=== PATIENT | female | born 1930 | race Caucasian/White ===

== ENCOUNTER 2017-03-05 19:40 | Emergency (ER) | payer OTHER ==
[~2017-03-05] VITALS: Ht 157.5 cm; Wt 64.8 kg
[~2017-03-05 19:40] MED LIST: ACET-1256 PO; ALBUAER2 INH; CITA20TA4 PO; CLR10 PO; DIGO0.122 PO; DOUNEB INH; FERR325T51 PO; LISI-729 PO; LSX/40 PO; METO100T44 PO; WARF4TAB8 PO; XNX25 PO
[2017-03-05 19:44] VITALS: TEMP 36.3; Ht 157.5 cm; Wt 64.8 kg
[2017-03-05] MEDS ORDERED: ARTIFICIAL TEARS OP SOLN OP STA (20:03)
[2017-03-05] MEDS ORDERED: METHYLPREDNISOLONE 125 MG VIAL IV STA (20:03)
[2017-03-05] MEDS ORDERED: MAGNESIUM SULFATE 1GM / D5W 1 GM BAG IV STA (20:03)
[2017-03-05] MEDS ORDERED: PROPARACAINE HCL 0.5% OP SOLN 15 ML BTL OP STA (20:03)
[2017-03-05] MEDS ORDERED: ALBUT/IPRATROP 3MG/0.5MG NEB 3 ML VIAL INH ONE (20:15)
[2017-03-05 20:19] VITALS: O2SAT 94
[2017-03-05] MEDS ORDERED: ALPR0.25 PO (20:19)
[2017-03-05] MEDS ORDERED: CITA20TA9 PO (20:19)
[2017-03-05] MEDS ORDERED: ACET-1256 PO (20:27)
[2017-03-05] MEDS ORDERED: LNX125 PO (20:27)
[2017-03-05] MEDS ORDERED: VNTHFA/IN INH (20:27)
[2017-03-05] MEDS ORDERED: MOME110A INH (20:27)
[2017-03-05] MEDS ORDERED: FRS/40 PO (20:27)
[2017-03-05] MEDS ORDERED: IPRASOL4 INH ×2 (20:27→23:20)
[2017-03-05] MEDS ORDERED: FLUT0.15 NAE (20:27)
[2017-03-05 20:38] LABS: BASO % 0.3 %; BASO ABS # 0.03 K/uL (0-0.2); EOS % 3.8 %; EOS ABS # 0.33 K/uL (0-0.5); HEMATOCRIT 34.7 % (37-47); HEMOGLOBIN 11.4 g/dL (12.0-16.0); IG# 0.03 K/uL (0.00-0.02); LYMPH % 16.7 %; LYMPH ABS # 1.47 K/uL (1.2-3.4); MEAN CELL VOLUME 95.1 fL (80-100); MEAN CORPUSCULAR HEMOGLOBIN 31.2 pg (25-34); MEAN CORPUSCULAR HGB CONC 32.9 g/dl (32-36); MEAN PLATELET VOLUME 9.3 fL (7.4-10.4); MONO % 7.3 %; MONO ABS # 0.64 K/uL (0.11-0.59); NEUT % 71.6 %; NEUT ABS # 6.29 K/uL (1.4-6.5); PLATELET COUNT 222 K/uL (130-400); RED CELL DISTRIBUTION WIDTH CV 14.1 % (11.5-14.5); RED CELL DISTRIBUTION WIDTH SD 49.2 fL (36.4-46.3); WHITE BLOOD COUNT 8.79 K/uL (4.8-10.8)
--- NOTE | 2017-03-05 20:39 | EMERGENCY ROOM VISIT NOTE ---
History Report prepared by Gay: Sandra Montes De Oca Under the Supervision of: Dr. Jesus Duarte M.D. First contact with patient: 19:49 Chief Complaint: ILLNESS Stated Complaint: DIZZY,LEFT EYE SWOLLEN SHUT, FLU SY History of Present Illness The patient is a 86 year old female who presents to the Emergency Room with complaints of Review of Systems See HPI for pertinent positives and negatives. A total of ten systems were reviewed and were otherwise negative. Past Medical & Surgical Medical Problems: (1) Anemia, chronic renal failure (2) Asthma (3) Chronic atrial fibrillation (4) CKD (chronic kidney disease) stage 3, GFR 30-59 ml/min (5) Depression (6) Diastolic CHF due to valvular disease (7) HTN (hypertension) Surgical Problems: (1) H/O cataract removal with insertion of prosthetic lens (2) History of appendectomy (3) History of cholecystectomy (4) History of total hysterectomy Family History Patient reports no known family medical history. Social History Smoking Status: Former Smoker Alcohol Use: none Drug Use: none Marital Status: in relationship Housing Status: lives with significant other Occupation Status: retired Current/Historical Medications Scheduled Azithromycin (Zithromax), 250 MG PO DAILY Citalopram Hydrobromide (Celexa), 20 MG PO DAILY Digoxin (Digoxin), 0.125 MG PO DAILY Fluticasone Propionate (Nasal) (Flonase Allergy Relief), 2 SPRAYS RAUL DAILY Furosemide (Lasix), 40 MG PO BID Lisinopril (Zestril), 5 MG PO QAM Metoprolol Succ (Toprol Xl) (Toprol-Xl ), 100 MG PO QAM Mometasone Furoate (Inhalation (Asmanex 30 Metered Doses), 2 PUFFS INH DAILY Prednisone (Prednisone), 3 TAB PO DAILY Warfarin Sod (Jantoven), 4 MG PO UD Scheduled PRN Acetaminophen (Tylenol), 500 MG PO Q6 PRN for Pain or Fever Albuterol Hfa (Ventolin Hfa), 2 PUFFS INH Q4 PRN for SOB/Wheezing Alprazolam (Xanax), 0.25 MG PO DAILY PRN for Anxiety Erythromycin Opth (Erythromycin Opth), 1 APPLN OPL TID PRN for tid Ipratropium-Albuterol (Duoneb), 1 TREATMENT INH Q4H PRN for COUGH,SOB, WHEEZING Ipratropium-Albuterol (Duoneb), 1 TREATMENT INH Q4H PRN for Wheezing Loratadine (Claritin), 10 MG PO QAM PRN for Seasonal Allergies Allergies Coded Allergies: Meperidine (Verified Allergy, Unknown, ., 08/06/15) Sulfa Antibiotics (Verified Allergy, Unknown, ., 08/06/15) Oxycodone (Verified Adverse Reaction, Severe, Hallucinating, 08/06/15) Physical Exam Vital Signs Date Time Temp Pulse Resp B/P (MAP) Pulse Ox O2 Delivery O2 Flow Rate FiO2 03/05/17 23:40 122 22 140/104 97 Room Air 03/05/17 21:36 94 20 136/88 100 Mask 03/05/17 20:50 98 19 92 Room Air 03/05/17 20:23 108 03/05/17 20:19 94 Room Air 03/05/17 19:44 36.3 104 18 139/72 94 Room Air Physical Exam GENERAL: Awake, alert, well-appearing, in no distress HENT: Normocephalic, atraumatic. Oropharynx unremarkable. Dry, cracked MM. EYES: Mild erythema around left eye with conjunctival injection and slight chemosis. NECK: Supple. No nuchal rigidity. FROM. No JVD. RESPIRATORY: Scattered rhonchi and wheezing. CARDIAC: Regular rate, normal rhythm. Extremities warm and well perfused. Pulses equal. ABDOMEN: Soft, non-distended. No tenderness to palpation. No rebound or guarding. No masses. RECTAL: Deferred. MUSCULOSKELETAL: Chest examination reveals no tenderness. The back is symmetrical on inspection without obvious abnormality. There is no CVA tenderness to palpation. No joint edema. LOWER EXTREMITIES: Calves are equal size bilaterally and non-tender. No edema. No discoloration. NEURO: Normal sensorium. No sensory or motor deficits noted. SKIN: No rash or jaundice noted. Medical Decision & Procedures ER Provider Diagnostic Interpretation: Radiology results as stated below per my review and radiologist interpretation: CHEST ONE VIEW PORTABLE FINDINGS: The heart remains enlarged. There is a small right pleural effusion and trace left pleural effusion. There is no focal pulmonary consolidation. There is no overt failure.[ IMPRESSION: 1. Cardiomegaly with a small right pleural effusion and trace left pleural effusion. No evidence of focal pulmonary consolidation Electronically signed by: Miquel Perez M.D. Laboratory Results 03/05/17 20:30 Red Blood Count 3.65, Mean Corpuscular Volume 95.1, Mean Corpuscular Hemoglobin 31.2, Mean Corpuscular Hemoglobin Concent 32.9, Mean Platelet Volume 9.3, Neutrophils (%) (Auto) 71.6, Lymphocytes (%) (Auto) 16.7, Monocytes (%) (Auto) 7.3, Eosinophils (%) (Auto) 3.8, Basophils (%) (Auto) 0.3, Neutrophils # (Auto) 6.29, Lymphocytes # (Auto) 1.47, Monocytes # (Auto) 0.64, Eosinophils # (Auto) 0.33, Basophils # (Auto) 0.03 03/05/17 20:30 Test 03/05/17 20:30 03/05/17 21:11 White Blood Count 8.79 K/uL (4.8-10.8) Red Blood Count 3.65 M/uL (4.2-5.4) Hemoglobin 11.4 g/dL (12.0-16.0) Hematocrit 34.7 % (37-47) Mean Corpuscular Volume 95.1 fL (80-100) Mean Corpuscular Hemoglobin 31.2 pg (25-34) Mean Corpuscular Hemoglobin Concent 32.9 g/dl (32-36) Platelet Count 222 K/uL (130-400) Mean Platelet Volume 9.3 fL (7.4-10.4) Neutrophils (%) (Auto) 71.6 % Lymphocytes (%) (Auto) 16.7 % Monocytes (%) (Auto) 7.3 % Eosinophils (%) (Auto) 3.8 % Basophils (%) (Auto) 0.3 % Neutrophils # (Auto) 6.29 K/uL (1.4-6.5) Lymphocytes # (Auto) 1.47 K/uL (1.2-3.4) Monocytes # (Auto) 0.64 K/uL (0.11-0.59) Eosinophils # (Auto) 0.33 K/uL (0-0.5) Basophils # (Auto) 0.03 K/uL (0-0.2) RDW Standard Deviation 49.2 fL (36.4-46.3) RDW Coefficient of Variation 14.1 % (11.5-14.5) Immature Granulocyte % (Auto) 0.3 % Immature Granulocyte # (Auto) 0.03 K/uL (0.00-0.02) Prothrombin Time 28.2 SECONDS (9.0-12.0) Prothromb Time International Ratio 2.7 (0.9-1.1) Anion Gap 5.0 mmol/L (3-11) Est Creatinine Clear Calc Drug Dose 45.1 ml/min Estimated GFR () 76.2 Estimated GFR (Non- 65.7 BUN/Creatinine Ratio 25.9 (10-20) Calcium Level 8.2 mg/dl (8.5-10.1) Total Bilirubin 0.4 mg/dl (0.2-1) Direct Bilirubin 0.1 mg/dl (0-0.2) Aspartate Amino Transf (AST/SGOT) 22 U/L (15-37) Alanine Aminotransferase (ALT/SGPT) 24 U/L (12-78) Alkaline Phosphatase 76 U/L (45-117) Troponin I 0.016 ng/ml (0-0.045) Pro-B-Type Natriuretic Peptide 2958 pg/ml (0-1800) Total Protein 6.8 gm/dl (6.4-8.2) Albumin 3.2 gm/dl (3.4-5.0) Lipase 136 U/L (73-393) Digoxin Level 0.9 ng/ml (0.8-2.0) Influenza Type A (RT-PCR) Neg for Influ A (NEG) Influenza Type A Antigen Neg for Influ A (NEG) Influenza Type B Antigen Neg for Influ B (NEG) Influenza Type B (RT-PCR) Neg for Influ B (NEG) Laboratory results reviewed by me Medications Administered Medications (Trade) Dose Ordered Sig/Elizabeth Route Start Time Stop Time Status Last Admin Dose Admin Albuterol/ Ipratropium (Duoneb) 12 ml ONE ONCE INH 03/05/17 20:15 03/05/17 20:16 DC 03/05/17 20:15 12 ML Methylprednisolone Sodium Succinate (Solu-Medrol IV) 125 mg NOW STAT IV 03/05/17 20:03 03/05/17 20:09 DC 03/05/17 20:34 125 MG Magnesium Sulfate (Magnesium Sulfate) 2 gm NOW STAT IV 03/05/17 20:03 03/05/17 20:09 DC 03/05/17 20:35 2 GM Artificial Tears (Artificial Tears) 2 drops NOW STAT OP 03/05/17 20:03 03/05/17 20:09 DC 03/05/17 20:35 2 DROPS Proparacaine HCl (Alcaine 0.5% Oph Soln) 1 drops NOW STAT OP 03/05/17 20:03 03/05/17 20:10 DC 03/05/17 20:35 1 DROPS Azithromycin (Zithromax Tab) 500 mg NOW ONCE PO 03/05/17 21:45 03/05/17 21:46 DC 03/05/17 22:04 500 MG Erythromycin (Erythromycin Oph Oint) 1 appln NOW STAT OP 03/05/17 23:15 03/05/17 23:16 DC 03/05/17 23:41 1 APPLN Procedure Slit lamp exam: snterior chamber is clear. There is mild scleral injection and chemosis. Normal for Florescene uptake without evidence of corneal abrasion or ulceration. ECG Indication: SOB/dyspnea Rate (beats per minute): 93 Rhythm: atrial fibrillation Findings: no acute ischemic change, other (normal axis) ED Course 1951: The patient was evaluated in room C9. A complete history and physical exam was performed. 2141: I updated the patient on her test results. Medical Decision I reviewed the patient's past medical history, medications, and the nursing notes as described above. Differential diagnoses: Pneumonia, bronchitis, ACS, CHF, Afib, influenza, viral syndrome, UTI, conjunctivitis. The patient is an 86-year-old woman with a past medical history of COPD/asthma, afib on coumadin, who presents to emergency department with cough congestion and shortness of breath for the past couple of weeks as well as left eye redness and irritation for the past couple of days per hpi. On arrival the patient is in no acute distress, afebrile stable vital signs. She was given steroids and continuous neb with good effect, poor and she feels like she is breathing much better. Given the patient's persistent symptoms with productive sputum will treat with a Azithromycin well. CXR negative for PNA. Slit lamp exam performed and anterior chamber is clear. There is mild scleral injection and chemosis. Normal for Florescene uptake without evidence of corneal abrasion or ulceration. Will treat with erythromycin ophthalmic ointment. She will follow-up with her green pipefitter, Dr. Benoit, well as her PCP early next week. Findings and plan for follow-up reviewed with patient. Patient agreeable and d/c'd per discharge instructions. Medication Reconcilliation Current Medication List: was personally reviewed by me Blood Pressure Screening Patient's blood pressure: Elevated blood pressure Blood pressure disposition: Elevated BP felt to be situational Impression Primary Impression: Acute bronchitis Additional Impression: Conjunctivitis Scribe Attestation The scribe's documentation has been prepared under my direction and personally reviewed by me in its entirety. I confirm that the note above accurately reflects all work, treatment, procedures, and medical decision making performed by me. Departure Information Dispostion Home / Self-Care Prescriptions Ipratropium-Albuterol (DUONEB) 3 Ml Nebu 1 TREATMENT INH Q4H Y for Wheezing, #30 INHA Prov: Jesus Duarte M.D. 03/05/17 Erythromycin Opth (ERYTHROMYCIN OPTH) 12 Appln/3.5 Gm Oint 1 APPLN OPL TID Y for tid, #1 TUBE Prov: Jesus Duarte M.D. 03/05/17 Azithromycin (Zithromax) 250 Mg Tab 250 MG PO DAILY, #4 TAB Prov: Jesus Duarte M.D. 03/05/17 Prednisone (Prednisone) 20 Mg Tab 3 TAB PO DAILY for 4 Days, #12 TAB FOR 4 DAYS Prov: Jesus Duarte M.D. 03/05/17 Referrals Ariana Pendleton M.D. (PCP) Forms HOME CARE DOCUMENTATION FORM, IMPORTANT VISIT INFORMATION, WORK / SCHOOL INSTRUCTIONS Patient Instructions Bronchitis Acute Dc, ED Conjunctivitis Nonspecific, My [facility] Additional Instructions Please follow up with your primary care physician in the next 1-3 days as well as with your green pipefitter, Dr. Estrada, for re-evaluation. You likely have a bronchitis and a conjunctivitis. Otherwise, your exam, EKG, chest xray, and lab results did not show signs of an emergent condition at this time. Azithromycin and prednisone as directed. Use your home inhalers 2 puffs every 4 hours for the next 48 hours and then as needed thereafter. Apply erythromycin ophthalmic ointment to your left eye as directed. Return to the emergency department for worsening symptoms as described in the accompanying instructions. Problem Qualifiers
--- NOTE | 2017-03-05 20:41 | DIAGNOSTIC IMAGING REPORT ---
CHEST ONE VIEW PORTABLE CLINICAL HISTORY: Atypical chest pain COMPARISON STUDY: 06/13/2015 FINDINGS: The heart remains enlarged. There is a small right pleural effusion and trace left pleural effusion. There is no focal pulmonary consolidation. There is no overt failure.[ IMPRESSION: 1. Cardiomegaly with a small right pleural effusion and trace left pleural effusion. No evidence of focal pulmonary consolidation Electronically signed by: Miquel Perez M.D. 03/05/2017 8:39 PM Dictated Date/Time: 03/05/2017 8:38 PM
[2017-03-05 20:50] VITALS: PULSE 98; O2SAT 92
[2017-03-05 20:51] LABS: INR 2.7 (0.9-1.1)
[2017-03-05 21:03] LABS: ALBUMIN 3.2 gm/dl (3.4-5.0); CALCIUM 8.2 mg/dl (8.5-10.1); CREATININE 0.82 mg/dl (0.60-1.20); POTASSIUM 3.9 mmol/L (3.5-5.1)
[2017-03-05 21:09] LABS: TOTAL PROTEIN 6.8 gm/dl (6.4-8.2)
[2017-03-05 21:35] LABS: INFLUENZA B ANTIGEN Neg for Influ B (NEG)
[2017-03-05] MEDS ORDERED: AZITHROMYCIN 250 MG TAB PO ONE (21:45)
[2017-03-05] MEDS ORDERED: PRED20TA PO (21:59)
[2017-03-05] MEDS ORDERED: AZIT250T PO (21:59)
[2017-03-05] MEDS ORDERED: ERYOPO OPL (22:00)
[2017-03-05 22:19] LABS: INFLUENZA A PCR Neg for Influ A (NEG); INFLUENZA B PCR Neg for Influ B (NEG)
[2017-03-05] MEDS ORDERED: ERYTHROMYCIN OP OINT 1 GM PKT OP STA (23:15)
[2017-03-05 23:40] VITALS: BP 140/104; PULSE 122; O2SAT 97
--- NOTE | 2017-03-07 13:53 | Pharmacy Progress Note ---
ED Pharmacist Culture FollowUp Date of Service: Mar 07, 2017. Patient urine culture growing E. coli >100,000 CFU/ml, resistant to bactrim, unasyn, and ampicillin. Patient denied urinary symptoms at time of visit. Case discussed with Dr. Smith- Follow up with patient, if symptoms Keflex 500 mg BID x 7 days, if no symptoms then no treatment necessary. Called patient and left message to call back ~ [phone].
--- NOTE | 2017-03-08 11:39 | Pharmacy Progress Note ---
ED Pharmacist Culture FollowUp Date of Service: Mar 08, 2017. Attempted to contact patient regarding urine cx results from 03/05/17. There was no answer at the # provided: [phone] however I did leave a message requesting a return call. Patient had not c/o urinary symptoms at he ER visit and was not diagnosed with a UTI. The urine cx is growing e coli however this could be a contaminant or asymptomatic bacteruria that does not require abx therapy. Per Dr Smith's instructions, if pt is having symptoms she is to be place on Keflex 500mg PO BID x 7 days,however if she is not having symptoms no abx therapy is warranted.
== END 2017-03-05 23:49 | disposition home or self-care (01) ==
LOC: C.EDB 19:41 → C.EDC 23:49
DX: J20.9 Acute bronchitis, unspecified (principal); H10.9 Unspecified conjunctivitis; I48.91 Unspecified atrial fibrillation; I12.9 Hypertensive chronic kidney disease with stage 1 through stage 4 chronic kidney disease, or unspecified chronic kidney disease; N18.3 Chronic kidney disease, stage 3 (moderate); I50.30 Unspecified diastolic (congestive) heart failure; F32.9 Major depressive disorder, single episode, unspecified; D63.1 Anemia in chronic kidney disease; Z90.710 Acquired absence of both cervix and uterus; Z90.49 Acquired absence of other specified parts of digestive tract; Z98.890 Other specified postprocedural states; Z87.891 Personal history of nicotine dependence; Z79.01 Long term (current) use of anticoagulants; Z79.899 Other long term (current) drug therapy; Z88.2 Allergy status to sulfonamides; Z88.5 Allergy status to narcotic agent; Z88.8 Allergy status to other drugs, medicaments and biological substances

== ENCOUNTER 2017-06-15 08:15 | Emergency (ER) | payer OTHER ==
[~2017-06-15] VITALS: Ht 157.5 cm; Wt 66.8 kg
[~2017-06-15 08:15] MED LIST changes: -ALBUAER2 INH; +ALPR0.25 PO; +AZIT250T PO; -CITA20TA4 PO; +CITA20TA9 PO; -DIGO0.122 PO; -DOUNEB INH; +ERYOPO OPL; -FERR325T51 PO; +FLUT0.15 NAE; +FRS/40 PO; +IPRASOL4 INH; +LNX125 PO; -LSX/40 PO; +MOME110A INH; +VNTHFA/IN INH; -XNX25 PO
[2017-06-15 08:20] VITALS: TEMP 36.8; Ht 157.5 cm; Wt 66.8 kg
[2017-06-15] MEDS ORDERED: CIPROFLOXACIN HCL 0.3% OP SOLN 2.5 ML BTL OPR STA (08:37)
[2017-06-15] MEDS ORDERED: ALBUT/IPRATROP 3MG/0.5MG NEB 3 ML VIAL INH STA (08:39)
[2017-06-15] MEDS ORDERED: CMD/25 PO (08:59)
[2017-06-15 09:01] LABS: BASO % 0.5 %; BASO ABS # 0.03 K/uL (0-0.2); EOS % 6.7 %; EOS ABS # 0.38 K/uL (0-0.5); HEMATOCRIT 34.9 % (37-47); HEMOGLOBIN 11.4 g/dL (12.0-16.0); IG# 0.01 K/uL (0.00-0.02); LYMPH % 14.4 %; LYMPH ABS # 0.82 K/uL (1.2-3.4); MEAN CELL VOLUME 92.6 fL (80-100); MEAN CORPUSCULAR HEMOGLOBIN 30.2 pg (25-34); MEAN CORPUSCULAR HGB CONC 32.7 g/dl (32-36); MONO % 8.9 %; MONO ABS # 0.51 K/uL (0.11-0.59); NEUT % 69.3 %; NEUT ABS # 3.96 K/uL (1.4-6.5); PLATELET COUNT 278 K/uL (130-400); RED CELL DISTRIBUTION WIDTH CV 14.8 % (11.5-14.5); RED CELL DISTRIBUTION WIDTH SD 50.7 fL (36.4-46.3); WHITE BLOOD COUNT 5.71 K/uL (4.8-10.8)
--- NOTE | 2017-06-15 09:03 | DIAGNOSTIC IMAGING REPORT ---
CHEST ONE VIEW PORTABLE CLINICAL HISTORY: cough dyspnea COMPARISON STUDY: 03/05/2017 FINDINGS: Moderate cardiomegaly. Moderate increase in pulmonary vasculature compared to the prior study. Trace bilateral pleural effusions. IMPRESSION: Mild congestive heart failure. Very small bilateral pleural effusions. The above report was generated using voice recognition software. It may contain grammatical, syntax or spelling errors. Electronically signed by: Jesus Gaxiola M.D. 06/15/2017 9:02 AM Dictated Date/Time: 06/15/2017 9:02 AM
[2017-06-15 09:10] LABS: INR 2.7 (0.9-1.1); PTT PATIENT 37.8 SECONDS (21.0-31.0)
[2017-06-15 09:17] LABS: ALBUMIN 3.1 gm/dl (3.4-5.0); CALCIUM 8.6 mg/dl (8.5-10.1); CREATININE 0.82 mg/dl (0.60-1.20); POTASSIUM 3.8 mmol/L (3.5-5.1)
[2017-06-15 09:20] LABS: TOTAL PROTEIN 6.3 gm/dl (6.4-8.2)
[2017-06-15] MEDS ORDERED: FUROSEMIDE 40 MG/4 ML VIAL IV STA (09:45)
[2017-06-15] MEDS ORDERED: AMOXICILLIN/CLAVULANATE TAB 875 MG TAB PO ONE (10:00)
[2017-06-15] MEDS ORDERED: ACETAMINOPHEN 325 MG TAB PO STA (10:12)
--- NOTE | 2017-06-15 10:42 | DIAGNOSTIC IMAGING REPORT ---
HEAD WITHOUT CONTRAST (CT) CT DOSE: 690.05 mGycm HISTORY: Headache. Mental status change. PACHECO, R subconj hem TECHNIQUE: Multiaxial CT images of the head were performed without the use of intravenous contrast. A dose lowering technique was utilized adhering to the principles of ALARA. Comparison: 06/12/2015 Findings: The paranasal sinuses and mastoid air cells are clear. The calvarium and skull base are intact. The ventricles and sulci are within normal limits. There is no mass, hematoma, midline shift, or acute infarct. Mild age-related atrophy and chronic small vessel change Impression: No acute intracranial abnormality. Age-related change The above report was generated using voice recognition software. It may contain grammatical, syntax or spelling errors. Electronically signed by: Jesus Gaxiola M.D. 06/15/2017 10:41 AM Dictated Date/Time: 06/15/2017 10:39 AM
[2017-06-15 11:31] VITALS: BP 139/88; PULSE 84; O2SAT 92
[2017-06-15] MEDS ORDERED: AMOX875T PO (11:56)
--- NOTE | 2017-06-15 12:07 | EMERGENCY ROOM VISIT NOTE ---
History Report prepared by Gay: Chu Love Under the Supervision of: Dr. Jami Smith M.D. First contact with patient: 08:27 Chief Complaint: EYE ASSESSMENT Stated Complaint: DRAINING FROM EYES,BRONCHITIS History of Present Illness The patient is a 86 year old female who presents to the Emergency Room with complaints of worsening right eye redness beginning last night. Her symptoms worsened significantly upon waking up this morning. The patient states that there is bruising around her eye, and she expressed a small amount of blood from her tear duct this morning. She states that she is seeing double unless she covers one of her eyes. Her vision is improved with sitting forward. The patient had cataract surgery 17 years ago. She had conjunctivitis four months ago and was supposed to follow up with ophthalmology afterwards but never did. She denies recent trauma or injury. The patient also complains of a cough (x2 weeks). She denies rubbing her eyes a lot last night. She is on Coumadin - most recent INR was two weeks ago and was too high. The patient denies black or bloody stool, or urinary symptoms. Source of History: patient Onset: Last night Position: eye (right) Quality: other (redness) Timing: worsening Associated Symptoms: + cough (x2 weeks), No melena, No hematochezia, No urinary symptoms Note: Positive: seeing double. Review of Systems See HPI for pertinent positives & negatives. A total of 10 systems reviewed and were otherwise negative. Past Medical & Surgical Medical Problems: (1) Anemia, chronic renal failure (2) Asthma (3) Chronic atrial fibrillation (4) CKD (chronic kidney disease) stage 3, GFR 30-59 ml/min (5) Depression (6) Diastolic CHF due to valvular disease (7) HTN (hypertension) Surgical Problems: (1) H/O cataract removal with insertion of prosthetic lens (2) History of appendectomy (3) History of cholecystectomy (4) History of total hysterectomy Family History Patient reports no known family medical history. Social History Smoking Status: Former Smoker Alcohol Use: none Drug Use: none Marital Status: Housing Status: lives with family Occupation Status: retired Current/Historical Medications Scheduled Amoxicillin & Pot Clavulanate (Augmentin 875-125 mg), 875 MG PO BID Citalopram Hydrobromide (Celexa), 20 MG PO DAILY Digoxin (Digoxin), 0.125 MG PO DAILY Furosemide (Lasix), 40 MG PO BID Lisinopril (Zestril), 5 MG PO QAM Metoprolol Succ (Toprol Xl) (Toprol-Xl ), 100 MG PO QAM Mometasone Furoate (Inhalation (Asmanex 30 Metered Doses), 2 PUFFS INH DAILY Warfarin Sod (Coumadin), 2.5 MG PO DIRECTED Scheduled PRN Acetaminophen (Tylenol), 500 MG PO Q6 PRN for Pain or Fever Albuterol Hfa (Ventolin Hfa), 2 PUFFS INH Q4 PRN for SOB/Wheezing Alprazolam (Xanax), 0.25 MG PO DAILY PRN for Anxiety Ipratropium-Albuterol (Duoneb), 1 TREATMENT INH Q4H PRN for COUGH,SOB, WHEEZING Loratadine (Claritin), 10 MG PO QAM PRN for Seasonal Allergies Allergies Coded Allergies: Meperidine (Verified Allergy, Unknown, ., 08/06/15) Sulfa Antibiotics (Verified Allergy, Unknown, ., 08/06/15) Oxycodone (Verified Adverse Reaction, Severe, Hallucinating, 08/06/15) Physical Exam Vital Signs Date Time Temp Pulse Resp B/P (MAP) Pulse Ox O2 Delivery O2 Flow Rate FiO2 06/15/17 11:31 84 18 139/88 92 Room Air 06/15/17 10:05 136/76 06/15/17 08:20 36.8 133 20 132/78 93 Room Air Physical Exam Vital signs reviewed. General: Well-appearing, elderly female, in no significant distress. HEENT: Neck is supple. Nasal congestion noted. PERRLA.. Marked subconjunctival hemorrhage with some periorbital ecchymosis on the right. No corneal abrasion by fluorecin exam. Full ROM of eye without difficulty. Cardiovascular: Regular rate and rhythm, no extra sounds. Pulmonary: Faint scattered wheezes. Abdomen: Soft, nontender, nondistended, positive bowel sounds. Musculoskeletal: Atraumatic, no peripheral edema. Neurologic: Patient awake alert and oriented x 3, full strength in all 4 extremities. Cranial nerves 2 through 12 grossly intact. Skin: Warm, dry, no rash Medical Decision & Procedures ER Provider Diagnostic Interpretation: Radiology results as stated below per my review and radiologist interpretation: CHEST ONE VIEW PORTABLE FINDINGS: Moderate cardiomegaly. Moderate increase in pulmonary vasculature compared to the prior study. Trace bilateral pleural effusions. IMPRESSION: Mild congestive heart failure. Very small bilateral pleural effusions. The above report was generated using voice recognition software. It may contain grammatical, syntax or spelling errors. Electronically signed by: Jesus Gaxiola M.D. 06/15/2017 9:02 AM HEAD WITHOUT CONTRAST (CT) Findings: The paranasal sinuses and mastoid air cells are clear. The calvarium and skull base are intact. The ventricles and sulci are within normal limits. There is no mass, hematoma, midline shift, or acute infarct. Mild age-related atrophy and chronic small vessel change Impression: No acute intracranial abnormality. Age-related change The above report was generated using voice recognition software. It may contain grammatical, syntax or spelling errors. Electronically signed by: Jesus Gaxiola M.D. 06/15/2017 10:41 AM Laboratory Results 06/15/17 08:50 Red Blood Count 3.77, Mean Corpuscular Volume 92.6, Mean Corpuscular Hemoglobin 30.2, Mean Corpuscular Hemoglobin Concent 32.7, Mean Platelet Volume 9.0, Neutrophils (%) (Auto) 69.3, Lymphocytes (%) (Auto) 14.4, Monocytes (%) (Auto) 8.9, Eosinophils (%) (Auto) 6.7, Basophils (%) (Auto) 0.5, Neutrophils # (Auto) 3.96, Lymphocytes # (Auto) 0.82, Monocytes # (Auto) 0.51, Eosinophils # (Auto) 0.38, Basophils # (Auto) 0.03 06/15/17 08:50 Test 06/15/17 08:50 White Blood Count 5.71 K/uL (4.8-10.8) Red Blood Count 3.77 M/uL (4.2-5.4) Hemoglobin 11.4 g/dL (12.0-16.0) Hematocrit 34.9 % (37-47) Mean Corpuscular Volume 92.6 fL (80-100) Mean Corpuscular Hemoglobin 30.2 pg (25-34) Mean Corpuscular Hemoglobin Concent 32.7 g/dl (32-36) Platelet Count 278 K/uL (130-400) Mean Platelet Volume 9.0 fL (7.4-10.4) Neutrophils (%) (Auto) 69.3 % Lymphocytes (%) (Auto) 14.4 % Monocytes (%) (Auto) 8.9 % Eosinophils (%) (Auto) 6.7 % Basophils (%) (Auto) 0.5 % Neutrophils # (Auto) 3.96 K/uL (1.4-6.5) Lymphocytes # (Auto) 0.82 K/uL (1.2-3.4) Monocytes # (Auto) 0.51 K/uL (0.11-0.59) Eosinophils # (Auto) 0.38 K/uL (0-0.5) Basophils # (Auto) 0.03 K/uL (0-0.2) RDW Standard Deviation 50.7 fL (36.4-46.3) RDW Coefficient of Variation 14.8 % (11.5-14.5) Immature Granulocyte % (Auto) 0.2 % Immature Granulocyte # (Auto) 0.01 K/uL (0.00-0.02) Prothrombin Time 27.9 SECONDS (9.0-12.0) Prothromb Time International Ratio 2.7 (0.9-1.1) Activated Partial Thromboplast Time 37.8 SECONDS (21.0-31.0) Partial Thromboplastin Ratio 1.5 Anion Gap 5.0 mmol/L (3-11) Est Creatinine Clear Calc Drug Dose 45.8 ml/min Estimated GFR () 76.2 Estimated GFR (Non- 65.7 BUN/Creatinine Ratio 22.9 (10-20) Calcium Level 8.6 mg/dl (8.5-10.1) Total Bilirubin 0.4 mg/dl (0.2-1) Direct Bilirubin 0.1 mg/dl (0-0.2) Aspartate Amino Transf (AST/SGOT) 25 U/L (15-37) Alanine Aminotransferase (ALT/SGPT) 24 U/L (12-78) Alkaline Phosphatase 64 U/L (45-117) Total Protein 6.3 gm/dl (6.4-8.2) Albumin 3.1 gm/dl (3.4-5.0) Laboratory results per my review. Medications Administered Medications (Trade) Dose Ordered Sig/Elizabeth Route Start Time Stop Time Status Last Admin Dose Admin Ciprofloxacin HCl (Ciprofloxacin 0.3% Op Soln) 2 drops NOW STAT OPR 06/15/17 08:37 06/15/17 08:39 DC 06/15/17 08:51 2 DROPS Albuterol/ Ipratropium (Duoneb) 3 ml NOW STAT INH 06/15/17 08:39 06/15/17 08:40 DC 06/15/17 08:51 3 ML Furosemide (Lasix Inj) 40 mg NOW STAT IV 06/15/17 09:45 06/15/17 09:46 DC 06/15/17 10:29 40 MG Amoxicillin/ Clavulanate Potassium (Augmentin Tab) 875 mg ONE ONCE PO 06/15/17 10:00 06/15/17 10:01 DC 06/15/17 10:30 875 MG Acetaminophen (Tylenol Tab) 650 mg NOW STAT PO 06/15/17 10:12 06/15/17 10:14 DC 06/15/17 10:31 650 MG ED Course 0835: Past medical records reviewed. The patient was evaluated in room B4B. A complete history and physical examination was performed. 0837: Ordered Ciprofloxacin 0.3% Op Soln 2 drops OPR. 0839: Ordered DuoNeb 3 mL INH. 0945: Ordered Lasix Inj 40 mg IV. 1000: Ordered Augmentin Tab 875 mg PO. 1012: The patient would like something for pain. Ordered Tylenol Tab 650 mg PO. 1155: Upon reevaluation, the patient appeared to have improvement of her symptoms. I discussed findings with her. She verbalized agreement of the treatment plan. The patient was discharged home. Medical Decision The patient is a 86 year old female who presents to the ED with complaints of right eye redness. Differentials include subconjunctival hemorrhage, intracranial process, corneal abrasion, conjunctivitis, and infection. This patient was evaluated and appeared to be in no significant distress. The patient has a significant subconjunctival hemorrhage of the right eye. This is likely secondary to her repetitive coughing which she states is sometimes very forceful. Patient's INR is 2.7. Chest x-ray is negative for focal infiltrate however there is some pulmonary vascular congestion. Patient was given 40 mg of IV Lasix, she does take 40 mg p.o. twice daily at home. Patient was initially given Cipro otic drops however the fluorescein exam was negative for corneal trauma. Patient will be placed on Augmentin 875 twice daily for bronchitis. She was given instruction to minimize any pressure to the eye. She will hold her Coumadin for 24 hours and was strongly advised to follow-up with ophthalmology within the next several days. She was see her PCP and have her INR repeated within the next week. Patient will return to the ER for worsening of symptoms or any medical concerns. Medication Reconcilliation Current Medication List: was personally reviewed by me Blood Pressure Screening Patient's blood pressure: Elevated blood pressure Blood pressure disposition: Elevated BP felt to be situational Impression Primary Impression: Subconjunctival hemorrhage of right eye Additional Impressions: Bronchitis CHF (congestive heart failure) Scribe Attestation The scribe's documentation has been prepared under my direction and personally reviewed by me in its entirety. I confirm that the note above accurately reflects all work, treatment, procedures, and medical decision making performed by me. Departure Information Dispostion Home / Self-Care Prescriptions Amoxicillin & Pot Clavulanate (Augmentin 875-125 mg) 1 Tab Tab 875 MG PO BID for 7 Days, #14 TAB Prov: Jami Smith M.D. 06/15/17 Referrals Ariana Pendleton M.D. (PCP) Forms HOME CARE DOCUMENTATION FORM, IMPORTANT VISIT INFORMATION, WORK / SCHOOL INSTRUCTIONS Patient Instructions Bronchitis Acute, Congestive Heart Failure -[facility], [facility], Subconjunctival Hemorrhage Additional Instructions Diagnosis: Right subconjunctival hemorrhage, bronchitis, CHF Continue your Lasix as prescribed. Skip your Coumadin tonight. Physician for further recommendation regarding your Coumadin therapy. Follow-up with Dr. Benoit of ophthalmology as he had been previously referred. Please see his contact information below. Augmentin 875 mg twice daily for 7 days. Continue your nebulizers as prescribed. Follow-up with your doctor this week for reevaluation. Problem Qualifiers
== END 2017-06-15 12:00 | disposition home or self-care (01) ==
LOC: C.EDB 08:17
DX: H57.8 Other specified disorders of eye and adnexa (principal); J40 Bronchitis, not specified as acute or chronic; I50.30 Unspecified diastolic (congestive) heart failure; J45.909 Unspecified asthma, uncomplicated; I48.91 Unspecified atrial fibrillation; N18.3 Chronic kidney disease, stage 3 (moderate); I10 Essential (primary) hypertension; Z87.891 Personal history of nicotine dependence; Z88.2 Allergy status to sulfonamides; Z88.5 Allergy status to narcotic agent; Z88.8 Allergy status to other drugs, medicaments and biological substances

== ENCOUNTER 2018-03-14 01:09 | Inpatient (IN) | END 2018-03-16 16:37 | disposition home health service (06) | LOC: ED 01:09 → SUATTDRO 04:47 → 2S 04:47 ==

== ENCOUNTER 2018-04-08 01:38 | Inpatient (IN) ==
[2018-04-08 02:00] LABS: Basophils # (auto) 0.01 K/uL (0-0.2); Basophils % (auto) 0.2 %; Eosinophils # (auto) 0.16 K/uL (0-0.5); Hematocrit (blood only) 31.5 % (37-47); Hemoglobin 10.1 g/dL (12.0-16.0); Immature Granulocytes # (auto) 0.01 K/uL (0.00-0.02); Immature Granulocytes % (auto) 0.2 %; Lymphocytes # (auto) 0.94 K/uL (1.2-3.4); Lymphocytes % (auto) 17.7 %; Mean Corpuscular Hgb Conc 32.1 g/dL (32-36); Mean Corpuscular Volume 94.9 fL (80-100); Monocytes # (auto) 0.49 K/uL (0.11-0.59); Monocytes % (auto) 9.2 %; Neutrophils # (auto) 3.71 K/uL (1.4-6.5); Neutrophils % (auto) 69.7 %; Platelet Count 219 K/uL (130-400); RDW Coefficient of Variation 15.4 % (11.5-14.5); RDW Standard Deviation 53.8 fL (36.4-46.3); Red Blood Count 3.32 M/uL (4.2-5.4); White Blood Count 5.32 K/uL (4.8-10.8)
[2018-04-08 02:17] LABS: INR 1.5 (0.9-1.1); Prothrombin Time 14.5 Seconds (9.0-12.0)
[2018-04-08 02:20] LABS: BUN Creatinine Ratio 32.6 (10-20); Calcium 7.9 mg/dl (8.5-10.1); Creatinine Clr Calc Pharmacy 49.3 ml/min; Est GFR (African American) 93.4; Est GFR (Non-African American) 80.6; Potassium 3.9 mmol/L (3.5-5.1)
[2018-04-08 02:25] LABS: Troponin I 0.034 ng/ml (0-0.045)
[2018-04-08] MEDS ORDERED: FUROSEMIDE 40 MG/4 ML VIAL IV STA ×2 (02:52→09:05)
--- NOTE | 2018-04-08 07:38 | Emergency Department Note ---
Entered by Ernst Pitts acting as a scribe for Fuentes Golden MD ED Provider Note Name: Naty Solomon Age: 87 Arrives Via: EMS Informant: Patient CC: SOB HPI: HPI is limited secondary to the patient being hard of hearing. The patient is an 87 year old female who presents to the ED via EMS due to intermittent SOB that began earlier tonight. Nurse states the patient was given a Duoneb en route to the ER and the patient states her symptoms have improved since coming to the ER. Patient adds that her legs are more swollen than usual and that she also has neck pain which states is chronic for her. Patients past medical history includes atrial fibrillation and CHF. Patient lives at home. She denies headaches, abdominal pain, trouble urinating, and knee pain. ROS: ROS is limited secondary to the patient being hard of hearing. Past Medical History: Atrial fibrillation and CHF Past Surgical History: None Family History: None Social History: Lives at home Home Medications: None Allergies Sulfa Physical: Vitals: BP = 146/65 P = 99 Resp = 24 Temp = 97.9 O2 Sat = 93 Delivery = Room Air Exam: GENERAL: Patient is chronically unwell appearing and in no acute distress. EYES: No scleral icterus, unremarkable pupils. ENT: Mucous membranes moist, no nasal congestion. NECK: No masses appreciated, no meningismus, trachea is midline. RESPIRATORY: Crackles bilateral lungs, decreased breath sounds at bilateral bases otherwise clear to auscultation and equal bilaterally. No wheeze, no rhonchi. CARDIOVASCULAR: Regular rate and rhythm. No murmurs, rubs, gallops appreciated. GASTROINTESTINAL: Abdomen soft, non-tender, no peritonitis. Bowel sounds positive. No masses appreciated. BACK: No midline tenderness, no CVA tenderness EXTREMITIES: 3+ edema of legs bilaterally otherwise normal motion all extremities, no cyanosis. NEUROLOGIC: Alert and oriented, no acute motor or sensory deficits, no focal weakness, cranial nerves grossly intact. SKIN: No rash, no jaundice, no diaphoresis. ED Course: Prior Medical Record, Triage/Nursing Notes, Medications, Allergies reviewed by Me Vital Signs: reviewed and remarkable for mild tachypnea Labs: Reviewed and remarkable for elevated BNP, normal trop/cbc/bmp Interventions: Saline Lock, Lasix 40mg IV Imaging: X ray results are stated below per my interpretation: Chest: 1 view: Moderate increase bilateral pleural effusions with congestive failure noted. No overt lobar infiltrates EKG: per my interpretation: A fib at 63 bpm without ischemia. Similar to previous. QTC 374. Consults: Dr Escalante [id number] who will evaluate further. Times: 0148: Past medical records reviewed. The patient was evaluated in room A4B, and a complete history and physical examination were performed. 0410: Upon reevaluation, the patient appeared to have improvement of her symptoms with her O2 Sat at 94% on RA. I discussed tonight's findings with her. Patient is attempting to get a ride home. Patient verbalized agreement of the treatment plan. 0714: Patient attempted to go to the bathroom and became SOB. Patient's O2 sat was 82%. She was put on 2L nasal cannula and now feeling much better. Blood pressure: Normal. No Referral necessary Disposition: Hospitalist evaluation Differentials: Infectious, Reactive Airway Disease, Pneumonia, Pneumothorax, COPD, CHF, ACS, Pulmonary Embolism, MSK, GI, Dissection, amongst other pathologies. Medical Decision Making: Pleasant 87 yr old female with mild tachpnea found to have mild worsening of CHF by exam and work-up. She is comfortable while in bed and thus tried 40mg IV lasix. She was attempting to ambulate a few hours later and was just too short of breath and becoming hypoxic with ambulation. She lives at home and I do not feel would be good candidate for discharge at this time. I do not feel this is PE, dissection nor ACS. She has mild low INR which is likely due to time of day and not having her coumadin. Will hold off on anticoagulation further as she may need effusions drained. Hospitalist consulted for further management. Impression: Acute Exacerbation of CHF Pleural Effusion Breath Shortness Afib Fuentes Golden MD The scribe's documentation has been prepared under my direction and personally reviewed by me in its entirety. I confirm that the note above accurately reflects all work, treatment, procedures, and medical decision making performed by me. Impression & Plan Acute exacerbation of CHF (congestive heart failure), Pleural effusion, Breath shortness, A-fib Past Med/Surg History Social History marital status: Life Partner Current Living Situation: Significant Other Current Living Situation Comment: home with boyfriend current occupational status: retired Feels Safe at Home: Yes Smoking Status: Former smoker Second Hand Exposure: No Hx Alcohol Use: No Hx Substance Use: No Beliefs That Will Affect Care: None Preferred Language: Belarusian Results & Data Vital Signs Vital Signs - 24 hr 04/08/18 01:40 04/08/18 01:45 04/08/18 02:00 Temperature 36.6 C Temperature Source Oral Sepsis Recent Fever Within 48 Hours No Sepsis New/Unexplained Change in Mental Status No Sepsis Action Taken by Nursing No Action Required Pulse Rate 69 69 64 Pulse Rate [Apical] Pulse Rate [Exercises] Pulse Rate [Recovery] Pulse Rhythm Irregular Pulse Rhythm [Apical] Pulse Strength [Apical] Respiratory Rate 18 27 H 29 H Respiratory Rate [Exercises] Respiratory Rate [Recovery] Respiratory Effort / Characteristics Non-Labored Spontaneous Respiratory Depth Normal Respiratory Pattern Regular Blood Pressure 116/62 116/62 116/61 Blood Pressure [Right Arm] Blood Pressure Mean 80 80 79 Blood Pressure Mean [Right Arm] Blood Pressure Position [Right Arm] Pulse Oximetry 93 94 93 Pulse Oximetry [Exercises] Pulse Oximetry [Recovery] Oxygen Delivery Method Room Air Room Air Room Air 04/08/18 02:30 04/08/18 03:00 04/08/18 03:12 Temperature Temperature Source Sepsis Recent Fever Within 48 Hours Sepsis New/Unexplained Change in Mental Status Sepsis Action Taken by Nursing Pulse Rate 73 74 Pulse Rate [Apical] Pulse Rate [Exercises] 99 H Pulse Rate [Recovery] 92 H Pulse Rhythm Pulse Rhythm [Apical] Pulse Strength [Apical] Respiratory Rate 30 H 30 H Respiratory Rate [Exercises] 24 Respiratory Rate [Recovery] 22 Respiratory Effort / Characteristics Respiratory Depth Respiratory Pattern Blood Pressure 127/63 146/65 H Blood Pressure [Right Arm] Blood Pressure Mean 84 92 Blood Pressure Mean [Right Arm] Blood Pressure Position [Right Arm] Pulse Oximetry 93 93 Pulse Oximetry [Exercises] 88 L Pulse Oximetry [Recovery] 93 Oxygen Delivery Method Room Air 04/08/18 03:30 04/08/18 03:50 04/08/18 04:00 Temperature Temperature Source Sepsis Recent Fever Within 48 Hours Sepsis New/Unexplained Change in Mental Status Sepsis Action Taken by Nursing Pulse Rate 84 77 Pulse Rate [Apical] 73 Pulse Rate [Exercises] Pulse Rate [Recovery] Pulse Rhythm Pulse Rhythm [Apical] Regular Pulse Strength [Apical] Normal Respiratory Rate 29 H 17 26 H Respiratory Rate [Exercises] Respiratory Rate [Recovery] Respiratory Effort / Characteristics Non-Labored Spontaneous Respiratory Depth Normal Respiratory Pattern Blood Pressure 130/78 124/75 Blood Pressure [Right Arm] 148/77 H Blood Pressure Mean 95 91 Blood Pressure Mean [Right Arm] 100 Blood Pressure Position [Right Arm] Lying Pulse Oximetry 94 93 93 Pulse Oximetry [Exercises] Pulse Oximetry [Recovery] Oxygen Delivery Method Room Air 04/08/18 04:30 04/08/18 05:00 04/08/18 05:30 Temperature Temperature Source Sepsis Recent Fever Within 48 Hours Sepsis New/Unexplained Change in Mental Status Sepsis Action Taken by Nursing Pulse Rate 78 88 87 Pulse Rate [Apical] Pulse Rate [Exercises] Pulse Rate [Recovery] Pulse Rhythm Pulse Rhythm [Apical] Pulse Strength [Apical] Respiratory Rate 28 H 30 H 26 H Respiratory Rate [Exercises] Respiratory Rate [Recovery] Respiratory Effort / Characteristics Respiratory Depth Respiratory Pattern Blood Pressure 132/67 134/61 137/91 Blood Pressure [Right Arm] Blood Pressure Mean 88 85 106 Blood Pressure Mean [Right Arm] Blood Pressure Position [Right Arm] Pulse Oximetry 93 95 91 Pulse Oximetry [Exercises] Pulse Oximetry [Recovery] Oxygen Delivery Method 04/08/18 06:00 Temperature Temperature Source Sepsis Recent Fever Within 48 Hours Sepsis New/Unexplained Change in Mental Status Sepsis Action Taken by Nursing Pulse Rate 93 H Pulse Rate [Apical] Pulse Rate [Exercises] Pulse Rate [Recovery] Pulse Rhythm Pulse Rhythm [Apical] Pulse Strength [Apical] Respiratory Rate 27 H Respiratory Rate [Exercises] Respiratory Rate [Recovery] Respiratory Effort / Characteristics Respiratory Depth Respiratory Pattern Blood Pressure 143/71 H Blood Pressure [Right Arm] Blood Pressure Mean 95 Blood Pressure Mean [Right Arm] Blood Pressure Position [Right Arm] Pulse Oximetry 92 Pulse Oximetry [Exercises] Pulse Oximetry [Recovery] Oxygen Delivery Method Laboratory Data Result diagrams: 04/08/18 01:52 04/08/18 01:52 Lab Results 04/08/18 04/08/18 04/08/18 Range/Units 01:52 01:52 01:52 WBC 5.32 (4.8-10.8) K/uL RBC 3.32 L (4.2-5.4) M/uL Hgb 10.1 L (12.0-16.0) g/dL Hct 31.5 L (37-47) % MCV 94.9 (80-100) fL MCH 30.4 (25-34) pg MCHC 32.1 (32-36) g/dL RDW Std Deviation 53.8 H (36.4-46.3) fL RDW Coeff of Zain 15.4 H (11.5-14.5) % Plt Count 219 (130-400) K/uL MPV 9.0 (7.4-10.4) fL Immature Gran % (Auto) 0.2 % Neut % (Auto) 69.7 % Lymph % (Auto) 17.7 % Teton % (Auto) 9.2 % Eos % (Auto) 3.0 % Baso % (Auto) 0.2 % Immature Gran # (Auto) 0.01 (0.00-0.02) K/uL Neut # (Auto) 3.71 (1.4-6.5) K/uL Lymph # (Auto) 0.94 L (1.2-3.4) K/uL Teton # (Auto) 0.49 (0.11-0.59) K/uL Eos # (Auto) 0.16 (0-0.5) K/uL Baso # (Auto) 0.01 (0-0.2) K/uL PT 14.5 H (9.0-12.0) Seconds INR 1.5 H (0.9-1.1) Sodium 141 (136-145) mmol/L Potassium 3.9 (3.5-5.1) mmol/L Chloride 106 (98-107) mmol/L Carbon Dioxide 34 H (21-32) mmol/L Anion Gap 1.0 L (3-11) BUN 21 H (7-18) mg/dl Creatinine 0.66 (0.6-1.2) mg/dl Est Cr Clr Drug Dosing 49.3 ml/min Est GFR ( Amer) 93.4 Est GFR (Non-Af Amer) 80.6 BUN/Creatinine Ratio 32.6 H (10-20) Glucose 89 (70-99) mg/dl Calcium 7.9 L (8.5-10.1) mg/dl Troponin I 0.034 (0-0.045) ng/ml NT-Pro-B Natriuret Pep 3299 H (0-1800) pg/ml Digoxin (0.8-2.0) ng/ml 04/08/18 Range/Units 01:52 WBC (4.8-10.8) K/uL RBC (4.2-5.4) M/uL Hgb (12.0-16.0) g/dL Hct (37-47) % MCV (80-100) fL MCH (25-34) pg MCHC (32-36) g/dL RDW Std Deviation (36.4-46.3) fL RDW Coeff of Zain (11.5-14.5) % Plt Count (130-400) K/uL MPV (7.4-10.4) fL Immature Gran % (Auto) % Neut % (Auto) % Lymph % (Auto) % Teton % (Auto) % Eos % (Auto) % Baso % (Auto) % Immature Gran # (Auto) (0.00-0.02) K/uL Neut # (Auto) (1.4-6.5) K/uL Lymph # (Auto) (1.2-3.4) K/uL Teton # (Auto) (0.11-0.59) K/uL Eos # (Auto) (0-0.5) K/uL Baso # (Auto) (0-0.2) K/uL PT (9.0-12.0) Seconds INR (0.9-1.1) Sodium (136-145) mmol/L Potassium (3.5-5.1) mmol/L Chloride (98-107) mmol/L Carbon Dioxide (21-32) mmol/L Anion Gap (3-11) BUN (7-18) mg/dl Creatinine (0.6-1.2) mg/dl Est Cr Clr Drug Dosing ml/min Est GFR ( Amer) Est GFR (Non-Af Amer) BUN/Creatinine Ratio (10-20) Glucose (70-99) mg/dl Calcium (8.5-10.1) mg/dl Troponin I (0-0.045) ng/ml NT-Pro-B Natriuret Pep (0-1800) pg/ml Digoxin 0.8 (0.8-2.0) ng/ml Administered Medications Discontinued Medications Furosemide (Lasix) 40 mg IV NOW STA Stop: 04/08/18 02:53 Last Admin: 04/08/18 02:57 Dose: 40 mg Discharge Plan Visit Data Chief Complaint: Respiratory Problems ED Provider: Fuentes Golden Discharge Problem: Acute exacerbation of CHF (congestive heart failure), Pleural effusion, Breath shortness, A-fib Patient Disposition: Home - Self-Care Condition: Fair Discharge Instructions [place]/Other Patient Handouts: ED CHF General Activity Restrictions/Additional Instructions: Call your Sales Project Administrator on Tuesday for follow up evaluation. Return or call 911 if worsening symptoms or other concerns. Continue to take your medications as prescribed. Forms Stand Alone Forms: My [facility], Important Visit Information Prescriptions Prescriptions: No Action ipratropium-albuterol 0.5 mg-3 mg(2.5 mg base)/3 mL Solution For Nebulization 3 ml INHALATION Q4 PRN (Reason: COUGH, SOB OR WHEEZING) RF: 0 montelukast [Singulair] 10 mg Tablet 10 mg PO DAILY RF: 0 digoxin [Digox] 125 mcg Tablet 0.125 mg PO DAILY RF: 0 albuterol sulfate [Ventolin HFA] 90 mcg/actuation Hfa Aerosol Inhaler 2 puff INHALATION Q4 PRN (Reason: Shortness Of Breath Or Wheezing) RF: 0 loratadine [Claritin] 10 mg Tablet 10 mg PO DAILY PRN (Reason: RHINITIS) RF: 0 budesonide-formoterol [Symbicort] 80-4.5 mcg/actuation Hfa Aerosol Inhaler 2 puff INHALATION BID RF: 0 aspirin 81 mg Tablet,Delayed Release (Dr/Ec) 81 mg PO DAILY RF: 0 alprazolam 0.25 mg tablet 0.25 mg PO DAILY PRN (Reason: Anxiety) RF: 0 acetaminophen [Tylenol Extra Strength] 500 mg Tablet 500 mg PO Q6 PRN (Reason: Unknown) RF: 0 metoprolol tartrate 50 mg tablet 75 mg PO Q8 RF: 0 fluticasone 50 mcg/actuation spray,suspension 2 spray Intranasal DAILY RF: 0 simethicone 80 mg Tablet,Chewable 80 mg PO QID PRN (Reason: gas) RF: 0 escitalopram oxalate 10 mg tablet 10 mg PO DAILY RF: 0 warfarin [Coumadin] 3 mg Tablet 3 mg PO DAILY@1600 30 Days Qty: 30 RF: 0 lisinopril [Zestril] 5 mg Tablet 5 mg PO QAM 30 Days Qty: 30 RF: 0 furosemide 40 mg tablet 40 mg PO BID 30 Days Qty: 60 RF: 0 Referrals Referrals: Ariana Pendleton MD [Primary Care Provider] - The scribe's documentation has been prepared under my direction and personally reviewed by me in its entirety. I confirm that the note above accurately reflects all work, treatment, procedures, and medical decision making performed by me.
--- NOTE | 2018-04-08 07:48 | History & Physical Report ---
Date of Service April 08, 2018 History of Present Illness Chief Complaint: SOB Primary Care Provider: Ariana Pendleton 87 yo female c PMH of CHF, Pleural Effusions, AFIB, Diastolic CHF, COPD, AVR, Syncope, CAD c Cath, Dysphagia, Pneumonia, SIRS, Aortic Stenosis, CDK 3, Depression, Aortic Stenosis, Asthma, ACD, and recently here for L Groin Hematoma present c SOB. She was given IV Lasix in the ER after being diagnosed c a CHF exac and recurrent Pleural effusions. Patient notes her legs are more swollen than usual. When she was ambulated her sats dropped into the low 80s. She lives alone so will be placed under observation and get diuresed. Assessment and Plan 1. Acute Exac of Chronic Diastolic CHF-IV Lasix, Cardiac eval, Echo, Dr Terrazas saw her recently 2. Pleural Effusion-Diurese and repeat CXR in 1-2 days 3. s/p AVR for 4. COPD 5. Depression 6. AFIB-On Warfarin, INR 1.5 7. Hypoxia- lasix 8. HTN 9. CKD 3 Continue Outpatient meds where appropriate ROS-No Headache, No Visual Changes, No Fever, No Chills, No Neck Pain or Stiffness, No Chest Pain, No Palpitations, +SOB, +AVALOS, +Cough, No Sputum, No Wheezing, No Abdominal Pain, No Diarrhea, No Hematemesis, No Hemoptysis, No Unexpected Weight Loss, No Flank pain, No Melena , No Hematochezia, No Frequency, No Urgency, No Burning, No Hematuria, No Rashes , No Diaphoresis. Appetite is Normal Physical Exam Gen-AAO x 3, NAD, Afebrile, Pleasant, Weak Head-NCAT, EOMI, PERRLA, Anicteric Sclera, No Posterior Pharyngeal Erythema Neck-Supple, No JVD, No Thyromegaly, No Masses, No LAD, No Bruits Lungs-B/L Rales at the bases, No Rhonchi, No Wheezing, No Crepitus Chest-No S4, +S1, +S2, No S3, No Murmurs, No Rubs, No Gallops, No Ectopy Abdomen-Soft, Bowel Sounds Present, Non Tender, Non Distended, No Hepatomegaly, No Splenomegaly, No Palpable Masses, No Rebound, No Rigidity, No Guarding Musculoskeletal-Full Range of Motion Bilaterally, No CVAT Extremities-No Cyanosis, No Clubbing, 3+ Pitting Edema, Mild L Ecchymosis Nuero-Cranial Nerves II-XII grossly intact, Motor WNL, DTRs WNL, Strength WNL, No Focal Psych-Normal Mood PAST MEDICAL HISTORY: CHF, Pleural Effusions, AFIB, Diastolic CHF, COPD, AVR, Syncope, CAD c Cath, Dysphagia, Pneumonia, SIRS, Aortic Stenosis, CDK 3, Depression, Aortic Stenosis, Asthma, ACD, and recently here for L Groin Hematoma PAST SURGICAL HISTORY: Right and left heart catheterization, colonoscopy, EGDs , appendectomy, cataract surgery, cholecystectomy, total abdominal hysterectomy with removal of tubes, and recent TAVR procedure. MEDICATIONS: See list ALLERGIES: SULFA ANTIBIOTICS AND OXYCODONE FAMILY HISTORY: Significant for father had a stroke caused by a tree falling on him, mother had CHF. SOCIAL HISTORY: , lives with a friend. Former smoker, quit in 1988. No alcohol use, no drug use. Allergies Allergy/AdvReac Type Severity Reaction Status Date / Time Sulfa (Sulfonamide Allergy Severe HIVES & Verified 04/08/18 03:02 Antibiotics) THROAT SWELLING oxycodone AdvReac Severe Hallucinati Verified 04/08/18 03:02 ng meperidine AdvReac Unknown HALLUCINATIONS Verified 04/08/18 03:02 & TACHYCARDIA Home Medications Home Medications Medication Instructions Recorded Confirmed Type albuterol sulfate [Ventolin HFA] 2 puff INHALATION Q4 PRN 01/06/18 04/08/18 History budesonide-formoterol [Symbicort] 2 puff INHALATION BID 01/06/18 04/08/18 History digoxin [Digox] 0.125 mg PO DAILY 01/06/18 04/08/18 History ipratropium-albuterol 3 ml INHALATION Q4 PRN 01/06/18 04/08/18 History loratadine [Claritin] 10 mg PO DAILY PRN 01/06/18 04/08/18 History montelukast [Singulair] 10 mg PO DAILY 01/06/18 04/08/18 History acetaminophen [Tylenol Extra 500 mg PO Q6 PRN 03/14/18 04/08/18 History Strength] alprazolam 0.25 mg PO DAILY PRN 03/14/18 04/08/18 History aspirin 81 mg PO DAILY 03/14/18 04/08/18 History escitalopram oxalate 10 mg PO DAILY 03/14/18 04/08/18 History fluticasone 2 spray INTRANASAL DAILY 03/14/18 04/08/18 History metoprolol tartrate 75 mg PO Q8 03/14/18 04/08/18 History simethicone 80 mg PO QID PRN 03/14/18 04/08/18 History furosemide 40 mg PO BID 30 Days #60 tab 03/16/18 04/08/18 Rx lisinopril [Zestril] 5 mg PO QAM 30 Days #30 tab 03/16/18 04/08/18 Rx warfarin [Coumadin] 3 mg PO DAILY@1600 30 Days #30 tab 03/16/18 04/08/18 Rx Past Med/Surg History Medical History Syncope (Acute) Near syncope (Acute) Bleeding (Acute) Groin hematoma Dysphagia Subcutaneous hematoma Dysphagia Pneumonia (Acute) Hypoxic (Acute) SIRS (systemic inflammatory response syndrome) (Acute) COPD (chronic obstructive pulmonary disease) (Chronic) Aortic stenosis (Chronic) Asthma (Chronic) Chronic atrial fibrillation (Chronic) HTN (hypertension) (Chronic) 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) CKD (chronic kidney disease) stage 3, GFR 30-59 ml/min (Chronic) Depression (Chronic) Anemia, chronic renal failure (Chronic) Aortic stenosis Atrial fibrillation CHF (congestive heart failure) COPD (chronic obstructive pulmonary disease) Diabetes History of hysterectomy Hypertension Surgical History Status post cardiac catheterization (Acute) History of cholecystectomy (Resolved) History of appendectomy (Resolved) History of total hysterectomy (Resolved) "fibroids" H/O cataract removal with insertion of prosthetic lens (Resolved) "2002" S/P cataract surgery S/P cholecystectomy Family History Other Family history non-contributory Heart disease Social History marital status: Life Partner Current Living Situation: Significant Other Current Living Situation Comment: with boyfriend current occupational status: retired Other Information That Helps Us Care for You: No Feels Safe at Home: Yes Safety Concerns: Feels Safe At This Time Smoking Status: Never smoker Second Hand Exposure: No Hx Alcohol Use: No Hx Substance Use: No Beliefs That Will Affect Care: None Preferred Language: Grenadian Communication Ability: Effective Dumpster Operator Required: No Physical Exam 2 Vital Signs (Past 24 Hours): Last Vital Signs Temp 36.6 C 04/08/18 01:40 Pulse 93 H 04/08/18 06:00 Resp 27 H 04/08/18 06:00 BP 143/71 H 04/08/18 06:00 Pulse Ox 92 04/08/18 06:00 Results & Data Laboratory Results Allergies Sulfa (Sulfonamide Antibiotics) Allergy (Severe, Verified 04/08/18 03:02) HIVES & THROAT SWELLING oxycodone Adverse Reaction (Severe, Verified 04/08/18 03:02) Hallucinating meperidine Adverse Reaction (Unknown, Verified 04/08/18 03:02) HALLUCINATIONS & TACHYCARDIA Height/Weight/Isolation Height 5 ft 2 in Weight 59.6 kg Chemistry 04/08/18 01:52 Sodium 141 Potassium 3.9 Chloride 106 Carbon Dioxide 34 H Anion Gap 1.0 L BUN 21 H Creatinine 0.66 Glucose 89 Diagnostic Findings CXR Pending
[2018-04-08] MEDS ORDERED: POLYETHYLENE (MIRALAX) 17 GM PACK PO PRN (08:03)
[2018-04-08] MEDS ORDERED: ONDANSETRON INJ 2 MG/ML 2 ML VIAL IV PRN (08:03)
--- NOTE | 2018-04-08 08:09 | XRay Report ---
SINGLE VIEW CHEST CLINICAL HISTORY: Dyspnea. FINDINGS: An AP, portable, upright chest radiograph is compared to study dated 03/14/2018 and correlat ed with chest CT dated 08/15/2017. The examination is degraded by portable technique and patient rotat ion. The heart is enlarged and there is atherosclerotic calcification of the thoracic aorta. There i s evidence of previous cardiac valve surgery. The pulmonary vasculature is noncongested. There are le ft larger than right pleural effusions with associated consolidation. There is no pneumothorax. The s keletal structures are osteopenic. Degenerative change is noted in the shoulders and throughout the t horacic spine. IMPRESSION: 1. Cardiomegaly without radiographic evidence of congestive failure. 2. Left larger than right pleural effusions with bibasilar consolidation. Electronically signed by: Chuy Pantoja M.D. 04/08/2018 8:08 AM
[2018-04-08] MEDS ORDERED: HEPARIN SOD 5,000 UNIT/0.5 ML VIAL SQ SCH (09:00)
[2018-04-08] MEDS ORDERED: SIMETHICONE 80 MG CHEW PO PRN (09:05)
[2018-04-08] MEDS ORDERED: LORATADINE 10 MG TAB PO PRN (09:05)
[2018-04-08] MEDS ORDERED: ALBUTEROL HFA 8 GM INHALER INH PRN (09:05)
[2018-04-08] MEDS: FLUTICASONE PROPIONATE NA SPR 16 GM BTL SCH (10:40)
[2018-04-08] MEDS: ASPIRIN 81 MG ECTAB PO SCH (10:40)
[2018-04-08] MEDS: ESCITALOPRAM OXALATE 10 MG TAB PO SCH (10:41)
[2018-04-08] MEDS: FUROSEMIDE 60 MG in SYRINGE 0 ML IV SCH ×2 (10:41→17:25)
[2018-04-08] MEDS: BUDESONIDE/FORMOTEROL FUMARATE 80/4.5 60 PUFFS/INHALER INH SCH ×2 (10:41→20:40)
[2018-04-08] MEDS: MONTELUKAST SODIUM 10 MG TABLET PO SCH (10:41)
[2018-04-08] MEDS: SPIRONOLACTONE 25 MG TAB PO SCH (10:41)
[2018-04-08] MEDS: LISINOPRIL 5 MG TAB PO SCH (10:41)
[2018-04-08] MEDS: ACETAMINOPHEN 500 MG TAB PO PRN (10:42)
[2018-04-08] MEDS: METOPROLOL TARTRATE 50 MG TAB PO SCH ×2 (13:43→21:49)
[2018-04-08] MEDS ORDERED: Heparin IV Standard *NO* Bolus IV SCH (14:22)
--- NOTE | 2018-04-08 14:40 | Ultrasound Report ---
ULTRASOUND OF THE PLEURAL SPACES CLINICAL HISTORY: Pleural effusions. COMPARISON STUDY: Chest x-ray dated 04/08/2018. FINDINGS: Real-time grayscale sonography of the pleural spaces is performed to assess pleural effusio ns. There are small to moderate bilateral pleural effusions with associated atelectasis. The right pl eural effusion has an estimated volume of 320 cc, and the left effusion has an estimated volume of 40 0 cc. These were not marked for bedside thoracentesis due to intervening lung tissue. IMPRESSION: Bilateral pleural effusions as above. Electronically signed by: Chuy Pantoja M.D. 04/08/2018 2:39 PM
[2018-04-08] MEDS ORDERED: WARFARIN SOD 3 MG TAB PO SCH (16:00)
[2018-04-08] MEDS ORDERED: HEPARIN STANDARD DEXTROSE 25,000 UNITS/500 ML IV SCH (16:08)
--- NOTE | 2018-04-08 16:23 | Consultation Report ---
DATE OF CONSULTATION: 04/08/2018 CONSULTATION REQUESTED BY: Dr. Escalante. REASON FOR CONSULTATION: Shortness of breath. HISTORY OF PRESENT ILLNESS: The patient is a very pleasant 87-year-old woman who follows very closely with Dr. Terrazas of our Cardiology practice, now that she is status post TAVR. She presented to [facility] early in the a.m. of 04/08/2018 with complaints of shortness of breath. The patient states that she has been doing well since discharge from [facility] on 03/16/2018 and at follow up as an outpatient with Cardiology on the , she was also doing well. Unfortunately, on the , she woke up short of breath. She states that as the day progressed, her breathing continued to worsen and before going to bed, she noticed that her ankles were edematous. She tried to sleep; however, was significantly orthopneic and could not get comfortable resting. EMS was summoned and she was brought into the Emergency Department. In the Emergency Department, she was found to have worsening pleural effusion on the left compared to previous and she was given diuretics. Currently on telemetry, the patient states that she is feeling okay at rest, but has not ambulated since being admitted. Otherwise, she has been compliant with all of her medications as an outpatient as well as her sodium restriction. PAST SURGICAL HISTORY: 1. Status post TAVR in 01/2018 with a 29 mm CoreValve. 2. Cardiac catheterization in 12/2017 showing no significant obstructive disease. 3. Cholecystectomy. 4. Cataract surgery. 5. Colonoscopy. 6. Upper endoscopy with dilatation of a Schatzki's ring. 7. Appendectomy. 8. Total abdominal hysterectomy. MEDICAL ILLNESSES: 1. Severe aortic stenosis status post successful TAVR with good results. 2. Severe persistent asthma. 3. Diastolic dysfunction with normal LV systolic function. 4. Moderate COPD. 5. GERD. 6. Esophageal stricture, status post dilatation. 7. Chronic atrial fibrillation, on chronic Coumadin therapy. 8. Hypertension. 9. Dyslipidemia. 10. Anxiety. 11. Pleural effusions requiring thoracentesis in the past. FAMILY HISTORY: Noncontributory. SOCIAL HISTORY: The patient has remote tobacco use history. Denies any alcohol or recreational drug use. She is not . She lives with her boyfriend. REVIEW OF SYSTEMS: As per HPI. All review of systems reviewed and negative at this time. ALLERGIES: 1. SULFA. 2. DEMEROL. 3. PERCOCET. MEDICATIONS AN OUTPATIENT: 1. Coumadin as directed by the [facility]. 2. Digoxin 0.125 mg daily. 3. Metoprolol tartrate 75 mg t.i.d. 4. Lasix 40 mg b.i.d. 5. Aspirin 81 mg daily. 6. Lisinopril 5 mg daily. 7. Lexapro. 8. Xanax p.r.n. 9. Singulair. 10. Symbicort inhaler. 11. Flonase. PHYSICAL EXAMINATION: VITAL SIGNS: Temperature 36.3, pulse 72, respiratory rate 14, blood pressure 107/64, saturating 97% on 2 liters nasal cannula. GENERAL: Awake, alert, oriented x3, no acute distress. HEENT: Normocephalic, atraumatic. Pupils equal, round and reactive to light and accommodation. Extraocular muscles intact. Anicteric sclerae. Moist mucous membranes. NECK: No JVD, no bruit. CARDIOVASCULAR: Irregularly irregular with a soft 3/6 mid to late systolic ejection murmur greatest at the right sternal border second intercostal space without radiation, no rubs. PULMONARY: Poor air movement at bilateral bases on the left to the mid thorax, but otherwise clear. No rales, rhonchi or wheezing. ABDOMEN: Bowel sounds x4, soft. No rebound, guarding, tenderness. No organomegaly. EXTREMITIES: No clubbing, cyanosis or edema. +2 pedal pulses bilaterally. SKIN: Warm and dry. TEST RESULTS: 1. Chest x-ray was read as cardiomegaly without radiographic evidence of congestive heart failure, left larger than right pleural effusion with bibasilar consolidation. A 2D echocardiogram performed today read as normal LV chamber size with moderate concentric LVH, normal LV systolic function, EF 65%-70%, no segmental left ventricular wall motion abnormalities are noted, grade 1 diastolic dysfunction. The right ventricular cavity size is normal with reduced systolic function by TAPSE, status post TAVR valve functioning appropriately without stenosis or regurgitation. 2. Mild mitral regurgitation. 3. Moderate tricuspid regurgitation. 4. Severe right atrial enlargement. 5. Pulmonary hypertension is present with a PA systolic pressure of at least 58 mmHg. Compared to previous study status post TAVR, new reduction of LV systolic function, pulmonary hypertension is also new. IMPRESSION: 1. Shortness of breath. 2. Bilateral pleural effusions. 3. New pulmonary hypertension with reduction of RV systolic function. 4. Hypoxia, now requiring oxygen. 5. Status post TAVR. RECOMMENDATIONS: It was my pleasure to see the patient in consultation today. Given the fact that the patient is now hypoxic with new pulmonary hypertension, reduced RV systolic function, my suspicion is quite high for pulmonary emboli. I discussed this with Dr. Escalante. Her INR is subtherapeutic at 1.5. She will be started on heparin and a CTA will be performed to rule out pulmonary emboli. Otherwise, I have asked for a mediastinal ultrasound to further quantify her pleural effusions to see if they are suitable for thoracentesis. Otherwise, her valve is functioning appropriately. Her LV systolic function remains normal. No other medication changes will be made at this time. Further recommendations to follow results of the above testing. JANETT
[2018-04-08] MEDS ORDERED: OPTIRAY 320 125ml IV PRN (16:40)
[2018-04-08] MEDS: DIGOXIN 0.125 MG TAB PO SCH (16:51)
[2018-04-08] MEDS: WARFARIN SOD 4 MG TAB PO SCH (16:52)
--- NOTE | 2018-04-08 17:15 | CT Scan Report ---
CT ANGIOGRAM OF THE CHEST CLINICAL HISTORY: Dyspnea. COMPARISON STUDY: Chest x-ray dated 04/08/2018. Chest CT dated 08/15/2017. TECHNIQUE: Following the IV administration of 119 cc of Optiray 320, CT angiogram of the chest was pe rformed from the upper abdomen to the thoracic inlet utilizing the pulmonary embolus protocol. Images are reviewed in the axial, sagittal, and coronal planes. 3-D MIPS images are created and assessed. I V contrast was administered without complication. A dose lowering technique was utilized adhering to the principles of ALARA. The Examination is compromised by motion artifact. CT DOSE: 180.91 mGy.cm FINDINGS: Thyroid: Imaged portions of the thyroid gland are normal in size and attenuation. Thoracic aorta: There is atherosclerotic calcification of the thoracic aorta. Postoperative change is noted at the aortic root end involving the aortic valve. There is mild ectasia of the ascending thor acic aorta which measures up to 3.5 cm in diameter. The remainder of the thoracic aorta is normal in caliber. The arch demonstrates standard 3-vessel anatomy. The thoracic aorta is not opacified. Pulmonary vasculature: The main pulmonary arteries are dilated indicating pulmonary artery hypertensi on. There are no filling defects identified in main, lobar, or segmental pulmonary branches to sugges t pulmonary embolus. Heart: The heart is markedly enlarged and without pericardial effusion. The coronary arteries are den sely calcified. Lungs and pleural spaces: Evaluation of lung parenchyma is degraded by motion artifact. There are mod erate pleural effusions with associated atelectasis. No airspace consolidation is seen typical for pn eumonia. Multifocal air trapping is suggested. The trachea and central airways appear clear. Mediastinum: There is no mediastinal lymphadenopathy. Janet: Clear. Axillae: There is no axillary lymphadenopathy. Upper abdomen: Partially visualized upper abdominal viscera is within normal limits. Skeletal structures: The skeletal structures are osteopenic. There is a superior endplate compression deformity of T11. Degenerative change is noted throughout the thoracic spine and in the shoulders. N o lytic or blastic bony lesions are seen. IMPRESSION: 1. Motion compromised examination. 2. There is no evidence of pulmonary embolus in the main, lobar, or segmental pulmonary arteries. 3. There are moderate pleural effusions with bibasilar atelectasis. 4. Cardiomegaly with evidence of pulmonary artery hypertension. 5. No airspace consolidation is seen typical for pneumonia. 6. Additional findings as above. Electronically signed by: Chuy Pantoja M.D. 04/08/2018 5:14 PM
[2018-04-09] MEDS: ALPRAZolam 0.25 MG TABLET PO PRN (00:21)
[2018-04-09] MEDS: METOPROLOL TARTRATE 50 MG TAB PO SCH ×3 (06:03→21:09)
[2018-04-09] MEDS: ACETAMINOPHEN 500 MG TAB PO PRN (06:04)
[2018-04-09 07:37] LABS: Hematocrit (blood only) 32.8 % (37-47); Hemoglobin 10.1 g/dL (12.0-16.0); Mean Corpuscular Hgb Conc 30.8 g/dL (32-36); Mean Corpuscular Volume 95.3 fL (80-100); Mean Platelet Volume 9.8 fL (7.4-10.4); Platelet Count 248 K/uL (130-400); RDW Coefficient of Variation 15.3 % (11.5-14.5); RDW Standard Deviation 53.7 fL (36.4-46.3); Red Blood Count 3.44 M/uL (4.2-5.4); White Blood Count 4.98 K/uL (4.8-10.8)
[2018-04-09 08:01] LABS: INR 1.9 (0.9-1.1); Partial Thromboplastin Ratio 3.1; Prothrombin Time 18.7 Seconds (9.0-12.0)
[2018-04-09 08:10] LABS: Partial Thromboplastin Time 81.6 Seconds (21.0-31.0)
[2018-04-09 08:14] LABS: BUN Creatinine Ratio 26.7 (10-20); Calcium 7.8 mg/dl (8.5-10.1); Creatinine Clr Calc Pharmacy 51.6 ml/min; Est GFR (African American) 94.8; Est GFR (Non-African American) 81.8; Potassium 3.2 mmol/L (3.5-5.1)
[2018-04-09] MEDS: MONTELUKAST SODIUM 10 MG TABLET PO SCH (08:24)
[2018-04-09] MEDS: ESCITALOPRAM OXALATE 10 MG TAB PO SCH (08:24)
[2018-04-09] MEDS: ASPIRIN 81 MG ECTAB PO SCH (08:24)
[2018-04-09] MEDS: SPIRONOLACTONE 25 MG TAB PO SCH (08:24)
[2018-04-09] MEDS: FUROSEMIDE 60 MG in SYRINGE 0 ML IV SCH ×2 (08:24→17:38)
[2018-04-09] MEDS: LISINOPRIL 5 MG TAB PO SCH (08:24)
[2018-04-09] MEDS: FLUTICASONE PROPIONATE NA SPR 16 GM BTL SCH (08:24)
[2018-04-09] MEDS: BUDESONIDE/FORMOTEROL FUMARATE 80/4.5 60 PUFFS/INHALER INH SCH ×2 (08:25→21:05)
[2018-04-09] MEDS: ALBUT/IPRATROP 3MG/0.5MG NEB 3 ML VIAL INH PRN ×2 (08:28→19:30)
--- NOTE | 2018-04-09 09:40 | Hospitalist Progress Note ---
Date of Service April 09, 2018 Subjective 87 yo female c PMH of CHF, Pleural Effusions, AFIB, Diastolic CHF, COPD, AVR, Syncope, CAD c Cath, Dysphagia, Pneumonia, SIRS, Aortic Stenosis, CDK 3, Depression, Aortic Stenosis, Asthma, ACD, and recently here for L Groin Hematoma present c SOB. She was given IV Lasix in the ER after being diagnosed c a CHF exac and recurrent Pleural effusions. Patient notes her legs are more swollen than usual. When she was ambulated her sats dropped into the low 80s. She lives alone. Was changed to inpatient yesterday. She had a 2D echo which worsening RV function. Assessment and Plan 1. Acute Exac of Chronic Diastolic CHF-IV Lasix, Cards on case, Echo Done 2. Pleural Effusion-Diurese and repeat CXR in 1-2 days 3. s/p AVR for 4. COPD 5. Depression 6. AFIB-On Warfarin, INR 1.5 7. Hypoxia- lasix 8. HTN 9. CKD 3 She needs a Palliative Care eval, Prognosis poor. ROS-No Headache, No Visual Changes, No Fever, No Chills, No Neck Pain or Stiffness, No Chest Pain, No Palpitations, +SOB, +AVALOS, +Cough, No Sputum, No Wheezing, No Abdominal Pain, No Diarrhea, No Hematemesis, No Hemoptysis, No Unexpected Weight Loss, No Flank pain, No Melena, No Hematochezia, No Frequency , No Urgency, No Burning, No Hematuria, No Rashes, No Diaphoresis. Appetite is decreased Physical Exam Gen-AAO x 3, NAD, Afebrile, Pleasant, Weak Head-NCAT, EOMI, PERRLA, Anicteric Sclera, No Posterior Pharyngeal Erythema Neck-Supple, No JVD, No Thyromegaly, No Masses, No LAD, No Bruits Lungs-B/L Rales at the bases, diminished breath sounds at the bases as well. No Rhonchi, No Wheezing, No Crepitus Chest-No S4, +S1, +S2, No S3, No Murmurs, No Rubs, No Gallops, No Ectopy Abdomen-Soft, Bowel Sounds Present, Non Tender, Non Distended, No Hepatomegaly, No Splenomegaly, No Palpable Masses, No Rebound, No Rigidity, No Guarding Musculoskeletal-Full Range of Motion Bilaterally, No CVAT Extremities-No Cyanosis, No Clubbing, 3+ Pitting Edema, Mild L Ecchymosis Nuero-Cranial Nerves II-XII grossly intact, Motor WNL, DTRs WNL, Strength WNL, No Focal Psych-Normal Mood Physical Exam 2 Vital Signs (Past 24 Hours): Last Vital Signs Temp 37.0 C 04/09/18 07:25 Pulse 78 04/09/18 08:28 Resp 20 04/09/18 08:28 BP 113/62 04/09/18 07:25 Pulse Ox 96 04/09/18 08:28 Results & Data Laboratory Results Allergies Sulfa (Sulfonamide Antibiotics) Allergy (Severe, Verified 04/08/18 03:02) HIVES & THROAT SWELLING oxycodone Adverse Reaction (Severe, Verified 04/08/18 03:02) Hallucinating meperidine Adverse Reaction (Unknown, Verified 04/08/18 03:02) HALLUCINATIONS & TACHYCARDIA Height/Weight/Isolation Height 5 ft 2 in Weight 55.3 kg Chemistry 04/08/18 04/09/18 01:52 06:45 Sodium 141 142 Potassium 3.9 3.2 L D Chloride 106 100 Carbon Dioxide 34 H 37 H Anion Gap 1.0 L 4.0 BUN 21 H 17 Creatinine 0.66 0.63 Glucose 89 99
--- NOTE | 2018-04-09 13:17 | Cardiology Progress Note ---
Date of Service April 09, 2018 Assessment & Plan (1) Acute exacerbation of CHF (congestive heart failure): symptomatically improved. CTA negative for PE unfortutnately, pt not compliant with urine measurements will cont with IV lasix for now and re-evaluate volume status clinically in AM (2) Pleural effusion: unsuitable for thoracentesis will cont IV diuresis (3) A-fib: chronic rate controlled INR of 1.9 today, cont heparin for now (4) H/O aortic valve replacement: stable Subjective Pt seen and examined, oob in chair. States that she feels well. Breathing has significantly improved since presentation. Not back to baseline yet though. Denies cp, palpitations, lightheadedness or dizziness. Tele reviewed: afib, rate controlled. Review of Systems All systems reviewed & are unremarkable except as noted in HPI & below Physical Exam 2 Vital Signs (Past 24 Hours): Last Vital Signs Temp 36.5 C 04/09/18 11:00 Pulse 71 04/09/18 11:00 Resp 18 04/09/18 11:00 BP 116/63 04/09/18 11:00 Pulse Ox 96 04/09/18 11:00 Physical Exam: General: Awake, alert and oriented x 3. No acute distress. HEENT: Normocephalic, atraumatic. Pupils equal, round and reactive to light and accommodation. Extraocular muscles are intact. Anicteric sclera. Moist mucous membranes. Neck: No JVD. No bruit. Cardiovascular: irregularly irregular, unable to appreciate murmur, rub or gallop. Pulmonary: Clear to auscultation bilaterally. Decreased in the B/L bases. No rales, rhonchi, or wheezing. Abdomen: Bowel sounds x 4, soft. No rebound, guarding or tenderness. No organomegaly. Extremities: No clubbing, cyanosis or edema. +2 pedal pulses bilaterally. Skin: Warm and dry. _ (1) Acute exacerbation of CHF (congestive heart failure) Heart failure type: diastolic Qualified Code(s): I50.33 - Acute on chronic diastolic (congestive) heart failure (2) A-fib Atrial fibrillation type: chronic Qualified Code(s): I48.2 - Chronic atrial fibrillation
[2018-04-09] MEDS ORDERED: POTASSIUM CHLORIDE 20 MEQ TABCR PO STA (13:20)
[2018-04-09] MEDS: DIGOXIN 0.125 MG TAB PO SCH (16:12)
[2018-04-09] MEDS: WARFARIN SOD 4 MG TAB PO SCH (16:12)
[2018-04-09] MEDS: HEPARIN SOD 5,000 UNIT/0.5 ML VIAL SQ SCH (21:05)
[2018-04-10] MEDS: ALPRAZolam 0.25 MG TABLET PO PRN (00:05)
[2018-04-10] MEDS: ACETAMINOPHEN 500 MG TAB PO PRN (06:09)
[2018-04-10] MEDS: METOPROLOL TARTRATE 50 MG TAB PO SCH ×3 (06:13→21:08)
[2018-04-10 06:24] LABS: Hematocrit (blood only) 33.7 % (37-47); Hemoglobin 10.2 g/dL (12.0-16.0); Mean Corpuscular Hgb Conc 30.3 g/dL (32-36); Mean Corpuscular Volume 94.9 fL (80-100); Mean Platelet Volume 9.8 fL (7.4-10.4); Platelet Count 260 K/uL (130-400); RDW Standard Deviation 52.5 fL (36.4-46.3); Red Blood Count 3.55 M/uL (4.2-5.4); White Blood Count 4.58 K/uL (4.8-10.8)
[2018-04-10 06:55] LABS: BUN Creatinine Ratio 24.1 (10-20); Calcium 8.2 mg/dl (8.5-10.1); Creatinine Clr Calc Pharmacy 45.8 ml/min; Est GFR (Non-African American) 77.7; INR 2.5 (0.9-1.1); Prothrombin Time 23.7 Seconds (9.0-12.0)
[2018-04-10] MEDS: FUROSEMIDE 60 MG in SYRINGE 0 ML IV SCH ×2 (07:36→16:48)
[2018-04-10] MEDS: ASPIRIN 81 MG ECTAB PO SCH (07:36)
[2018-04-10] MEDS: MONTELUKAST SODIUM 10 MG TABLET PO SCH (07:36)
[2018-04-10] MEDS: SPIRONOLACTONE 25 MG TAB PO SCH (07:36)
[2018-04-10] MEDS: POTASSIUM CHLORIDE 20 MEQ TABCR PO SCH (07:37)
[2018-04-10] MEDS: HEPARIN SOD 5,000 UNIT/0.5 ML VIAL SQ SCH ×2 (07:37→21:07)
[2018-04-10] MEDS: FLUTICASONE PROPIONATE NA SPR 16 GM BTL SCH (07:37)
[2018-04-10] MEDS: ESCITALOPRAM OXALATE 10 MG TAB PO SCH (07:38)
[2018-04-10] MEDS: LISINOPRIL 5 MG TAB PO SCH (07:38)
[2018-04-10] MEDS: BUDESONIDE/FORMOTEROL FUMARATE 80/4.5 60 PUFFS/INHALER INH SCH ×2 (07:38→21:08)
[2018-04-10] MEDS: ALBUT/IPRATROP 3MG/0.5MG NEB 3 ML VIAL INH PRN ×2 (07:44→19:45)
--- NOTE | 2018-04-10 09:53 | Discharge Summary ---
Date of Service April 10, 2018 Admission HPI Per Admitting Provider 87 yo female c PMH of CHF, Pleural Effusions, AFIB, Diastolic CHF, COPD, AVR, Syncope, CAD c Cath, Dysphagia, Pneumonia, SIRS, Aortic Stenosis, CDK 3, Depression, Aortic Stenosis, Asthma, ACD, and recently here for L Groin Hematoma present c SOB. She was given IV Lasix in the ER after being diagnosed c a CHF exac and recurrent Pleural effusions. Patient notes her legs are more swollen than usual. When she was ambulated her sats dropped into the low 80s. She lives alone so will be placed under observation and get diuresed. Assessment and Plan 1. Acute Exac of Chronic Diastolic CHF-IV Lasix, Cardiac eval, Echo, Dr Terrazas saw her recently 2. Pleural Effusion-Diurese and repeat CXR in 1-2 days 3. s/p AVR for 4. COPD 5. Depression 6. AFIB-On Warfarin, INR 1.5 7. Hypoxia- lasix 8. HTN 9. CKD 3 Continue Outpatient meds where appropriate ROS-No Headache, No Visual Changes, No Fever, No Chills, No Neck Pain or Stiffness, No Chest Pain, No Palpitations, +SOB, +AVALOS, +Cough, No Sputum, No Wheezing, No Abdominal Pain, No Diarrhea, No Hematemesis, No Hemoptysis, No Unexpected Weight Loss, No Flank pain, No Melena , No Hematochezia, No Frequency, No Urgency, No Burning, No Hematuria, No Rashes , No Diaphoresis. Appetite is Normal Physical Exam Gen-AAO x 3, NAD, Afebrile, Pleasant, Weak Head-NCAT, EOMI, PERRLA, Anicteric Sclera, No Posterior Pharyngeal Erythema Neck-Supple, No JVD, No Thyromegaly, No Masses, No LAD, No Bruits Lungs-B/L Rales at the bases, No Rhonchi, No Wheezing, No Crepitus Chest-No S4, +S1, +S2, No S3, No Murmurs, No Rubs, No Gallops, No Ectopy Abdomen-Soft, Bowel Sounds Present, Non Tender, Non Distended, No Hepatomegaly, No Splenomegaly, No Palpable Masses, No Rebound, No Rigidity, No Guarding Musculoskeletal-Full Range of Motion Bilaterally, No CVAT Extremities-No Cyanosis, No Clubbing, 3+ Pitting Edema, Mild L Ecchymosis Nuero-Cranial Nerves II-XII grossly intact, Motor WNL, DTRs WNL, Strength WNL, No Focal Psych-Normal Mood PAST MEDICAL HISTORY: CHF, Pleural Effusions, AFIB, Diastolic CHF, COPD, AVR, Syncope, CAD c Cath, Dysphagia, Pneumonia, SIRS, Aortic Stenosis, CDK 3, Depression, Aortic Stenosis, Asthma, ACD, and recently here for L Groin Hematoma PAST SURGICAL HISTORY: Right and left heart catheterization, colonoscopy, EGDs , appendectomy, cataract surgery, cholecystectomy, total abdominal hysterectomy with removal of tubes, and recent TAVR procedure. MEDICATIONS: See list ALLERGIES: SULFA ANTIBIOTICS AND OXYCODONE FAMILY HISTORY: Significant for father had a stroke caused by a tree falling on him, mother had CHF. SOCIAL HISTORY: , lives with a friend. Former smoker, quit in 1988. No alcohol use, no drug use. Admission Exam Per Admitting Provider ROS-No Headache, No Visual Changes, No Fever, No Chills, No Neck Pain or Stiffness, No Chest Pain, No Palpitations, +SOB, +AVALOS, +Cough, No Sputum, No Wheezing, No Abdominal Pain, No Diarrhea, No Hematemesis, No Hemoptysis, No Unexpected Weight Loss, No Flank pain, No Melena , No Hematochezia, No Frequency, No Urgency, No Burning, No Hematuria, No Rashes , No Diaphoresis. Appetite is Normal Physical Exam Gen-AAO x 3, NAD, Afebrile, Pleasant, Weak Head-NCAT, EOMI, PERRLA, Anicteric Sclera, No Posterior Pharyngeal Erythema Neck-Supple, No JVD, No Thyromegaly, No Masses, No LAD, No Bruits Lungs-B/L Rales at the bases, No Rhonchi, No Wheezing, No Crepitus Chest-No S4, +S1, +S2, No S3, No Murmurs, No Rubs, No Gallops, No Ectopy Abdomen-Soft, Bowel Sounds Present, Non Tender, Non Distended, No Hepatomegaly, No Splenomegaly, No Palpable Masses, No Rebound, No Rigidity, No Guarding Musculoskeletal-Full Range of Motion Bilaterally, No CVAT Extremities-No Cyanosis, No Clubbing, 3+ Pitting Edema, Mild L Ecchymosis Nuero-Cranial Nerves II-XII grossly intact, Motor WNL, DTRs WNL, Strength WNL, No Focal Psych-Normal Mood Principal Diagnosis 1. Acute Exac of Chronic Diastolic CHF 2. Pleural Effusion 3. s/p AVR for 4. COPD 5. Depression 6. AFIB 7. Hypoxia 8. HTN 9. CKD 3 Discharge Exam ROS-No Headache, No Visual Changes, No Fever, No Chills, No Neck Pain or Stiffness, No Chest Pain, No Palpitations, +SOB, +AVALOS, +Cough, No Sputum, No Wheezing, No Abdominal Pain, No Diarrhea, No Hematemesis, No Hemoptysis, No Unexpected Weight Loss, No Flank pain, No Melena, No Hematochezia, No Frequency , No Urgency, No Burning, No Hematuria, No Rashes, No Diaphoresis. Appetite is decreased Physical Exam Gen-AAO x 3, NAD, Afebrile, Pleasant Head-NCAT, EOMI, PERRLA, Anicteric Sclera, No Posterior Pharyngeal Erythema Neck-Supple, No JVD, No Thyromegaly, No Masses, No LAD, No Bruits Lungs-B/L Rales at the bases, diminished breath sounds at the bases as well. No Rhonchi, No Wheezing, No Crepitus Chest-No S4, +S1, +S2, No S3, No Murmurs, No Rubs, No Gallops, No Ectopy Abdomen-Soft, Bowel Sounds Present, Non Tender, Non Distended, No Hepatomegaly, No Splenomegaly, No Palpable Masses, No Rebound, No Rigidity, No Guarding Musculoskeletal-Full Range of Motion Bilaterally, No CVAT Extremities-No Cyanosis, No Clubbing, 3+ Pitting Edema, Mild L Ecchymosis Nuero-Cranial Nerves II-XII grossly intact, Motor WNL, DTRs WNL, Strength WNL, No Focal Psych-Normal Mood Discharge Data Allergies Allergy/AdvReac Type Severity Reaction Status Date / Time Sulfa (Sulfonamide Allergy Severe HIVES & Verified 04/08/18 03:02 Antibiotics) THROAT SWELLING oxycodone AdvReac Severe Hallucinati Verified 04/08/18 03:02 ng meperidine AdvReac Unknown HALLUCINATIONS Verified 04/08/18 03:02 & TACHYCARDIA Consultations 04/08/18 07:26 ED Decision to Admit Stat 04/08/18 08:03 Consult Cardiac Rehabilitation Routine Consult Cardiology Routine Ordered Studies 04/08/18 13:08 US effusion-chest/mediastinum Routine 04/08/18 15:35 CT angio chest PE protocol Urgent Current Diagnoses Chronic atrial fibrillation (04/08/18) Acute on chronic diastolic (congestive) heart failure (04/08/18) Pleural effusion, not elsewhere classified (04/08/18) Presence of prosthetic heart valve (04/08/18) Allergies Sulfa (Sulfonamide Antibiotics) Allergy (Severe, Verified 04/08/18 03:02) HIVES & THROAT SWELLING oxycodone Adverse Reaction (Severe, Verified 04/08/18 03:02) Hallucinating meperidine Adverse Reaction (Unknown, Verified 04/08/18 03:02) HALLUCINATIONS & TACHYCARDIA Height/Weight/Isolation Height 5 ft 2 in Weight 54.6 kg Chemistry 04/09/18 04/10/18 06:45 05:58 Sodium 142 141 Potassium 3.2 L D 4.0 D Chloride 100 104 Carbon Dioxide 37 H 36 H Anion Gap 4.0 1.0 L BUN 17 17 Creatinine 0.63 0.71 Glucose 99 79 Hospital Course (1) Acute exacerbation of CHF (congestive heart failure): 87 yo female c PMH of CHF, Pleural Effusions, AFIB, Diastolic CHF, COPD, AVR, Syncope, CAD c Cath, Dysphagia, Pneumonia, SIRS, Aortic Stenosis, CDK 3, Depression, Aortic Stenosis, Asthma, ACD, and recently here for L Groin Hematoma present c SOB. She was given IV Lasix in the ER after being diagnosed c a CHF exac and recurrent Pleural effusions. Patient notes her legs are more swollen than usual. When she was ambulated her sats dropped into the low 80s. She lives alone so will be placed under observation and get diuresed. She was seen by cardiology, a 2D echo showed decreased RV function. Patient is maximized and would like to go home. We will send her home with home health and cardiac rehab. She needs [facility] at home as well. Assessment and Plan 1. Acute Exac of Chronic Diastolic CHF-IV Lasix, Cards on case, Echo Done 2. Pleural Effusion-Diurese and repeat CXR in 1-2 days 3. s/p AVR for 4. COPD 5. Depression 6. AFIB-On Warfarin, INR 1.5 7. Hypoxia- lasix 8. HTN 9. CKD 3 She needs Home Palliative Care eval, Prognosis poor Alf Total Time Total Time Spent Total Time Spent (In Minutes): 45 mins Total Time Includes: Examination of the Patient, Discharge Planning, Medication Reconciliation and Communication With Other Providers Discharge Plan Discharge Items Patient Disposition: Home - Home Health Services Reason For Visit: CHF Discharge Diagnosis: 1. Acute Exac of Chronic Diastolic CHF 2. Pleural Effusion 3. s/p AVR for 4. COPD 5. Depression 6. AFIB 7. Hypoxia 8. HTN 9. CKD 3 Condition: Fair Discharge Goals: Decrease discomfort, Improve function and Improve nutritional status Activity: Resume your previous activity Lifting: None Bathing: No limitations Exercise/Sports: None Weightbearing: Left weightbearing and Right weightbearing Non-emergency contact: Primary Care Provider, Reserve Operator and Forging Operator Call non-emergency contact if: you have any medication questions Follow-up/Referrals: Ariana Pendleton MD [Primary Care Provider] - (Call for first opening) Heath Terrazas DO [Reserve Operator] - (Call for first opening) Diet: Heart Healthy and Low Sodium (2gm) Fluids: 1200ml (5 cups) Addtl Provider Instructions: Needs [facility] at home, Needs home Cardiac rehab, home palliative care Prescriptions: New spironolactone 25 mg Tablet 25 mg PO QAM Qty: 30 RF: 0 Continue ipratropium-albuterol 0.5 mg-3 mg(2.5 mg base)/3 mL Solution For Nebulization 3 ml INHALATION Q4 PRN (Reason: COUGH, SOB OR WHEEZING) RF: 0 montelukast [Singulair] 10 mg Tablet 10 mg PO DAILY RF: 0 digoxin [Digox] 125 mcg Tablet 0.125 mg PO DAILY RF: 0 albuterol sulfate [Ventolin HFA] 90 mcg/actuation Hfa Aerosol Inhaler 2 puff INHALATION Q4 PRN (Reason: Shortness Of Breath Or Wheezing) RF: 0 loratadine [Claritin] 10 mg Tablet 10 mg PO DAILY PRN (Reason: RHINITIS) RF: 0 budesonide-formoterol [Symbicort] 80-4.5 mcg/actuation Hfa Aerosol Inhaler 2 puff INHALATION BID RF: 0 aspirin 81 mg Tablet,Delayed Release (Dr/Ec) 81 mg PO DAILY RF: 0 alprazolam 0.25 mg tablet 0.25 mg PO DAILY PRN (Reason: Anxiety) RF: 0 acetaminophen [Tylenol Extra Strength] 500 mg Tablet 500 mg PO Q6 PRN (Reason: Unknown) RF: 0 metoprolol tartrate 50 mg tablet 75 mg PO Q8 RF: 0 fluticasone 50 mcg/actuation spray,suspension 2 spray Intranasal DAILY RF: 0 simethicone 80 mg Tablet,Chewable 80 mg PO QID PRN (Reason: gas) RF: 0 escitalopram oxalate 10 mg tablet 10 mg PO DAILY RF: 0 warfarin [Coumadin] 3 mg Tablet 3 mg PO DAILY@1600 30 Days Qty: 30 RF: 0 lisinopril [Zestril] 5 mg Tablet 5 mg PO QAM 30 Days Qty: 30 RF: 0 furosemide 40 mg tablet 40 mg PO BID 30 Days Qty: 60 RF: 0 Stand-Alone Forms: [facility] Discharge Orders: Discharge Order (Routine); Ordered 04/10/18 Ordered By: Bryan Escalante Admission Data Admit Date/Time: 04/08/18 08:03 Attending Provider: Bryan Escalante Admit Provider: Bryan Escalante Primary Care Provider: Ariana Pendleton Other Providers: Bryan Escalante ; Heath Terrazas Service: Telemetry Medical Other Pending Studies at Discharge: No
--- NOTE | 2018-04-10 10:12 | Cardiology Progress Note ---
Date of Service April 10, 2018 Assessment & Plan (1) Acute exacerbation of CHF (congestive heart failure): This is most likely acute on chronic diastolic heart failure which is improved after diuresis. (2) Pleural effusion: unsuitable for thoracentesis will cont IV diuresis (3) A-fib: chronic rate controlled INR of 1.9 today, cont heparin for now (4) H/O aortic valve replacement: Status post Cristo Subjective This is a pleasant 87-year-old female whom I follow in the office. At the end of 2017 she received a Cristo due to severe aortic stenosis. It should be noted that the patient spent approximately 3 weeks at [facility] prior to undergoing the this procedure due to multiple medical problems and failure to thrive. The patient has had at least one admission following that procedure. That occurred in February when she was diagnosed with a community- acquired pneumonia following a viral respiratory illness. She was admitted over the weekend with increasing shortness of breath and lower extremity edema. She has been diuresed since admission and feels improved. Physical Exam 2 Vital Signs (Past 24 Hours): Last Vital Signs Temp 36.6 C 04/10/18 07:07 Pulse 72 04/10/18 07:44 Resp 18 04/10/18 07:44 BP 126/74 04/10/18 07:07 Pulse Ox 98 04/10/18 07:44 Physical Exam: General: no acute distress and stated age Head: normocephalic, no masses, lesions, tenderness or abnormalities Eyes: conjunctiva are pink and non-injected, sclera clear Neck: supple, no adenopathy, no bruits, normal jugular venous pulse, no hepatojugular reflux Chest: normal shape and normal respiratory effort Lungs: clear to auscultation and percussion Cardiac Exam: - irregular rate & rhythm, no murmurs gallops or rubs - normal S1 , normal S2 Pulses: 2(+) throughout Abdomen: abdomen soft, non-tender, no abnormal masses and no hepatosplenomegaly Musculoskeletal: no gait disturbance, no joint inflammation, no deforming arthritis Extremities: Edema around the ankles bilaterally Neuro: grossly normal exam Results & Data Laboratory Results Laboratory Results - last 24 hr 04/10/18 04/10/18 04/10/18 05:58 05:58 05:58 WBC 4.58 L RBC 3.55 L Hgb 10.2 L Hct 33.7 L MCV 94.9 MCH 28.7 MCHC 30.3 L RDW Std Deviation 52.5 H RDW Coeff of Zain 15.0 H Plt Count 260 MPV 9.8 PT 23.7 H INR 2.5 H Sodium 141 Potassium 4.0 D Chloride 104 Carbon Dioxide 36 H Anion Gap 1.0 L BUN 17 Creatinine 0.71 Est Cr Clr Drug Dosing 45.8 Est GFR ( Amer) 90.0 Est GFR (Non-Af Amer) 77.7 BUN/Creatinine Ratio 24.1 H Glucose 79 Calcium 8.2 L Medications Administered Current Inpatient Medications Acetaminophen (Tylenol) 500 mg PO Q6 PRN PRN Reason: Unknown Stop: 05/08/18 09:04 Last Admin: 04/10/18 06:09 Dose: 500 mg Albuterol (Duoneb) 3 ml INH Q4 PRN PRN Reason: COUGH, SOB OR WHEEZING Stop: 05/08/18 08:02 Last Admin: 04/10/18 07:44 Dose: 3 ml Albuterol (Ventolin Hfa) 2 puffs INH Q4 PRN PRN Reason: Shortness Of Breath Or Wheezing Stop: 05/08/18 09:04 Alprazolam (Xanax) 0.25 mg PO DAILY PRN PRN Reason: Anxiety Stop: 05/08/18 09:04 Last Admin: 04/10/18 00:05 Dose: 0.25 mg Aspirin (Ecotrin Ectab) 81 mg PO DAILY [facility] Stop: 05/08/18 09:04 Last Admin: 04/10/18 07:36 Dose: 81 mg Budesonide/Formoterol Fumarate (Symbicort 80mcg/4.5mcg) 2 puffs INH BID [facility] Stop: 05/08/18 09:04 Last Admin: 04/10/18 07:38 Dose: 2 puffs Digoxin (Lanoxin) 0.125 mg PO DAILY@1600 [facility] Stop: 05/08/18 15:59 Last Admin: 04/09/18 16:12 Dose: 0.125 mg Escitalopram Oxalate (Lexapro) 10 mg PO DAILY [facility] Stop: 05/08/18 09:04 Last Admin: 04/10/18 07:38 Dose: 10 mg Fluticasone Propionate (Flonase) 2 sprays NA DAILY [facility] Stop: 05/08/18 09:04 Last Admin: 04/10/18 07:37 Dose: 2 sprays Heparin Sodium (Porcine) (Heparin Sodium (Porcine)) 5,000 units SQ Q12 [facility] Stop: 05/09/18 20:59 Last Admin: 04/10/18 07:37 Dose: 5,000 units Furosemide 60 mg/ Syringe 6 mls @ 4 mls/min IV BID17 [facility] Stop: 05/08/18 08:59 Last Admin: 04/10/18 07:36 Dose: 4 mls/min Ioversol (Optiray 320 125ml) 119 ml IV ONCE PRN PRN Reason: Interaction Checking Stop: 04/12/18 16:39 Last Admin: 04/08/18 16:40 Dose: 119 ml Lisinopril (Zestril) 5 mg PO QAM [facility] Stop: 05/08/18 09:04 Last Admin: 04/10/18 07:38 Dose: 5 mg Loratadine (Claritin) 10 mg PO DAILY PRN PRN Reason: RHINITIS Stop: 05/08/18 09:04 Metoprolol Tartrate (Lopressor) 75 mg PO Q8 [facility] Stop: 05/08/18 13:59 Last Admin: 04/10/18 06:13 Dose: 75 mg Montelukast Sodium (Singulair) 10 mg PO DAILY [facility] Stop: 05/08/18 09:04 Last Admin: 04/10/18 07:36 Dose: 10 mg Ondansetron HCl (Zofran) 4 mg IV Q6H PRN PRN Reason: Nausea Stop: 05/08/18 08:02 Polyethylene Glycol (Miralax Powder Packet) 17 gm PO DAILY PRN PRN Reason: Constipation Stop: 05/08/18 08:02 Potassium Chloride (Klor-Con M20) 40 meq PO QAM [facility] Stop: 05/10/18 08:59 Last Admin: 04/10/18 07:37 Dose: 40 meq Simethicone (Mylicon) 80 mg PO QID PRN PRN Reason: gas Stop: 05/08/18 09:04 Spironolactone (Aldactone) 25 mg PO QAM [facility] Stop: 05/08/18 09:44 Last Admin: 04/10/18 07:36 Dose: 25 mg Warfarin Sodium (Coumadin) 4 mg PO DAILY@1600 [facility] Stop: 05/08/18 15:59 Last Admin: 04/09/18 16:12 Dose: 4 mg _ (1) Acute exacerbation of CHF (congestive heart failure) Heart failure type: diastolic Qualified Code(s): I50.33 - Acute on chronic diastolic (congestive) heart failure (2) A-fib Atrial fibrillation type: chronic Qualified Code(s): I48.2 - Chronic atrial fibrillation
--- NOTE | 2018-04-10 12:03 | Discharge Summary ---
Date of Service April 10, 2018 Cards wants the patient to stay 1-2 more days. Admission HPI Per Admitting Provider 87 yo female c PMH of CHF, Pleural Effusions, AFIB, Diastolic CHF, COPD, AVR, Syncope, CAD c Cath, Dysphagia, Pneumonia, SIRS, Aortic Stenosis, CDK 3, Depression, Aortic Stenosis, Asthma, ACD, and recently here for L Groin Hematoma present c SOB. She was given IV Lasix in the ER after being diagnosed c a CHF exac and recurrent Pleural effusions. Patient notes her legs are more swollen than usual. When she was ambulated her sats dropped into the low 80s. She lives alone so will be placed under observation and get diuresed. Assessment and Plan 1. Acute Exac of Chronic Diastolic CHF-IV Lasix, Cardiac eval, Echo, Dr Terrazas saw her recently 2. Pleural Effusion-Diurese and repeat CXR in 1-2 days 3. s/p AVR for 4. COPD 5. Depression 6. AFIB-On Warfarin, INR 1.5 7. Hypoxia- lasix 8. HTN 9. CKD 3 Continue Outpatient meds where appropriate ROS-No Headache, No Visual Changes, No Fever, No Chills, No Neck Pain or Stiffness, No Chest Pain, No Palpitations, +SOB, +AVALOS, +Cough, No Sputum, No Wheezing, No Abdominal Pain, No Diarrhea, No Hematemesis, No Hemoptysis, No Unexpected Weight Loss, No Flank pain, No Melena , No Hematochezia, No Frequency, No Urgency, No Burning, No Hematuria, No Rashes , No Diaphoresis. Appetite is Normal Physical Exam Gen-AAO x 3, NAD, Afebrile, Pleasant, Weak Head-NCAT, EOMI, PERRLA, Anicteric Sclera, No Posterior Pharyngeal Erythema Neck-Supple, No JVD, No Thyromegaly, No Masses, No LAD, No Bruits Lungs-B/L Rales at the bases, No Rhonchi, No Wheezing, No Crepitus Chest-No S4, +S1, +S2, No S3, No Murmurs, No Rubs, No Gallops, No Ectopy Abdomen-Soft, Bowel Sounds Present, Non Tender, Non Distended, No Hepatomegaly, No Splenomegaly, No Palpable Masses, No Rebound, No Rigidity, No Guarding Musculoskeletal-Full Range of Motion Bilaterally, No CVAT Extremities-No Cyanosis, No Clubbing, 3+ Pitting Edema, Mild L Ecchymosis Nuero-Cranial Nerves II-XII grossly intact, Motor WNL, DTRs WNL, Strength WNL, No Focal Psych-Normal Mood PAST MEDICAL HISTORY: CHF, Pleural Effusions, AFIB, Diastolic CHF, COPD, AVR, Syncope, CAD c Cath, Dysphagia, Pneumonia, SIRS, Aortic Stenosis, CDK 3, Depression, Aortic Stenosis, Asthma, ACD, and recently here for L Groin Hematoma PAST SURGICAL HISTORY: Right and left heart catheterization, colonoscopy, EGDs , appendectomy, cataract surgery, cholecystectomy, total abdominal hysterectomy with removal of tubes, and recent TAVR procedure. MEDICATIONS: See list ALLERGIES: SULFA ANTIBIOTICS AND OXYCODONE FAMILY HISTORY: Significant for father had a stroke caused by a tree falling on him, mother had CHF. SOCIAL HISTORY: , lives with a friend. Former smoker, quit in 1988. No alcohol use, no drug use. Principal Diagnosis CHF Acute on Chronic Diastolic Discharge Data Allergies Allergy/AdvReac Type Severity Reaction Status Date / Time Sulfa (Sulfonamide Allergy Severe HIVES & Verified 04/08/18 03:02 Antibiotics) THROAT SWELLING oxycodone AdvReac Severe Hallucinati Verified 04/08/18 03:02 ng meperidine AdvReac Unknown HALLUCINATIONS Verified 04/08/18 03:02 & TACHYCARDIA Consultations 04/08/18 07:26 ED Decision to Admit Stat 04/08/18 08:03 Consult Cardiac Rehabilitation Routine Consult Cardiology Routine 04/10/18 11:58 Consult Palliative Care Routine Ordered Studies 04/08/18 13:08 US effusion-chest/mediastinum Routine 04/08/18 15:35 CT angio chest PE protocol Urgent Total Time Total Time Spent Total Time Spent (In Minutes): Na Discharge Plan Discharge Items Patient Disposition: Home - Home Health Services Reason For Visit: CHF Discharge Diagnosis: 1. Acute Exac of Chronic Diastolic CHF 2. Pleural Effusion 3. s/p AVR for 4. COPD 5. Depression 6. AFIB 7. Hypoxia 8. HTN 9. CKD 3 Condition: Fair Discharge Goals: Decrease discomfort, Improve function and Improve nutritional status Activity: Resume your previous activity Lifting: None Bathing: No limitations Exercise/Sports: None Weightbearing: Left weightbearing and Right weightbearing Non-emergency contact: Primary Care Provider, Toolmaker and Jig Box Operator Call non-emergency contact if: you have any medication questions Follow-up/Referrals: Ariana Pendleton MD [Primary Care Provider] - (Call for first opening) Heath Terrazas DO [Toolmaker] - (Call for first opening) Diet: Heart Healthy and Low Sodium (2gm) Fluids: 1200ml (5 cups) Addtl Provider Instructions: Needs [facility] at home, Needs home Cardiac rehab, home palliative care Prescriptions: New spironolactone 25 mg Tablet 25 mg PO QAM Qty: 30 RF: 0 Continue ipratropium-albuterol 0.5 mg-3 mg(2.5 mg base)/3 mL Solution For Nebulization 3 ml INHALATION Q4 PRN (Reason: COUGH, SOB OR WHEEZING) RF: 0 montelukast [Singulair] 10 mg Tablet 10 mg PO DAILY RF: 0 digoxin [Digox] 125 mcg Tablet 0.125 mg PO DAILY RF: 0 albuterol sulfate [Ventolin HFA] 90 mcg/actuation Hfa Aerosol Inhaler 2 puff INHALATION Q4 PRN (Reason: Shortness Of Breath Or Wheezing) RF: 0 loratadine [Claritin] 10 mg Tablet 10 mg PO DAILY PRN (Reason: RHINITIS) RF: 0 budesonide-formoterol [Symbicort] 80-4.5 mcg/actuation Hfa Aerosol Inhaler 2 puff INHALATION BID RF: 0 aspirin 81 mg Tablet,Delayed Release (Dr/Ec) 81 mg PO DAILY RF: 0 alprazolam 0.25 mg tablet 0.25 mg PO DAILY PRN (Reason: Anxiety) RF: 0 acetaminophen [Tylenol Extra Strength] 500 mg Tablet 500 mg PO Q6 PRN (Reason: Unknown) RF: 0 metoprolol tartrate 50 mg tablet 75 mg PO Q8 RF: 0 fluticasone 50 mcg/actuation spray,suspension 2 spray Intranasal DAILY RF: 0 simethicone 80 mg Tablet,Chewable 80 mg PO QID PRN (Reason: gas) RF: 0 escitalopram oxalate 10 mg tablet 10 mg PO DAILY RF: 0 warfarin [Coumadin] 3 mg Tablet 3 mg PO DAILY@1600 30 Days Qty: 30 RF: 0 lisinopril [Zestril] 5 mg Tablet 5 mg PO QAM 30 Days Qty: 30 RF: 0 furosemide 40 mg tablet 40 mg PO BID 30 Days Qty: 60 RF: 0 Stand-Alone Forms: [facility] Admission Data Admit Date/Time: 04/08/18 08:03 Attending Provider: Bryan Escalante Admit Provider: Bryan Escalante Primary Care Provider: Ariana Pendleton Other Providers: Bryan Escalante ; Heath Terrazas ; Edita So Service: Telemetry Medical Other Interventions: Discharge Summary Assessment (RN) Last Done: 04/10/18 11:36 Pending Studies at Discharge: No
--- NOTE | 2018-04-10 12:09 | Hospitalist Progress Note ---
Date of Service April 10, 2018 Assessment & Plan (1) Acute exacerbation of CHF (congestive heart failure): 1. Acute Exac of Chronic Diastolic CHF-IV Lasix, Cards on case, Echo Done 2. Pleural Effusion-Diurese and repeat CXR in 1-2 days 3. s/p AVR for 4. COPD 5. Depression 6. AFIB-On Warfarin, INR 1.5 7. Hypoxia- lasix 8. HTN 9. CKD 3 Subjective 87 yo female c PMH of CHF, Pleural Effusions, AFIB, Diastolic CHF, COPD, AVR, Syncope, CAD c Cath, Dysphagia, Pneumonia, SIRS, Aortic Stenosis, CDK 3, Depression, Aortic Stenosis, Asthma, ACD, and recently here for L Groin Hematoma present c SOB. She was given IV Lasix in the ER after being diagnosed c a CHF exac and recurrent Pleural effusions. Patient notes her legs are more swollen than usual. When she was ambulated her sats dropped into the low 80s. She lives alone. Was changed to inpatient yesterday. She had a 2D echo which worsening RV function. Assessment and Plan 1. Acute Exac of Chronic Diastolic CHF-IV Lasix, Cards on case, Echo Done 2. Pleural Effusion-Diurese and repeat CXR in 1-2 days 3. s/p AVR for 4. COPD 5. Depression 6. AFIB-On Warfarin, INR 1.5 7. Hypoxia- lasix 8. HTN 9. CKD 3 She needs a Palliative Care eval, Prognosis poor. ROS-No Headache, No Visual Changes, No Fever, No Chills, No Neck Pain or Stiffness, No Chest Pain, No Palpitations, +SOB, +AVALOS, +Cough, No Sputum, No Wheezing, No Abdominal Pain, No Diarrhea, No Hematemesis, No Hemoptysis, No Unexpected Weight Loss, No Flank pain, No Melena, No Hematochezia, No Frequency , No Urgency, No Burning, No Hematuria, No Rashes, No Diaphoresis. Appetite is decreased Physical Exam Gen-AAO x 3, NAD, Afebrile, Pleasant, Weak Head-NCAT, EOMI, PERRLA, Anicteric Sclera, No Posterior Pharyngeal Erythema Neck-Supple, No JVD, No Thyromegaly, No Masses, No LAD, No Bruits Lungs-B/L Rales at the bases, diminished breath sounds at the bases as well. No Rhonchi, No Wheezing, No Crepitus Chest-No S4, +S1, +S2, No S3, No Murmurs, No Rubs, No Gallops, No Ectopy Abdomen-Soft, Bowel Sounds Present, Non Tender, Non Distended, No Hepatomegaly, No Splenomegaly, No Palpable Masses, No Rebound, No Rigidity, No Guarding Musculoskeletal-Full Range of Motion Bilaterally, No CVAT Extremities-No Cyanosis, No Clubbing, 3+ Pitting Edema, Mild L Ecchymosis Nuero-Cranial Nerves II-XII grossly intact, Motor WNL, DTRs WNL, Strength WNL, No Focal Psych-Normal Mood Physical Exam 2 Vital Signs (Past 24 Hours): Last Vital Signs Temp 37.0 C 04/10/18 12:02 Pulse 65 04/10/18 12:02 Resp 16 04/10/18 12:02 BP 128/82 04/10/18 12:02 Pulse Ox 95 04/10/18 12:02 Results & Data Laboratory Results Current Diagnoses Chronic atrial fibrillation (04/08/18) Acute on chronic diastolic (congestive) heart failure (04/08/18) Pleural effusion, not elsewhere classified (04/08/18) Presence of prosthetic heart valve (04/08/18) Allergies Sulfa (Sulfonamide Antibiotics) Allergy (Severe, Verified 04/08/18 03:02) HIVES & THROAT SWELLING oxycodone Adverse Reaction (Severe, Verified 04/08/18 03:02) Hallucinating meperidine Adverse Reaction (Unknown, Verified 04/08/18 03:02) HALLUCINATIONS & TACHYCARDIA Height/Weight/Isolation Height 5 ft 2 in Weight 54.6 kg Chemistry 04/09/18 04/10/18 06:45 05:58 Sodium 142 141 Potassium 3.2 L D 4.0 D Chloride 100 104 Carbon Dioxide 37 H 36 H Anion Gap 4.0 1.0 L BUN 17 17 Creatinine 0.63 0.71 Glucose 99 79 _ (1) Acute exacerbation of CHF (congestive heart failure) Heart failure type: diastolic Qualified Code(s): I50.33 - Acute on chronic diastolic (congestive) heart failure
--- NOTE | 2018-04-10 15:14 | Palliative Care Consultation ---
Date of Consultation April 10, 2018 Assessment & Plan (1) Goals of care, counseling/discussion: -87 year old female with extensive PMH including aortic stenosis s/p recent TAVR, CHF, COPD, asthma, and others, presented to the hospital with increased LE edema due to CHF exacerbation. She is on chronic oxygen at home, lives with her granddaughter. She has been diuresing with IV Lasix and overall feels better. She was to be discharged home today with home health, but discharge was cancelled as sales representative supervisor would like to watch her another night. Palliative care is consulted for end-stage CHF. Most recent echo this admission shows preserved EF 65-70%, moderate concentric LVH, moderate tricuspid regurg, new pulmonary hypertension, severe right atrial enlargement, and s/p TAVR. -Met with patient in room 289. She is awake, alert and oriented x4, sitting up in chair with no SOB or discomfort. Patient states she feels things have been going well at home. Her granddaughter does all household tasks. -Patient states that her mother and sister both had heart failure and from it. She knows some of what to expect in her future as her heart failure worsens. However, she does not feel that she is anywhere near ready for hospice. She stated, "Why would I have had heart surgery if I was ready to give up?" She does know that there are options for care when she is ready to shift her goal of care to comfort. -Patient states she has a very good quality of life at home. Once she no longer has quality of life, that is when she would be ready to change goals of care. -For now, recommend sending her home with home health as previously planned. I' d be happy to see her if there are any further admissions. (2) Acute exacerbation of CHF (congestive heart failure): Heart failure type: diastolic Qualified Code(s): I50.33 - Acute on chronic diastolic (congestive) heart failure (3) Pleural effusion: (4) H/O aortic valve replacement: History of Present Illness Reason for Consultation: End stage CHF Requesting Physician: Dr. Escalante Attending Physician: Bryan Escalante, DO History of Present Illness This 87 year old female with extensive PMH including aortic stenosis s/p recent TAVR, CHF, COPD, asthma, and others, presented to the hospital with increased LE edema due to CHF exacerbation. She is on chronic oxygen at home, lives with her granddaughter. She has been diuresing with IV Lasix and overall feels better. She was to be discharged home today with home health, but discharge was cancelled as sales representative supervisor would like to watch her another night. Palliative care is consulted for end-stage CHF. Most recent echo this admission shows preserved EF 65-70%, moderate concentric LVH, moderate tricuspid regurg, new pulmonary hypertension, severe right atrial enlargement, and s/p TAVR. Thank you kindly for this consult. I will follow as needed. Allergies Allergy/AdvReac Type Severity Reaction Status Date / Time Sulfa (Sulfonamide Allergy Severe HIVES & Verified 04/08/18 03:02 Antibiotics) THROAT SWELLING oxycodone AdvReac Severe Hallucinati Verified 04/08/18 03:02 ng meperidine AdvReac Unknown HALLUCINATIONS Verified 04/08/18 03:02 & TACHYCARDIA Home Medications Home Medications Medication Instructions Recorded Confirmed Type albuterol sulfate [Ventolin HFA] 2 puff INHALATION Q4 PRN 01/06/18 04/08/18 History budesonide-formoterol [Symbicort] 2 puff INHALATION BID 01/06/18 04/08/18 History digoxin [Digox] 0.125 mg PO DAILY 01/06/18 04/08/18 History ipratropium-albuterol 3 ml INHALATION Q4 PRN 01/06/18 04/08/18 History loratadine [Claritin] 10 mg PO DAILY PRN 01/06/18 04/08/18 History montelukast [Singulair] 10 mg PO DAILY 01/06/18 04/08/18 History acetaminophen [Tylenol Extra 500 mg PO Q6 PRN 03/14/18 04/08/18 History Strength] alprazolam 0.25 mg PO DAILY PRN 03/14/18 04/08/18 History aspirin 81 mg PO DAILY 03/14/18 04/08/18 History escitalopram oxalate 10 mg PO DAILY 03/14/18 04/08/18 History fluticasone 2 spray INTRANASAL DAILY 03/14/18 04/08/18 History metoprolol tartrate 75 mg PO Q8 03/14/18 04/08/18 History simethicone 80 mg PO QID PRN 03/14/18 04/08/18 History furosemide 40 mg PO BID 30 Days #60 tab 03/16/18 04/08/18 Rx lisinopril [Zestril] 5 mg PO QAM 30 Days #30 tab 03/16/18 04/08/18 Rx warfarin [Coumadin] 3 mg PO DAILY@1600 30 Days #30 tab 03/16/18 04/08/18 Rx spironolactone 25 mg PO QAM #30 tab 04/10/18 Rx Patient History Medical History Syncope (Acute) Near syncope (Acute) Bleeding (Acute) Groin hematoma Dysphagia Subcutaneous hematoma Dysphagia Pneumonia (Acute) Hypoxic (Acute) SIRS (systemic inflammatory response syndrome) (Acute) COPD (chronic obstructive pulmonary disease) (Chronic) Aortic stenosis (Chronic) Asthma (Chronic) Chronic atrial fibrillation (Chronic) HTN (hypertension) (Chronic) 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) CKD (chronic kidney disease) stage 3, GFR 30-59 ml/min (Chronic) Depression (Chronic) Anemia, chronic renal failure (Chronic) Aortic stenosis Atrial fibrillation CHF (congestive heart failure) COPD (chronic obstructive pulmonary disease) Diabetes History of hysterectomy Hypertension Surgical History Status post cardiac catheterization (Acute) History of cholecystectomy (Resolved) History of appendectomy (Resolved) History of total hysterectomy (Resolved) "fibroids" H/O cataract removal with insertion of prosthetic lens (Resolved) "2002" S/P cataract surgery S/P cholecystectomy Family History Other Family history non-contributory Heart disease Social History marital status: Life Partner Current Living Situation: Significant Other Current Living Situation Comment: with boyfriend current occupational status: retired Other Information That Helps Us Care for You: No Feels Safe at Home: Yes Safety Concerns: Feels Safe At This Time Smoking Status: Never smoker Second Hand Exposure: No Hx Alcohol Use: No Hx Substance Use: No Beliefs That Will Affect Care: None Preferred Language: Thai Review of Systems Constitutional: no weakness Ear, Nose, Mouth, Throat: no dysphagia Respiratory: + dyspnea on exertion; no cough and no dyspnea Cardiovascular: + edema; no chest pain Gastrointestinal: no abdominal pain, no nausea and no vomiting Neurologic: no confusion Psychiatric: no depression and no anxiety Physical Exam 2 Vital Signs (Past 24 Hours): Last Vital Signs Temp 37.0 C 04/10/18 12:02 Pulse 65 04/10/18 12:02 Resp 16 04/10/18 12:02 BP 128/82 04/10/18 12:02 Pulse Ox 95 04/10/18 12:02 Time Spent Midlevel 50 minutes with >50% of time spent at bedside with patient discussing condition and GOC.
[2018-04-10] MEDS: WARFARIN SOD 4 MG TAB PO SCH (16:48)
[2018-04-10] MEDS: DIGOXIN 0.125 MG TAB PO SCH (16:48)
[2018-04-11] MEDS: ACETAMINOPHEN 500 MG TAB PO PRN (04:26)
[2018-04-11] MEDS: BUDESONIDE/FORMOTEROL FUMARATE 80/4.5 60 PUFFS/INHALER INH SCH ×3 (04:46→21:16)
[2018-04-11] MEDS: METOPROLOL TARTRATE 50 MG TAB PO SCH ×3 (05:43→21:17)
[2018-04-11 06:30] LABS: Hematocrit (blood only) 32.3 % (37-47); Hemoglobin 10.1 g/dL (12.0-16.0); Mean Corpuscular Hgb Conc 31.3 g/dL (32-36); Mean Corpuscular Volume 95.3 fL (80-100); Mean Platelet Volume 9.6 fL (7.4-10.4); Platelet Count 254 K/uL (130-400); RDW Coefficient of Variation 14.8 % (11.5-14.5); RDW Standard Deviation 50.6 fL (36.4-46.3); Red Blood Count 3.39 M/uL (4.2-5.4); White Blood Count 4.59 K/uL (4.8-10.8)
[2018-04-11 06:59] LABS: BUN Creatinine Ratio 23.6 (10-20); Creatinine Clr Calc Pharmacy 38.7 ml/min; Est GFR (African American) 73.5; Est GFR (Non-African American) 63.4; Potassium 4.2 mmol/L (3.5-5.1)
[2018-04-11 07:00] LABS: INR 3.2 (0.9-1.1)
[2018-04-11] MEDS: ESCITALOPRAM OXALATE 10 MG TAB PO SCH (08:42)
[2018-04-11] MEDS: MONTELUKAST SODIUM 10 MG TABLET PO SCH (08:43)
[2018-04-11] MEDS: ASPIRIN 81 MG ECTAB PO SCH (08:43)
[2018-04-11] MEDS: POTASSIUM CHLORIDE 20 MEQ TABCR PO SCH (08:43)
[2018-04-11] MEDS: SPIRONOLACTONE 25 MG TAB PO SCH (08:43)
[2018-04-11] MEDS: LISINOPRIL 5 MG TAB PO SCH (08:44)
[2018-04-11] MEDS: FLUTICASONE PROPIONATE NA SPR 16 GM BTL SCH (08:44)
[2018-04-11] MEDS: HEPARIN SOD 5,000 UNIT/0.5 ML VIAL SQ SCH ×2 (08:45→21:16)
[2018-04-11] MEDS: FUROSEMIDE 60 MG in SYRINGE 0 ML IV SCH (08:45)
--- NOTE | 2018-04-11 09:47 | Cardiology Progress Note ---
Date of Service April 11, 2018 Assessment & Plan (1) Acute exacerbation of CHF (congestive heart failure): This is most likely acute on chronic diastolic heart failure which has improved after diuresis. She is high risk for readmission. Unfortunately she is not a candidate for [facility] at home and will be followed by visiting nurses. I believe 1 more day prior to discharge is indicated. I am switching her over to oral Lasix. (2) Pleural effusion: unsuitable for thoracentesis will cont IV diuresis (3) A-fib: chronic rate controlled INR of 1.9 today, cont heparin for now (4) H/O aortic valve replacement: Status post Cristo Subjective This is a pleasant 87-year-old female whom I follow in the office. At the end of 2017 she received a Cristo due to severe aortic stenosis. It should be noted that the patient spent approximately 3 weeks at [facility] prior to undergoing the this procedure due to multiple medical problems and failure to thrive. The patient has had at least one admission following that procedure. That occurred in February when she was diagnosed with a community- acquired pneumonia following a viral respiratory illness. She was admitted over the weekend with increasing shortness of breath and lower extremity edema. She is high risk for readmission. Physical Exam 2 Vital Signs (Past 24 Hours): Last Vital Signs Temp 36.4 C L 04/11/18 07:31 Pulse 72 04/11/18 07:31 Resp 20 04/11/18 07:31 BP 137/83 04/11/18 07:31 Pulse Ox 93 04/11/18 07:31 Physical Exam: General: no acute distress and stated age Head: normocephalic, no masses, lesions, tenderness or abnormalities Eyes: conjunctiva are pink and non-injected, sclera clear Neck: supple, no adenopathy, no bruits, normal jugular venous pulse, no hepatojugular reflux Chest: normal shape and normal respiratory effort Lungs: clear to auscultation and percussion Cardiac Exam: - regular rate & rhythm, no murmurs gallops or rubs - normal S1, normal S2 Pulses: 2(+) throughout Abdomen: abdomen soft, non-tender, no abnormal masses and no hepatosplenomegaly Musculoskeletal: no gait disturbance, no joint inflammation, no deforming arthritis Extremities: Decreased edema bilateral ankles Neuro: grossly normal exam Results & Data Laboratory Results Laboratory Results - last 24 hr 04/11/18 04/11/18 04/11/18 06:02 06:02 06:02 WBC 4.59 L RBC 3.39 L Hgb 10.1 L Hct 32.3 L MCV 95.3 MCH 29.8 MCHC 31.3 L RDW Std Deviation 50.6 H RDW Coeff of Zain 14.8 H Plt Count 254 MPV 9.6 PT 30.0 H INR 3.2 H Sodium 141 Potassium 4.2 Chloride 103 Carbon Dioxide 36 H Anion Gap 2.0 L BUN 20 H Creatinine 0.84 Est Cr Clr Drug Dosing 38.7 Est GFR ( Amer) 73.5 Est GFR (Non-Af Amer) 63.4 BUN/Creatinine Ratio 23.6 H Glucose 88 POC Glucose Calcium 8.0 L 04/11/18 07:31 WBC RBC Hgb Hct MCV MCH MCHC RDW Std Deviation RDW Coeff of Zain Plt Count MPV PT INR Sodium Potassium Chloride Carbon Dioxide Anion Gap BUN Creatinine Est Cr Clr Drug Dosing Est GFR ( Amer) Est GFR (Non-Af Amer) BUN/Creatinine Ratio Glucose POC Glucose 91 Calcium Medications Administered Current Inpatient Medications Acetaminophen (Tylenol) 500 mg PO Q6 PRN PRN Reason: Unknown Stop: 05/08/18 09:04 Last Admin: 04/11/18 04:26 Dose: 500 mg Albuterol (Duoneb) 3 ml INH Q4 PRN PRN Reason: COUGH, SOB OR WHEEZING Stop: 05/08/18 08:02 Last Admin: 04/10/18 19:45 Dose: 3 ml Albuterol (Ventolin Hfa) 2 puffs INH Q4 PRN PRN Reason: Shortness Of Breath Or Wheezing Stop: 05/08/18 09:04 Alprazolam (Xanax) 0.25 mg PO DAILY PRN PRN Reason: Anxiety Stop: 05/08/18 09:04 Last Admin: 04/10/18 00:05 Dose: 0.25 mg Aspirin (Ecotrin Ectab) 81 mg PO DAILY [facility] Stop: 05/08/18 09:04 Last Admin: 04/11/18 08:43 Dose: 81 mg Budesonide/Formoterol Fumarate (Symbicort 80mcg/4.5mcg) 2 puffs INH BID [facility] Stop: 05/08/18 09:04 Last Admin: 04/11/18 08:44 Dose: 2 puffs Digoxin (Lanoxin) 0.125 mg PO DAILY@1600 [facility] Stop: 05/08/18 15:59 Last Admin: 04/10/18 16:48 Dose: 0.125 mg Escitalopram Oxalate (Lexapro) 10 mg PO DAILY [facility] Stop: 05/08/18 09:04 Last Admin: 04/11/18 08:42 Dose: 10 mg Fluticasone Propionate (Flonase) 2 sprays NA DAILY [facility] Stop: 05/08/18 09:04 Last Admin: 04/11/18 08:44 Dose: 2 sprays Furosemide (Lasix) 60 mg PO BID17 [facility] Stop: 05/11/18 16:59 Heparin Sodium (Porcine) (Heparin Sodium (Porcine)) 5,000 units SQ Q12 [facility] Stop: 05/09/18 20:59 Last Admin: 04/11/18 08:45 Dose: 5,000 units Ioversol (Optiray 320 125ml) 119 ml IV ONCE PRN PRN Reason: Interaction Checking Stop: 04/12/18 16:39 Last Admin: 04/08/18 16:40 Dose: 119 ml Lisinopril (Zestril) 5 mg PO QAM [facility] Stop: 05/08/18 09:04 Last Admin: 04/11/18 08:44 Dose: 5 mg Loratadine (Claritin) 10 mg PO DAILY PRN PRN Reason: RHINITIS Stop: 05/08/18 09:04 Metoprolol Tartrate (Lopressor) 75 mg PO Q8 [facility] Stop: 05/08/18 13:59 Last Admin: 04/11/18 05:43 Dose: 75 mg Montelukast Sodium (Singulair) 10 mg PO DAILY [facility] Stop: 05/08/18 09:04 Last Admin: 04/11/18 08:43 Dose: 10 mg Ondansetron HCl (Zofran) 4 mg IV Q6H PRN PRN Reason: Nausea Stop: 05/08/18 08:02 Polyethylene Glycol (Miralax Powder Packet) 17 gm PO DAILY PRN PRN Reason: Constipation Stop: 05/08/18 08:02 Potassium Chloride (Klor-Con M20) 20 meq PO QAM [facility] Stop: 05/12/18 08:59 Simethicone (Mylicon) 80 mg PO QID PRN PRN Reason: gas Stop: 05/08/18 09:04 Spironolactone (Aldactone) 25 mg PO QAM [facility] Stop: 05/08/18 09:44 Last Admin: 04/11/18 08:43 Dose: 25 mg Warfarin Sodium (Coumadin) 4 mg PO DAILY@1600 [facility] Stop: 05/08/18 15:59 Last Admin: 04/10/18 16:48 Dose: 4 mg _ (1) Acute exacerbation of CHF (congestive heart failure) Heart failure type: diastolic Qualified Code(s): I50.33 - Acute on chronic diastolic (congestive) heart failure (2) A-fib Atrial fibrillation type: chronic Qualified Code(s): I48.2 - Chronic atrial fibrillation
--- NOTE | 2018-04-11 11:14 | Hospitalist Progress Note ---
Date of Service April 11, 2018 Assessment & Plan (1) Acute exacerbation of CHF (congestive heart failure): 1. Acute Exac of Chronic Diastolic CHF-IV Lasix, Cards on case, Echo Done 2. Pleural Effusion-Diurese and repeat CXR in 1-2 days 3. s/p AVR for 4. COPD 5. Depression 6. AFIB-On Warfarin, INR 1.5 7. Hypoxia- lasix 8. HTN 9. CKD 3 Subjective 87 yo female c PMH of CHF, Pleural Effusions, AFIB, Diastolic CHF, COPD, AVR, Syncope, CAD c Cath, Dysphagia, Pneumonia, SIRS, Aortic Stenosis, CDK 3, Depression, Aortic Stenosis, Asthma, ACD, and recently here for L Groin Hematoma present c SOB. She was given IV Lasix in the ER after being diagnosed c a CHF exac and recurrent Pleural effusions. Patient notes her legs are more swollen than usual. When she was ambulated her sats dropped into the low 80s. She lives alone. Was changed to inpatient yesterday. She had a 2D echo which worsening RV function. Assessment and Plan 1. Acute Exac of Chronic Diastolic CHF-IV Lasix, Cards on case, Echo Done 2. Pleural Effusion-Diurese and repeat CXR in 1-2 days 3. s/p AVR for 4. COPD 5. Depression 6. AFIB-On Warfarin, INR 1.5 7. Hypoxia- lasix 8. HTN 9. CKD 3 She needs a Palliative Care eval, Prognosis poor. MI 02/[address] [facility] ROS-No Headache, No Visual Changes, No Fever, No Chills, No Neck Pain or Stiffness, No Chest Pain, No Palpitations, +SOB, +AVALOS, +Cough, No Sputum, No Wheezing, No Abdominal Pain, No Diarrhea, No Hematemesis, No Hemoptysis, No Unexpected Weight Loss, No Flank pain, No Melena, No Hematochezia, No Frequency , No Urgency, No Burning, No Hematuria, No Rashes, No Diaphoresis. Appetite is decreased Physical Exam Gen-AAO x 3, NAD, Afebrile, Pleasant, Weak Head-NCAT, EOMI, PERRLA, Anicteric Sclera, No Posterior Pharyngeal Erythema Neck-Supple, No JVD, No Thyromegaly, No Masses, No LAD, No Bruits Lungs-B/L Rales at the bases, diminished breath sounds at the bases as well. No Rhonchi, No Wheezing, No Crepitus Chest-No S4, +S1, +S2, No S3, No Murmurs, No Rubs, No Gallops, No Ectopy Abdomen-Soft, Bowel Sounds Present, Non Tender, Non Distended, No Hepatomegaly, No Splenomegaly, No Palpable Masses, No Rebound, No Rigidity, No Guarding Musculoskeletal-Full Range of Motion Bilaterally, No CVAT Extremities-No Cyanosis, No Clubbing,Trace Edema, Mild L Ecchymosis Nuero-Cranial Nerves II-XII grossly intact, Motor WNL, DTRs WNL, Strength WNL, No Focal Psych-Normal Mood Physical Exam 2 Vital Signs (Past 24 Hours): Last Vital Signs Temp 36.4 C L 04/11/18 07:31 Pulse 76 04/11/18 08:00 Resp 20 04/11/18 07:31 BP 137/83 04/11/18 07:31 Pulse Ox 93 04/11/18 07:31 Results & Data Laboratory Results Current Diagnoses Chronic atrial fibrillation (04/10/18) Acute on chronic diastolic (congestive) heart failure (04/10/18) Pleural effusion, not elsewhere classified (04/10/18) Other specified counseling (04/10/18) Presence of prosthetic heart valve (04/10/18) Allergies Sulfa (Sulfonamide Antibiotics) Allergy (Severe, Verified 04/08/18 03:02) HIVES & THROAT SWELLING oxycodone Adverse Reaction (Severe, Verified 04/08/18 03:02) Hallucinating meperidine Adverse Reaction (Unknown, Verified 04/08/18 03:02) HALLUCINATIONS & TACHYCARDIA Height/Weight/Isolation Height 5 ft 2 in Weight 54.3 kg Chemistry 04/10/18 04/11/18 05:58 06:02 Sodium 141 141 Potassium 4.0 D 4.2 Chloride 104 103 Carbon Dioxide 36 H 36 H Anion Gap 1.0 L 2.0 L BUN 17 20 H Creatinine 0.71 0.84 Glucose 79 88 _ (1) Acute exacerbation of CHF (congestive heart failure) Heart failure type: diastolic Qualified Code(s): I50.33 - Acute on chronic diastolic (congestive) heart failure
[2018-04-11] MEDS: ALBUT/IPRATROP 3MG/0.5MG NEB 3 ML VIAL INH PRN (16:40)
[2018-04-11] MEDS: FUROSEMIDE 20 MG TAB PO SCH (17:08)
[2018-04-11] MEDS: DIGOXIN 0.125 MG TAB PO SCH (17:09)
[2018-04-11] MEDS: WARFARIN SOD 4 MG TAB PO SCH (17:10)
[2018-04-12] MEDS: ALBUT/IPRATROP 3MG/0.5MG NEB 3 ML VIAL INH PRN ×3 (00:20→13:51)
[2018-04-12] MEDS: METOPROLOL TARTRATE 50 MG TAB PO SCH ×3 (05:45→20:57)
[2018-04-12] MEDS: ACETYLCYSTEINE 10% INHAL SOLN **DISPENSED FROM RESP. INH SCH ×2 (07:09→13:51)
--- NOTE | 2018-04-12 07:54 | Hospitalist Progress Note ---
Date of Service April 12, 2018 Assessment & Plan (1) Acute exacerbation of CHF (congestive heart failure): 1. Acute Exac of Chronic Diastolic CHF 2. Pleural Effusion 3. s/p AVR for 4. COPD 5. Depression 6. AFIB 7. Hypoxia 8. HTN 9. CKD 3 Subjective 87 yo female c PMH of CHF, Pleural Effusions, AFIB, Diastolic CHF, COPD, AVR, Syncope, CAD c Cath, Dysphagia, Pneumonia, SIRS, Aortic Stenosis, CDK 3, Depression, Aortic Stenosis, Asthma, ACD, and recently here for L Groin Hematoma present c SOB. She was given IV Lasix in the ER after being diagnosed c a CHF exac and recurrent Pleural effusions. Patient notes her legs are more swollen than usual. When she was ambulated her sats dropped into the low 80s. She lives alone. Was changed to inpatient yesterday. She had a 2D echo which worsening RV function. Assessment and Plan 1. Acute Exac of Chronic Diastolic CHF-IV Lasix, Cards on case, Echo Done 2. Pleural Effusion-Diurese and repeat CXR today 3. s/p AVR for 4. COPD 5. Depression 6. AFIB-On Warfarin, INR 1.5 7. Hypoxia- lasix 8. HTN 9. CKD 3 DC 02/09 home c [facility] if OK c Cardiology, await final input, CXR today ROS-No Headache, No Visual Changes, No Fever, No Chills, No Neck Pain or Stiffness, No Chest Pain, No Palpitations, +SOB, +AVALOS, +Cough, No Sputum, No Wheezing, No Abdominal Pain, No Diarrhea, No Hematemesis, No Hemoptysis, No Unexpected Weight Loss, No Flank pain, No Melena , No Hematochezia, No Frequency, No Urgency, No Burning, No Hematuria, No Rashes , No Diaphoresis. Appetite is decreased Physical Exam Gen-AAO x 3, NAD, Afebrile, Pleasant, Weak Head-NCAT, EOMI, PERRLA, Anicteric Sclera, No Posterior Pharyngeal Erythema Neck-Supple, No JVD, No Thyromegaly, No Masses, No LAD, No Bruits Lungs-B/L Rales at the bases, diminished breath sounds at the bases as well. 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-Normal Mood Physical Exam 2 Vital Signs (Past 24 Hours): Last Vital Signs Temp 36.9 C 04/12/18 07:08 Pulse 84 04/12/18 07:09 Resp 20 04/12/18 07:09 BP 157/87 H 04/12/18 07:08 Pulse Ox 83 L 04/12/18 07:09 Results & Data Laboratory Results Current Diagnoses Chronic atrial fibrillation (04/10/18) Acute on chronic diastolic (congestive) heart failure (04/10/18) Pleural effusion, not elsewhere classified (04/10/18) Other specified counseling (04/10/18) Presence of prosthetic heart valve (04/10/18) Allergies Sulfa (Sulfonamide Antibiotics) Allergy (Severe, Verified 04/08/18 03:02) HIVES & THROAT SWELLING oxycodone Adverse Reaction (Severe, Verified 04/08/18 03:02) Hallucinating meperidine Adverse Reaction (Unknown, Verified 04/08/18 03:02) HALLUCINATIONS & TACHYCARDIA Height/Weight/Isolation Height 5 ft 2 in Weight 54.2 kg Chemistry 04/11/18 06:02 Sodium 141 Potassium 4.2 Chloride 103 Carbon Dioxide 36 H Anion Gap 2.0 L BUN 20 H Creatinine 0.84 Glucose 88 _ (1) Acute exacerbation of CHF (congestive heart failure) Heart failure type: diastolic Qualified Code(s): I50.33 - Acute on chronic diastolic (congestive) heart failure
[2018-04-12 08:00] LABS: Hematocrit (blood only) 35.2 % (37-47); Hemoglobin 11.1 g/dL (12.0-16.0); Mean Corpuscular Hgb Conc 31.5 g/dL (32-36); Mean Corpuscular Volume 94.1 fL (80-100); Mean Platelet Volume 9.9 fL (7.4-10.4); Platelet Count 294 K/uL (130-400); RDW Coefficient of Variation 14.8 % (11.5-14.5); RDW Standard Deviation 50.8 fL (36.4-46.3); Red Blood Count 3.74 M/uL (4.2-5.4)
[2018-04-12] MEDS: FLUTICASONE PROPIONATE NA SPR 16 GM BTL SCH (08:05)
[2018-04-12] MEDS: ESCITALOPRAM OXALATE 10 MG TAB PO SCH (08:05)
[2018-04-12] MEDS: BUDESONIDE/FORMOTEROL FUMARATE 80/4.5 60 PUFFS/INHALER INH SCH ×2 (08:05→20:57)
[2018-04-12] MEDS: ASPIRIN 81 MG ECTAB PO SCH (08:05)
[2018-04-12] MEDS: FUROSEMIDE 20 MG TAB PO SCH ×2 (08:05→17:50)
[2018-04-12] MEDS: SPIRONOLACTONE 25 MG TAB PO SCH (08:05)
[2018-04-12] MEDS: POTASSIUM CHLORIDE 20 MEQ TABCR PO SCH (08:06)
[2018-04-12] MEDS: HEPARIN SOD 5,000 UNIT/0.5 ML VIAL SQ SCH (08:06)
[2018-04-12] MEDS: MONTELUKAST SODIUM 10 MG TABLET PO SCH (08:06)
[2018-04-12 08:34] LABS: Albumin Level 2.7 gm/dl (3.4-5.0); BUN Creatinine Ratio 31.1 (10-20); Calcium 8.5 mg/dl (8.5-10.1); Est GFR (African American) 93.8; Potassium 4.2 mmol/L (3.5-5.1)
[2018-04-12] MEDS: LISINOPRIL 10 MG TAB PO SCH (08:35)
[2018-04-12 08:37] LABS: Albumin Globulin Ratio 0.8 (0.9-2); Bilirubin,Total 0.3 mg/dl (0.2-1); Globulin 3.3 gm/dl (2.5-4.0)
--- NOTE | 2018-04-12 10:55 | Cardiology Progress Note ---
Date of Service April 12, 2018 Assessment & Plan (1) Acute exacerbation of CHF (congestive heart failure): This is most likely acute on chronic diastolic heart failure which has improved after diuresis. She is high risk for readmission. Unfortunately she is not a candidate for [facility] at home and will be followed by visiting nurses. I believe 1 more day prior to discharge is indicated. I am switching her over to oral Lasix. The patient had diarrhea this morning. She does have a recent history of prolonged antibiotics due to a pneumonia. I believe it would be prudent to obtain stool for C. difficile while she is in the hospital. I do not believe however that the diarrhea is severe enough to postpone discharge. We can follow -up on this as an outpatient. (2) Pleural effusion: unsuitable for thoracentesis (3) A-fib: chronic rate controlled (4) H/O aortic valve replacement: Status post Cristo Subjective This is a pleasant 87-year-old female whom I follow in the office. At the end of 2017 she received a Cristo due to severe aortic stenosis. It should be noted that the patient spent approximately 3 weeks at [facility] prior to undergoing the this procedure due to multiple medical problems and failure to thrive. The patient has had at least one admission following that procedure. That occurred in February when she was diagnosed with a community- acquired pneumonia following a viral respiratory illness. She was admitted over the weekend with increasing shortness of breath and lower extremity edema. She is high risk for readmission. The patient is sitting in his chair and resting comfortably. She had no new cardiac complaints overnight. She did have an episode of diarrhea this morning. Approximately a month ago she was on prolonged treatment with antibiotics for pneumonia. It may be prudent to check a C. difficile. Physical Exam 2 Vital Signs (Past 24 Hours): Last Vital Signs Temp 36.9 C 04/12/18 07:08 Pulse 79 04/12/18 08:00 Resp 20 04/12/18 07:09 BP 157/87 H 04/12/18 07:08 Pulse Ox 83 L 04/12/18 07:09 Physical Exam: General: no acute distress and stated age Head: normocephalic, no masses, lesions, tenderness or abnormalities Eyes: conjunctiva are pink and non-injected, sclera clear Neck: supple, no adenopathy, no bruits, normal jugular venous pulse, no hepatojugular reflux Chest: normal shape and normal respiratory effort Lungs: clear to auscultation and percussion Cardiac Exam: - irregular rate & rhythm, no murmurs gallops or rubs - normal S1 , normal S2 Pulses: 2(+) throughout Abdomen: abdomen soft, non-tender, no abnormal masses and no hepatosplenomegaly Musculoskeletal: no gait disturbance, no joint inflammation, no deforming arthritis Extremities: no edema and no cyanosis Neuro: grossly normal exam Results & Data Laboratory Results Laboratory Results - last 24 hr 04/12/18 04/12/18 07:36 07:36 WBC 5.30 RBC 3.74 L Hgb 11.1 L Hct 35.2 L MCV 94.1 MCH 29.7 MCHC 31.5 L RDW Std Deviation 50.8 H RDW Coeff of Zain 14.8 H Plt Count 294 MPV 9.9 Sodium 141 Potassium 4.2 Chloride 100 Carbon Dioxide 35 H Anion Gap 6.0 BUN 20 H Creatinine 0.65 Est Cr Clr Drug Dosing 50.0 Est GFR ( Amer) 93.8 Est GFR (Non-Af Amer) 81.0 BUN/Creatinine Ratio 31.1 H Glucose 96 Calcium 8.5 Total Bilirubin 0.3 AST 25 ALT 27 Alkaline Phosphatase 75 Total Protein 6.0 L Albumin 2.7 L Globulin 3.3 Albumin/Globulin Ratio 0.8 L Medications Administered Current Inpatient Medications Acetaminophen (Tylenol) 500 mg PO Q6 PRN PRN Reason: Unknown Stop: 05/08/18 09:04 Last Admin: 04/11/18 04:26 Dose: 500 mg Acetylcysteine (Mucomyst 10%) 10 ml INH TIDR [facility] Stop: 05/12/18 08:59 Last Admin: 04/12/18 07:09 Dose: 10 ml Albuterol (Duoneb) 3 ml INH Q4 PRN PRN Reason: COUGH, SOB OR WHEEZING Stop: 05/08/18 08:02 Last Admin: 04/12/18 07:09 Dose: 3 ml Albuterol (Ventolin Hfa) 2 puffs INH Q4 PRN PRN Reason: Shortness Of Breath Or Wheezing Stop: 05/08/18 09:04 Alprazolam (Xanax) 0.25 mg PO DAILY PRN PRN Reason: Anxiety Stop: 05/08/18 09:04 Last Admin: 04/10/18 00:05 Dose: 0.25 mg Aspirin (Ecotrin Ectab) 81 mg PO DAILY [facility] Stop: 05/08/18 09:04 Last Admin: 04/12/18 08:05 Dose: 81 mg Budesonide/Formoterol Fumarate (Symbicort 80mcg/4.5mcg) 2 puffs INH BID [facility] Stop: 05/08/18 09:04 Last Admin: 04/12/18 08:05 Dose: 2 puffs Digoxin (Lanoxin) 0.125 mg PO DAILY@1600 [facility] Stop: 05/08/18 15:59 Last Admin: 04/11/18 17:09 Dose: 0.125 mg Escitalopram Oxalate (Lexapro) 10 mg PO DAILY [facility] Stop: 05/08/18 09:04 Last Admin: 04/12/18 08:05 Dose: 10 mg Fluticasone Propionate (Flonase) 2 sprays NA DAILY [facility] Stop: 05/08/18 09:04 Last Admin: 04/12/18 08:05 Dose: 2 sprays Furosemide (Lasix) 60 mg PO BID17 [facility] Stop: 05/11/18 16:59 Last Admin: 04/12/18 08:05 Dose: 60 mg Ioversol (Optiray 320 125ml) 119 ml IV ONCE PRN PRN Reason: Interaction Checking Stop: 04/12/18 16:39 Last Admin: 04/08/18 16:40 Dose: 119 ml Lisinopril (Zestril) 10 mg PO QAM [facility] Stop: 05/12/18 08:59 Last Admin: 04/12/18 08:35 Dose: 10 mg Loratadine (Claritin) 10 mg PO DAILY PRN PRN Reason: RHINITIS Stop: 05/08/18 09:04 Metoprolol Tartrate (Lopressor) 75 mg PO Q8 [facility] Stop: 05/08/18 13:59 Last Admin: 04/12/18 05:45 Dose: 75 mg Montelukast Sodium (Singulair) 10 mg PO DAILY [facility] Stop: 05/08/18 09:04 Last Admin: 04/12/18 08:06 Dose: 10 mg Ondansetron HCl (Zofran) 4 mg IV Q6H PRN PRN Reason: Nausea Stop: 05/08/18 08:02 Polyethylene Glycol (Miralax Powder Packet) 17 gm PO DAILY PRN PRN Reason: Constipation Stop: 05/08/18 08:02 Potassium Chloride (Klor-Con M20) 20 meq PO [facility] Stop: 05/12/18 08:59 Last Admin: 04/12/18 08:06 Dose: 20 meq Simethicone (Mylicon) 80 mg PO QID PRN PRN Reason: gas Stop: 05/08/18 09:04 Spironolactone (Aldactone) 25 mg PO QAM [facility] Stop: 05/08/18 09:44 Last Admin: 04/12/18 08:05 Dose: 25 mg Warfarin Sodium (Coumadin) 3 mg PO DAILY@1600 [facility] Stop: 05/12/18 15:59 _ (1) Acute exacerbation of CHF (congestive heart failure) Heart failure type: diastolic Qualified Code(s): I50.33 - Acute on chronic diastolic (congestive) heart failure (2) A-fib Atrial fibrillation type: chronic Qualified Code(s): I48.2 - Chronic atrial fibrillation
[2018-04-12] MEDS ORDERED: WARFARIN SOD 3 MG TAB PO SCH (16:00)
[2018-04-12] MEDS: DIGOXIN 0.125 MG TAB PO SCH (17:49)
[2018-04-13] MEDS: ALBUT/IPRATROP 3MG/0.5MG NEB 3 ML VIAL INH PRN ×2 (00:46→07:09)
[2018-04-13] MEDS: METOPROLOL TARTRATE 50 MG TAB PO SCH (05:33)
[2018-04-13 06:35] LABS: Hematocrit (blood only) 33.4 % (37-47); Hemoglobin 10.4 g/dL (12.0-16.0); Mean Corpuscular Hgb Conc 31.1 g/dL (32-36); Mean Corpuscular Volume 94.4 fL (80-100); Mean Platelet Volume 9.6 fL (7.4-10.4); Platelet Count 284 K/uL (130-400); RDW Coefficient of Variation 14.7 % (11.5-14.5); RDW Standard Deviation 50.8 fL (36.4-46.3); Red Blood Count 3.54 M/uL (4.2-5.4); White Blood Count 4.81 K/uL (4.8-10.8)
[2018-04-13 06:41] LABS: INR 3.1 (0.9-1.1); Prothrombin Time 29.6 Seconds (9.0-12.0)
[2018-04-13] MEDS: ACETYLCYSTEINE 10% INHAL SOLN **DISPENSED FROM RESP. INH SCH ×2 (07:09→08:07)
[2018-04-13 07:11] LABS: BUN Creatinine Ratio 29.8 (10-20); Creatinine Clr Calc Pharmacy 47.1 ml/min; Est GFR (Non-African American) 79.4; Potassium 4.3 mmol/L (3.5-5.1)
[2018-04-13] MEDS: ESCITALOPRAM OXALATE 10 MG TAB PO SCH (08:05)
[2018-04-13] MEDS: LISINOPRIL 10 MG TAB PO SCH (08:05)
[2018-04-13] MEDS: MONTELUKAST SODIUM 10 MG TABLET PO SCH (08:06)
[2018-04-13] MEDS: POTASSIUM CHLORIDE 20 MEQ TABCR PO SCH (08:06)
[2018-04-13] MEDS: FUROSEMIDE 20 MG TAB PO SCH (08:06)
[2018-04-13] MEDS: SPIRONOLACTONE 25 MG TAB PO SCH (08:06)
[2018-04-13] MEDS: BUDESONIDE/FORMOTEROL FUMARATE 80/4.5 60 PUFFS/INHALER INH SCH (08:06)
[2018-04-13] MEDS: FLUTICASONE PROPIONATE NA SPR 16 GM BTL SCH (08:06)
[2018-04-13] MEDS: ASPIRIN 81 MG ECTAB PO SCH (08:06)
--- NOTE | 2018-04-13 10:00 | Discharge Summary ---
Date of Service April 13, 2018 Admission HPI Per Admitting Provider 87 yo female c PMH of CHF, Pleural Effusions, AFIB, Diastolic CHF, COPD, AVR, Syncope, CAD c Cath, Dysphagia, Pneumonia, SIRS, Aortic Stenosis, CDK 3, Depression, Aortic Stenosis, Asthma, ACD, and recently here for L Groin Hematoma present c SOB. She was given IV Lasix in the ER after being diagnosed c a CHF exac and recurrent Pleural effusions. Patient notes her legs are more swollen than usual. When she was ambulated her sats dropped into the low 80s. She lives alone so will be placed under observation and get diuresed Admission Exam Per Admitting Provider ROS-No Headache, No Visual Changes, No Fever, No Chills, No Neck Pain or Stiffness, No Chest Pain, No Palpitations, +SOB, +AVALOS, +Cough, No Sputum, No Wheezing, No Abdominal Pain, No Diarrhea, No Hematemesis, No Hemoptysis, No Unexpected Weight Loss, No Flank pain, No Melena , No Hematochezia, No Frequency, No Urgency, No Burning, No Hematuria, No Rashes , No Diaphoresis. Appetite is Normal Physical Exam Gen-AAO x 3, NAD, Afebrile, Pleasant, Weak Head-NCAT, EOMI, PERRLA, Anicteric Sclera, No Posterior Pharyngeal Erythema Neck-Supple, No JVD, No Thyromegaly, No Masses, No LAD, No Bruits Lungs-B/L Rales at the bases, No Rhonchi, No Wheezing, No Crepitus Chest-No S4, +S1, +S2, No S3, No Murmurs, No Rubs, No Gallops, No Ectopy Abdomen-Soft, Bowel Sounds Present, Non Tender, Non Distended, No Hepatomegaly, No Splenomegaly, No Palpable Masses, No Rebound, No Rigidity, No Guarding Musculoskeletal-Full Range of Motion Bilaterally, No CVAT Extremities-No Cyanosis, No Clubbing, 3+ Pitting Edema, Mild L Ecchymosis Nuero-Cranial Nerves II-XII grossly intact, Motor WNL, DTRs WNL, Strength WNL, No Focal Psych-Normal Mood Principal Diagnosis 1. Acute Exac of Chronic Diastolic CHF-IV Lasix, Cardiac eval, Echo, Dr Terrazas saw her recently 2. Pleural Effusion-Diurese and repeat CXR in 1-2 days 3. s/p AVR for 4. COPD 5. Depression 6. AFIB-On Warfarin, INR 1.5 7. Hypoxia- lasix 8. HTN 9. CKD 3 Discharge Exam ROS-No Headache, No Visual Changes, No Fever, No Chills, No Neck Pain or Stiffness, No Chest Pain, No Palpitations, +SOB, +AVALOS, +Cough, No Sputum, No Wheezing, No Abdominal Pain, No Diarrhea, No Hematemesis, No Hemoptysis, No Unexpected Weight Loss, No Flank pain, No Melena , No Hematochezia, No Frequency, No Urgency, No Burning, No Hematuria, No Rashes , No Diaphoresis. Appetite is decreased Physical Exam Gen-AAO x 3, NAD, Afebrile, Pleasant, Weak Head-NCAT, EOMI, PERRLA, Anicteric Sclera, No Posterior Pharyngeal Erythema Neck-Supple, No JVD, No Thyromegaly, No Masses, No LAD, No Bruits Lungs-B/L Rales at the bases, diminished breath sounds at the bases as well. 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-Normal Mood Discharge Data Allergies Allergy/AdvReac Type Severity Reaction Status Date / Time Sulfa (Sulfonamide Allergy Severe HIVES & Verified 04/08/18 03:02 Antibiotics) THROAT SWELLING oxycodone AdvReac Severe Hallucinati Verified 04/08/18 03:02 ng meperidine AdvReac Unknown HALLUCINATIONS Verified 04/08/18 03:02 & TACHYCARDIA Consultations 04/08/18 07:26 ED Decision to Admit Stat 04/08/18 08:03 Consult Cardiac Rehabilitation Routine Consult Cardiology Routine 04/10/18 11:58 Consult Palliative Care Routine 04/11/18 11:14 Consult Case Management - Discharge Planning Routine 04/12/18 07:54 Consult Case Management - Discharge Planning Routine 04/12/18 08:02 Consult Case Management - Discharge Planning Routine Ordered Studies 04/08/18 13:08 US effusion-chest/mediastinum Routine 04/08/18 15:35 CT angio chest PE protocol Urgent Current Diagnoses Chronic atrial fibrillation (04/10/18) Acute on chronic diastolic (congestive) heart failure (04/10/18) Pleural effusion, not elsewhere classified (04/10/18) Other specified counseling (04/10/18) Presence of prosthetic heart valve (04/10/18) Allergies Sulfa (Sulfonamide Antibiotics) Allergy (Severe, Verified 04/08/18 03:02) HIVES & THROAT SWELLING oxycodone Adverse Reaction (Severe, Verified 04/08/18 03:02) Hallucinating meperidine Adverse Reaction (Unknown, Verified 04/08/18 03:02) HALLUCINATIONS & TACHYCARDIA Height/Weight/Isolation Height 5 ft 2 in Weight 54.2 kg Chemistry 04/12/18 04/13/18 07:36 06:21 Sodium 141 142 Potassium 4.2 4.3 Chloride 100 101 Carbon Dioxide 35 H 39 H Anion Gap 6.0 2.0 L BUN 20 H 21 H Creatinine 0.65 0.69 Glucose 96 85 Hospital Course (1) Acute exacerbation of CHF (congestive heart failure): 1. Acute Exac of Chronic Diastolic CHF 2. Pleural Effusion 3. s/p AVR for 4. COPD 5. Depression 6. AFIB 7. Hypoxia 8. HTN 9. CKD 3 87 yo female c PMH of CHF, Pleural Effusions, AFIB, Diastolic CHF, COPD, AVR, Syncope, CAD c Cath, Dysphagia, Pneumonia, SIRS, Aortic Stenosis, CDK 3, Depression, Aortic Stenosis, Asthma, ACD, and recently here for L Groin Hematoma present c SOB. She was given IV Lasix in the ER after being diagnosed c a CHF exac and recurrent Pleural effusions. Patient notes her legs are more swollen than usual. When she was ambulated her sats dropped into the low 80s. She lives alone so will be placed under observation and get diuresed. She was seen by cardiology, a 2D echo showed decreased RV function. Patient is maximized and would like to go home. We will send her home with home health and cardiac rehab. Total Time Total Time Spent Total Time Spent (In Minutes): 65 mins Total Time Includes: Examination of the Patient, Discharge Planning, Medication Reconciliation and Communication With Other Providers Discharge Plan Discharge Items Patient Disposition: Home - Home Health Services Reason For Visit: CHF Discharge Diagnosis: 1. Acute Exac of Chronic Diastolic CHF 2. Pleural Effusion 3. s/p AVR for 4. COPD 5. Depression 6. AFIB 7. Hypoxia 8. HTN 9. CKD 3 Condition: Fair Discharge Goals: Decrease discomfort, Improve function and Improve nutritional status Activity: Resume your previous activity Lifting: None Bathing: No limitations Exercise/Sports: None Weightbearing: Left weightbearing and Right weightbearing Non-emergency contact: Primary Care Provider, Shake Packer and [employer]riving [employer] Instructor Call non-emergency contact if: you have any medication questions Follow-up/Referrals: Ariana Pendleton MD [Primary Care Provider] - (Call for first opening) Heath Terrazas DO [Shake Packer] - (Call for first opening) Diet: Heart Healthy and Low Sodium (2gm) Fluids: 1200ml (5 cups) Addtl Provider Instructions: Needs home Cardiac rehab, home palliative care Prescriptions: New spironolactone 25 mg Tablet 25 mg PO QAM Qty: 30 RF: 0 Continue ipratropium-albuterol 0.5 mg-3 mg(2.5 mg base)/3 mL Solution For Nebulization 3 ml INHALATION Q4 PRN (Reason: COUGH, SOB OR WHEEZING) RF: 0 montelukast [Singulair] 10 mg Tablet 10 mg PO DAILY RF: 0 digoxin [Digox] 125 mcg Tablet 0.125 mg PO DAILY RF: 0 albuterol sulfate [Ventolin HFA] 90 mcg/actuation Hfa Aerosol Inhaler 2 puff INHALATION Q4 PRN (Reason: Shortness Of Breath Or Wheezing) RF: 0 loratadine [Claritin] 10 mg Tablet 10 mg PO DAILY PRN (Reason: RHINITIS) RF: 0 budesonide-formoterol [Symbicort] 80-4.5 mcg/actuation Hfa Aerosol Inhaler 2 puff INHALATION BID RF: 0 aspirin 81 mg Tablet,Delayed Release (Dr/Ec) 81 mg PO DAILY RF: 0 alprazolam 0.25 mg tablet 0.25 mg PO DAILY PRN (Reason: Anxiety) RF: 0 acetaminophen [Tylenol Extra Strength] 500 mg Tablet 500 mg PO Q6 PRN (Reason: Unknown) RF: 0 metoprolol tartrate 50 mg tablet 75 mg PO Q8 RF: 0 fluticasone 50 mcg/actuation spray,suspension 2 spray Intranasal DAILY RF: 0 simethicone 80 mg Tablet,Chewable 80 mg PO QID PRN (Reason: gas) RF: 0 escitalopram oxalate 10 mg tablet 10 mg PO DAILY RF: 0 warfarin [Coumadin] 3 mg Tablet 3 mg PO DAILY@1600 30 Days Qty: 30 RF: 0 lisinopril [Zestril] 5 mg Tablet 5 mg PO QAM 30 Days Qty: 30 RF: 0 furosemide 40 mg tablet 40 mg PO BID 30 Days Qty: 60 RF: 0 Stand-Alone Forms: [facility] Discharge Orders: Discharge Order (Routine); Ordered 04/13/18 Ordered By: Bryan Escalante Admission Data Admit Date/Time: 04/10/18 13:30 Attending Provider: Bryan Escalante Admit Provider: Bryan Escalante Primary Care Provider: Ariana Pendleton Other Providers: Bryan Escalante ; Heath Terrazas ; Edita So Service: Telemetry Medical Other Interventions: Discharge Summary Assessment (RN) Last Done: 04/10/18 11:36 Pending Studies at Discharge: No
== END 2018-04-13 12:54 | disposition home health service (06) | DRG 291 ==
LOC: 2N 01:38 → ED 01:38 → 2N 08:24

== ENCOUNTER 2018-04-16 15:18 | Observation (INO) ==
[2018-04-16 17:09] LABS: Appearance Urine Clear (Clear); Bilirubin Urine Negative (Negative); Blood Urine Negative (Negative); Color Urine Yellow; Glucose Urine UA Negative (Negative); Ketones Urine Negative (Negative); Leukocyte Esterase Urine Negative (Negative); Nitrite Urine Negative (Negative); Protein Urine Negative (Negative); Specific Gravity Urine 1.016 (1.000-1.030); Urobilinogen Urine Negative (Negative)
[2018-04-16 17:23] LABS: Basophils # (auto) 0.02 K/uL (0-0.2); Basophils % (auto) 0.3 %; Eosinophils % (auto) 1.5 %; Hematocrit (blood only) 38.5 % (37-47); Immature Granulocytes # (auto) 0.02 K/uL (0.00-0.02); Immature Granulocytes % (auto) 0.3 %; Lymphocytes # (auto) 1.08 K/uL (1.2-3.4); Lymphocytes % (auto) 15.8 %; Mean Corpuscular Hgb Conc 31.2 g/dL (32-36); Mean Corpuscular Volume 95.3 fL (80-100); Mean Platelet Volume 9.8 fL (7.4-10.4); Monocytes # (auto) 0.83 K/uL (0.11-0.59); Monocytes % (auto) 12.2 %; Neutrophils # (auto) 4.78 K/uL (1.4-6.5); Neutrophils % (auto) 69.9 %; Platelet Count 385 K/uL (130-400); RDW Coefficient of Variation 15.1 % (11.5-14.5); RDW Standard Deviation 52.3 fL (36.4-46.3); Red Blood Count 4.04 M/uL (4.2-5.4); White Blood Count 6.83 K/uL (4.8-10.8)
[2018-04-16 17:29] LABS: Albumin Level 3.1 gm/dl (3.4-5.0); Calcium 8.8 mg/dl (8.5-10.1)
[2018-04-16 17:32] LABS: BUN Creatinine Ratio 26.7 (10-20); Est GFR (African American) 74.5; Est GFR (Non-African American) 64.3
[2018-04-16 17:33] LABS: INR 1.9 (0.9-1.1); Prothrombin Time 18.9 Seconds (9.0-12.0)
[2018-04-16 17:34] LABS: Albumin Globulin Ratio 0.9 (0.9-2); Bilirubin,Total 0.4 mg/dl (0.2-1); Globulin 3.6 gm/dl (2.5-4.0); Magnesium 1.9 mg/dl (1.8-2.4); Total Protein 6.7 gm/dl (6.4-8.2)
[2018-04-16] MEDS ORDERED: ALPRAZolam 0.25 MG TABLET PO STA (17:54)
[2018-04-16 18:02] LABS: Troponin I 0.164 ng/ml (0-0.045)
[2018-04-16] MEDS ORDERED: ALPRAZolam 0.5 MG TABLET ONE (18:05)
--- NOTE | 2018-04-16 19:03 | CT Scan Report ---
CT SCAN OF THE ABDOMEN AND PELVIS WITHOUT CONTRAST CLINICAL HISTORY: Flank pain hematuria COMPARISON STUDY: 01/11/2018 TECHNIQUE: CT scan of the abdomen and pelvis was performed from the lung bases to the proximal femurs . Images are reviewed in the axial, sagittal, and coronal planes. IV contrast was not administered fo r this examination. A dose lowering technique was utilized adhering to the principles of ALARA. CT DOSE: 358.04 mGycm FINDINGS: Lower chest: The heart is enlarged. There is an aortic valve stent/prosthesis. There are moderate christina ateral pleural effusions. Liver: There is borderline hepatomegaly. No masses are visualized this noncontrast study Gallbladder: Not visualized and presumed absent Spleen: Normal in size and attenuation. Pancreas: Unremarkable. Adrenal glands: There is mild adrenal gland thickening unchanged the prior study Kidneys: No renal, ureteral, or bladder calculi are visualized. Bowel: There are multiple fluid-filled small bowel loops. Likely secondary to an ileus. If there is c hronic concern over the presence of significant bowel pathology, then a follow-up study following int ravenous and oral contrast would be ingested. There are no transition zones indicate a high-grade bow el obstruction. There is no evidence of acute diverticulitis. There are no findings to indicate acute appendicitis. Bowel evaluation is limited due to the lack of intravenous and oral contrast. Peritoneum: There is no intraperitoneal free air or abdominal ascites. Vasculature: The abdominal aorta is normal in course and caliber. Adenopathy: None. Pelvic viscera: The uterus is surgically absent Skeletal structures: The bones are osteopenic. No destructive lesions are evident there is a severe L 2 compression deformity and mild T11 compression fracture. The L2 compression fracture remains unchan ged. There is minimal progression of the T11 compression fracture. IMPRESSION: 1. Study limited due to the lack of intravenous and oral contrast 2. Cardiomegaly and moderate bilateral pleural effusions 3. No renal, ureteral, or bladder calculi identified 4. No evidence of bowel obstruction. No evidence of free air 5. Multiple fluid-filled small bowel loops likely secondary to an ileus. 6. Old L2 compression fracture. Electronically signed by: Miquel Perez M.D. 04/16/2018 7:02 PM
[2018-04-16] MEDS ORDERED: METOPROLOL TARTRATE 25 MG TAB PO STA (19:42)
[2018-04-16] MEDS ORDERED: MAGNESIUM SULFATE / D5W 1 GM/100 ML BAG IV STA (19:42)
--- NOTE | 2018-04-16 20:00 | History & Physical Report ---
Date of Service April 16, 2018 Assessment & Plan (1) Elevated troponin: NSVT Possibly from mildly elevated BP and heart rate secondary to anxiety chronic diastolic heart failure, EF of 65-70, TTE 2019), patient euvolemic to dry VHD (moderate aortic stenosis sp TAVR, moderate MR, moderate TR) A. fib on Coumadin, mildly tachycardic, INR slightly subtherapeutic Transient vaginal bleeding, hemoglobin better than baseline COPD as per records, lung status at baseline past tobacco abuse chronic anemia, hemoglobin better than baseline secondary to some degree of hemoconcentration OBS Medical telemetry Follow troponin Facilitate nighttime beta-melquiades, supplement electrolytes Gynecology consult RE transient vaginal bleeding Trend H&H, resume home ASA and Coumadin if hemoglobin stable DVT prophylaxis. SCDs if INR less than 2 while patient Coumadin on hold Full code History of Present Illness Chief Complaint: Abdominal pain, vaginal bleeding Primary Care Provider: Ariana Pendleton History obtained from patient, boyfriend, and records. Medical history is significant for chronic diastolic heart failure, EF of 65-70 , TTE 2019), VHD (moderate aortic stenosis sp TAVR, moderate MR, moderate TR), HTN, AFib on Coumadin, COPD, past tobacco abuse, chronic anemia (baseline hemoglobin 10-11). Recent confinement 04/08-04/13 for decompensated heart failure. Today patient noted transient vaginal bleeding with achy lower abdominal discomfort. No fever, no chills. Thinks she may have scratched herself. Patient not feeling so well. Patient brought to the ER by her boyfriend. NSVT noted at the ER. 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 Allergies Allergy/AdvReac Type Severity Reaction Status Date / Time Sulfa (Sulfonamide Allergy Severe HIVES & Verified 04/16/18 16:44 Antibiotics) THROAT SWELLING oxycodone AdvReac Severe Hallucinati Verified 04/16/18 16:44 ng meperidine AdvReac Unknown HALLUCINATIONS Verified 04/16/18 16:44 & TACHYCARDIA Home Medications Home Medications Medication Instructions Recorded Confirmed Type albuterol sulfate [Ventolin HFA] 2 puff INHALATION Q4 PRN 01/06/18 04/16/18 History budesonide-formoterol [Symbicort] 2 puff INHALATION BID 01/06/18 04/16/18 History ipratropium-albuterol 3 ml INHALATION Q4 PRN 01/06/18 04/16/18 History montelukast [Singulair] 10 mg PO QAM 01/06/18 04/16/18 History acetaminophen [Tylenol Extra 500 mg PO Q6 PRN 03/14/18 04/16/18 History Strength] alprazolam 0.25 mg PO DAILY PRN 03/14/18 04/16/18 History aspirin 81 mg PO QAM 03/14/18 04/16/18 History escitalopram oxalate 10 mg PO QAM 03/14/18 04/16/18 History fluticasone 2 spray INTRANASAL QAM 03/14/18 04/16/18 History metoprolol tartrate 75 mg PO Q8 03/14/18 04/16/18 History simethicone 80 mg PO QID PRN 03/14/18 04/16/18 History spironolactone 25 mg PO QAM #30 tab 04/10/18 04/16/18 Rx digoxin 0.125 mg PO DAILY@1600 #30 tab 04/13/18 04/16/18 Rx furosemide 60 mg PO BID #100 tab 04/13/18 04/16/18 Rx lisinopril [Zestril] 10 mg PO QAM #30 tab 04/13/18 04/16/18 Rx potassium chloride [Klor-Con M20] 20 meq PO QAM #30 tab 04/13/18 04/16/18 Rx warfarin [Jantoven] 3 mg PO DAILY@1600 04/16/18 04/16/18 History Past Med/Surg History Medical History Syncope (Acute) Near syncope (Acute) Bleeding (Acute) Groin hematoma Dysphagia Subcutaneous hematoma Dysphagia Pneumonia (Acute) Hypoxic (Acute) SIRS (systemic inflammatory response syndrome) (Acute) COPD (chronic obstructive pulmonary disease) (Chronic) Aortic stenosis (Chronic) Asthma (Chronic) Chronic atrial fibrillation (Chronic) HTN (hypertension) (Chronic) 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) CKD (chronic kidney disease) stage 3, GFR 30-59 ml/min (Chronic) Depression (Chronic) Anemia, chronic renal failure (Chronic) Aortic stenosis Atrial fibrillation CHF (congestive heart failure) COPD (chronic obstructive pulmonary disease) Diabetes History of hysterectomy Hypertension Surgical History Status post cardiac catheterization (Acute) History of cholecystectomy (Resolved) History of appendectomy (Resolved) History of total hysterectomy (Resolved) "fibroids" H/O cataract removal with insertion of prosthetic lens (Resolved) "2002" S/P cataract surgery S/P cholecystectomy Family History Other Family history non-contributory Heart disease Social History marital status: Life Partner Current Living Situation: Significant Other Current Living Situation Comment: 2 bedroom appartment in [place] current occupational status: retired Feels Safe at Home: Yes Safety Concerns: Feels Safe At This Time Smoking Status: Former smoker Second Hand Exposure: No Hx Alcohol Use: No Hx Substance Use: No Beliefs That Will Affect Care: None Preferred Language: [place] Communication Ability: Effective Communication Ability Comment: [place] Review of Systems As per HPI, all 10 systems reviewed, all other ROS negative Physical Exam 2 Vital Signs (Past 24 Hours): Last Vital Signs Temp 36.6 C 04/16/18 15:21 Pulse 89 04/16/18 19:31 Resp 28 H 04/16/18 19:31 BP 152/77 H 04/16/18 19:31 Pulse Ox 98 04/16/18 19:31 Physical Exam: GENERAL: Slightly anxious, slightly hard of hearing, no respiratory distress, underweight SKIN: Pallor , warm HEENT: Pale palpebral conjunctivae, no ptosis, dry buccal mucosa, nasal cannula in place NECK : Supple, no tenderness CHEST : Decreased breath sounds , no tenderness HEART : Irregular, systolic murmur ABDOMEN: Some distention, nontender EXTREMITIES : minimal LE swelling, no LE tenderness, no other conspicuous deformities noted NEUROLOGIC : Coherent, no facial asymmetry, no other gross focality except for mild hearing impairment Results & Data Laboratory Results Laboratory Results WBC 6.83 K/uL (4.8-10.8) 04/16/18 17:00 RBC 4.04 M/uL (4.2-5.4) L 04/16/18 17:00 Hgb 12.0 g/dL (12.0-16.0) 04/16/18 17:00 Hct 38.5 % (37-47) 04/16/18 17:00 MCV 95.3 fL (80-100) 04/16/18 17:00 MCH 29.7 pg (25-34) 04/16/18 17:00 MCHC 31.2 g/dL (32-36) L 04/16/18 17:00 RDW Std Deviation 52.3 fL (36.4-46.3) H 04/16/18 17:00 RDW Coeff of Zain 15.1 % (11.5-14.5) H 04/16/18 17:00 Plt Count 385 K/uL (130-400) 04/16/18 17:00 MPV 9.8 fL (7.4-10.4) 04/16/18 17:00 Immature Gran % (Auto) 0.3 % 04/16/18 17:00 Neut % (Auto) 69.9 % 04/16/18 17:00 Lymph % (Auto) 15.8 % 04/16/18 17:00 [place] % (Auto) 12.2 % 04/16/18 17:00 Eos % (Auto) 1.5 % 04/16/18 17:00 Baso % (Auto) 0.3 % 04/16/18 17:00 Immature Gran # (Auto) 0.02 K/uL (0.00-0.02) 04/16/18 17:00 Neut # (Auto) 4.78 K/uL (1.4-6.5) 04/16/18 17:00 Lymph # (Auto) 1.08 K/uL (1.2-3.4) L 04/16/18 17:00 [place] # (Auto) 0.83 K/uL (0.11-0.59) H 04/16/18 17:00 Eos # (Auto) 0.10 K/uL (0-0.5) 04/16/18 17:00 Baso # (Auto) 0.02 K/uL (0-0.2) 04/16/18 17:00 PT 18.9 Seconds (9.0-12.0) H 04/16/18 17:00 INR 1.9 (0.9-1.1) H 04/16/18 17:00 Sodium 140 mmol/L (136-145) 04/16/18 17:00 Potassium 4.0 mmol/L (3.5-5.1) 04/16/18 17:00 Chloride 103 mmol/L (98-107) 04/16/18 17:00 Carbon Dioxide 36 mmol/L (21-32) H 04/16/18 17:00 Anion Gap 1.0 (3-11) L 04/16/18 17:00 BUN 22 mg/dl (7-18) H 04/16/18 17:00 Creatinine 0.83 mg/dl (0.6-1.2) 04/16/18 17:00 Est Cr Clr Drug Dosing 41.0 ml/min 04/16/18 17:00 Est GFR ( Amer) 74.5 04/16/18 17:00 Est GFR (Non-Af Amer) 64.3 04/16/18 17:00 BUN/Creatinine Ratio 26.7 (10-20) H 04/16/18 17:00 Glucose 95 mg/dl (70-99) 04/16/18 17:00 Calcium 8.8 mg/dl (8.5-10.1) 04/16/18 17:00 Magnesium 1.9 mg/dl (1.8-2.4) 04/16/18 17:00 Total Bilirubin 0.4 mg/dl (0.2-1) 04/16/18 17:00 AST 26 U/L (15-37) 04/16/18 17:00 ALT 29 U/L (12-78) 04/16/18 17:00 Alkaline Phosphatase 82 U/L (45-117) 04/16/18 17:00 Troponin I 0.164 ng/ml (0-0.045) H* 04/16/18 17:00 Total Protein 6.7 gm/dl (6.4-8.2) 04/16/18 17:00 Albumin 3.1 gm/dl (3.4-5.0) L 04/16/18 17:00 Globulin 3.6 gm/dl (2.5-4.0) 04/16/18 17:00 Albumin/Globulin Ratio 0.9 (0.9-2) 04/16/18 17:00 Lipase 97 U/L (73-393) 04/16/18 17:00 Urine Color Yellow 04/16/18 16:45 Urine Appearance Clear (Clear) 04/16/18 16:45 Urine pH 7.0 (4.5-7.5) 04/16/18 16:45 Ur Specific [place] 1.016 (1.000-1.030) 04/16/18 16:45 Urine Protein Negative (Negative) 04/16/18 16:45 Urine Glucose (UA) Negative (Negative) 04/16/18 16:45 Urine Ketones Negative (Negative) 04/16/18 16:45 Urine Blood Negative (Negative) 04/16/18 16:45 Urine Nitrite Negative (Negative) 04/16/18 16:45 Urine Bilirubin Negative (Negative) 04/16/18 16:45 Urine Urobilinogen Negative (Negative) 04/16/18 16:45 Ur Leukocyte Esterase Negative (Negative) 04/16/18 16:45 Digoxin 0.7 ng/ml (0.8-2.0) L 04/16/18 17:[address] abdomen pelvis: 1. Study limited due to the lack of intravenous and oral contrast 2. Cardiomegaly and moderate bilateral pleural effusions 3. No renal, ureteral, or bladder calculi identified 4. No evidence of bowel obstruction. No evidence of free air 5. Multiple fluid-filled small bowel loops likely secondary to an ileus. 6. Old L2 compression fracture. EKG as per my interpretation: Rate 105, A. fib, T wave flattening inferior leads , PVCs
--- NOTE | 2018-04-16 20:24 | Emergency Department Note ---
Entered by Darius Simons acting as a scribe for Ernst Knapp MD History of Present Illness General Chief complaint: Abdominal Pain Stated complaint: ABDOMINAL PAIN Source: patient History of Present Illness Provider complaint: Abdominal pain Onset (ago): hour(s) (This morning) Location: abdomen Radiation: back Pain Consistency: + constant Maximum Pain Intensity: 6 Relieved By: + none Associated symptoms: + other (Hematuria, no dysuria, no changes in bowel movements); no fever/chills and no nausea/vomiting The patient is a 87 year old female who presents to the Emergency Room with complaints of constant lower abdominal pain that started when she woke up this morning. She also had one episode of bright red hematuria, but is unable to tell if it is from her vagina or urine. The abdominal pain that she is experiencing radiates to her back and is more prominent on the right side. Her son notes that it was severe at the time but the patient states it feels much better. The patient denies any vomiting, rectal bleeding, fever, changes in bowel movements, dysuria, or epistaxis. She does have a history of kidney stones and also still has one ovary. She was recent discharged from here 3 days ago after being hospitalized for CHF exacerbation. Since the discharge she has changed many of her medication dosages such as increasing Lasix from 40mg to 60mg daily and has been taking 3mg of Coumadin daily for her INR levels. She does state that she has had palpitations since she got to the emergency department. She denies chest pain or shortness of breath. Home Medications Home Medications Medication Instructions Recorded Confirmed Type albuterol sulfate [Ventolin HFA] 2 puff INHALATION Q4 PRN 01/06/18 04/16/18 History budesonide-formoterol [Symbicort] 2 puff INHALATION BID 01/06/18 04/16/18 History ipratropium-albuterol 3 ml INHALATION Q4 PRN 01/06/18 04/16/18 History montelukast [Singulair] 10 mg PO QAM 01/06/18 04/16/18 History acetaminophen [Tylenol Extra 500 mg PO Q6 PRN 03/14/18 04/16/18 History Strength] alprazolam 0.25 mg PO DAILY PRN 03/14/18 04/16/18 History aspirin 81 mg PO QAM 03/14/18 04/16/18 History escitalopram oxalate 10 mg PO QAM 03/14/18 04/16/18 History fluticasone 2 spray INTRANASAL QAM 03/14/18 04/16/18 History metoprolol tartrate 75 mg PO Q8 03/14/18 04/16/18 History simethicone 80 mg PO QID PRN 03/14/18 04/16/18 History spironolactone 25 mg PO QAM #30 tab 04/10/18 04/16/18 Rx digoxin 0.125 mg PO DAILY@1600 #30 tab 04/13/18 04/16/18 Rx furosemide 60 mg PO BID #100 tab 04/13/18 04/16/18 Rx lisinopril [Zestril] 10 mg PO QAM #30 tab 04/13/18 04/16/18 Rx potassium chloride [Klor-Con M20] 20 meq PO QAM #30 tab 04/13/18 04/16/18 Rx warfarin [Jantoven] 3 mg PO DAILY@1600 04/16/18 04/16/18 History Allergies Allergy/AdvReac Type Severity Reaction Status Date / Time Sulfa (Sulfonamide Allergy Severe HIVES & Verified 04/16/18 16:44 Antibiotics) THROAT SWELLING oxycodone AdvReac Severe Hallucinati Verified 04/16/18 16:44 ng meperidine AdvReac Unknown HALLUCINATIONS Verified 04/16/18 16:44 & TACHYCARDIA Past Med/Surg History Medical History Syncope (Acute) Near syncope (Acute) Bleeding (Acute) Groin hematoma Dysphagia Subcutaneous hematoma Dysphagia Pneumonia (Acute) Hypoxic (Acute) SIRS (systemic inflammatory response syndrome) (Acute) COPD (chronic obstructive pulmonary disease) (Chronic) Aortic stenosis (Chronic) Asthma (Chronic) Chronic atrial fibrillation (Chronic) HTN (hypertension) (Chronic) 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) CKD (chronic kidney disease) stage 3, GFR 30-59 ml/min (Chronic) Depression (Chronic) Anemia, chronic renal failure (Chronic) Aortic stenosis Atrial fibrillation CHF (congestive heart failure) COPD (chronic obstructive pulmonary disease) Diabetes History of hysterectomy Hypertension Surgical History Status post cardiac catheterization (Acute) History of cholecystectomy (Resolved) History of appendectomy (Resolved) History of total hysterectomy (Resolved) "fibroids" H/O cataract removal with insertion of prosthetic lens (Resolved) "2002" S/P cataract surgery S/P cholecystectomy Family History Other Family history non-contributory Heart disease Social History marital status: Life Partner Current Living Situation: Significant Other Current Living Situation Comment: with boyfriend current occupational status: retired Feels Safe at Home: Yes Smoking Status: Former smoker Second Hand Exposure: No Hx Alcohol Use: No Hx Substance Use: No Beliefs That Will Affect Care: None Preferred Language: Lao Review of Systems See HPI for pertinent positives & negatives. and A total of 10 systems reviewed and were otherwise negative Physical Exam Vital Signs Vital Signs - 24 hr 04/16/18 15:21 04/16/18 16:11 04/16/18 17:56 Temperature 36.6 C Temperature Source Oral Sepsis Recent Fever Within 48 Hours No Sepsis New/Unexplained Change in Mental Status No Sepsis Action Taken by Nursing No Action Required Pulse Rate 82 99 H Pulse Rate [Apical] 90 Pulse Rhythm Regular Irregular Pulse Strength Normal Respiratory Rate 20 22 20 Respiratory Effort / Characteristics Non-Labored Spontaneous Respiratory Depth Normal Normal Respiratory Pattern Regular Blood Pressure 124/53 L Blood Pressure [Right Arm] 140/67 Blood Pressure Mean 76 Blood Pressure Mean [Right Arm] 91 Blood Pressure Position Sitting Pulse Oximetry 94 93 93 Oxygen Delivery Method Room Air Room Air Room Air 04/16/18 18:29 04/16/18 18:31 04/16/18 19:01 Temperature Temperature Source Sepsis Recent Fever Within 48 Hours Sepsis New/Unexplained Change in Mental Status Sepsis Action Taken by Nursing Pulse Rate 106 H 102 H 104 H Pulse Rate [Apical] Pulse Rhythm Pulse Strength Respiratory Rate 23 25 H 24 Respiratory Effort / Characteristics Respiratory Depth Respiratory Pattern Blood Pressure 173/82 H 147/86 H 133/66 Blood Pressure [Right Arm] Blood Pressure Mean 112 106 88 Blood Pressure Mean [Right Arm] Blood Pressure Position Pulse Oximetry 96 98 97 Oxygen Delivery Method 04/16/18 19:31 Temperature Temperature Source Sepsis Recent Fever Within 48 Hours Sepsis New/Unexplained Change in Mental Status Sepsis Action Taken by Nursing Pulse Rate 89 Pulse Rate [Apical] Pulse Rhythm Pulse Strength Respiratory Rate 28 H Respiratory Effort / Characteristics Respiratory Depth Respiratory Pattern Blood Pressure 152/77 H Blood Pressure [Right Arm] Blood Pressure Mean 102 Blood Pressure Mean [Right Arm] Blood Pressure Position Pulse Oximetry 98 Oxygen Delivery Method Constitutional: Vital signs reviewed. Eyes: Pupils are equal round reactive to light. Conjunctiva are noninjected. ENT: Pharynx is clear without erythema or exudate. Mucous membranes are moist. Neck supple without meningeal signs. Respiratory: Clear to auscultation bilaterally. Breath sounds are equal bilaterally. Cardiovascular: Regular rate and irregularly irregular rhythm. No rubs or gallops. GI: Soft, nondistended and nontender. Bowel sounds are present. Musculoskeletal: No peripheral edema. No lower extremity tenderness. Integumentary: No cyanosis. Neurological: The patient is awake and alert. No focal deficits. Psychiatric: Anxious appearing. Course 1615: Past medical records reviewed. The patient was evaluated in room A09B, and a complete history and physical examination were performed. 1723: I reevaluated the patient and she states she feels palpitations and her son said that her heart rate has reached the 190s. She is still showing frequent PVCs on the monitor. The patient also noted that she did not feel the palpitations until she got to the ED and denies any chest pain or shortness of breath. 1740: I spoke to Dr. Mk Lafleur about the patient's case and he said he would not start her on any medications. 1750: I performed a rectal exam on the patient which showed guaiac negative, brown stool. She is asking for her Xanax, which she takes at home, because he is becoming anxious about being admitted again. 1905: I reevaluated the patient and she is feeling better after taking the Xanax. 1910: I spoke to Julieta Patel PA-C about the patient's case and she is going to accept her for further evaluation. Consultations Consultation #1: I spoke to Dr. Mk Lafleur about the patient' s case and he said he would not start her on any medications. Time: 17:40 Consultation #2: I spoke to Julieta Patel PA-C about the patient's case and she is going to accept her for further evaluation. Time: 19:10 Administered Medications Magnesium Sulfate/Dextrose (Magnesium Sulfate / D5w) 1 gm in 100 mls @ 100 mls/ hr IV NOW STA Stop: 04/16/18 20:41 Last Admin: 04/16/18 19:54 Dose: 100 mls/hr Discontinued Medications Alprazolam (Xanax) 0.25 mg PO NOW STA Stop: 04/16/18 17:55 Last Admin: 04/16/18 18:09 Dose: Not Given Alprazolam (Xanax) Confirm Administered Dose 0.5 mg .ROUTE .STK-MED ONE Stop: 04/16/18 18:06 Last Admin: 04/16/18 18:08 Dose: 0.25 mg Metoprolol Tartrate (Lopressor) 75 mg PO NOW STA Stop: 04/16/18 19:43 Last Admin: 04/16/18 19:55 Dose: 75 mg Medical Decision Making Differential Diagnosis Differential Diagnoses: Hematuria, kidney stone, supratherapeutic INR, anemia, and vaginal bleed, amongst others. Medical Records Attestation: I reviewed the patient's medical records. Home Medications Current Medication List: was personally reviewed by me Laboratory Data Attestation: I reviewed the patient's lab results. Result diagrams: 04/16/18 17:00 04/16/18 17:00 Lab Results 04/16/18 04/16/18 04/16/18 Range/Units 16:45 17:00 17:00 WBC (4.8-10.8) K/uL RBC (4.2-5.4) M/uL Hgb (12.0-16.0) g/dL Hct (37-47) % MCV (80-100) fL MCH (25-34) pg MCHC (32-36) g/dL RDW Std Deviation (36.4-46.3) fL RDW Coeff of Zain (11.5-14.5) % Plt Count (130-400) K/uL MPV (7.4-10.4) fL Immature Gran % (Auto) % Neut % (Auto) % Lymph % (Auto) % [place] % (Auto) % Eos % (Auto) % Baso % (Auto) % Immature Gran # (Auto) (0.00-0.02) K/uL Neut # (Auto) (1.4-6.5) K/uL Lymph # (Auto) (1.2-3.4) K/uL [place] # (Auto) (0.11-0.59) K/uL Eos # (Auto) (0-0.5) K/uL Baso # (Auto) (0-0.2) K/uL PT 18.9 H (9.0-12.0) Seconds INR 1.9 H (0.9-1.1) Sodium 140 (136-145) mmol/L Potassium 4.0 (3.5-5.1) mmol/L Chloride 103 (98-107) mmol/L Carbon Dioxide 36 H (21-32) mmol/L Anion Gap 1.0 L (3-11) BUN 22 H (7-18) mg/dl Creatinine 0.83 (0.6-1.2) mg/dl Est Cr Clr Drug Dosing 41.0 ml/min Est GFR ( Amer) 74.5 Est GFR (Non-Af Amer) 64.3 BUN/Creatinine Ratio 26.7 H (10-20) Glucose 95 (70-99) mg/dl Calcium 8.8 (8.5-10.1) mg/dl Magnesium 1.9 (1.8-2.4) mg/dl Total Bilirubin 0.4 (0.2-1) mg/dl AST 26 (15-37) U/L ALT 29 (12-78) U/L Alkaline Phosphatase 82 (45-117) U/L Troponin I 0.164 H* (0-0.045) ng/ml Total Protein 6.7 (6.4-8.2) gm/dl Albumin 3.1 L (3.4-5.0) gm/dl Globulin 3.6 (2.5-4.0) gm/dl Albumin/Globulin Ratio 0.9 (0.9-2) Lipase 97 (73-393) U/L Urine Color Yellow Urine Appearance Clear (Clear) Urine pH 7.0 (4.5-7.5) Ur Specific [place] 1.016 (1.000-1.030) Urine Protein Negative (Negative) Urine Glucose (UA) Negative (Negative) Urine Ketones Negative (Negative) Urine Blood Negative (Negative) Urine Nitrite Negative (Negative) Urine Bilirubin Negative (Negative) Urine Urobilinogen Negative (Negative) Ur Leukocyte Esterase Negative (Negative) Digoxin (0.8-2.0) ng/ml 04/16/18 04/16/18 Range/Units 17:00 17:00 WBC 6.83 (4.8-10.8) K/uL RBC 4.04 L (4.2-5.4) M/uL Hgb 12.0 (12.0-16.0) g/dL Hct 38.5 (37-47) % MCV 95.3 (80-100) fL MCH 29.7 (25-34) pg MCHC 31.2 L (32-36) g/dL RDW Std Deviation 52.3 H (36.4-46.3) fL RDW Coeff of Zain 15.1 H (11.5-14.5) % Plt Count 385 (130-400) K/uL MPV 9.8 (7.4-10.4) fL Immature Gran % (Auto) 0.3 % Neut % (Auto) 69.9 % Lymph % (Auto) 15.8 % [place] % (Auto) 12.2 % Eos % (Auto) 1.5 % Baso % (Auto) 0.3 % Immature Gran # (Auto) 0.02 (0.00-0.02) K/uL Neut # (Auto) 4.78 (1.4-6.5) K/uL Lymph # (Auto) 1.08 L (1.2-3.4) K/uL [place] # (Auto) 0.83 H (0.11-0.59) K/uL Eos # (Auto) 0.10 (0-0.5) K/uL Baso # (Auto) 0.02 (0-0.2) K/uL PT (9.0-12.0) Seconds INR (0.9-1.1) Sodium (136-145) mmol/L Potassium (3.5-5.1) mmol/L Chloride (98-107) mmol/L Carbon Dioxide (21-32) mmol/L Anion Gap (3-11) BUN (7-18) mg/dl Creatinine (0.6-1.2) mg/dl Est Cr Clr Drug Dosing ml/min Est GFR ( Amer) Est GFR (Non-Af Amer) BUN/Creatinine Ratio (10-20) Glucose (70-99) mg/dl Calcium (8.5-10.1) mg/dl Magnesium (1.8-2.4) mg/dl Total Bilirubin (0.2-1) mg/dl AST (15-37) U/L ALT (12-78) U/L Alkaline Phosphatase (45-117) U/L Troponin I (0-0.045) ng/ml Total Protein (6.4-8.2) gm/dl Albumin (3.4-5.0) gm/dl Globulin (2.5-4.0) gm/dl Albumin/Globulin Ratio (0.9-2) Lipase (73-393) U/L Urine Color Urine Appearance (Clear) Urine pH (4.5-7.5) Ur Specific [place] (1.000-1.030) Urine Protein (Negative) Urine Glucose (UA) (Negative) Urine Ketones (Negative) Urine Blood (Negative) Urine Nitrite (Negative) Urine Bilirubin (Negative) Urine Urobilinogen (Negative) Ur Leukocyte Esterase (Negative) Digoxin 0.7 L (0.8-2.0) ng/ml Imaging Data Radiologist's Impression: Radiology results as stated below per my review and the radiologist's interpretation: CT SCAN OF THE ABDOMEN AND PELVIS WITHOUT CONTRAST CLINICAL HISTORY: Flank pain hematuria COMPARISON STUDY: 01/11/2018 TECHNIQUE: CT scan of the abdomen and pelvis was performed from the lung bases to the proximal femurs. Images are reviewed in the axial, sagittal, and coronal planes. IV contrast was not administered for this examination. A dose lowering technique was utilized adhering to the principles of ALARA. CT DOSE: 358.04 mGycm FINDINGS: Lower chest: The heart is enlarged. There is an aortic valve stent/prosthesis. There are moderate bilateral pleural effusions. Liver: There is borderline hepatomegaly. No masses are visualized this noncontrast study Gallbladder: Not visualized and presumed absent Spleen: Normal in size and attenuation. Pancreas: Unremarkable. Adrenal glands: There is mild adrenal gland thickening unchanged the prior study Kidneys: No renal, ureteral, or bladder calculi are visualized. Bowel: There are multiple fluid-filled small bowel loops. Likely secondary to an ileus. If there is chronic concern over the presence of significant bowel pathology, then a follow-up study following intravenous and oral contrast would be ingested. There are no transition zones indicate a high-grade bowel obstruction. There is no evidence of acute diverticulitis. There are no findings to indicate acute appendicitis. Bowel evaluation is limited due to the lack of intravenous and oral contrast. Peritoneum: There is no intraperitoneal free air or abdominal ascites. Vasculature: The abdominal aorta is normal in course and caliber. Adenopathy: None. Pelvic viscera: The uterus is surgically absent Skeletal structures: The bones are osteopenic. No destructive lesions are evident there is a severe L2 compression deformity and mild T11 compression fracture. The L2 compression fracture remains unchanged. There is minimal progression of the T11 compression fracture. IMPRESSION: 1. Study limited due to the lack of intravenous and oral contrast 2. Cardiomegaly and moderate bilateral pleural effusions 3. No renal, ureteral, or bladder calculi identified 4. No evidence of bowel obstruction. No evidence of free air 5. Multiple fluid-filled small bowel loops likely secondary to an ileus. 6. Old L2 compression fracture. Electronically signed by: Miquel Perez M.D. 04/16/2018 7:02 PM ECG Data Attestation: I personally reviewed and interpreted this ECG as follows: Indication: other (V Tach) Rate (beats per minute): 104 Rhythm: atrial fibrillation Findings: + PVC; no ST elevation Comparison ECG Date: from (03/14/18) Change: no significant change Blood Pressure Blood Pressure Findings: Normal blood pressure MDM Narrative I did perform a limited focused review of portions of the patient's old chart on the electronic medical record. The patient was just discharged 3 days ago after being hospitalized for CHF exacerbation. She also has COPD and Afib for which she is on Warfarin. I did evaluate the patient as noted above. Patient is presenting with hematuria and right-sided flank pain. I was concerned about possible kidney stone. While here she developed palpitations. She does have a history of A. fib and is on Coumadin. IV access was established. The patient was placed on a continuous monitoring manager. She does have atrial fibrillation on the monitor with PVCs. I did order and personally review the patient's 12-lead EKG as described above. Her twelve-lead EKG demonstrates atrial fibrillation with PVCs. While in the emergency department she developed a run of ventricular tachycardia as noted on the monitor. She stated that she felt palpitations at the time but did not pass out. She denies any chest pain or shortness of breath. Her son states that her heart rate went up to 190 on a monitor. I did discuss the case with Dr. Terrazas who knows the patient well. He did not recommend starting her on any medications and continuing to observe her. I did order and review the patient's blood work as noted in the electronic medical record. Her white blood cell count is not elevated. Electrolytes are unremarkable. Her CO2 is elevated but she does have COPD. She is likely a chronic CO2 retainer. Her troponin came back slightly elevated. Again the patient denied any chest discomfort or shortness of breath. INR is subtherapeutic at 1.9. Digoxin level is 0.7. She did states she is very anxious after I told her that she would need to be admitted. She did request Xanax and felt much better afterwards. I did order a CT of the abdomen and pelvis. I did review the images myself as well as the radiology report as described above. She has an ileus but no other acute process. I did perform a rectal examination which did not show any blood in her rectum. Stool was guaiac negative. She has no blood in her vagina. It is unclear what she was seeing when she noticed the possible hematuria. I did discuss the test results with her. I did discuss case with the hospitalist and upper caser. Impression & Plan Ventricular tachycardia, Elevated troponin, Ileus, Subtherapeutic international normalized ratio (INR) Discharge Plan Visit Data Chief Complaint: Abdominal Pain Stated Complaint: ABDOMINAL PAIN ED Provider: Ernst Knapp Discharge Problem: Ventricular tachycardia, Elevated troponin, Ileus, Subtherapeutic international normalized ratio (INR) Patient Disposition: Being Evaluated by Hospitalist Forms Stand Alone Forms: My [facility] [employer] Prescriptions Prescriptions: No Action ipratropium-albuterol 0.5 mg-3 mg(2.5 mg base)/3 mL Solution For Nebulization 3 ml INHALATION Q4 PRN (Reason: COUGH, SOB OR WHEEZING) RF: 0 montelukast [Singulair] 10 mg Tablet 10 mg PO QAM RF: 0 albuterol sulfate [Ventolin HFA] 90 mcg/actuation Hfa Aerosol Inhaler 2 puff INHALATION Q4 PRN (Reason: Shortness Of Breath Or Wheezing) RF: 0 budesonide-formoterol [Symbicort] 80-4.5 mcg/actuation Hfa Aerosol Inhaler 2 puff INHALATION BID RF: 0 warfarin [Jantoven] 3 mg tablet 3 mg PO DAILY@1600 RF: 0 aspirin 81 mg Tablet,Delayed Release (Dr/Ec) 81 mg PO QAM RF: 0 alprazolam 0.25 mg tablet 0.25 mg PO DAILY PRN (Reason: Anxiety) RF: 0 acetaminophen [Tylenol Extra Strength] 500 mg Tablet 500 mg PO Q6 PRN (Reason: Unknown) RF: 0 metoprolol tartrate 50 mg tablet 75 mg PO Q8 RF: 0 fluticasone 50 mcg/actuation spray,suspension 2 spray Intranasal QAM RF: 0 simethicone 80 mg Tablet,Chewable 80 mg PO QID PRN (Reason: gas) RF: 0 escitalopram oxalate 10 mg tablet 10 mg PO QAM RF: 0 spironolactone 25 mg Tablet 25 mg PO QAM Qty: 30 RF: 0 potassium chloride [Klor-Con M20] 20 mEq Tablet,Er Particles/Crystals 20 meq PO QAM Qty: 30 RF: 0 lisinopril [Zestril] 10 mg Tablet 10 mg PO QAM Qty: 30 RF: 0 digoxin 125 mcg Tablet 0.125 mg PO DAILY@1600 Qty: 30 RF: 0 furosemide 20 mg Tablet 60 mg PO BID Qty: 100 RF: 0 Referrals Referrals: Ariana Pendleton MD [Primary Care Provider] - The scribe's documentation has been prepared under my direction and personally reviewed by me in its entirety. I confirm that the note above accurately reflects all work, treatment, procedures, and medical decision making performed by me.
[2018-04-16] MEDS ORDERED: XOPENEX/ATROVENT 1.25mg/0.5MG NEB COMBO NEB PRN (22:06)
[2018-04-16] MEDS ORDERED: ALPRAZolam 0.25 MG TABLET PO PRN (22:06)
[2018-04-16] MEDS ORDERED: TRAMADOL HCL 50 MG TABLET PO PRN (22:06)
[2018-04-16] MEDS ORDERED: SIMETHICONE 80 MG CHEW PO PRN (22:06)
[2018-04-16] MEDS ORDERED: PROCHLORPERAZINE 5 MG in SYRINGE 4 ML IV PRN (22:06)
[2018-04-17] MEDS: IPRATROPIUM BROMIDE NEB SOLN 0.02% 2.5 ML VIAL INH PRN ×2 (01:53→09:20)
[2018-04-17] MEDS: LEVALBUTEROL 1.25MG/0.5ML NEB INH PRN ×2 (01:53→09:20)
[2018-04-17] MEDS ORDERED: METOPROLOL TARTRATE 25 MG TAB PO SCH (06:00)
[2018-04-17] MEDS: METOPROLOL TARTRATE 25 MG TAB PO SCH ×2 (06:13→16:11)
[2018-04-17 07:06] LABS: Basophils # (auto) 0.03 K/uL (0-0.2); Basophils % (auto) 0.5 %; Eosinophils # (auto) 0.12 K/uL (0-0.5); Eosinophils % (auto) 1.9 %; Hematocrit (blood only) 37.1 % (37-47); Hemoglobin 11.5 g/dL (12.0-16.0); Immature Granulocytes # (auto) 0.03 K/uL (0.00-0.02); Immature Granulocytes % (auto) 0.5 %; Lymphocytes # (auto) 1.16 K/uL (1.2-3.4); Lymphocytes % (auto) 18.5 %; Mean Corpuscular Volume 95.1 fL (80-100); Mean Platelet Volume 9.6 fL (7.4-10.4); Monocytes # (auto) 0.75 K/uL (0.11-0.59); Monocytes % (auto) 11.9 %; Neutrophils # (auto) 4.19 K/uL (1.4-6.5); Neutrophils % (auto) 66.7 %; Platelet Count 386 K/uL (130-400); RDW Coefficient of Variation 15.2 % (11.5-14.5); RDW Standard Deviation 52.3 fL (36.4-46.3); White Blood Count 6.28 K/uL (4.8-10.8)
[2018-04-17 07:23] LABS: INR 1.8 (0.9-1.1); Prothrombin Time 17.7 Seconds (9.0-12.0)
[2018-04-17 07:41] LABS: BUN Creatinine Ratio 28.3 (10-20); Calcium 8.7 mg/dl (8.5-10.1); Creatinine Clr Calc Pharmacy 45.3 ml/min; Est GFR (African American) 84.2; Est GFR (Non-African American) 72.7; Potassium 4.3 mmol/L (3.5-5.1)
[2018-04-17 07:47] LABS: Troponin I 0.17 ng/ml (0-0.045)
--- NOTE | 2018-04-17 07:51 | Discharge Summary ---
Date of Service April 17, 2018 Admission HPI Per Admitting Provider History obtained from patient, boyfriend, and records. Medical history is significant for chronic diastolic heart failure, EF of 65-70 , TTE 2019), VHD (moderate aortic stenosis sp TAVR, moderate MR, moderate TR), HTN, AFib on Coumadin, COPD, past tobacco abuse, chronic anemia (baseline hemoglobin 10-11). Recent confinement 04/08-04/13 for decompensated heart failure. Today patient noted transient vaginal bleeding with achy lower abdominal discomfort. No fever, no chills. Thinks she may have scratched herself. Patient not feeling so well. Patient brought to the ER by her boyfriend. NSVT noted at the ER. Admission Exam Per Admitting Provider GENERAL: Slightly anxious, slightly hard of hearing, no respiratory distress, underweight SKIN: Pallor , warm HEENT: Pale palpebral conjunctivae, no ptosis, dry buccal mucosa, nasal cannula in place NECK : Supple, no tenderness CHEST : Decreased breath sounds , no tenderness HEART : Irregular, systolic murmur ABDOMEN: Some distention, nontender EXTREMITIES : minimal LE swelling, no LE tenderness, no other conspicuous deformities noted NEUROLOGIC : Coherent, no facial asymmetry, no other gross focality except for mild hearing impairment Principal Diagnosis Elevated troponin: NSVT-Possibly from mildly elevated BP and heart rate secondary to anxiety Chronic diastolic heart failure, EF of 65-70, TTE 2019), patient euvolemic to dry VHD (moderate aortic stenosis sp TAVR, moderate MR, moderate TR) A. fib on Coumadin, mildly tachycardic, INR slightly subtherapeutic Transient vaginal bleeding, hemoglobin better than baseline COPD as per records, lung status at baseline past tobacco abuse chronic anemia, hemoglobin better than baseline secondary to some degree of hemoconcentration Discharge Exam ROS-No Headache, No Visual Changes, No Fever, No Chills, No Neck Pain or Stiffness, No Chest Pain, No Palpitations, +SOB, +AVALOS, +Cough, No Sputum, No Wheezing, No Abdominal Pain, No Diarrhea, No Hematemesis, No Hemoptysis, No Unexpected Weight Loss, No Flank pain, No Melena, No Hematochezia, No Frequency , No Urgency, No Burning, No Hematuria, No Rashes, No Diaphoresis. Appetite is decreased Physical Exam Gen-AAO x 3, NAD, Afebrile, Pleasant, Weak, at Baseline Head-NCAT, EOMI, PERRLA, Anicteric Sclera, No Posterior Pharyngeal Erythema Neck-Supple, No JVD, No Thyromegaly, No Masses, No LAD, No Bruits Lungs-B/L Rales at the bases, diminished breath sounds at the bases as well. 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�no vaginal bleeding per Director Trade Discharge Data Allergies Allergy/AdvReac Type Severity Reaction Status Date / Time Sulfa (Sulfonamide Allergy Severe HIVES & Verified 04/16/18 16:44 Antibiotics) THROAT SWELLING oxycodone AdvReac Severe Hallucinati Verified 04/16/18 16:44 ng meperidine AdvReac Unknown HALLUCINATIONS Verified 04/16/18 16:44 & TACHYCARDIA Consultations 04/16/18 19:12 ED Decision to Admit Stat 04/16/18 22:06 Consult Gynecology Routine Ordered Studies 04/16/18 16:19 CT abd pelvis wo con Stat Current Diagnoses Abnormal levels of other serum enzymes (04/16/18) Allergies Sulfa (Sulfonamide Antibiotics) Allergy (Severe, Verified 04/16/18 16:44) HIVES & THROAT SWELLING oxycodone Adverse Reaction (Severe, Verified 04/16/18 16:44) Hallucinating meperidine Adverse Reaction (Unknown, Verified 04/16/18 16:44) HALLUCINATIONS & TACHYCARDIA Height/Weight/Isolation Height 5 ft 3 in Weight 52.3 kg Chemistry 04/16/18 04/17/18 17:00 06:47 Sodium 140 142 Potassium 4.0 4.3 Chloride 103 102 Carbon Dioxide 36 H 37 H Anion Gap 1.0 L 3.0 BUN 22 H 21 H Creatinine 0.83 0.75 Glucose 95 104 H Urinalysis 04/16/18 16:45 Urine Color Yellow Urine Appearance Clear Urine pH 7.0 Ur Specific [place] 1.016 Urine Protein Negative Urine Glucose (UA) Negative Urine Ketones Negative Urine Blood Negative Urine Nitrite Negative Urine Bilirubin Negative Hospital Course (1) Elevated troponin: Medical history is significant for chronic diastolic heart failure, EF of 65-70, TTE 2019), VHD (moderate aortic stenosis sp TAVR, moderate MR, moderate TR), HTN, AFib on Coumadin, COPD, past tobacco abuse, chronic anemia (baseline hemoglobin 10-11). Recent confinement 04/08-04/13 for decompensated heart failure. Patient noted transient vaginal bleeding with achy lower abdominal discomfort. No fever, no chills. Thinks she may have scratched herself. Patient not feeling so well. Patient brought to the ER by her boyfriend. NSVT noted at the ER. Electrolytes Normal 1 NSVT/Elevated troponins-Possibly from mildly elevated BP and heart rate secondary to anxiety 2 chronic diastolic heart failure, EF of 65-70, TTE 2019), patient euvolemic to dry 3 VHD (moderate aortic stenosis sp TAVR, moderate MR, moderate TR) 4 A. fib on Coumadin, mildly tachycardic, INR slightly subtherapeutic 5 Transient vaginal bleeding, hemoglobin better than baseline 6 COPD as per records, lung status at baseline 7 past tobacco abuse 8 chronic anemia, hemoglobin better than baseline secondary to some degree of hemoconcentration Follow troponin Gynecology consult RE transient vaginal bleeding-none seen on their exam Can go home per cardiology perspective 2 step Pulse ox before DC DC home on oxygen 2 L with activity Total Time Total Time Spent Total Time Spent (In Minutes): 40 mins Total Time Includes: Examination of the Patient, Discharge Planning, Medication Reconciliation and Communication With Other Providers Discharge Plan Discharge Items Patient Disposition: Home - Home Health Services Reason For Visit: TROP ELEVATION Discharge Diagnosis: Elevated troponin Vaginal bleeding Chronic diastolic CHF Pleural effusion A. 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 Call non-emergency contact if: you have any medication questions Follow-up/Referrals: Ariana Pendleton MD [Primary Care Provider] - Heath Terrazas DO [Family Provider] - (1-2 weeks) Diet: Heart Healthy Addtl Provider Instructions: Now on Home O2 For Hypoxia on exertion Prescriptions: Continue ipratropium-albuterol 0.5 mg-3 mg(2.5 mg base)/3 mL Solution For Nebulization 3 ml INHALATION Q4 PRN (Reason: COUGH, SOB OR WHEEZING) RF: 0 montelukast [Singulair] 10 mg Tablet 10 mg PO QAM RF: 0 albuterol sulfate [Ventolin HFA] 90 mcg/actuation Hfa Aerosol Inhaler 2 puff INHALATION Q4 PRN (Reason: Shortness Of Breath Or Wheezing) RF: 0 budesonide-formoterol [Symbicort] 80-4.5 mcg/actuation Hfa Aerosol Inhaler 2 puff INHALATION BID RF: 0 warfarin [Jantoven] 3 mg tablet 3 mg PO DAILY@1600 RF: 0 aspirin 81 mg Tablet,Delayed Release (Dr/Ec) 81 mg PO QAM RF: 0 alprazolam 0.25 mg tablet 0.25 mg PO DAILY PRN (Reason: Anxiety) RF: 0 acetaminophen [Tylenol Extra Strength] 500 mg Tablet 500 mg PO Q6 PRN (Reason: Unknown) RF: 0 metoprolol tartrate 50 mg tablet 75 mg PO Q8 RF: 0 fluticasone 50 mcg/actuation spray,suspension 2 spray Intranasal QAM RF: 0 simethicone 80 mg Tablet,Chewable 80 mg PO QID PRN (Reason: gas) RF: 0 escitalopram oxalate 10 mg tablet 10 mg PO QAM RF: 0 spironolactone 25 mg Tablet 25 mg PO QAM Qty: 30 RF: 0 potassium chloride [Klor-Con M20] 20 mEq Tablet,Er Particles/Crystals 20 meq PO QAM Qty: 30 RF: 0 lisinopril [Zestril] 10 mg Tablet 10 mg PO QAM Qty: 30 RF: 0 digoxin 125 mcg Tablet 0.125 mg PO DAILY@1600 Qty: 30 RF: 0 furosemide 20 mg Tablet 60 mg PO BID Qty: 100 RF: 0 Stand-Alone Forms: [facility] Discharge Orders: Discharge Order (Routine); Ordered 04/17/18 Ordered By: Bryan Escalante Admission Data Admit Date/Time: 04/16/18 20:09 Attending Provider: Bryan Escalante Admit Provider: Ru Rosenthal Primary Care Provider: Ariana Pendleton Other Providers: Ru Rosenthal ; Taurus Navarrete ; Jesi Lizarraga ; Yolette Motley ; Phil Salmeron ; Naila Green ; Osbaldo Thomas ; Ronny Alex ; Vladimir Del Castillo Jr ; Sheila Qureshi ; Felisha Dasilva V. ; Aimee Lai ; Heath Terrazas Service: Telemetry
[2018-04-17] MEDS ORDERED: FUROSEMIDE 20 MG TAB PO SCH (08:00)
[2018-04-17] MEDS ORDERED: ESCITALOPRAM OXALATE 10 MG TAB PO SCH (09:00)
[2018-04-17] MEDS ORDERED: MONTELUKAST SODIUM 10 MG TABLET PO SCH (09:00)
[2018-04-17] MEDS ORDERED: FLUTICASONE PROPIONATE NA SPR 16 GM BTL SCH (09:00)
[2018-04-17] MEDS ORDERED: SPIRONOLACTONE 25 MG TAB PO SCH (09:00)
[2018-04-17] MEDS ORDERED: LISINOPRIL 10 MG TAB PO SCH (09:00)
[2018-04-17] MEDS ORDERED: POTASSIUM CHLORIDE 20 MEQ TABCR PO SCH (09:00)
--- NOTE | 2018-04-17 10:29 | Cardiology Consultation ---
Date of Consultation April 17, 2018 Assessment & Plan (1) H/O aortic valve replacement: Patient had a Cristo which was successful (2) COPD exacerbation: (3) A-fib: The atrial fibrillation is chronic (4) Diastolic heart failure: The patient examines is euvolemic (5) Elevated troponin: This is a nonspecific elevation and chronic. (6) Ventricular tachycardia: All the patient's labs including a dig level are normal. I do not believe any additional workup or treatment is indicated at this time. (7) Hematuria: No additional hematuria since admission. The patient is on Coumadin which may have contributed. I will leave it up to the primary service whether or not they want to work this up in hospital or as an outpatient. History of Present Illness Attending Physician: Bryan Escalante DO History of Present Illness This is an 87-year-old female who was just recently discharged. She has multiple medical problems and has had multiple hospital admissions starting at the end of last year. In January she had a 21-day admission at [facility] prior to having a Cristo are completed for aortic stenosis. She was discharged in a couple weeks later admitted with pneumonia and respiratory failure at [facility]. She then was discharged and readmitted with congestive heart failure. She was discharged and last evening went to the bathroom and had hematuria which she describes as significant. She called the walk-in clinic at [facility] and they were closed and they recommended the emergency department. After arrival there she had no more hematuria. All her labs were unremarkable. She did have one 10 beat run of wide-complex tachycardia and no other significant arrhythmias other than her chronic atrial fibrillation. She was admitted to the telemetry floor and has had no other episodes of wide-complex tachycardia. She has no cardiac complaints today and examines is euvolemic. No hematuria since being admitted to the hospital. Should be noted that she is on warfarin as an outpatient for her atrial fibrillation. Allergies Allergy/AdvReac Type Severity Reaction Status Date / Time Sulfa (Sulfonamide Allergy Severe HIVES & Verified 04/16/18 16:44 Antibiotics) THROAT SWELLING oxycodone AdvReac Severe Hallucinati Verified 04/16/18 16:44 ng meperidine AdvReac Unknown HALLUCINATIONS Verified 04/16/18 16:44 & TACHYCARDIA Home Medications Home Medications Medication Instructions Recorded Confirmed Type albuterol sulfate [Ventolin HFA] 2 puff INHALATION Q4 PRN 01/06/18 04/16/18 History budesonide-formoterol [Symbicort] 2 puff INHALATION BID 01/06/18 04/16/18 History ipratropium-albuterol 3 ml INHALATION Q4 PRN 01/06/18 04/16/18 History montelukast [Singulair] 10 mg PO QAM 01/06/18 04/16/18 History acetaminophen [Tylenol Extra 500 mg PO Q6 PRN 03/14/18 04/16/18 History Strength] alprazolam 0.25 mg PO DAILY PRN 03/14/18 04/16/18 History aspirin 81 mg PO QAM 03/14/18 04/16/18 History escitalopram oxalate 10 mg PO QAM 03/14/18 04/16/18 History fluticasone 2 spray INTRANASAL QAM 03/14/18 04/16/18 History metoprolol tartrate 75 mg PO Q8 03/14/18 04/16/18 History simethicone 80 mg PO QID PRN 03/14/18 04/16/18 History spironolactone 25 mg PO QAM #30 tab 04/10/18 04/16/18 Rx digoxin 0.125 mg PO DAILY@1600 #30 tab 04/13/18 04/16/18 Rx furosemide 60 mg PO BID #100 tab 04/13/18 04/16/18 Rx lisinopril [Zestril] 10 mg PO QAM #30 tab 04/13/18 04/16/18 Rx potassium chloride [Klor-Con M20] 20 meq PO QAM #30 tab 04/13/18 04/16/18 Rx warfarin [Jantoven] 3 mg PO DAILY@1600 04/16/18 04/16/18 History Patient History Medical History Syncope (Acute) Near syncope (Acute) Bleeding (Acute) Groin hematoma Dysphagia Subcutaneous hematoma Dysphagia Pneumonia (Acute) Hypoxic (Acute) SIRS (systemic inflammatory response syndrome) (Acute) COPD (chronic obstructive pulmonary disease) (Chronic) Aortic stenosis (Chronic) Asthma (Chronic) Chronic atrial fibrillation (Chronic) HTN (hypertension) (Chronic) 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) CKD (chronic kidney disease) stage 3, GFR 30-59 ml/min (Chronic) Depression (Chronic) Anemia, chronic renal failure (Chronic) Aortic stenosis Atrial fibrillation CHF (congestive heart failure) COPD (chronic obstructive pulmonary disease) Diabetes History of hysterectomy Hypertension Surgical History Status post cardiac catheterization (Acute) History of cholecystectomy (Resolved) History of appendectomy (Resolved) History of total hysterectomy (Resolved) "fibroids" H/O cataract removal with insertion of prosthetic lens (Resolved) "2002" S/P cataract surgery S/P cholecystectomy Family History Other Family history non-contributory Heart disease Social History marital status: Life Partner Current Living Situation: Significant Other Current Living Situation Comment: 2 bedroom appartment in [place] current occupational status: retired Feels Safe at Home: Yes Safety Concerns: Feels Safe At This Time Smoking Status: Former smoker Second Hand Exposure: No Hx Alcohol Use: No Hx Substance Use: No Beliefs That Will Affect Care: None Preferred Language: Luxembourgish Communication Ability: Effective Communication Ability Comment: VIEJAS Review of Systems Review of Systems: See HPI for pertinent positives. All other 10 point review of systems are negative. Physical Exam Vital Signs (Past 24 Hours): Last Vital Signs Temp 36.7 C 04/17/18 07:00 Pulse 78 04/17/18 09:22 Resp 20 04/17/18 09:22 BP 155/56 H 04/17/18 07:00 Pulse Ox 90 04/17/18 09:22 Physical Exam: General: no acute distress and stated age Head: normocephalic, no masses, lesions, tenderness or abnormalities Eyes: conjunctiva are pink and non-injected, sclera clear Neck: supple, no adenopathy, no bruits, normal jugular venous pulse, no hepatojugular reflux Chest: normal shape and normal respiratory effort Lungs: clear to auscultation and percussion Cardiac Exam: - irregular rate & rhythm, no murmurs gallops or rubs - normal S1, normal S2 Pulses: 2(+) throughout Abdomen: abdomen soft, non-tender, no abnormal masses and no hepatosplenomegaly Musculoskeletal: no gait disturbance, no joint inflammation, no deforming arthritis Extremities: no edema and no cyanosis Neuro: grossly normal exam Results & Data Laboratory Results Laboratory Results - last 24 hr 04/16/18 04/16/18 04/16/18 16:45 17:00 17:00 WBC RBC Hgb Hct MCV MCH MCHC RDW Std Deviation RDW Coeff of Zain Plt Count MPV Immature Gran % (Auto) Neut % (Auto) Lymph % (Auto) [place] % (Auto) Eos % (Auto) Baso % (Auto) Immature Gran # (Auto) Neut # (Auto) Lymph # (Auto) [place] # (Auto) Eos # (Auto) Baso # (Auto) PT 18.9 H INR 1.9 H Sodium 140 Potassium 4.0 Chloride 103 Carbon Dioxide 36 H Anion Gap 1.0 L BUN 22 H Creatinine 0.83 Est Cr Clr Drug Dosing 41.0 Est GFR ( Amer) 74.5 Est GFR (Non-Af Amer) 64.3 BUN/Creatinine Ratio 26.7 H Glucose 95 Calcium 8.8 Magnesium 1.9 Total Bilirubin 0.4 AST 26 ALT 29 Alkaline Phosphatase 82 Troponin I 0.164 H* Total Protein 6.7 Albumin 3.1 L Globulin 3.6 Albumin/Globulin Ratio 0.9 Lipase 97 Urine Color Yellow Urine Appearance Clear Urine pH 7.0 Ur Specific [place] 1.016 Urine Protein Negative Urine Glucose (UA) Negative Urine Ketones Negative Urine Blood Negative Urine Nitrite Negative Urine Bilirubin Negative Urine Urobilinogen Negative Ur Leukocyte Esterase Negative Digoxin Blood Type Antibody Screen 04/16/18 04/16/18 04/16/18 17:00 17:00 20:46 WBC 6.83 RBC 4.04 L Hgb 12.0 Hct 38.5 MCV 95.3 MCH 29.7 MCHC 31.2 L RDW Std Deviation 52.3 H RDW Coeff of Zain 15.1 H Plt Count 385 MPV 9.8 Immature Gran % (Auto) 0.3 Neut % (Auto) 69.9 Lymph % (Auto) 15.8 [place] % (Auto) 12.2 Eos % (Auto) 1.5 Baso % (Auto) 0.3 Immature Gran # (Auto) 0.02 Neut # (Auto) 4.78 Lymph # (Auto) 1.08 L [place] # (Auto) 0.83 H Eos # (Auto) 0.10 Baso # (Auto) 0.02 PT INR Sodium Potassium Chloride Carbon Dioxide Anion Gap BUN Creatinine Est Cr Clr Drug Dosing Est GFR ( Amer) Est GFR (Non-Af Amer) BUN/Creatinine Ratio Glucose Calcium Magnesium Total Bilirubin AST ALT Alkaline Phosphatase Troponin I 0.175 H* Total Protein Albumin Globulin Albumin/Globulin Ratio Lipase Urine Color Urine Appearance Urine pH Ur Specific [place] Urine Protein Urine Glucose (UA) Urine Ketones Urine Blood Urine Nitrite Urine Bilirubin Urine Urobilinogen Ur Leukocyte Esterase Digoxin 0.7 L Blood Type Antibody Screen 04/16/18 04/17/18 04/17/18 20:46 06:47 06:47 WBC 6.28 RBC 3.90 L Hgb 11.5 L Hct 37.1 MCV 95.1 MCH 29.5 MCHC 31.0 L RDW Std Deviation 52.3 H RDW Coeff of Zain 15.2 H Plt Count 386 MPV 9.6 Immature Gran % (Auto) 0.5 Neut % (Auto) 66.7 Lymph % (Auto) 18.5 [place] % (Auto) 11.9 Eos % (Auto) 1.9 Baso % (Auto) 0.5 Immature Gran # (Auto) 0.03 H Neut # (Auto) 4.19 Lymph # (Auto) 1.16 L [place] # (Auto) 0.75 H Eos # (Auto) 0.12 Baso # (Auto) 0.03 PT 17.7 H INR 1.8 H Sodium Potassium Chloride Carbon Dioxide Anion Gap BUN Creatinine Est Cr Clr Drug Dosing Est GFR ( Amer) Est GFR (Non-Af Amer) BUN/Creatinine Ratio Glucose Calcium Magnesium Total Bilirubin AST ALT Alkaline Phosphatase Troponin I Total Protein Albumin Globulin Albumin/Globulin Ratio Lipase Urine Color Urine Appearance Urine pH Ur Specific [place] Urine Protein Urine Glucose (UA) Urine Ketones Urine Blood Urine Nitrite Urine Bilirubin Urine Urobilinogen Ur Leukocyte Esterase Digoxin Blood Type O Positive Antibody Screen NEGATIVE 04/17/18 04/17/18 06:47 08:35 WBC RBC Hgb Hct MCV MCH MCHC RDW Std Deviation RDW Coeff of Zain Plt Count MPV Immature Gran % (Auto) Neut % (Auto) Lymph % (Auto) [place] % (Auto) Eos % (Auto) Baso % (Auto) Immature Gran # (Auto) Neut # (Auto) Lymph # (Auto) [place] # (Auto) Eos # (Auto) Baso # (Auto) PT INR Sodium 142 Potassium 4.3 Chloride 102 Carbon Dioxide 37 H Anion Gap 3.0 BUN 21 H Creatinine 0.75 Est Cr Clr Drug Dosing 45.3 Est GFR ( Amer) 84.2 Est GFR (Non-Af Amer) 72.7 BUN/Creatinine Ratio 28.3 H Glucose 104 H Calcium 8.7 Magnesium Total Bilirubin AST ALT Alkaline Phosphatase Troponin I 0.170 H* 0.155 H* Total Protein Albumin Globulin Albumin/Globulin Ratio Lipase Urine Color Urine Appearance Urine pH Ur Specific [place] Urine Protein Urine Glucose (UA) Urine Ketones Urine Blood Urine Nitrite Urine Bilirubin Urine Urobilinogen Ur Leukocyte Esterase Digoxin Blood Type Antibody Screen Medications Administered Current Inpatient Medications Alprazolam (Xanax) 0.25 mg PO DAILY PRN PRN Reason: Anxiety Stop: 05/16/18 22:05 Digoxin (Lanoxin) 0.125 mg PO DAILY@1600 [facility] Stop: 05/17/18 15:59 Escitalopram Oxalate (Lexapro) 10 mg PO [facility] Stop: 05/17/18 08:59 Last Admin: 04/17/18 08:43 Dose: 10 mg Fluticasone Propionate (Flonase) [facility] sprays [facility] Stop: 05/17/18 08:59 Last Admin: 04/17/18 08:44 Dose: 2 sprays Furosemide (Lasix) 60 mg PO BID [facility] Stop: 05/17/18 07:59 Last Admin: 04/17/18 08:43 Dose: 60 mg Prochlorperazine 5 mg/ Syringe 5 mls @ 5 mls/min IV Q6H PRN PRN Reason: Nausea And Vomiting Stop: 05/16/18 22:05 Ipratropium [place] (Atrovent 0.02% 0.5mg/2.5ml) 0.5 mg INH Q4H PRN PRN Reason: sob/wheeze Stop: 05/16/18 22:05 Last Admin: 04/17/18 09:20 Dose: 0.5 mg Levalbuterol HCl (Xopenex 1.25mg/0.5ml Neb) 1.25 mg INH Q4H PRN PRN Reason: SOB/WHEEZING Stop: 05/16/18 22:05 Last Admin: 04/17/18 09:20 Dose: 1.25 mg Lisinopril (Zestril) 10 mg PO [facility] Stop: 05/17/18 08:59 Last Admin: 04/17/18 08:43 Dose: 10 mg Metoprolol Tartrate (Lopressor) 75 mg PO Q8 ANNA Stop: 05/17/18 05:29 Last Admin: 04/17/18 06:13 Dose: 75 mg Montelukast Sodium (Singulair) 10 mg PO QAM [facility] Stop: 05/17/18 08:59 Last Admin: 04/17/18 08:43 Dose: 10 mg Potassium Chloride (Klor-Con M20) 20 meq PO QAM [facility] Stop: 05/17/18 08:59 Last Admin: 04/17/18 08:43 Dose: 20 meq Simethicone (Mylicon) 80 mg PO QID PRN PRN Reason: gas Stop: 05/16/18 22:05 Spironolactone (Aldactone) 25 mg PO QAM [facility] Stop: 05/17/18 08:59 Last Admin: 04/17/18 08:43 Dose: 25 mg Tramadol HCl (Ultram) 25 mg PO Q4H PRN PRN Reason: Pain Stop: 05/16/18 22:05 (1) A-fib Atrial fibrillation type: chronic Qualified Code(s): I48.2 - Chronic atrial fibrillation
--- NOTE | 2018-04-17 11:36 | History & Physical Report ---
Date of Service April 17, 2018 Assessment & Plan (1) Hematuria: (2) History of hysterectomy for benign disease: 87 yo postmenopausal female with hematuria, spotting after urination h/o hysterectomy, no blood in vagina per speculum exam. Normal pelvic exam Thank you for this consultation. 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 No county administrator issues since then h/o 6 Fullterm 's Denies pelvic pain/ pressure/ dryness or itching of vulva vagina Allergies Allergy/AdvReac Type Severity Reaction Status Date / Time Sulfa (Sulfonamide Allergy Severe HIVES & Verified 04/16/18 16:44 Antibiotics) THROAT SWELLING oxycodone AdvReac Severe Hallucinati Verified 04/16/18 16:44 ng meperidine AdvReac Unknown HALLUCINATIONS Verified 04/16/18 16:44 & TACHYCARDIA Home Medications Home Medications Medication Instructions Recorded Confirmed Type albuterol sulfate [Ventolin HFA] 2 puff INHALATION Q4 PRN 01/06/18 04/16/18 History budesonide-formoterol [Symbicort] 2 puff INHALATION BID 01/06/18 04/16/18 History ipratropium-albuterol 3 ml INHALATION Q4 PRN 01/06/18 04/16/18 History montelukast [Singulair] 10 mg PO QAM 01/06/18 04/16/18 History acetaminophen [Tylenol Extra 500 mg PO Q6 PRN 03/14/18 04/16/18 History Strength] alprazolam 0.25 mg PO DAILY PRN 03/14/18 04/16/18 History aspirin 81 mg PO QAM 03/14/18 04/16/18 History escitalopram oxalate 10 mg PO QAM 03/14/18 04/16/18 History fluticasone 2 spray INTRANASAL QAM 03/14/18 04/16/18 History metoprolol tartrate 75 mg PO Q8 03/14/18 04/16/18 History simethicone 80 mg PO QID PRN 03/14/18 04/16/18 History spironolactone 25 mg PO QAM #30 tab 04/10/18 04/16/18 Rx digoxin 0.125 mg PO DAILY@1600 #30 tab 04/13/18 04/16/18 Rx furosemide 60 mg PO BID #100 tab 04/13/18 04/16/18 Rx lisinopril [Zestril] 10 mg PO QAM #30 tab 04/13/18 04/16/18 Rx potassium chloride [Klor-Con M20] 20 meq PO QAM #30 tab 04/13/18 04/16/18 Rx warfarin [Jantoven] 3 mg PO DAILY@1600 04/16/18 04/16/18 History Patient History Medical History Syncope (Acute) Near syncope (Acute) Bleeding (Acute) Groin hematoma Dysphagia Subcutaneous hematoma Dysphagia Pneumonia (Acute) Hypoxic (Acute) SIRS (systemic inflammatory response syndrome) (Acute) COPD (chronic obstructive pulmonary disease) (Chronic) Aortic stenosis (Chronic) Asthma (Chronic) Chronic atrial fibrillation (Chronic) HTN (hypertension) (Chronic) 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) CKD (chronic kidney disease) stage 3, GFR 30-59 ml/min (Chronic) Depression (Chronic) Anemia, chronic renal failure (Chronic) Aortic stenosis Atrial fibrillation CHF (congestive heart failure) COPD (chronic obstructive pulmonary disease) Diabetes History of hysterectomy Hypertension Surgical History Status post cardiac catheterization (Acute) History of cholecystectomy (Resolved) History of appendectomy (Resolved) History of total hysterectomy (Resolved) "fibroids" H/O cataract removal with insertion of prosthetic lens (Resolved) "2002" S/P cataract surgery S/P cholecystectomy Family History Other Family history non-contributory Heart disease Social History marital status: Life Partner Current Living Situation: Significant Other Current Living Situation Comment: 2 bedroom appartment in [place] current occupational status: retired Feels Safe at Home: Yes Safety Concerns: Feels Safe At This Time Smoking Status: Former smoker Second Hand Exposure: No Hx Alcohol Use: No Hx Substance Use: No Beliefs That Will Affect Care: None Preferred Language: Bruneian Communication Ability: Effective Communication Ability Comment: TEJON OB History 6 FT Review of Systems All systems reviewed & are unremarkable except as noted in HPI & below Physical Exam 2 Vital Signs (Past 24 Hours): Last Vital Signs Temp 36.9 C 04/17/18 11:27 Pulse 69 04/17/18 11:27 Resp 16 04/17/18 11:27 BP 128/65 04/17/18 11:27 Pulse Ox 93 04/17/18 11:27 Constitutional: WD/WN, vitals as above comfortable Very pleasant female not in distress Accepted vaginal exam Gastrointestinal (Abdomen): Abd: soft, NT, DD Genitourinary: no vaginal lesions, no adnexal mass normal external appearance Speculum/Bimanual Exam: normal bimanual exam and normal appearance of the vagina No blood on vulva, none in vagina Vagina dry, pale, cuff intact Cervix absent Uterus absent 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
[2018-04-17] MEDS ORDERED: DIGOXIN 0.125 MG TAB PO SCH (16:00)
== END 2018-04-17 17:56 | disposition home health service (06) ==
LOC: ED 15:18 → 2N 15:18
DX: Z88.5 Allergy status to narcotic agent; I50.32 Chronic diastolic (congestive) heart failure; R31.9 Hematuria, unspecified; Z88.8 Allergy status to other drugs, medicaments and biological substances; N93.9 Abnormal uterine and vaginal bleeding, unspecified; R79.89 Other specified abnormal findings of blood chemistry; Z79.82 Long term (current) use of aspirin; Z79.01 Long term (current) use of anticoagulants; I47.2 Ventricular tachycardia; D64.9 Anemia, unspecified; Z88.2 Allergy status to sulfonamides; Z87.891 Personal history of nicotine dependence; J44.9 Chronic obstructive pulmonary disease, unspecified; I48.2 Chronic atrial fibrillation; Z95.2 Presence of prosthetic heart valve

== ENCOUNTER 2019-10-11 17:37 | Inpatient (IN) ==
[2019-10-11] MEDS ORDERED: SODIUM CHLORIDE 0.9% 500 ML IV SCH (18:00)
[2019-10-11 18:13] LABS: Basophils # (auto) 0.03 K/uL (0-0.2); Basophils % (auto) 0.5 %; Eosinophils # (auto) 0.54 K/uL (0-0.5); Eosinophils % (auto) 8.4 %; Hematocrit (blood only) 33.2 % (37-47); Hemoglobin 10.7 g/dL (12.0-16.0); Immature Granulocytes # (auto) 0.02 K/uL (0.00-0.02); Immature Granulocytes % (auto) 0.3 %; Lymphocytes # (auto) 0.89 K/uL (1.2-3.4); Lymphocytes % (auto) 13.8 %; Mean Corpuscular Hemoglobin 30.7 pg (25-34); Mean Corpuscular Hgb Conc 32.2 g/dL (32-36); Mean Corpuscular Volume 95.4 fL (80-100); Mean Platelet Volume 9.7 fL (7.4-10.4); Monocytes # (auto) 0.62 K/uL (0.11-0.59); Monocytes % (auto) 9.6 %; Neutrophils # (auto) 4.36 K/uL (1.4-6.5); Neutrophils % (auto) 67.4 %; Platelet Count 252 K/uL (130-400); RDW Coefficient of Variation 13.4 % (11.5-14.5); RDW Standard Deviation 46.6 fL (36.4-46.3); Red Blood Count 3.48 M/uL (4.2-5.4); White Blood Count 6.46 K/uL (4.8-10.8)
--- NOTE | 2019-10-11 18:13 | Emergency Department Note ---
History of Present Illness General Chief complaint: Rectal Bleed Stated complaint: RECTAL BLEEDING Time Seen by Provider: 10/11/19 17:52 History of Present Illness Provider Complaint: + gross hematochezia Onset (ago): 2 day(s) Pain Consistency: + constant Severity: severe Maximum Pain Intensity: 10 Current Pain Intensity: 10 Relieved By: + none Exacerbated By: + none Context: + anticoagulant use (Coumadin) Associated symptoms: + denies other symptoms and + abdominal pain; no nausea, no vomiting, no fever, no chills, no headaches and no shortness of breath Home Medications Home Medications Medication Instructions Recorded Confirmed Type albuterol sulfate [Ventolin HFA] 2 puff INHALATION Q4H PRN 01/06/18 10/11/19 History ipratropium-albuterol 3 ml INHALATION Q4H PRN 01/06/18 10/11/19 History acetaminophen [Tylenol Extra 1,000 mg PO Q6H PRN 03/14/18 10/11/19 History Strength] alprazolam 0.25 mg PO DAILY PRN 03/14/18 10/11/19 History aspirin 81 mg PO QPM 03/14/18 10/11/19 History metoprolol tartrate 75 mg PO Q8H 03/14/18 10/11/19 History spironolactone 25 mg PO QAM #30 tab 04/10/18 10/11/19 Rx digoxin 0.125 mg PO DAILY@1600 #30 tab 04/13/18 10/11/19 Rx furosemide 60 mg PO BID 09/06/19 10/11/19 History warfarin 2 mg PO 2XWK 09/06/19 10/11/19 History warfarin 4 mg PO 5XWK 09/06/19 10/11/19 History latanoprost 1 drp OPB HS 10/09/19 10/11/19 History lisinopril [Zestril] 10 mg PO QPM 10/09/19 10/11/19 History sennosides-docusate sodium 2 tabcap PO BID PRN 10/11/19 10/11/19 History [Senokot-S] Allergies Allergy/AdvReac Type Severity Reaction Status Date / Time Sulfa (Sulfonamide Allergy Severe Hives and Verified 10/11/19 19:24 Antibiotics) swelling of throat meperidine AdvReac Severe Hallucinations Verified 10/11/19 19:24 and tachycardia oxycodone AdvReac Severe Hallucinati Verified 10/11/19 19:24 ng Past Med/Surg History Medical History Anemia, chronic renal failure Anxiety Aortic stenosis Atrial fibrillation CKD (chronic kidney disease) stage 3, GFR 30-59 ml/min COPD (chronic obstructive pulmonary disease) inhaler/nebulizer prn Depression Diastolic CHF due to valvular disease Dysphagia Glaucoma Hearing deficit History of rheumatic fever as a child HTN (hypertension) Hypertension Hypoxic On anticoagulant therapy warfarin daily On home oxygen therapy 1 L N/C at sleep and prn Osteoarthritis Poor historian SIRS (systemic inflammatory response syndrome) Subcutaneous hematoma Surgical [place] [facility] [place]ectomy History of bilateral tubal ligation History of cardiac cath 12/2017 no stents @ [facility] [place] [facility] [place] History of cholecystectomy History of colonoscopy with polypectomy History of esophagogastroduodenoscopy (EGD) History of tooth extraction all lower teeth History of total hysterectomy "fibroids" S/P cataract surgery bilt Family History Other Family history non-contributory Heart disease No family history of adverse response to anesthesia Social History Smoking Status: Never smoker Cigarettes Per Day: quit 20yrs ago; Second Hand Exposure: No; Hx Alcohol Use: No Hx Substance Use: No Preferred Language: Qatari Communication Ability: Effective Visual Impairment: No Limitations Photolithographic Stripper Required: No Beliefs That Will Affect Care: None marital status: Life Partner Current Living Situation: Significant Other Current Living Situation Comment: 2 bedroom appartment in [place] current occupational status: retired How many Children do You have: 5 Feels Safe at Home: Yes Review of Systems A total of 10 systems reviewed and were otherwise negative Physical Exam Vital Signs: Vital Signs - 24 hr 10/11/19 17:38 10/11/19 18:57 10/11/19 19:30 Temperature 37.2 C Temperature Source Oral Pulse Rate 59 L 75 Pulse Rate [Apical ] 70 Pulse Rate from Sp O2 Sensor 81 Respiratory Rate 18 26 H 25 H Blood Pressure 107/56 L Blood Pressure [Ri ght Arm] 118/48 L Blood Pressure Dulce Maria n 73 Blood Pressure Dulce Maria n [Right Arm] 71 Pulse Oximetry 98 96 98 Oxygen Delivery Me thod Room Air Room Air Sepsis Recent Feve r Within 48 Hours No Sepsis New/Unexpla ined Change in Men arti Status No Sepsis Action Take n by Nursing No Action Required 10/11/19 19:31 10/11/19 20:00 10/11/19 20:01 Temperature Temperature Source Pulse Rate 85 69 Pulse Rate [Apical ] Pulse Rate from Sp O2 Sensor 77 77 Respiratory Rate 25 H Blood Pressure 139/70 125/72 Blood Pressure [Ri ght Arm] Blood Pressure Dulce Maria n 91 80 Blood Pressure Dulce Maria n [Right Arm] Pulse Oximetry 95 97 Oxygen Delivery Me thod Sepsis Recent Feve r Within 48 Hours Sepsis New/Unexpla ined Change in Men arti Status Sepsis Action Take n by Nursing 10/11/19 20:30 10/11/19 21:00 10/11/19 21:30 Temperature Temperature Source Pulse Rate 69 77 84 Pulse Rate [Apical ] Pulse Rate from Sp O2 Sensor 68 79 88 Respiratory Rate 24 24 28 H Blood Pressure 124/58 L 138/85 135/62 Blood Pressure [Ri ght Arm] Blood Pressure Dulce Maria n 84 99 83 Blood Pressure Dulce Maria n [Right Arm] Pulse Oximetry 97 98 96 Oxygen Delivery Me thod Room Air Sepsis Recent Feve r Within 48 Hours Sepsis New/Unexpla ined Change in Men arti Status Sepsis Action Take n by Nursing 10/11/19 22:00 Temperature Temperature Source Pulse Rate 104 H Pulse Rate [Apical ] Pulse Rate from Sp O2 Sensor 108 H Respiratory Rate 28 H Blood Pressure 155/101 H Blood Pressure [Ri ght Arm] Blood Pressure Dulce Maria n 125 Blood Pressure Dulce Maria n [Right Arm] Pulse Oximetry Oxygen Delivery Me thod Sepsis Recent Feve r Within 48 Hours Sepsis New/Unexpla ined Change in Men arti Status Sepsis Action Take n by Nursing Physical Exam: Physical Exam GENERAL: She is oriented to person, place, and time. She appears well-developed and well-nourished. She does not appear distressed. HENT: Exam performed. -Head: Normocephalic and atraumatic. -Right Ear: External ear normal. No mastoid tenderness. -Left Ear: External ear normal. No mastoid tenderness. -Mouth/Throat: The oropharynx is clear and moist. No trismus in the jaw. No dental abscesses or uvula swelling. No oropharyngeal exudate or tonsillar abs cesses. EYES: Conjunctivae and EOM are normal. Pupils are equal, round, and reactive to light. Right eye exhibits no discharge. Left eye exhibits no discharge. No scleral icterus. NECK: Normal range of motion. Neck supple. No JVD present. No spinous process tenderness present. No carotid bruit present. No rigidity. No tracheal deviation and normal range of motion present. No Brudzinski's sign and no Kernig's sign noted. CV: Normal rate, irregular rhythm, normal heart sounds and intact distal pulses. There is no peripheral edema. Palpable radial pulses bue. PULM/CHEST: Effort normal and breath sounds normal. No respiratory distress. No stridor. She has no wheezes. She has no rales. -Chest Wall: She exhibits no tenderness. ABD: The abdomen is soft. Bowel sounds are normal. She has no distension. No mass is present. There is no tenderness. There is no rebound, no guarding, no Hussein's sign and no tenderness at McBurney's point. Rovsig negative Rectal: Bright red blood per rectum present. MUSC/SKEL: Normal range of motion. There is no peripheral edema, tenderness or deformity. LYMPH: No cervical adenopathy. NEURO: She is alert and oriented to person, place, and time. She has normal strength. No cranial nerve deficit or sensory deficit. Coordination and gait normal. GCS eye subscore is 4. GCS verbal subscore is 5. GCS motor subscore is 6. Cerebellar tests wnl. SKIN: Skin is warm and dry. She is not diaphoretic. PSYCH: She has a normal mood and affect. Behavior is normal. Judgment and thought content normal. Course Course 1751: The patient was evaluated in room C5. A complete history and physical exam was performed. Cardiac monitoring: An order was placed for continuous cardiac monitoring. The monitor shows a rate of 100 with atrial fibrillation rhythm 1858: Vital signs stable. Labs show stable hemoglobin from her previous visit in the emergency department. Her creatinine is elevated at 1.82. Baseline creatinine appears to be 0.9. Potassium is also elevated 5.6. Patient treated with calcium gluconate, 1 amp of D50, and 10 units of insulin. Her troponin is elevated 0.05. Patient denies any chest pain or difficulty breathing. The troponin elevation is thought to be due to the patient's acute kidney injury. Patient will be admitted to the [facility] will trend the patient's troponin as well as hemoglobins. Administered Medications Sodium Chloride (Nss) 500 mls @ 75 mls/hr IV .[id number] ANNA Stop: 11/10/19 17:59 Last Infusion: 10/11/19 19:57 Dose: 0 mls/hr Documented by: [id number] Admin: 10/11/19 18:59 Dose: 75 mls/hr Documented by: [id number] Discontinued Medications Dextrose (Dextrose 50% 50 Ml Syringe) 50 ml IV NOW STA Stop: 10/11/19 19:01 Last Admin: 10/11/19 20:02 Dose: 50 ml Documented by: [id number] Calcium Gluconate 1,000 mg/ (Sodium Chloride) 60 mls @ 240 mls/hr IV NOW STA Stop: 10/11/19 19:14 Last Admin: 10/11/19 20:08 Dose: 240 mls/hr Documented by: [id number] Insulin Human Regular 10 units (/ Syringe) 9.9 mls @ 3 mls/sec IV ONE STA Stop: 10/11/19 19:01 Last Admin: 10/11/19 20:02 Dose: 3 mls/sec Documented by: [id number] Cosigned by: [id number] Medical Decision Making Laboratory Data Result diagrams: 10/11/19 18:03 10/11/19 18:03 Lab Results 10/11/19 10/11/19 10/11/19 Range/Units 18:03 18:03 18:03 WBC 6.46 (4.8-10.8) K/uL RBC 3.48 L (4.2-5.4) M/uL Hgb 10.7 L (12.0-16.0) g/dL Hct 33.2 L (37-47) % MCV 95.4 (80-100) fL MCH 30.7 (25-34) pg MCHC 32.2 (32-36) g/dL RDW Std Deviation 46.6 H (36.4-46.3) fL RDW Coeff of Azin 13.4 (11.5-14.5) % Plt Count 252 (130-400) K/uL MPV 9.7 (7.4-10.4) fL Immature Gran % (Auto) 0.3 % Neut % (Auto) 67.4 % Lymph % (Auto) 13.8 % [place] % (Auto) 9.6 % Eos % (Auto) 8.4 % Baso % (Auto) 0.5 % Neut # (Auto) 4.36 (1.4-6.5) K/uL Lymph # (Auto) 0.89 L (1.2-3.4) K/uL [place] # (Auto) 0.62 H (0.11-0.59) K/uL Eos # (Auto) 0.54 H (0-0.5) K/uL Baso # (Auto) 0.03 (0-0.2) K/uL Immature Gran # (Auto) 0.02 (0.00-0.02) K/uL PT 25.1 H (9.0-12.0) Seconds INR 2.5 H (0.9-1.1) APTT 36.6 H (21.0-31.0) Seconds PTT Ratio 1.3 Sodium 142 (136-145) mmol/L Potassium 5.6 H (3.5-5.1) mmol/L Chloride 107 (98-107) mmol/L Carbon Dioxide 31 (21-32) mmol/L Anion Gap 4.0 (3-11) BUN 64 H (7-18) mg/dl Creatinine 1.82 H (0.6-1.2) mg/dl Est Cr Clr Drug Dosing 16.4 ml/min Est GFR ( Amer) 28.4 Est GFR (Non-Af Amer) 24.5 BUN/Creatinine Ratio 35.3 H (10-20) Glucose 98 (70-99) mg/dl Calcium 7.8 L (8.5-10.1) mg/dl Total Bilirubin 0.3 (0.2-1) mg/dl Direct Bilirubin < 0.1 (0-0.2) mg/dl AST 22 (15-37) U/L ALT 20 (12-78) U/L Alkaline Phosphatase 57 (45-117) U/L Troponin I 0.050 H* (0-0.045) ng/ml Total Protein 6.0 L (6.4-8.2) gm/dl Albumin 2.8 L (3.4-5.0) gm/dl Lipase 126 (73-393) U/L Imaging Data Radiologist's Impression: XR chest 1V portable HISTORY: tachypnea COMPARISON: Chest 04/08/2018. FINDINGS: The lungs are hyperexpanded with apical predominant emphysematous changes. The heart remains enlarged small bilateral pleural effusions have slightly. Bibasilar densities have also improved. The pulmonary edema has impro toni. No pneumothorax. IMPRESSION: Interval improvement in the mild congestive change, small bilateral pleural effusions, and bibasilar densities. ACT 112: Negative or not required by law. Electronically signed by: Leopoldo Myers M.D. 10/11/2019 7:57 PM Dictated: 10/11/191955 Transcribed: 10/11/191955 ECG Data Rate (beats per minute): 110 Rhythm: atrial fibrillation Findings: no ST depression, no ST elevation and no prolonged QT MDM Narrative Vital signs stable. Labs show stable hemoglobin from her previous visit in the emergency department. Her creatinine is elevated at 1.82. Baseline creatinine appears to be 0.9. Potassium is also elevated 5.6. Patient treated with calcium gluconate, 1 amp of D50, and 10 units of insulin. Her troponin is elevated 0.05. Patient denies any chest pain or difficulty breathing. The troponin elevation is thought to be due to the patient's acute kidney injury. Patient will be admitted to the [facility] will trend the patient's troponin as well as hemoglobins. Impression & Plan ANGEL (acute kidney injury), Chronic atrial fibrillation, Acute hyperkalemia, GIB (gastrointestinal bleeding) Critical Care Time Critical Care Time: Yes Total Critical Care Time: 35 I have personally spent greater than 35 minutes of critical care time in the direct management of this patient. This includes bedside care, interpretation of diagnostic studies, and testing, discussion with consultants, patient, and family members, and other required patient management activities. This 35 minutes is in excess of all separately billable procedures. Discharge Plan Visit Data Chief Complaint: Rectal Bleed Stated Complaint: RECTAL BLEEDING ED Provider: Micha Collado Discharge Problem: ANGEL (acute kidney injury), Chronic atrial fibrillation, Acute hyperkalemia, GIB (gastrointestinal bleeding) Patient Disposition: Being Evaluated by Hospitalist Discharge Instructions [place]/Other Patient Handouts: ED Hyperkalemia Forms Stand Alone Forms: My [employer] Prescriptions Prescriptions: No Action ipratropium-albuterol 0.5 mg-3 mg(2.5 mg base)/3 mL Solution For Nebulization 3 ml INHALATION Q4H PRN (Reason: COUGH, SOB OR WHEEZING) RF: 0 albuterol sulfate [Ventolin HFA] 90 mcg/actuation Hfa Aerosol Inhaler 2 puff INHALATION Q4H PRN (Reason: Shortness Of Breath Or Wheezing) RF: 0 furosemide 40 mg Tablet 60 mg PO BID RF: 0 warfarin 4 mg Tablet 4 mg PO 5XWK RF: 0 warfarin 4 mg Tablet 2 mg PO 2XWK RF: 0 aspirin 81 mg Tablet,Delayed Release (Dr/Ec) 81 mg PO QPM RF: 0 alprazolam 0.25 mg tablet 0.25 mg PO DAILY PRN (Reason: Anxiety) RF: 0 acetaminophen [Tylenol Extra Strength] 500 mg Tablet 1,000 mg PO Q6H PRN (Reason: Pain) RF: 0 metoprolol tartrate 50 mg tablet 75 mg PO Q8H RF: 0 spironolactone 25 mg Tablet 25 mg PO QAM Qty: 30 RF: 0 digoxin 125 mcg Tablet 0.125 mg PO DAILY@1600 Qty: 30 RF: 0 latanoprost 0.005 % drops 1 drp OPB HS RF: 0 lisinopril [Zestril] 10 mg tablet 10 mg PO QPM RF: 0 sennosides-docusate sodium [Senokot-S] 8.6-50 mg tablet 2 tabcap PO BID PRN (Reason: Constipation) RF: 0 Referrals Referrals: Ariana Pendleton MD [Primary Care Provider] - Discharge Problem: GIB (gastrointestinal bleeding) Qualifiers: GI bleed type/associated pathology: unspecified gastrointestinal hemorrhage type Qualified Code(s): K92.2 - Gastrointestinal hemorrhage, unspecified
[2019-10-11 18:22] LABS: INR 2.5 (0.9-1.1); Partial Thromboplastin Ratio 1.3; Partial Thromboplastin Time 36.6 Seconds (21.0-31.0); Prothrombin Time 25.1 Seconds (9.0-12.0)
[2019-10-11 18:29] LABS: Alanine Aminotransferase 20 U/L (12-78); Albumin Level 2.8 gm/dl (3.4-5.0); Aspartate Aminotransferase 22 U/L (15-37); BUN Creatinine Ratio 35.3 (10-20); Bilirubin Direct < 0.1 mg/dl (0-0.2); Blood Urea Nitrogen 64 mg/dl (7-18); Calcium 7.8 mg/dl (8.5-10.1); Carbon Dioxide 31 mmol/L (21-32); Chloride 107 mmol/L (98-107); Creatinine Clr Calc Pharmacy 16.4 ml/min; Est GFR (African American) 28.4; Est GFR (Non-African American) 24.5; Glucose 98 mg/dl (70-99); Lipase 126 U/L (73-393); Potassium 5.6 mmol/L (3.5-5.1); Sodium 142 mmol/L (136-145)
[2019-10-11 18:38] LABS: Alkaline Phosphatase 57 U/L (45-117); Bilirubin,Total 0.3 mg/dl (0.2-1)
[2019-10-11] MEDS ORDERED: DEXTROSE 50% 50 ML SYRINGE IV STA (19:00)
[2019-10-11] MEDS ORDERED: CALCIUM GLUCONATE 10% 1,000 MG in SODIUM CHLORIDE 0.9% 50 ML IV STA (19:00)
[2019-10-11] MEDS ORDERED: INSULIN HUMAN REGULAR PER UNIT 10 UNITS in SYRINGE 9.9 ML IV STA (19:00)
--- NOTE | 2019-10-11 19:59 | XRay Report ---
XR chest 1V portable HISTORY: tachypnea COMPARISON: Chest 04/08/2018. FINDINGS: The lungs are hyperexpanded with apical predominant emphysematous changes. The heart remain s enlarged small bilateral pleural effusions have slightly. Bibasilar densities have also improved. T he pulmonary edema has improved. No pneumothorax. IMPRESSION: Interval improvement in the mild congestive change, small bilateral pleural effusions, and bibasilar densities. ACT 112: Negative or not required by law. Electronically signed by: Leopoldo Myers M.D. 10/11/2019 7:57 PM
--- NOTE | 2019-10-11 20:19 | History & Physical Report ---
Date of Service October 11, 2019 Assessment & Plan (1) ARF (acute renal failure): Multifactorial : Possible contrast nephropathy Home medications contributory Pulmonary congestion, hyperkalemia secondary to above Elevated troponin secondary to illness, kidney dysfunction Doubt ACS Recurrent L GIB post laxative Rx at home Painless History colonic polyposis, diverticulosis on 2016 colonoscopy Coumadin coagulopathy Hemoglobin stable at baseline Rule out C. difficile hx chronic diastolic heart failure, EF of 65-70, TTE 2019) VHD (moderate aortic stenosis sp TAVR, moderate MR, moderate TR) A. fib on Coumadin, mildly tachycardic, INR slightly subtherapeutic COPD as per records, lung status at baseline past tobacco abuse Medical telemetry IV albumin over crystalloid given pulmonary congestion Follow renal function Appropriate to hold home diuretic, ACEI for now until creatinine at baseline Nephrology consult RE ARF Follow troponin Stool C. difficile Trend H&H, transfuse PRBC if hemoglobin less than 8 and or for symptomatic anemia Appropriate to hold home ASA and Coumadin for now until hemoglobin stable Vitamin K if with hemoglobin drop on next H&H GI consult if with progressive GI bleed DVT prophylaxis. SCDs if INR less than 2 while patient Coumadin on hold RE LGIB Full code Patient boyfriend requesting updates providers. Mr. Watson Christensen, contact #[phone]. Text document was generated using [employer] voice recognition software. It may contain grammatical or spelling errors. Kindly contact undersigned for clarification of any documentation item in question. History of Present Illness Chief Complaint: Hematochezia Primary Care Provider: Ariana Pendleton MD History obtained from patient, family, and records. History obtained from patient, boyfriend, and records. Medical history is significant for chronic diastolic heart failure, EF of 65-70, TTE 2019), VHD (moderate aortic stenosis sp TAVR, moderate MR, moderate TR), HTN, AFib on Coumadin, COPD, past tobacco abuse, chronic anemia (baseline hemoglobin 10-11). Last confinement March 2018 for troponin elevation. 2 days ago, patient noted bloody diarrhea symptoms at home with mild achy abdominal pain going to the back. No fever, no chills. Some shortness of breath. Patient seen at the ER. CT abdomen pelvis as follows : 1. Streak and motion degraded examination. 2. There is marked rectosigmoid fecal impaction and mild constipation. 3. Question mild wall thickening/inflammation of the lower rectum/anal soft tissues. Correlation with clinical findings and direct visualization is recommended. 4. Marked cardiomegaly with small right and trace left pleural effusions. 5. 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 Patient discharged with Senokot prescription for constipation findings on CAT scan which puzzled patient because she consulted ER for the bloody diarrhea symptoms. Bloody diarrhea resolved at home. 1 dose of Senokot. After eating at the salad bar of a local restaurant today, patient had to lamb to the bathroom where she noted 1 episode of hematochezia without abdominal discomfort. No unusual shortness of breath. Patient brought by boyfriend to the emergency room. IV insulin given at the ER for hyperkalemia of 5.7. 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 Allergies Allergy/AdvReac Type Severity Reaction Status Date / Time Sulfa (Sulfonamide Allergy Severe Hives and Verified 10/11/19 19:24 Antibiotics) swelling of throat meperidine AdvReac Severe Hallucinations Verified 10/11/19 19:24 and tachycardia oxycodone AdvReac Severe Hallucinati Verified 10/11/19 19:24 ng Home Medications Home Medications Medication Instructions Recorded Confirmed Type albuterol sulfate [Ventolin HFA] 2 puff INHALATION Q4H PRN 01/06/18 10/11/19 History ipratropium-albuterol 3 ml INHALATION Q4H PRN 01/06/18 10/11/19 History acetaminophen [Tylenol Extra 1,000 mg PO Q6H PRN 03/14/18 10/11/19 History Strength] alprazolam 0.25 mg PO DAILY PRN 03/14/18 10/11/19 History aspirin 81 mg PO QPM 03/14/18 10/11/19 History metoprolol tartrate 75 mg PO Q8H 03/14/18 10/11/19 History spironolactone 25 mg PO QAM #30 tab 04/10/18 10/11/19 Rx digoxin 0.125 mg PO DAILY@1600 #30 tab 04/13/18 10/11/19 Rx furosemide 20 mg PO BID 09/06/19 10/12/19 History warfarin 2 mg PO 2XWK 09/06/19 10/11/19 History warfarin 4 mg PO 5XWK 09/06/19 10/11/19 History latanoprost 1 drp OPB HS 10/09/19 10/11/19 History lisinopril [Zestril] 10 mg PO QPM 10/09/19 10/11/19 History sennosides-docusate sodium 2 tabcap PO BID PRN 10/11/19 10/11/19 History [Senokot-S] omeprazole 20 mg PO DAILYBB 10/12/19 10/12/19 History Past Med/Surg History Medical History Anemia, chronic renal failure Anxiety Aortic stenosis Atrial fibrillation CKD (chronic kidney disease) stage 3, GFR 30-59 ml/min COPD (chronic obstructive pulmonary disease) inhaler/nebulizer prn Depression Diastolic CHF due to valvular disease Dysphagia Glaucoma Hearing deficit History of rheumatic fever as a child HTN (hypertension) Hypertension Hypoxic On anticoagulant therapy warfarin daily On home oxygen therapy 1 L N/C at sleep and prn Osteoarthritis Poor historian SIRS (systemic inflammatory response syndrome) Subcutaneous hematoma Surgical History History of aortic valve replacement 01/2018 @ [facility] [place] History of appendectomy History of bilateral tubal ligation History of cardiac cath 12/2017 no stents @ [facility] 01/2018 @ [facility] [place] no stents History of cholecystectomy History of colonoscopy with polypectomy History of esophagogastroduodenoscopy (EGD) History of tooth extraction all lower teeth History of total hysterectomy "fibroids" S/P cataract surgery bilt Family History Other Family history non-contributory Heart disease No family history of adverse response to anesthesia Social History Smoking Status: Former smoker Cigarettes Per Day: quit 20yrs ago; Second Hand Exposure: No; Tobacco Cessation Education Requested by Patient: No Hx Alcohol Use: No Hx Substance Use: No Preferred Language: Colombian Communication Ability: Effective Visual Impairment: No Limitations Contract Programmer Required: No Beliefs That Will Affect Care: None marital status: Life Partner Current Living Situation: Spouse Current Living Situation Comment: 2 bedroom appartment in [place] current occupational status: retired How many Children do You have: 5 Other Information That Helps Us Care for You: No Feels Safe at Home: Yes Safety Concerns: Feels Safe At This Time Review of Systems Review of Systems: As per HPI, all 10 systems reviewed, all other ROS negative Physical Exam Physical Exam: GENERAL: anxious, slightly hard of hearing, no respiratory distress, underweight SKIN: Pallor, warm HEENT: Pale palpebral conjunctivae, no ptosis, dry buccal mucosa NECK : Supple, no tenderness CHEST : Decreased breath sounds , no tenderness HEART : Irregular, systolic murmur ABDOMEN: Some distention, nontender EXTREMITIES : minimal LE swelling, no LE tenderness, no other conspicuous deformities noted NEUROLOGIC : Coherent, no facial asymmetry, no other gross focality except for mild hearing impairment Results & Data Results & Data ([facility]) Vital Signs (Past 12 Hours) Vital Signs Temp Pulse Pulse Resp BP BP Pulse Ox 10/11/19 20:01 69 25 H 97 10/11/19 20:00 85 125/72 95 10/11/19 19:31 139/70 10/11/19 19:30 75 25 H 98 10/11/19 18:57 70 26 H 118/48 L 96 10/11/19 17:38 37.2 C 59 L 18 107/56 L 98 Laboratory Results Laboratory Results WBC 6.46 K/uL (4.8-10.8) 10/11/19 18:03 RBC 3.48 M/uL (4.2-5.4) L 10/11/19 18:03 Hgb 10.7 g/dL (12.0-16.0) L 10/11/19 18:03 Hct 33.2 % (37-47) L 10/11/19 18:03 MCV 95.4 fL (80-100) 10/11/19 18:03 MCH 30.7 pg (25-34) 10/11/19 18:03 MCHC 32.2 g/dL (32-36) 10/11/19 18:03 RDW Std Deviation 46.6 fL (36.4-46.3) H 10/11/19 18:03 RDW Coeff of Zain 13.4 % (11.5-14.5) 10/11/19 18:03 Plt Count 252 K/uL (130-400) 10/11/19 18:03 MPV 9.7 fL (7.4-10.4) 10/11/19 18:03 Immature Gran % (Auto) 0.3 % 10/11/19 18:03 Neut % (Auto) 67.4 % 10/11/19 18:03 Lymph % (Auto) 13.8 % 10/11/19 18:03 Piute % (Auto) 9.6 % 10/11/19 18:03 Eos % (Auto) 8.4 % 10/11/19 18:03 Baso % (Auto) 0.5 % 10/11/19 18:03 Neut # (Auto) 4.36 K/uL (1.4-6.5) 10/11/19 18:03 Lymph # (Auto) 0.89 K/uL (1.2-3.4) L 10/11/19 18:03 Piute # (Auto) 0.62 K/uL (0.11-0.59) H 10/11/19 18:03 Eos # (Auto) 0.54 K/uL (0-0.5) H 10/11/19 18:03 Baso # (Auto) 0.03 K/uL (0-0.2) 10/11/19 18:03 Immature Gran # (Auto) 0.02 K/uL (0.00-0.02) 10/11/19 18:03 PT 25.1 Seconds (9.0-12.0) H 10/11/19 18:03 INR 2.5 (0.9-1.1) H 10/11/19 18:03 APTT 36.6 Seconds (21.0-31.0) H 10/11/19 18:03 PTT Ratio 1.3 10/11/19 18:03 Sodium 142 mmol/L (136-145) 10/11/19 18:03 Potassium 5.6 mmol/L (3.5-5.1) H 10/11/19 18:03 Chloride 107 mmol/L (98-107) 10/11/19 18:03 Carbon Dioxide 31 mmol/L (21-32) 10/11/19 18:03 Anion Gap 4.0 (3-11) 10/11/19 18:03 BUN 64 mg/dl (7-18) H 10/11/19 18:03 Creatinine 1.82 mg/dl (0.6-1.2) H 10/11/19 18:03 Est Cr Clr Drug Dosing 16.4 ml/min 10/11/19 18:03 Est GFR ( Amer) 28.4 10/11/19 18:03 Est GFR (Non-Af Amer) 24.5 10/11/19 18:03 BUN/Creatinine Ratio 35.3 (10-20) H 10/11/19 18:03 Glucose 98 mg/dl (70-99) 10/11/19 18: Calcium 7.8 mg/dl (8.5-10.1) L 10/11/19 18:03 Total Bilirubin 0.3 mg/dl (0.2-1) 10/11/19 18:03 Direct Bilirubin < 0.1 mg/dl (0-0.2) 10/11/19 18:03 AST 22 U/L (15-37) 10/11/19 18:03 ALT 20 U/L (12-78) 10/11/19 18:03 Alkaline Phosphatase 57 U/L (45-117) 10/11/19 18:03 Troponin I 0.050 ng/ml (0-0.045) H* 10/11/19 18:03 Total Protein 6.0 gm/dl (6.4-8.2) L 10/11/19 18:03 Albumin 2.8 gm/dl (3.4-5.0) L 10/11/19 18:03 Lipase 126 U/L (73-393) 10/11/19 18:03 Diagnostic Findings Chest x-ray : Interval improvement in the mild congestive change, small bilateral pleural effusions, and bibasilar densities. EKG as per my interpretation : Rate 110, A. fib, LAD, LAFB, septal infarct, low voltage, peaked T waves
[2019-10-11] MEDS ORDERED: ALBUMIN 25% 50 ML IV ONE (20:24)
[2019-10-11] MEDS ORDERED: DEXTROSE 50% 50 ML SYRINGE IV ONE ×2 (22:14)
--- NOTE | 2019-10-11 22:23 | Emergency Department Note ---
ED Visit Note 2222: Called to bed by nursing for altered mental status. Patient was just about to go upstairs to her bed on the floor when came to nursing stating the patient is acutely confused and he is never seen her act this way. Nursing came to get me and I immediately went to go reevaluate the patient. On arrival the patient is lethargic and not speaking. An Accu-Chek was immediately conducted which showed a POC glucose of 35. The patient was given 1 amp of D50 which rapidly improved her symptoms. She is now alert and oriented. She was also given p.o. soda and we will give her something to eat. We will hold her in the emergency department to monitor her sugars for little bit longer before she is sent up to the floor. 2316: Patient is alert and oriented x3. She is neurologically intact after receiving 1 amp of D50. Patient tolerating p.o. Repeat POC glucoses are within normal limits. Patient will be sent up to her bed on the floor. . : GIB (gastrointestinal bleeding) Qualifiers: GI bleed type/associated pathology: unspecified gastrointestinal hemorrhage type Qualified Code(s): K92.2 - Gastrointestinal hemorrhage, unspecified
[2019-10-12] MEDS ORDERED: ALPRAZolam 0.25 MG TABLET PO PRN (00:08)
[2019-10-12] MEDS ORDERED: PROMETHAZINE HCL 12.5 MG in SODIUM CHLORIDE 0.9% 50 ML IV PRN (00:08)
[2019-10-12] MEDS ORDERED: TRAMADOL HCL 50 MG TABLET PO PRN (00:08)
[2019-10-12 00:38] LABS: Hematocrit (blood only) 35.2 % (37-47)
[2019-10-12 01:00] LABS: Calcium 8.8 mg/dl (8.5-10.1); Creatinine Clr Calc Pharmacy 17.4 ml/min; Est GFR (African American) 30.5; Est GFR (Non-African American) 26.3; Potassium 4.6 mmol/L (3.5-5.1)
[2019-10-12 01:03] LABS: Troponin I 0.04 ng/ml (0-0.045)
[2019-10-12 01:34] LABS: Appearance Urine Clear (Clear); Bacteria Urine Automated Negative (Negative); Bilirubin Urine Negative (Negative); Blood Urine Negative (Negative); Color Urine Yellow; Glucose Urine UA Negative (Negative); Ketones Urine Negative (Negative); Leukocyte Esterase Urine 1+ (Negative); Nitrite Urine Negative (Negative); Protein Urine Negative (Negative); RBC Urine Automated 0-4 /hpf (0-4); Specific Gravity Urine 1.018 (1.000-1.030); Urobilinogen Urine Negative (Negative)
[2019-10-12] MEDS: METOPROLOL TARTRATE 25 MG TAB PO SCH ×3 (02:25→16:32)
[2019-10-12] MEDS: LATANOPROST 0.005% OP SOLN 2.5 ML BTL OPB SCH ×2 (02:27→20:24)
[2019-10-12] MEDS: ALBUMIN 25% 50 ML IV SCH ×4 (03:49→18:06)
[2019-10-12 07:41] LABS: Basophils # (auto) 0.02 K/uL (0-0.2); Basophils % (auto) 0.3 %; Eosinophils # (auto) 0.13 K/uL (0-0.5); Eosinophils % (auto) 2.2 %; Hematocrit (blood only) 31.2 % (37-47); Hemoglobin 10.3 g/dL (12.0-16.0); Immature Granulocytes # (auto) 0.01 K/uL (0.00-0.02); Immature Granulocytes % (auto) 0.2 %; Lymphocytes # (auto) 0.78 K/uL (1.2-3.4); Lymphocytes % (auto) 13.2 %; Mean Platelet Volume 9.9 fL (7.4-10.4); Monocytes # (auto) 0.48 K/uL (0.11-0.59); Monocytes % (auto) 8.1 %; Neutrophils # (auto) 4.47 K/uL (1.4-6.5); Platelet Count 232 K/uL (130-400); RDW Coefficient of Variation 13.4 % (11.5-14.5); RDW Standard Deviation 45.4 fL (36.4-46.3); Red Blood Count 3.32 M/uL (4.2-5.4); White Blood Count 5.89 K/uL (4.8-10.8)
[2019-10-12 07:51] LABS: INR 2.5 (0.9-1.1); Prothrombin Time 25.5 Seconds (9.0-12.0)
[2019-10-12] MEDS ORDERED: DEXTROSE 50% 50 ML SYRINGE IV PRN (09:35)
[2019-10-12] MEDS ORDERED: GLUCAGON FOR INJ 1 MG VIAL SQ PRN (09:35)
[2019-10-12] MEDS ORDERED: GLUCOSE 10 TABS/TUBE PO PRN (09:35)
[2019-10-12] MEDS ORDERED: GLUCOSE 40% GEL 15 GM TUBE PO PRN (09:35)
[2019-10-12] MEDS ORDERED: CARBOHYDRATES FOR HYPOGLYCEMIA PO PRN (09:35)
[2019-10-12] MEDS ORDERED: DOCUSATE SODIUM/SENNA 50/8.6MG TAB PO PRN (11:06)
--- NOTE | 2019-10-12 11:09 | Nephrology Consultation ---
Date of Consultation October 12, 2019 Assessment & Plan (1) Acute on chronic renal failure: Contrast-induced nephropathy and prerenal versus ischemic ATN nonoliguric acute kidney injury. Her baseline creatinine with CKD 3 is 1.0-1.1. She presented with creatinine 1.8, improved slightly to 1.7 at midnight. She had IV contrast in the setting of already taking spironolactone and lisinopril. Moreover a creatinine of 1.1 in this 50 kg person represents significant kidney disease. Her hyperkalemia on presentation is explained by acute renal failure as well as use of spironolactone and lisinopril prior to admission. These are both appropriately held. Chemistries currently acceptable. she has mild hypertension but overall mild volume overload with bilateral ankle edema and small bilateral pleural effusions. Despite the painless hematochezia which brought her in, hemoglobin has been stable. Urine sediment appropriately/reassuringly bland. Receiving albumin IV for resuscitation --continue overnight and reassess in the morning Continue to hold spironolactone, lisinopril Digoxin dose continued--recommend checking an appropriate level and adjusting dose as needed Daily basic metabolic panel -We will also recheck potassium and BMP this evening Present on Admission?: Yes History of Present Illness Reason for Consultation: ANGEL, hyperkalemia Requesting Physician: Dr Rodney Attending Physician: Ralph Rodney MD History of Present Illness 89-year-old female whom I am asked to evaluate for acute renal failure and hyperkalemia she was admitted here last night for evaluation of painless hematochezia found to have a potassium of 5.6 and creatinine 1.7. Past medical history includes running valvular and diastolic heart failure that is post 2018 TAVR and with moderate mitral and tricuspid regurgitation, hypertension, COPD, chronic A. fib on Coumadin, chronic anemia. Hx obtaine dfrom her partner who is at bedside. She was evaluated in the emergency department here 2 days back with bloody diarrhea treated ultimately to hemorrhoids. No fevers or chills. She did have some abdominal pain radiating to her back at that time. She also had a CT of her abdomen and pelvis with IV contrast Notable for marked recto sigmoid fecal impaction and some thickening of her lower rectal and anal soft tissues. She takes both lisinopril and spironolactone as an outpatient no NSAIDs. Yesterday afternoon she and her partner were at a local restaurant and she came back from the restroom complaining of bloody diarrhea. She was brought back to the ER where labs were notable for presenting creatinine 1.8 up from 1.1 two days prior and potassium 5.6. She received IV insulin to treat potassium and did have some symptomatic low blood sugars to the 30s last evening. GI has evaluated the patient and colonoscopy planned for early next week. Allergies Allergy/AdvReac Type Severity Reaction Status Date / Time Sulfa (Sulfonamide Allergy Severe Hives and Verified 10/11/19 19:24 Antibiotics) swelling of throat meperidine AdvReac Severe Hallucinations Verified 10/11/19 19:24 and tachycardia oxycodone AdvReac Severe Hallucinati Verified 10/11/19 19:24 ng Home Medications Home Medications Medication Instructions Recorded Confirmed Type albuterol sulfate [Ventolin HFA] 2 puff INHALATION Q4H PRN 01/06/18 10/11/19 History ipratropium-albuterol 3 ml INHALATION Q4H PRN 01/06/18 10/11/19 History acetaminophen [Tylenol Extra 1,000 mg PO Q6H PRN 03/14/18 10/11/19 History Strength] alprazolam 0.25 mg PO DAILY PRN 03/14/18 10/11/19 History aspirin 81 mg PO QPM 03/14/18 10/11/19 History metoprolol tartrate 75 mg PO Q8H 03/14/18 10/11/19 History spironolactone 25 mg PO QAM #30 tab 04/10/18 10/11/19 Rx digoxin 0.125 mg PO DAILY@1600 #30 tab 04/13/18 10/11/19 Rx furosemide 20 mg PO BID 09/06/19 10/12/19 History warfarin 2 mg PO 2XWK 09/06/19 10/11/19 History warfarin 4 mg PO 5XWK 09/06/19 10/11/19 History latanoprost 1 drp OPB HS 10/09/19 10/11/19 History lisinopril [Zestril] 10 mg PO QPM 10/09/19 10/11/19 History sennosides-docusate sodium 2 tabcap PO BID PRN 08/13/20 08/13/20 History [Senokot-S] omeprazole 20 mg PO DAILYBB 10/12/19 10/12/19 History Patient History Medical History Anemia, chronic renal failure Anxiety Aortic stenosis Atrial fibrillation CKD (chronic kidney disease) stage 3, GFR 30-59 ml/min COPD (chronic obstructive pulmonary disease) inhaler/nebulizer prn Depression Diastolic CHF due to valvular disease Dysphagia Glaucoma Hearing deficit History of rheumatic fever as a child HTN (hypertension) Hypertension Hypoxic On anticoagulant therapy warfarin daily On home oxygen therapy 1 L N/C at sleep and prn Osteoarthritis Poor historian SIRS (systemic inflammatory response syndrome) Subcutaneous hematoma Surgical History History of aortic valve replacement 01/2018 @ [facility] [place] History of appendectomy History of bilateral tubal ligation History of cardiac cath 12/2017 no stents @ [facility] 01/2018 @ [facility] [place] no stents History of cholecystectomy History of colonoscopy with polypectomy History of esophagogastroduodenoscopy (EGD) History of tooth extraction all lower teeth History of total hysterectomy "fibroids" S/P cataract surgery bilt Family History Other Family history non-contributory Heart disease No family history of adverse response to anesthesia Social History Smoking Status: Former smoker Cigarettes Per Day: quit 20yrs ago; Second Hand Exposure: No; Tobacco Cessation Education Requested by Patient: No Hx Alcohol Use: No Hx Substance Use: No Preferred Language: Lithuanian Communication Ability: Effective Visual Impairment: No Limitations Paddock Judge Required: No Beliefs That Will Affect Care: None marital status: Life Partner Current Living Situation: Spouse Current Living Situation Comment: 2 bedroom appartment in [place] current occupational status: retired How many Children do You have: 5 Other Information That Helps Us Care for You: No Feels Safe at Home: Yes Safety Concerns: Feels Safe At This Time Review of Systems Review of Systems: All systems reviewed & are unremarkable except as noted in HPI & below Constitutional: + weakness Respiratory: no dyspnea Cardiovascular: no edema Gastrointestinal: as per Subjective / HPI Genitourinary: no dysuria, no difficulty urinating, no urinary frequency and no urinary hesitancy Physical Exam Constitutional: well developed, + cachectic and + frail appearing; no acute distress Eyes: EOM intact bilaterally ENMT: Ears: no external ear abnormality Nose: no external nose abnormality Mouth: + dry oral mucous membranes Neck: no nuchal rigidity Respiratory: normal respiratory effort Auscultation: + diminished lung sounds Cardiovascular: Rate/Rhythm: regular rate and regular rhythm Heart Sounds: + murmur Extremities: + edema (Trace bilaterally ankles) Gastrointestinal (Abdomen): Inspection/Auscultation: normal bowel sounds Percussion/Palpation: abdomen soft; abdomen nontender Musculoskeletal: Extremities: strength 5/5 throughout Skin: no rashes, warm and dry Neurologic: palma, fluent speech, no tremor; hard of hearing Psychiatric: Orientation: alert and oriented x 3 Speech: normal rate/rhythm/volume of speech Affect: + anxious affect Results & Data ([facility]) Vital Signs (Past 12 Hours) Vital Signs Temp Pulse Resp BP Pulse Ox 10/12/19 07:36 36.8 C 73 18 137/65 95 10/12/19 04:31 36.4 C L 87 18 116/65 97 10/12/19 00:58 36.3 C L 99 H 16 146/81 H 94 Laboratory Results 10/12/19 15:51 10/12/19 00:11 Yellow clear urine specific gravity 1018 with 1+ leukocyte esterase and 10-20 epithelial cells per high-powered field otherwise bland Diagnostic Findings Chest x-ray: Interval improvement in mild congestive change, small bilateral pleural effusions and bibasilar densities KUB 1. Nonobstructive bowel gas pattern with a few mildly prominent air-filled loops of small bowel, likely physiologic. 2. No radiographic evidence of constipation. CT abdomen pelvis with IV contrast October 08 Lung bases: The heart is markedly enlarged and without pericardial effusion. There is evidence of previous cardiac valve surgery. The coronary arteries and mitral annulus are densely calcified. There are small right and trace left pleural effusions with dependent atelectasis. There is a small hiatal hernia. Liver: The contrast-enhanced liver is normal in size, contour, and attenuation. There is no intrahepatic biliary ductal dilatation. The hepatic veins and portal veins are patent. Gallbladder: Contracted versus surgically absent. Spleen: Normal in size and attenuation. Pancreas: Moderately atrophic and grossly unremarkable. Adrenal glands: Unremarkable. Kidneys: The contrast enhanced kidneys demonstrate mild cortical atrophy and are without hydronephrosis. The kidneys enhance symmetrically. Abdominal vasculature: The abdominal aorta is normal in course and caliber noting advanced atherosclerotic calcification. Bowel: There is rectosigmoid fecal impaction and mild constipation. No bowel obstruction is seen. Mild wall thickening and hyperemia is suggested involving the inferior rectal/anal soft tissues. There is no evidence of perianal fluid collection. The appendix is not identified and reported surgically absent. Peritoneum: There is no intraperitoneal free air or abdominal ascites. Lymphadenopathy: None. Pelvic viscera: The bladder is distended but otherwise normal in appearance. The uterus is surgically absent. A 4 cm simple cystic structure in the right adnexa is unchanged and likely related to the right ovary. Skeletal structures: The skeletal structures ar osteopenic. There is a moderate to severe chronic compression deformity of L2 and a mild chronic superior endplate compression deformity of T11. Degenerative changes noted in the lumbos acral spine and hips. 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 No lytic or blastic lesions are seen. IMPRESSION: 1. Streak and motion degraded examination. 2. There is marked rectosigmoid fecal impaction and mild constipation. 3. Question mild wall thickening/inflammation of the lower rectum/anal soft tissues. Correlation with clinical findings and direct visualization is recommended. 4. Marked cardiomegaly with small right and trace left pleural effusions. 5. 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 (1) Acute on chronic renal failure Acute renal failure type: unspecified Chronic kidney disease stage: stage 3 (moderate) Qualified Code(s): N17.9 - Acute kidney failure, unspecified; N18.3 - Chronic kidney disease, stage 3 (moderate)
[2019-10-12] MEDS ORDERED: SODIUM CHLORIDE 0.9% 250 ML IV PRN (11:11)
--- NOTE | 2019-10-12 12:00 | Gastrointestinal Consultation ---
Date of Consultation October 12, 2019 Assessment & Plan (1) Rectal bleeding: (2) Fecal impaction: Pt is a 89 y/o female seen for hematochezia. Had CT abd/pelvis in ED 2 days ago when she presented there w similar symptoms and then it showed she had fecal impaction in rectosigmoid area and mild constipation. There were also possible soft tissue inflammation in rectum/anal areas. She had Senokot and then produced loose stools w more rectal bleeding thus returned to hospital. Blood ct stable since 3 days ago. She is reporting continued loose stools. Suspect she may have stercoral ulcer bleeding from the fecal impaction. - Monitor blood ct and transfuse prn - KUB today to re-eval stool burden - Check stool cx and Cdiff to r/o infections - Last colonscopy in 2015, hyperplastic polyp and diverticulosis noted. Offered repeat colonoscopy to r/o source of LGIB and to r/o occult lesions. Pt is agreeable. Will arrange for this to be done Saturday 10/14. Keep pt on CL diet 10/13, NPO after midnight. Golytely prep ordered to start on 10/13 Supervising Physician Co-Signing Physician Notes I saw an evaluated the patient, we are consulted with regard to painless hematochezia. The patient notes having liquid stool without obvious bleeding at the present time. Her CT seems to indicate constipation with a large amount of stool in the colon PE: elderly female in NAD no scleral icterus Impression: patient with a question of hematochezia, given the stabilty of her hb/hct and lack of recurrence, urgent colonoscopy is not needed. would recomend holding the patients coumadin, sending studies to eval for C diff in addtion to a stool culture. We can plan for colonoscopy on Tuesday with a bowel preparation to begin on Tuesday evening. Would suggest a full liquid diet to aid in her bowel preparation. Please call with any questions over the weekend. History of Present Illness Reason for Consultation: GI bleed Requesting Physician: Dr. Ralph Rodney Attending Physician: Dr. Phan Tubbs History of Present Illness Pt is a 89 y/o female who is seen today for hematochezia. She was in ED 2 days ago w same symtpoms. CT abd/pelvis on 10/08 showed marked rectosigmoid fecal impaction and mild constipation. There is quetionable midl wall thickening/inflammation of lower rectum/anal soft tissues. She was DC'd then with Senokot, and afterwards had loose stool with rectal bleeding thus returned back to ED. Noted blood ct stable since 10/08. BUN/Cr up. She is reporting mild pain but in back, not abd. She denies abd pain, n/v. She isn't sure if she is having hematuria as well or not but no signs of Urine RBC in UA. She is reporting continued loose stools. Her last colonoscopy was in 2015 with findings of diverticulosis in sigmoid colon and hyperplastic polyp Allergies Allergy/AdvReac Type Severity Reaction Status Date / Time Sulfa (Sulfonamide Allergy Severe Hives and Verified 10/11/19 19:24 Antibiotics) swelling of throat meperidine AdvReac Severe Hallucinations Verified 10/11/19 19:24 and tachycardia oxycodone AdvReac Severe Hallucinati Verified 10/11/19 19:24 ng Home Medications Home Medications Medication Instructions Recorded Confirmed Type albuterol sulfate [Ventolin HFA] 2 puff INHALATION Q4H PRN 01/06/18 10/11/19 History ipratropium-albuterol 3 ml INHALATION Q4H PRN 01/06/18 10/11/19 History acetaminophen [Tylenol Extra 1,000 mg PO Q6H PRN 03/14/18 10/11/19 History Strength] alprazolam 0.25 mg PO DAILY PRN 03/14/18 10/11/19 History aspirin 81 mg PO QPM 03/14/18 10/11/19 History metoprolol tartrate 75 mg PO Q8H 03/14/18 10/11/19 History spironolactone 25 mg PO QAM #30 tab 04/10/18 10/11/19 Rx digoxin 0.125 mg PO DAILY@1600 #30 tab 04/13/18 10/11/19 Rx furosemide 20 mg PO BID 09/06/19 10/12/19 History warfarin 2 mg PO 2XWK 09/06/19 10/11/19 History warfarin 4 mg PO 5XWK 09/06/19 10/11/19 History latanoprost 1 drp OPB HS 10/09/19 10/11/19 History lisinopril [Zestril] 10 mg PO QPM 10/09/19 10/11/19 History sennosides-docusate sodium 2 tabcap PO BID PRN 10/11/19 10/11/19 History [Senokot-S] omeprazole 20 mg PO DAILYBB 10/12/19 10/12/19 History Patient History Medical History Anemia, chronic renal failure Anxiety Aortic stenosis Atrial fibrillation CKD (chronic kidney disease) stage 3, GFR 30-59 ml/min COPD (chronic obstructive pulmonary disease) inhaler/nebulizer prn Depression Diastolic CHF due to valvular disease Dysphagia Glaucoma Hearing deficit History of rheumatic fever as a child HTN (hypertension) Hypertension Hypoxic On anticoagulant therapy warfarin daily On home oxygen therapy 1 L N/C at sleep and prn Osteoarthritis Poor historian SIRS (systemic inflammatory response syndrome) Subcutaneous hematoma Surgical History History of aortic valve replacement 01/2018 @ [facility] [place] History of appendectomy History of bilateral tubal ligation History of cardiac cath 12/2017 no stents @ [facility] 01/2018 @ [facility] [place] no stents History of cholecystectomy History of colonoscopy with polypectomy History of esophagogastroduodenoscopy (EGD) History of tooth extraction all lower teeth History of total hysterectomy "fibroids" S/P cataract surgery bilt Family History Other Family history non-contributory Heart disease No family history of adverse response to anesthesia Social History Smoking Status: Former smoker Cigarettes Per Day: quit 20yrs ago; Second Hand Exposure: No; Tobacco Cessation Education Requested by Patient: No Hx Alcohol Use: No Hx Substance Use: No Preferred Language: Nepali Communication Ability: Effective Visual Impairment: No Limitations Industrial Safety And Health Specialist Required: No Beliefs That Will Affect Care: None marital status: Life Partner Current Living Situation: Spouse Current Living Situation Comment: 2 bedroom appartment in [place] current occupational status: retired How many Children do You have: 5 Other Information That Helps Us Care for You: No Feels Safe at Home: Yes Safety Concerns: Feels Safe At This Time Review of Systems Review of Systems: All systems reviewed & are unremarkable except as noted in HPI & below Physical Exam Constitutional: + thin, well groomed, cooperative and comfortable Eyes: PERRL, conjunctivae normal, anicteric sclerae ENMT: external ear and nose normal, oropharynx normal Respiratory: normal respiratory effort, lungs clear to auscultation Cardiovascular: RRR, no murmur, no edema Gastrointestinal (Abdomen): normal bowel sounds, soft, nontender, no hepatosplenomegaly Skin: no rashes, warm and dry Psychiatric: A+Ox3, euthymic affect Lymphatic: no lymphedema Results & Data ([facility]) Vital Signs (Past 12 Hours) Vital Signs Temp Pulse Resp BP Pulse Ox 10/12/19 11:09 36.8 C 71 18 121/66 96 10/12/19 07:36 36.8 C 73 18 137/65 95 10/12/19 04:31 36.4 C L 87 18 116/65 97 10/12/19 00:58 36.3 C L 99 H 16 146/81 H 94
[2019-10-12] MEDS: PANTOprazole 40 MG in SYRINGE 0 ML IV SCH ×2 (12:17→20:24)
--- NOTE | 2019-10-12 13:36 | XRay Report ---
KUB HISTORY: Acute generalized abdominal pain with constipation eval constipation COMPARISON: CT abdomen and pelvis 10/09/2019. FINDINGS: Moderate gaseous distention of the stomach. There are a few air-filled mildly prominent loo ps of small bowel measuring up to 2.9 cm. Overall the bowel gas pattern is nonobstructive. Colonic st ool volume appears be mild and within normal limits. No renal calculi. No ureteral calculi. No pneum operitoneum or pneumatosis. Degenerative changes of the spine, pelvis and hips. Arterial calcificatio ns. No fracture. IMPRESSION: 1. Nonobstructive bowel gas pattern with a few mildly prominent air-filled loops of small bowel, like ly physiologic. 2. No radiographic evidence of constipation. ACT 112: Negative or not required by law. The above report was generated using voice recognition software. It may contain grammatical, syntax o r spelling errors. Electronically signed by: Allan Alvarez M.D. 10/12/2019 1:34 PM
[2019-10-12 16:13] LABS: Hematocrit (blood only) 32.7 % (37-47); Hemoglobin 10.6 g/dL (12.0-16.0)
[2019-10-12] MEDS: DIGOXIN 0.125 MG TAB PO SCH (16:33)
[2019-10-12] MEDS: ALBUT/IPRATROP 3MG/0.5MG NEB 3 ML VIAL NEB PRN ×2 (17:00→19:45)
--- NOTE | 2019-10-12 17:55 | Hospitalist Progress Note ---
Date of Service October 12, 2019 Assessment & Plan (1) ARF (acute renal failure): Acute kidney injury Likely multifactorial Prerenal, ? Contrast-induced, medications We will hold diuretics, lisinopril Received IV fluids Monitor renal function Avoid nephrotoxic agents as able Nephrology consulted for input Rectal bleeding H/O hyperplastic polyp, diverticulosis Insetting of coumadin Coagulopathy Hold aspirin, Coumadin Continue IV Protonix Monitor INR If active bleeding occurs again, will reverse INR with vitamin K Appreciate GI input Stool studies to rule out C. difficile Monitor CBC, transfuse PRBCs as needed Pulmonary congestion H/O chronic diastolic CHF CXR:Interval improvement in the mild congestive change, small bilateral pleural effusions, and bibasilar densities. Monitor volume status closely Currently diuretics held Currently receiving IV albumin Hyperkalemia Likely due to ANGEL Spironolactone could have contributed Currently resolved Monitor electrolytes Mild Troponin Elevation Chronic elevation also noted ACS less likely Hypoglycemia Continue Hypoglycemia Protocol Monitor BGs Multivalvular heart disease Aortic stenosis S/P TAVR Moderate Mitral regurgitation Moderate Tricuspid regurgitation Atrial Fibrillation Coumadin on hold secondary to GI bleed Continue metoprolol, Digoxin Monitor INR COPD Past tobacco abuse As per records No signs of Exacerbation DVT Px: SCDs Re: GI bleeding Code Status Full code Disposition PT/OT prior to discharge Admission and Anticipated Discharge Date Admission Date: October 11, 2019 Subjective Patient is seen and examined at bedside Sitting in chair comfortably this morning Feels better from the time of admission Had loose bowel movement today which was bloody Denies any chest pain, shortness of breath, dizziness, nausea, abdominal pain Offers no other complaints Review of Systems Review of Systems: All systems reviewed & are unremarkable except as noted in HPI & below Physical Exam Physical Exam: Physical Exam: Vitals signs as noted above General Appearance:Thin, frail, no apparent distress Head: normocephalic, Atraumatic Eyes: normal inspection, EOMI Neck: supple, Trachea midline Respiratory/Chest: Decreased breath sounds, CTA Cardiovascular: S1, S2, No murmur Abdomen/GI:Soft, Non tender, Bowel sounds present Extremities/Musculoskelatal:normal inspection, 1+ B/L LE edema Neurologic/Psych:AAOX3, grossly no focal neurological deficits Skin: normal color, warm Results & Data Results & Data ([facility]) Vital Signs (Past 12 Hours) Vital Signs Temp Pulse Pulse Pulse Resp BP Pulse Ox 08/14/20 17:27 70 10/12/19 17:00 88 20 98 10/12/19 16:33 79 10/12/19 15:25 36.6 C 74 18 146/77 H 94 10/12/19 11:09 36.8 C 71 18 121/66 96 10/12/19 07:36 36.8 C 73 18 137/65 95 Laboratory Results Short CBC 10/11/19 10/12/19 10/12/19 Range/Units 18:03 00:11 07:06 WBC 6.46 5.89 (4.8-10.8) K/uL Hgb 10.7 L 11.0 L 10.3 L (12.0-16.0) g/dL Hct 33.2 L 35.2 L 31.2 L (37-47) % Plt Count 252 232 (130-400) K/uL 10/12/19 Range/Units 15:51 WBC (4.8-10.8) K/uL Hgb 10.6 L (12.0-16.0) g/dL Hct 32.7 L (37-47) % Plt Count (130-400) K/uL BMP 10/11/19 10/12/19 18:03 00:11 Sodium 142 141 Potassium 5.6 H 4.6 D Chloride 107 106 Carbon Dioxide 31 30 BUN 64 H 65 H Creatinine 1.82 H 1.72 H Glucose 98 126 H Calcium 7.8 L 8.8 Cardiac Enzymes 10/11/19 10/12/19 Range/Units 18:03 00:11 Troponin I 0.050 H* 0.040 (0-0.045) ng/ml Liver Function 10/11/19 Range/Units 18:03 Total Bilirubin 0.3 (0.2-1) mg/dl Direct Bilirubin < 0.1 (0-0.2) mg/dl AST 22 (15-37) U/L ALT 20 (12-78) U/L Alkaline Phosphatase 57 (45-117) U/L Albumin 2.8 L (3.4-5.0) gm/dl Urine 10/12/19 Range/Units Unknown Urine Color Yellow Urine Appearance Clear (Clear) Urine pH 5.0 (4.5-7.5) Ur Specific [place] 1.018 (1.000-1.030) Urine Protein Negative (Negative) Urine Glucose (UA) Negative (Negative)
[2019-10-12 20:39] LABS: BUN Creatinine Ratio 40.8 (10-20); Calcium 8.4 mg/dl (8.5-10.1); Creatinine Clr Calc Pharmacy 21.8 ml/min; Est GFR (African American) 40.1; Est GFR (Non-African American) 34.6; Potassium 4.8 mmol/L (3.5-5.1)
--- NOTE | 2019-10-12 22:26 | Electrocardiogram Report ---
Test Reason : Blood Pressure : / mmHG Vent. 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
[2019-10-13] MEDS: ALBUMIN 25% 50 ML IV SCH ×5 (00:08→23:26)
[2019-10-13] MEDS: METOPROLOL TARTRATE 25 MG TAB PO SCH ×4 (00:09→23:20)
[2019-10-13] MEDS: ALBUT/IPRATROP 3MG/0.5MG NEB 3 ML VIAL NEB PRN ×3 (06:53→15:00)
[2019-10-13 08:19] LABS: Hematocrit (blood only) 31.8 % (37-47); Hemoglobin 10.5 g/dL (12.0-16.0); Mean Corpuscular Hemoglobin 30.9 pg (25-34); Mean Corpuscular Volume 93.5 fL (80-100); Mean Platelet Volume 10.1 fL (7.4-10.4); Platelet Count 226 K/uL (130-400); RDW Coefficient of Variation 13.4 % (11.5-14.5); RDW Standard Deviation 45.9 fL (36.4-46.3); White Blood Count 5.49 K/uL (4.8-10.8)
[2019-10-13 08:30] LABS: INR 2.2 (0.9-1.1); Prothrombin Time 22.5 Seconds (9.0-12.0)
[2019-10-13] MEDS: PANTOprazole 40 MG in SYRINGE 0 ML IV SCH ×2 (08:41→20:15)
[2019-10-13 08:58] LABS: BUN Creatinine Ratio 40.7 (10-20); Calcium 9.1 mg/dl (8.5-10.1); Creatinine Clr Calc Pharmacy 22.9 ml/min; Est GFR (African American) 41.9; Est GFR (Non-African American) 36.2; Potassium 4.3 mmol/L (3.5-5.1)
--- NOTE | 2019-10-13 13:35 | Nephrology Progress Note ---
Date of Service October 13, 2019 Assessment & Plan (1) Acute on chronic renal failure: Contrast-induced nephropathy and prerenal ATN nonoliguric acute kidney injury, resolved. Her baseline creatinine with CKD 3 is 1.0-1.1. She presented with creatinine 1.8, improved slightly to 1.7 at midnight. She had IV contrast in the setting of already taking spironolactone and lisinopril. Moreover a creatinine of 1.1 in this 50 kg person represents significant kidney disease. Her hyperkalemia on presentation is explained by acute renal failure as well as use of spironolactone and lisinopril prior to admission. These are both appropriately held. Chemistries currently acceptable. she has mild hypertension but overall mild volume overload with bilateral ankle edema and small bilateral pleural effusions. Despite the painless hematochezia which brought her in, hemoglobin has been stable. Urine sediment appropriately/reassuringly bland. IVF off currently Continue to hold spironolactone, lisinopril >> recommend resuming at PCP follow up if renal function still at baseline Digoxin dose continued--recommend checking an appropriate level and adjusting dose as needed Daily basic metabolic panel -recommend hospital discharge follow up in [facility] CKD clinic with JANET Joseph or Dr Gilliam 2 weeks after discharge either telehealth or in person ok; d/c summary updated on this and on fredis/lisin recs Will sign off; pls call if ? Admission and Anticipated Discharge Date Admission Date: October 11, 2019 Subjective up in chair, very hungry. no sob, no edema, voiding ok. no pain musculoskeletal Review of Systems Review of Systems: All systems reviewed & are unremarkable except as noted in HPI & below Physical Exam Constitutional: well developed, + cachectic and + frail appearing; no acute distress Eyes: EOM intact bilaterally ENMT: Ears: + hearing impairment; no external ear abnormality Nose: no external nose abnormality Mouth: + dry oral mucous membranes Neck: no nuchal rigidity Respiratory: normal respiratory effort Auscultation: + diminished lung sounds Cardiovascular: Rate/Rhythm: + irregularly irregular Heart Sounds: + murmur Extremities: + edema (Trace bilaterally ankles) Gastrointestinal (Abdomen): Inspection/Auscultation: normal bowel sounds Percussion/Palpation: abdomen soft; abdomen nontender Musculoskeletal: Extremities: strength 5/5 throughout Skin: no rashes, warm and dry Psychiatric: A+Ox3, euthymic affect Speech: normal rate/rhythm/volume of speech Genitourinary: no mejía Results & Data ([facility]) Vital Signs (Past 12 Hours) Vital Signs Temp Pulse Resp BP Pulse Ox 10/13/19 12:38 36.3 C L 72 16 127/65 99 10/13/19 12:26 36.6 C 69 16 121/70 98 10/13/19 12:15 36.6 C 77 16 127/72 97 10/13/19 12:00 36.3 C L 78 16 138/79 98 10/13/19 11:36 36.5 C 64 18 123/59 L 100 10/13/19 10:55 78 18 95 10/13/19 07:52 36.7 C 84 18 121/78 95 10/13/19 06:55 80 20 95 10/13/19 02:55 36.7 C 71 16 120/74 97 Laboratory Results 10/13/19 07:53 10/13/19 07:53 (1) Acute on chronic renal failure Acute renal failure type: unspecified Chronic kidney disease stage: stage 3 (moderate) Qualified Code(s): N17.9 - Acute kidney failure, unspecified; N18.3 - Chronic kidney disease, stage 3 (moderate)
[2019-10-13 15:54] LABS: Hematocrit (blood only) 31.6 % (37-47); Hemoglobin 10.3 g/dL (12.0-16.0)
[2019-10-13] MEDS: DIGOXIN 0.125 MG TAB PO SCH (16:58)
--- NOTE | 2019-10-13 18:08 | Hospitalist Progress Note ---
Date of Service October 13, 2019 Assessment & Plan (1) ARF (acute renal failure): Acute kidney injury Likely multifactorial Prerenal, ? Contrast-induced, medications Baseline Cr: 1.0-1.1 Held diuretics, lisinopril Received IV fluids/Albumin Monitor renal function Avoid nephrotoxic agents as able Appreciate Nephrology Input Cr near normal today Rectal bleeding H/O hyperplastic polyp, diverticulosis Insetting of coumadin Coagulopathy Hold aspirin, Coumadin Continue IV Protonix Monitor INR:2.2 If active bleeding occurs again, will reverse INR with vitamin K Appreciate GI input Stool studies to rule out C. difficile Monitor CBC, transfuse PRBCs as needed Planned for Colonoscopy on Tuesday Hb:10.3 Pulmonary congestion H/O chronic diastolic CHF CXR:Interval improvement in the mild congestive change, small bilateral pleural effusions, and bibasilar densities. Monitor volume status closely Received IV albumin Resume diuretics as ble Hyperkalemia Likely due to ANGEL Spironolactone could have contributed Currently resolved Monitor electrolytes Mild Troponin Elevation Chronic elevation also noted ACS less likely Hypoglycemia Continue Hypoglycemia Protocol Monitor BGs Multivalvular heart disease Aortic stenosis S/P TAVR Moderate Mitral regurgitation Moderate Tricuspid regurgitation Atrial Fibrillation Coumadin on hold secondary to GI bleed Continue metoprolol, Digoxin Monitor INR COPD Past tobacco abuse As per records No signs of Exacerbation Continue Nebs DVT Px: SCDs Re: GI bleeding Code Status Full code Disposition PT/OT prior to discharge Admission and Anticipated Discharge Date Admission Date: October 11, 2019 Subjective Patient is seen and examined at bedside Feels better today No new complaints Brown colored BM this morning per patient Denies any chest pain, shortness of breath, dizziness, nausea, abdominal pain Offers no other complaints Hb stable Review of Systems Review of Systems: All systems reviewed & are unremarkable except as noted in HPI & below Physical Exam Physical Exam: Physical Exam: Vitals signs as noted above General Appearance:Thin, frail, no apparent distress Head: normocephalic, Atraumatic Eyes: normal inspection, EOMI Neck: supple, Trachea midline Respiratory/Chest: Decreased breath sounds, CTA Cardiovascular: S1, S2, No murmur Abdomen/GI:Soft, Non tender, Bowel sounds present Extremities/Musculoskelatal:normal inspection, 1+ B/L LE edema Neurologic/Psych:AAOX3, grossly no focal neurological deficits Skin: normal color, warm Results & Data Results & Data ([place]) Vital Signs (Past 12 Hours) Vital Signs Temp Pulse Pulse Resp BP Pulse Ox 10/13/19 17:52 36.3 C L 60 18 127/67 98 10/13/19 16:58 68 10/13/19 15:26 36.6 C 68 18 130/85 100 10/13/19 15:01 77 20 95 10/13/19 14:20 64 10/13/19 12:38 36.3 C L 72 16 127/65 99 10/13/19 12:26 36.6 C 69 16 121/70 98 10/13/19 12:15 36.6 C 77 16 127/72 97 10/13/19 12:00 36.3 C L 78 16 138/79 98 10/13/19 11:36 36.5 C 64 18 123/59 L 100 10/13/19 10:55 78 18 95 10/13/19 07:52 36.7 C 84 18 121/78 95 10/13/19 06:55 80 20 95 Laboratory Results Short CBC 10/13/19 10/13/19 Range/Units 07:53 15:46 WBC 5.49 (4.8-10.8) K/uL Hgb 10.5 L 10.3 L (12.0-16.0) g/dL Hct 31.8 L 31.6 L (37-47) % Plt Count 226 (130-400) K/uL BMP 10/12/19 10/13/19 20:01 07:53 Sodium 139 141 Potassium 4.8 4.3 Chloride 106 108 H Carbon Dioxide 29 27 BUN 56 H 54 H Creatinine 1.37 H D 1.32 H Glucose 95 85 Calcium 8.4 L 9.1
[2019-10-13] MEDS: ALBUT/IPRATROP 3MG/0.5MG NEB 3 ML VIAL NEB SCH (18:57)
[2019-10-13] MEDS: LATANOPROST 0.005% OP SOLN 2.5 ML BTL OPB SCH (20:15)
[2019-10-14] MEDS: ALBUMIN 25% 50 ML IV SCH ×3 (06:49→17:51)
[2019-10-14] MEDS: ALBUT/IPRATROP 3MG/0.5MG NEB 3 ML VIAL NEB SCH ×4 (07:15→19:24)
[2019-10-14 07:56] LABS: Hematocrit (blood only) 31.1 % (37-47); Hemoglobin 10.3 g/dL (12.0-16.0)
[2019-10-14] MEDS: METOPROLOL TARTRATE 25 MG TAB PO SCH ×2 (08:04→16:54)
[2019-10-14] MEDS: PANTOprazole 40 MG in SYRINGE 0 ML IV SCH ×2 (08:04→22:01)
[2019-10-14 08:27] LABS: INR 2.4 (0.9-1.1); Prothrombin Time 24.6 Seconds (9.0-12.0)
[2019-10-14] MEDS ORDERED: PHYTONADIONE 5 MG TAB PO ONE (08:55)
[2019-10-14 09:42] LABS: BUN Creatinine Ratio 38.2 (10-20); Calcium 8.4 mg/dl (8.5-10.1); Creatinine Clr Calc Pharmacy 30.1 ml/min; Est GFR (African American) 56.6; Est GFR (Non-African American) 48.8; Potassium 4.2 mmol/L (3.5-5.1)
[2019-10-14] MEDS ORDERED: LAVAGE SOLUTION 4000ML PO SCH (12:00)
[2019-10-14] MEDS: DIGOXIN 0.125 MG TAB PO SCH (16:21)
--- NOTE | 2019-10-14 20:06 | Hospitalist Progress Note ---
Date of Service October 14, 2019 Assessment & Plan (1) ARF (acute renal failure): Acute kidney injury Likely multifactorial Prerenal, ? Contrast-induced, medications Baseline Cr: 1.0-1.1 Held diuretics, lisinopril Received IV fluids/Albumin Monitor renal function Avoid nephrotoxic agents as able Appreciate Nephrology Input Renal function back to normal Rectal bleeding H/O hyperplastic polyp, diverticulosis Insetting of coumadin Coagulopathy Hold aspirin, Coumadin Continue IV Protonix Monitor INR:2.4 Appreciate GI input Stool studies to rule out C. difficile Monitor CBC, transfuse PRBCs as needed Planned for Colonoscopy tomorrow Hemoglobin stable Given vitamin K for colonoscopy N.p.o. after midnight Pulmonary congestion H/O chronic diastolic CHF CXR:Interval improvement in the mild congestive change, small bilateral pleural effusions, and bibasilar densities. Monitor volume status closely Received IV albumin Resume diuretics as able Hyperkalemia Likely due to ANGEL Spironolactone could have contributed Currently resolved Monitor electrolytes Mild Troponin Elevation Chronic elevation also noted ACS less likely Hypoglycemia Continue Hypoglycemia Protocol Monitor BGs Multivalvular heart disease Aortic stenosis S/P TAVR Moderate Mitral regurgitation Moderate Tricuspid regurgitation Atrial Fibrillation Coumadin on hold secondary to GI bleed Continue metoprolol, Digoxin Monitor INR COPD Past tobacco abuse As per records No signs of Exacerbation Continue Nebs DVT Px: SCDs Re: GI bleeding Code Status Full code Disposition PT/OT prior to discharge Admission and Anticipated Discharge Date Admission Date: October 11, 2019 Subjective Patient is seen and examined at bedside Had brown stool today Sitting in chair comfortably this morning No other complaints Hemoglobin stable INR 2.4 today, given vitamin K Plan for colonoscopy tomorrow Denies any chest pain, shortness of breath, dizziness, nausea, abdominal pain Review of Systems Review of Systems: All systems reviewed & are unremarkable except as noted in HPI & below Physical Exam Physical Exam: Physical Exam: Vitals signs as noted above General Appearance:Thin, frail, no apparent distress Head: normocephalic, Atraumatic Eyes: normal inspection, EOMI Neck: supple, Trachea midline Respiratory/Chest: Decreased breath sounds, CTA Cardiovascular: S1, S2, No murmur Abdomen/GI:Soft, Non tender, Bowel sounds present Extremities/Musculoskelatal:normal inspection, 1+ B/L LE edema Neurologic/Psych:AAOX3, grossly no focal neurological deficits Skin: normal color, warm Results & Data Results & Data ([facility]) Vital Signs (Past 12 Hours) Vital Signs Temp Pulse Pulse Resp BP Pulse Ox 10/14/19 19:24 65 18 100 10/14/19 18:29 37.1 C 62 16 131/61 93 10/14/19 18:15 36.8 C 59 L 18 128/54 L 96 10/14/19 18:02 37.0 C 64 18 135/69 96 10/14/19 17:50 36.7 C 64 18 133/56 L 96 10/14/19 16:21 89 10/14/19 15:34 36.6 C 89 18 147/75 H 96 10/14/19 15:28 77 18 95 10/14/19 14:20 67 10/14/19 14:00 36.7 C 70 18 118/59 L 98 10/14/19 13:45 36.7 C 71 18 137/53 L 97 10/14/19 13:30 36.6 C 71 18 144/67 H 96 10/14/19 13:15 36.3 C L 69 18 123/65 95 10/14/19 11:27 60 18 91 10/14/19 10:55 36.3 C L 65 20 118/68 96 Laboratory Results Short CBC 10/14/19 Range/Units 07:48 Hgb 10.3 L (12.0-16.0) g/dL Hct 31.1 L (37-47) % BMP 10/14/19 07:48 Sodium 144 Potassium 4.2 Chloride 111 H Carbon Dioxide 27 BUN 39 H Creatinine 1.03 Glucose 78 Calcium 8.4 L
[2019-10-14] MEDS: LATANOPROST 0.005% OP SOLN 2.5 ML BTL OPB SCH (22:01)
[2019-10-15] MEDS: METOPROLOL TARTRATE 25 MG TAB PO SCH ×4 (00:37→23:34)
[2019-10-15] MEDS: ALBUMIN 25% 50 ML IV SCH (01:39)
[2019-10-15] MEDS: ALBUT/IPRATROP 3MG/0.5MG NEB 3 ML VIAL NEB SCH ×4 (07:04→19:53)
[2019-10-15] MEDS: PANTOprazole 40 MG in SYRINGE 0 ML IV SCH (08:08)
[2019-10-15 08:12] LABS: Hematocrit (blood only) 31.9 % (37-47); Hemoglobin 10.4 g/dL (12.0-16.0)
[2019-10-15 08:26] LABS: INR 1.3 (0.9-1.1)
[2019-10-15 08:55] LABS: BUN Creatinine Ratio 30.6 (10-20); Calcium 8.4 mg/dl (8.5-10.1); Creatinine Clr Calc Pharmacy 30.2 ml/min; Est GFR (African American) 58.7; Est GFR (Non-African American) 50.6; Potassium 3.9 mmol/L (3.5-5.1)
--- NOTE | 2019-10-15 09:50 | Anesthesiology Consultation ---
Date of Service October 15, 2019 Assessment & Plan (1) Encounter for pre-operative examination: Chart Review Chart Review: Acceptable Risk for Surgery and Patient NOT seen in Pre Admission Testing Consults Requested none ASA ASA4 Proposed Anesthesia Anesthesia Type: MAC Risk / Benefits Reviewed With: PT / POA / Parent / Guardian, Accepts Plan and Informed Consent Obtained History Surgery Operation Date: 10/15/19 15:25 Proposed Procedures p Colonoscopy Dr Ley - Teetee Ley Height/Weight Height: 5 ft 2 in Weight: 48.2 kg Allergies Allergy/AdvReac Type Severity Reaction Status Date / Time Sulfa (Sulfonamide Allergy Severe Hives and Verified 10/15/19 12:05 Antibiotics) swelling of throat meperidine AdvReac Severe Hallucinations Verified 10/15/19 12:05 and tachycardia oxycodone AdvReac Severe Hallucinati Verified 10/15/19 12:05 ng Medications Home Medications Medication Instructions Recorded Confirmed Last Taken albuterol sulfate [Ventolin HFA] 2 puff INHALATION Q4H PRN 01/06/18 10/11/19 09/09/19 21:00 ipratropium-albuterol 3 ml INHALATION Q4H PRN 01/06/18 10/11/19 09/10/19 12:00 acetaminophen [Tylenol Extra 1,000 mg PO Q6H PRN 03/14/18 10/11/19 09/09/19 21:00 Strength] alprazolam 0.25 mg PO DAILY PRN 03/14/18 10/11/19 09/10/19 08:00 aspirin 81 mg PO QPM 03/14/18 10/11/19 10/10/19 metoprolol tartrate 75 mg PO Q8H 03/14/18 10/11/19 10/11/19 AM DOSE spironolactone 25 mg PO QAM #30 tab 04/10/18 10/11/19 10/11/19 digoxin 0.125 mg PO DAILY@1600 #30 tab 04/13/18 10/11/19 10/10/19 furosemide 20 mg PO BID 09/06/19 10/12/19 10/11/19 AM DOSE warfarin 2 mg PO 2XWK 09/06/19 10/11/19 10/08/19 16:00 2 MG warfarin 4 mg PO 5XWK 09/06/19 10/11/19 10/09/19 4 MG latanoprost 1 drp OPB HS 10/09/19 10/11/19 10/10/19 lisinopril [Zestril] 10 mg PO QPM 10/09/19 10/11/19 10/10/19 sennosides-docusate sodium 2 tabcap PO BID PRN 10/11/19 10/11/19 10/10/19 [Senokot-S] omeprazole 20 mg PO DAILYBB 10/12/19 10/12/19 Unknown Active Medications Generic Name Dose Route Start Last Admin Trade Name Freq PRN Reason Stop Dose Admin Albuterol 3 ml 10/12/19 00:08 10/13/19 15:00 Albut/Ipratrop 3mg/0.5mg Neb 3 Ml Vial NEB 11/11/19 00:07 3 ml Q2H PRN Administration Wheezing Albuterol 3 ml 10/13/19 19:00 10/15/19 11:25 Albut/Ipratrop 3mg/0.5mg Neb 3 Ml Vial NEB 11/12/19 18:59 3 ml QIDR ANNA Administration Digoxin 0.125 mg 10/12/19 16:00 10/14/19 16:21 Digoxin 0.125 Mg Tab PO 11/11/19 15:59 0.125 mg DAILY@1600 ANNA Administration Pantoprazole Sodium 40 mg/ 10 mls @ 5 mls/min 10/12/19 11:30 10/15/19 08:08 Syringe IV 11/11/19 11:29 5 mls/min BID ANNA Administration Latanoprost 1 drops 10/12/19 00:08 10/14/19 22:01 Latanoprost 0.005% Op Soln 2.5 Ml Btl OPB 11/11/19 00:07 1 drops HS ANNA Administration Metoprolol Tartrate 75 mg 10/12/19 00:00 10/15/19 08:08 Metoprolol Tartrate 25 Mg Tab PO 11/11/19 00:00 75 mg Q8H ANNA Administration NPO Date Last Intake of Fluids: 10/14/19 Time Last Intake of Fluids: 23:59 Date Last Intake of Solids: 10/12/19 Time Last Intake of Solids: 17:00 Past Medical History Medical History Anemia, chronic renal failure Anxiety Aortic stenosis Atrial fibrillation CKD (chronic kidney disease) stage 3, GFR 30-59 ml/min COPD (chronic obstructive pulmonary disease) inhaler/nebulizer prn Depression Diastolic CHF due to valvular disease Dysphagia Glaucoma Hearing deficit History of rheumatic fever as a child HTN (hypertension) Hypertension Hypoxic On anticoagulant therapy warfarin daily On home oxygen therapy 1 L N/C at sleep and prn Osteoarthritis Poor historian SIRS (systemic inflammatory response syndrome) Subcutaneous hematoma Exercise / Class Metabolic Activity III < 4 Walking/Shop/Light housework Past Family History Family History Other Family history non-contributory Heart disease No family history of adverse response to anesthesia Past Surgical History Surgical History [place] [facility] [place] History of bilateral tubal ligation History of cardiac cath 12/2017 no stents @ [facility] [place] [facility] [place] History of cholecystectomy History of colonoscopy with polypectomy History of esophagogastroduodenoscopy (EGD) History of tooth extraction all lower teeth History of total hysterectomy "fibroids" S/P cataract surgery bilt Past Anesthesia History No Hx of Anesthesia Complications History of PONV No Hx of PONV Social History Smoking Status: Former smoker tobacco type: cigarettes Smoking cigarettes per day: quit 20yrs ago Hx Alcohol Use: No Hx Substance Use: No substance use type: does not use Review of Systems Patient denies active symptoms of GERD. Physical Exam Vital Signs Last Vital Signs Temp 36.8 C 10/15/19 12:05 Pulse 79 10/15/19 12:05 Resp 18 10/15/19 12:05 BP 153/88 H 10/15/19 12:05 Pulse Ox 99 10/15/19 12:05 Constitutional not obese ENMT Mouth: no TMJ abnormality and oral opening not small Thyromental Distance: > or= 3.5 Finger Breadths Mallampati Class: II Neck normal visual inspection; neck extension not limited Respiratory normal respiratory effort Auscultation: lungs clear to auscultation bilaterally Cardiovascular Rate/Rhythm: regular rate and regular rhythm Heart Sounds: no murmur Vessels: no carotid bruit Neurologic moves all extremities Psychiatric Orientation: alert and oriented x 3 Testing Laboratory Results 10/15/19 07:55 10/15/19 07:55 PT 14.0 Seconds (9.0-12.0) H 10/15/19 07:55 INR 1.3 (0.9-1.1) H 10/15/19 07:55 APTT 36.6 Seconds (21.0-31.0) H 10/11/19 18:03 Urine Color Yellow 10/12/19 Unknown Urine Appearance Clear (Clear) 10/12/19 Unknown Urine pH 5.0 (4.5-7.5) 10/12/19 Unknown Ur Specific [place] 1.018 (1.000-1.030) 10/12/19 Unknown Urine Protein Negative (Negative) 10/12/19 Unknown Urine Glucose (UA) Negative (Negative) 10/12/19 Unknown Urine Ketones Negative (Negative) 10/12/19 Unknown Urine Nitrite Negative (Negative) 10/12/19 Unknown Ur Leukocyte Esterase 1+ (Negative) H 10/12/19 Unknown Urine WBC (Auto) 1-5 /hpf (0-5) 10/12/19 Unknown Urine RBC (Auto) 0-4 /hpf (0-4) 10/12/19 Unknown U Hyaline Cast (Auto) 1-5 /lpf (0-5) 10/12/19 Unknown U Epithel Cells (Auto) 10-20 /lpf (0-5) H 10/12/19 Unknown Urine Bacteria (Auto) Negative (Negative) 10/12/19 Unknown Blood Type O Positive 10/12/19 00:11 Antibody Screen NEGATIVE 10/12/19 00:11 10/14/19 16:30 Escherichia coli Shiga Toxins Test - Preliminary Stool Stool Culture - Preliminary No Salmonella isolated to date, No Shigella isolated to date, No Campylobacter jejuni isolated to date. 10/15/19 10/15/19 11:32 08:01 POC Glucose 88 89
--- NOTE | 2019-10-15 10:16 | Gastroenterology Progress Note ---
Date of Service October 15, 2019 Assessment & Plan (1) Rectal bleedin89 year old female with rectal bleeding to go for a colonoscopy today, covid swab was done over a month ago in [facility], no recent testing, who tolerated only 1/2 bowel prep without any documentation of stool per charting but thye note clear/liquid stool. NPO for colonoscopy Admission and Anticipated Discharge Date Admission Date: October 11, 2019 Supervising Physician Co-Signing Physician Notes I have seen and examined the patient with BRIDGER Emmanuel whose note reflects our findings and plan. No bleeding with prep. Colonoscopy today. Subjective Only tolerated half bowel prep Per nursing, however, she is prepped. Although there are no bowel movements documeneted in the EMR The report clear, liquid stool No black or bloody stools. Review of Systems 2 Constitutional: no fever and no chills Cardiovascular: no chest pain and no dyspnea Gastrointestinal: no abdominal pain and no blood in stools Physical Exam Constitutional: no acute distress Neck: trachea midline Respiratory: normal respiratory effort Cardiovascular: Rate/Rhythm: regular rate and regular rhythm Gastrointestinal (Abdomen): Percussion/Palpation: + abdomen tender and abdomen soft Results & Data ([facility]) Vital Signs (Past 12 Hours) Vital Signs Temp Pulse Pulse Resp BP Pulse Ox 10/15/19 08:40 90 10/15/19 07:46 36.6 C 86 19 132/83 96 10/15/19 07:04 81 18 92 10/15/19 04:21 36.8 C 67 18 132/69 97 10/14/19 23:20 36.8 C 66 18 152/75 H 96 Laboratory Results 10/15/19 10/15/19 10/15/19 Range/Units 08:01 07:55 07:55 Hgb 10.4 L (12.0-16.0) g/dL Hct 31.9 L (37-47) % PT (9.0-12.0) Seconds INR (0.9-1.1) Sodium 145 (136-145) mmol/L Potassium 3.9 (3.5-5.1) mmol/L Chloride 112 H (98-107) mmol/L Carbon Dioxide 28 (21-32) mmol/L Anion Gap 5.0 (3-11) BUN 30 H (7-18) mg/dl Creatinine 1.00 (0.6-1.2) mg/dl Est Cr Clr Drug Dosing 30.2 ml/min Est GFR ( Amer) 58.7 Est GFR (Non-Af Amer) 50.6 BUN/Creatinine Ratio 30.6 H (10-20) Glucose 88 (70-99) mg/dl POC Glucose 89 (70-99) mg/dl Calcium 8.4 L (8.5-10.1) mg/dl Stl C. diff Tox B Gene (Neg) 10/15/19 10/14/19 10/14/19 Range/Units 07:55 20:44 16:36 Hgb (12.0-16.0) g/dL Hct (37-47) % PT 14.0 H (9.0-12.0) Seconds INR 1.3 H (0.9-1.1) Sodium (136-145) mmol/L Potassium (3.5-5.1) mmol/L Chloride (98-107) mmol/L Carbon Dioxide (21-32) mmol/L Anion Gap (3-11) BUN (7-18) mg/dl Creatinine (0.6-1.2) mg/dl Est Cr Clr Drug Dosing ml/min Est GFR ( Amer) Est GFR (Non-Af Amer) BUN/Creatinine Ratio (10-20) Glucose (70-99) mg/dl POC Glucose 94 99 (70-99) mg/dl Calcium (8.5-10.1) mg/dl Stl C. diff Tox B Gene (Neg) 10/14/19 10/14/19 Range/Units 16:30 11:01 Hgb (12.0-16.0) g/dL Hct (37-47) % PT (9.0-12.0) Seconds INR (0.9-1.1) Sodium (136-145) mmol/L Potassium (3.5-5.1) mmol/L Chloride (98-107) mmol/L Carbon Dioxide (21-32) mmol/L Anion Gap (3-11) BUN (7-18) mg/dl Creatinine (0.6-1.2) mg/dl Est Cr Clr Drug Dosing ml/min Est GFR ( Amer) Est GFR (Non-Af Amer) BUN/Creatinine Ratio (10-20) Glucose (70-99) mg/dl POC Glucose 85 (70-99) mg/dl Calcium (8.5-10.1) mg/dl Stl C. diff Tox B Gene Negative Cdiff Gene (Neg)
--- NOTE | 2019-10-15 12:40 | GI REPORT ---
Patient Name: Naty Solomon Procedure Date: 10/15/2019 12:09 PM Date of : 1930 Admit Type: Inpatient Age: 89 Gender: Female Attending MD: Teetee Ley DO Procedure: Colonoscopy Providers: Teetee Ley DO Referring MD: Yuko La NP Indications: Rectal bleeding, Iron deficiency anemia Medicines: Propofol per Anesthesia Complications: No immediate complications. Estimated blood loss: None. Estimated Blood Loss: Estimated blood loss: none. Procedure: Pre-Anesthesia Assessment: - Prior to the procedure, a History and Physical was performed, and patient medications, allergies and sensitivities were reviewed. The patient's tolerance of previous anesthesia was reviewed. - The risks and benefits of the procedure and the sedation options and risks were discussed with the patient. All questions were answered and informed consent was obtained. - Patient identification and proposed procedure were verified prior to the procedure by the physician and the nurse. The procedure was verified in the pre-procedure area in the procedure room. - Mental Status Examination: alert and oriented. Airway Examination: normal oropharyngeal airway and neck mobility. Respiratory Examination: clear to auscultation. CV Examination: normal. Abdominal Examination: bowel sounds present, abdomen soft and non-tender, no masses or organomegaly noted. - ASA Grade Assessment: IV - A patient with severe systemic disease that is a constant threat to life. After I obtained informed consent, the scope was passed under direct vision. Throughout the procedure, the patient's blood pressure, pulse, and oxygen saturations were monitored continuously. The scope was introduced through the anus and advanced to the cecum, identified by appendiceal orifice and ileocecal valve. The colonoscopy was performed without difficulty. The patient tolerated the procedure well. The quality of the bowel preparation was good. Findings: The perianal and digital rectal examinations were normal. Pertinent negatives include normal sphincter tone and no palpable rectal lesions. Internal hemorrhoids were found during retroflexion. The hemorrhoids were medium-sized and Grade I (internal hemorrhoids that do not prolapse). The exam was otherwise without abnormality. Impression: - Internal hemorrhoids. - The examination was otherwise normal. - No specimens collected. Recommendation: - Return patient to hospital tubbs. - Resume regular diet. Teetee Ley D.O. Teetee Ley DO 10/15/2019 12:39:28 PM This report has been signed electronically. Note Initiated On: 10/15/2019 12:09 PM Number of Addenda: 0 I attest to the content of the Intraoperative Record and orders documented therein, exceptions below {[id number]}
--- NOTE | 2019-10-15 14:17 | Anesthesiology Progress Note ---
Date of Service October 15, 2019 Anesthesia Post Procedure Vital Signs Vital Signs: Temp Pulse Pulse Resp BP Pulse Ox 10/15/19 14:10 85 18 93 10/15/19 13:06 83 18 105/51 L 97 10/15/19 12:51 71 18 66/31 L 99 10/15/19 12:36 75 16 130/67 97 10/15/19 12:05 36.8 C 79 18 153/88 H 99 10/15/19 11:25 70 18 96 10/15/19 08:40 90 10/15/19 07:46 36.6 C 86 19 132/83 96 10/15/19 07:04 81 18 92 10/15/19 04:21 36.8 C 67 18 132/69 97 10/14/19 23:20 36.8 C 66 18 152/75 H 96 10/14/19 19:24 65 18 100 10/14/19 18:29 37.1 C 62 16 131/61 93 10/14/19 18:15 36.8 C 59 L 18 128/54 L 96 10/14/19 18:02 37.0 C 64 18 135/69 96 10/14/19 17:50 36.7 C 64 18 133/56 L 96 10/14/19 16:21 89 10/14/19 15:34 36.6 C 89 18 147/75 H 96 10/14/19 15:28 77 18 95 10/14/19 14:20 67 Transfer of Care Handoff Completed per policy Notes Mental Status: alert / awake / arousable and participated in evaluation Nausea / Vomiting: adequately controlled Pain: adequately controlled Airway Patency, RR, SpO2: stable & adequate BP & HR: stable & adequate Hydration State: stable & adequate Anesthetic Complications: no major complications apparent and Pt Satisfied with anesthetic care
--- NOTE | 2019-10-15 16:16 | Hospitalist Progress Note ---
Date of Service October 15, 2019 Assessment & Plan (1) ARF (acute renal failure): Acute kidney injury Likely multifactorial Prerenal, ? Contrast-induced, medications Baseline Cr: 1.0-1.1 Held diuretics, lisinopril Received IV fluids/Albumin Monitor renal function Avoid nephrotoxic agents as able Appreciate Nephrology Input Cr:1.0 today Rectal bleeding H/O hyperplastic polyp, diverticulosis Insetting of Coumadin Coagulopathy S/O Colonoscopy:Internal hemorrhoids. The examination was otherwise normal. Stool for C diff: Negative Hold aspirin, Coumadin Received IV Protonix--Transition to PO Monitor INR:2.4>>1.3 Reversed INR with Vitamin K for colonoscopy Appreciate GI input Monitor CBC Hb stable Pulmonary congestion H/O chronic diastolic CHF CXR:Interval improvement in the mild congestive change, small bilateral pleural effusions, and bibasilar densities. Monitor volume status closely Received IV albumin Will resume diuretics today Hyperkalemia Likely due to ANGEL Spironolactone could have contributed Currently resolved Monitor electrolytes Mild Troponin Elevation Chronic elevation also noted ACS less likely Hypoglycemia Continue Hypoglycemia Protocol Monitor BGs Multivalvular heart disease Aortic stenosis S/P TAVR Moderate Mitral regurgitation Moderate Tricuspid regurgitation Atrial Fibrillation Coumadin on hold secondary to GI bleed Continue metoprolol, Digoxin Monitor INR COPD Past tobacco abuse As per records No signs of Exacerbation Continue Nebs DVT Px: SCDs Re: GI bleeding Code Status Full code Disposition PT/OT prior to discharge Admission and Anticipated Discharge Date Admission Date: October 11, 2019 Subjective Patient is seen and examined at bedside States feeling that her chest is slightly congested after having bowel prep Colonoscopy today showed internal hemorrhoids Currently no active bleeding INR reversed yesterday for colonoscopy Hemoglobin stable Denies any chest pain, SOB, dizziness, nausea, abdominal pain Review of Systems Review of Systems: All systems reviewed & are unremarkable except as noted in HPI & below Physical Exam Physical Exam: Physical Exam: Vitals signs as noted above General Appearance:Thin, frail, no apparent distress Head: normocephalic, Atraumatic Eyes: normal inspection, EOMI Neck: supple, Trachea midline Respiratory/Chest: Decreased breath sounds, CTA Cardiovascular: S1, S2, No murmur Abdomen/GI:Soft, Non tender, Bowel sounds present Extremities/Musculoskelatal:normal inspection, 1+ B/L LE edema Neurologic/Psych:AAOX3, grossly no focal neurological deficits Skin: normal color, warm Results & Data Results & Data ([facility]) Vital Signs (Past 12 Hours) Vital Signs Temp Pulse Pulse Resp BP Pulse Ox 10/15/19 15:03 36.2 C L 83 18 131/77 100 10/15/19 14:10 85 18 93 10/15/19 13:06 83 18 105/51 L 97 10/15/19 12:51 71 18 66/31 L 99 10/15/19 12:36 75 16 130/67 97 10/15/19 12:05 36.8 C 79 18 153/88 H 99 10/15/19 11:25 70 18 96 10/15/19 08:40 90 10/15/19 07:46 36.6 C 86 19 132/83 96 10/15/19 07:04 81 18 92 10/15/19 04:21 36.8 C 67 18 132/69 97 Laboratory Results Short CBC 10/15/19 Range/Units 07:55 Hgb 10.4 L (12.0-16.0) g/dL Hct 31.9 L (37-47) % BMP 10/15/19 07:55 Sodium 145 Potassium 3.9 Chloride 112 H Carbon Dioxide 28 BUN 30 H Creatinine 1.00 Glucose 88 Calcium 8.4 L
[2019-10-15] MEDS: DIGOXIN 0.125 MG TAB PO SCH (16:32)
[2019-10-15] MEDS: ACETAMINOPHEN 325 MG TAB PO PRN (16:34)
[2019-10-15] MEDS: SPIRONOLACTONE 25 MG TAB PO SCH (17:57)
[2019-10-15] MEDS: FUROSEMIDE 20 MG TAB PO SCH (17:57)
[2019-10-15] MEDS: PANTOprazole 40 MG TAB PO SCH (21:18)
[2019-10-15] MEDS: LATANOPROST 0.005% OP SOLN 2.5 ML BTL OPB SCH (21:19)
[2019-10-15] MEDS: ALBUT/IPRATROP 3MG/0.5MG NEB 3 ML VIAL NEB PRN (23:40)
[2019-10-16 06:14] LABS: Hematocrit (blood only) 28.9 % (37-47); Hemoglobin 9.5 g/dL (12.0-16.0)
[2019-10-16 06:21] LABS: INR 1.2 (0.9-1.1); Prothrombin Time 12.4 Seconds (9.0-12.0)
[2019-10-16 06:47] LABS: BUN Creatinine Ratio 27.5 (10-20); Calcium 8.1 mg/dl (8.5-10.1); Creatinine Clr Calc Pharmacy 25.6 ml/min; Est GFR (Non-African American) 41.4; Potassium 4.1 mmol/L (3.5-5.1)
[2019-10-16] MEDS: ALBUT/IPRATROP 3MG/0.5MG NEB 3 ML VIAL NEB SCH ×4 (07:01→19:15)
[2019-10-16] MEDS: PANTOprazole 40 MG TAB PO SCH (08:08)
[2019-10-16] MEDS: METOPROLOL TARTRATE 25 MG TAB PO SCH ×2 (08:09→17:52)
[2019-10-16] MEDS: SPIRONOLACTONE 25 MG TAB PO SCH (08:09)
[2019-10-16] MEDS: FUROSEMIDE 20 MG TAB PO SCH (08:09)
--- NOTE | 2019-10-16 12:55 | XRay Report ---
SINGLE VIEW CHEST CLINICAL HISTORY: Dyspnea. FINDINGS: An AP, portable, upright chest radiograph is compared to study dated 10/11/2019 and correlat ed with chest CT dated 04/08/2018. The examination is degraded by portable technique and apical lordoti c positioning. The heart is enlarged and there is atherosclerotic calcification of the thoracic aorta . There is evidence of previous cardiac valve surgery. There is mild pulmonary vascular congestion. T here are right larger than left pleural effusions with associated consolidation. There is no pneumoth orax. The skeletal structures are osteopenic. Degenerative change is noted in the shoulders and throu ghout the thoracic spine. IMPRESSION: 1. Cardiomegaly with mild pulmonary vascular congestion. 2. Right larger left pleural effusions with bibasilar consolidation. These have increased in size as compared 10/11/2019. Electronically signed by: Chuy Pantoja M.D. 10/16/2019 12:54 PM
[2019-10-16] MEDS ORDERED: FUROSEMIDE 20 MG in SYRINGE 0 ML IV ONE ×2 (14:00→20:00)
--- NOTE | 2019-10-16 14:46 | Hospitalist Progress Note ---
Date of Service October 16, 2019 Assessment & Plan (1) ARF (acute renal failure): Acute kidney injury--Resolved Likely multifactorial Prerenal, ? Contrast-induced, medications Baseline Cr: 1.0-1.1 Continue to hold lisinopril Received IV fluids/Albumin Monitor renal function Avoid nephrotoxic agents as able Appreciate Nephrology Input Cr back to baseline Rectal bleeding H/O hyperplastic polyp, diverticulosis Insetting of Coumadin Coagulopathy S/O Colonoscopy:Internal hemorrhoids. The examination was otherwise normal. Stool for C diff: Negative Hold aspirin, Coumadin Received IV Protonix--Transition to PO once a day Monitor INR:2.4>>1.2 Reversed INR with Vitamin K for colonoscopy Appreciate GI input Monitor CBC Hb stable Resumed coumadin today--OK with GI Pulmonary congestion H/O chronic diastolic CHF CXR:Interval improvement in the mild congestive change, small bilateral pleural effusions, and bibasilar densities. Monitor volume status closely Received IV albumin Will give IV lasix today Recheck CXR tomorrow Hyperkalemia Likely due to ANGEL Spironolactone could have contributed Currently resolved Monitor electrolytes Mild Troponin Elevation Chronic elevation also noted ACS less likely Hypoglycemia Continue Hypoglycemia Protocol Monitor BGs Multivalvular heart disease Aortic stenosis S/P TAVR Moderate Mitral regurgitation Moderate Tricuspid regurgitation Atrial Fibrillation Continue metoprolol, Digoxin Monitor INR:1.2 Resume Coumadin today--OK to resume per GI COPD Past tobacco abuse As per records No signs of Exacerbation Continue Nebs DVT Px: Coumadin resumed Code Status Full code Disposition PT/OT prior to discharge Patient not interested in Rehab She followed with outpatient PT previously Admission and Anticipated Discharge Date Admission Date: October 11, 2019 Subjective Patient is seen and examined at bedside No recurrence of bleeding issues Discussed with GI today Still complains of chest congestion Denies chest pain, cough, SOB CXR today findings suggestive of mild pulm congestion offers no other complaints Review of Systems Review of Systems: All systems reviewed & are unremarkable except as noted in HPI & below Physical Exam Physical Exam: Physical Exam: Vitals signs as noted above General Appearance:Thin, frail, no apparent distress Head: normocephalic, Atraumatic Eyes: normal inspection, EOMI Neck: supple, Trachea midline Respiratory/Chest: Decreased breath sounds, CTA Cardiovascular: S1, S2, No murmur Abdomen/GI:Soft, Non tender, Bowel sounds present Extremities/Musculoskelatal:normal inspection, 1+ B/L LE edema Neurologic/Psych:AAOX3, grossly no focal neurological deficits Skin: normal color, warm Results & Data Results & Data ([facility]) Vital Signs (Past 12 Hours) Vital Signs Temp Pulse Pulse Resp BP Pulse Ox 10/16/19 11:56 36.5 C 81 16 133/75 99 10/16/19 11:15 76 18 97 10/16/19 07:40 82 10/16/19 07:15 36.9 C 61 18 154/64 H 98 10/16/19 07:03 72 18 92 10/16/19 03:36 36.6 C 80 20 139/83 97 Laboratory Results Short CBC 10/16/19 Range/Units 05:44 Hgb 9.5 L (12.0-16.0) g/dL Hct 28.9 L (37-47) % BMP 10/16/19 05:44 Sodium 143 Potassium 4.1 Chloride 112 H Carbon Dioxide 25 BUN 32 H Creatinine 1.18 Glucose 79 Calcium 8.1 L
[2019-10-16] MEDS: WARFARIN SOD 4 MG TAB PO SCH (17:51)
[2019-10-16] MEDS: DIGOXIN 0.125 MG TAB PO SCH (17:52)
[2019-10-16] MEDS: LATANOPROST 0.005% OP SOLN 2.5 ML BTL OPB SCH (20:29)
[2019-10-16] MEDS ORDERED: SIMETHICONE 80 MG CHEW PO PRN (21:04)
[2019-10-17] MEDS: METOPROLOL TARTRATE 25 MG TAB PO SCH ×4 (00:32→23:25)
[2019-10-17] MEDS: ALBUT/IPRATROP 3MG/0.5MG NEB 3 ML VIAL NEB PRN (03:17)
[2019-10-17] MEDS: ALBUT/IPRATROP 3MG/0.5MG NEB 3 ML VIAL NEB SCH ×4 (06:59→19:07)
[2019-10-17 07:06] LABS: Hematocrit (blood only) 30.4 % (37-47); Hemoglobin 9.7 g/dL (12.0-16.0)
[2019-10-17 07:14] LABS: INR 1.1 (0.9-1.1); Prothrombin Time 11.4 Seconds (9.0-12.0)
[2019-10-17] MEDS: PANTOprazole 40 MG TAB PO SCH (07:33)
[2019-10-17] MEDS: SPIRONOLACTONE 25 MG TAB PO SCH (07:33)
[2019-10-17] MEDS: FUROSEMIDE 20 MG TAB PO SCH ×2 (07:33→16:01)
[2019-10-17 07:35] LABS: BUN Creatinine Ratio 25.5 (10-20); Calcium 8.6 mg/dl (8.5-10.1); Creatinine Clr Calc Pharmacy 22.6 ml/min; Est GFR (African American) 39.4; Magnesium 2.1 mg/dl (1.8-2.4); Potassium 4.4 mmol/L (3.5-5.1)
--- NOTE | 2019-10-17 08:32 | XRay Report ---
XR chest 1V portable CLINICAL HISTORY: pulmonary vascular congestion COMPARISON STUDY: 10/16/2019 FINDINGS: An aortic valve graft is visualized. The heart is enlarged. There are bilateral pleural eff usions. There are associated bilateral pulmonary airspace opacities, atelectatic versus infectious/in flammatory. There is mild pulmonary vascular congestion[ IMPRESSION: Persistent cardiomegaly, bilateral pleural effusions right greater than left, and associa jaime basilar opacities. Persistent mild pulmonary vascular congestion. ACT 112: Negative or not required by law. Electronically signed by: Miquel Perez M.D. 10/17/2019 8:31 AM
--- NOTE | 2019-10-17 13:02 | Hospitalist Progress Note ---
Date of Service October 17, 2019 Assessment & Plan (1) ARF (acute renal failure): Acute renal failure: 10/17/2019 Creatinine worsened 1.39 today,(renal function was improved to baseline yesterday 10/16/2019) received IV Lasix /p.o. Lasix and Aldactone was resumed Hold Lasix, Aldactone Check BMP in a.m. Admitted with acute renal failure Prerenal, ? Contrast-induced, medications Baseline Cr: 1.0-1.1 Received IV fluids/Albumin Avoid nephrotoxic agents as able Appreciate Nephrology Input Creatinine was back to baseline, Rectal bleeding H/O hyperplastic polyp, diverticulosis Insetting of Coumadin Coagulopathy S/p Colonoscopy:Internal hemorrhoids. The examination was otherwise normal. Stool for C diff: Negative Reversed INR with Vitamin K for colonoscopy Appreciate GI input No further episode of rectal bleed H&H stable Coumadin resumed Pulmonary congestion H/O chronic diastolic CHF CXR:Interval improvement in the mild congestive change, small bilateral pleural effusions, and bibasilar densities. We will hold Lasix and Aldactone given acute renal failure Hyperkalemia Likely due to ANGEL Continue to hold Aldactone Hypoglycemia Continue Hypoglycemia Protocol Monitor BGs Multivalvular heart disease Aortic stenosis S/P TAVR Moderate Mitral regurgitation Moderate Tricuspid regurgitation Atrial Fibrillation Continue metoprolol, Digoxin Coumadin resumed COPD Past tobacco abuse As per records No signs of Exacerbation Continue Nebs DVT Px: Coumadin resumed Code Status Full code Disposition PT/OT prior to discharge Patient not interested in Rehab She followed with outpatient PT previously Admission and Anticipated Discharge Date Admission Date: October 11, 2019 Subjective Patient is seen and examined at bedside Bowel movement today, no blood in stool, no abdomen pain no nausea vomiting No recurrence of bleeding issues Hemoglobin stable Physical Exam Constitutional: WD/WN, vitals as above no acute distress Eyes: + anicteric sclerae ENMT: external ear and nose normal, oropharynx normal Neck: trachea midline, no thyromegaly Respiratory: normal respiratory effort, lungs clear to auscultation Cardiovascular: RRR, no murmur, no edema Gastrointestinal (Abdomen): normal bowel sounds, soft, nontender, no hepatosplenomegaly Musculoskeletal: no cyanosis or clubbing, extremities motor strength 5/5 Skin: no rashes, warm and dry Neurologic: PERRL, EOMI, accommodation nl, no face palsy, no dysarthria Psychiatric: A+Ox3, euthymic affect Results & Data Results & Data ([facility]) Vital Signs (Past 12 Hours) Vital Signs Temp Pulse Pulse Resp BP Pulse Ox 10/17/19 11:49 36.6 C 63 16 125/69 94 10/17/19 11:02 60 16 98 10/17/19 09:49 36.3 C L 80 16 158/78 H 96 10/17/19 09:41 67 10/17/19 07:10 36.6 C 70 18 131/61 100 10/17/19 06:59 78 16 98 10/17/19 04:09 36.7 C 76 20 125/75 94 10/17/19 03:17 67 18 97
[2019-10-17] MEDS: ACETAMINOPHEN 325 MG TAB PO PRN (14:37)
[2019-10-17] MEDS: WARFARIN SOD 4 MG TAB PO SCH (16:00)
[2019-10-17] MEDS: DIGOXIN 0.125 MG TAB PO SCH (16:01)
[2019-10-17] MEDS: LATANOPROST 0.005% OP SOLN 2.5 ML BTL OPB SCH (20:17)
[2019-10-18] MEDS: ALBUT/IPRATROP 3MG/0.5MG NEB 3 ML VIAL NEB PRN (01:47)
[2019-10-18 06:09] LABS: INR 1.2 (0.9-1.1); Prothrombin Time 12.4 Seconds (9.0-12.0)
[2019-10-18 06:32] LABS: BUN Creatinine Ratio 30.6 (10-20); Calcium 8.5 mg/dl (8.5-10.1); Creatinine Clr Calc Pharmacy 24.3 ml/min; Est GFR (African American) 43.5; Est GFR (Non-African American) 37.6; Potassium 4.8 mmol/L (3.5-5.1)
[2019-10-18] MEDS: ALBUT/IPRATROP 3MG/0.5MG NEB 3 ML VIAL NEB SCH ×2 (07:09→11:13)
[2019-10-18] MEDS: PANTOprazole 40 MG TAB PO SCH (07:48)
[2019-10-18] MEDS: METOPROLOL TARTRATE 25 MG TAB PO SCH (07:48)
--- NOTE | 2019-10-18 13:51 | Hospitalist Progress Note ---
Date of Service October 18, 2019 Assessment & Plan (1) ARF (acute renal failure): Acute renal failure: 10/18/19: cr improved to 1.2 day ; pt is instructed not take Lisinopril , aldactone needs clinic follow up and repeat Lab : BMP in 1 week ACEI inhibitor can be resumed if cr improves to approx baseline needs CKD clinic follow up with Neprhology in 2-3 weeks pt is instructed to avoid NSAID's 10/17/2019 Creatinine worsened 1.39 today,(renal function was improved to baseline yest yemi 10/16/2019) received IV Lasix /p.o. Lasix and Aldactone was resumed Hold Lasix, Aldactone Check BMP in a.m. Admitted with acute renal failure multifactorial -dehydration / Contrast-induced, medications: was on multiple diuretics -Lasix /lisinopril /Aldactone Baseline Cr: 1.0-1.1 Received IV fluids/Albumin Appreciate Nephrology Input Creatinine improved Rectal bleeding due to internal Hemorroids Insetting of Coumadin Coagulopathy S/p Colonoscopy:Internal hemorrhoids. The examination was otherwise normal. Stool for C diff: Negative Appreciate GI input Coumadin resumed No further episode of rectal bleed H&H been stable H/O chronic diastolic CHF vol status stable Lasix resumed on DC cont to hold ACEI/aldactone as discussed aboe Hyperkalemia normal K now Likely due to ANGEL Continue to hold Aldactone/ACEI given presentation with hyperkalemia -pt should be on single K sparing diuretics Multivalvular heart disease Aortic stenosis S/P TAVR Moderate Mitral regurgitation Moderate Tricuspid regurgitation Atrial Fibrillation Continue metoprolol, Digoxin Coumadin resumed COPD Past tobacco abuse As per records No signs of Exacerbation DVT Px: Coumadin resumed Code Status Full code Disposition stable to be discharged home today discharge planning discussed with patient in detail , all questions answered Admission and Anticipated Discharge Date Admission Date: October 11, 2019 Subjective no further episode for blood is stool feels fine no complain of abdominal pain ,no nausea stable to be discharged home today Physical Exam Constitutional: WD/WN, vitals as above no acute distress Eyes: + anicteric sclerae ENMT: external ear and nose normal, oropharynx normal Neck: trachea midline, no thyromegaly Respiratory: normal respiratory effort, lungs clear to auscultation Cardiovascular: RRR, no murmur, no edema Gastrointestinal (Abdomen): normal bowel sounds, soft, nontender, no hepatosplenomegaly Musculoskeletal: no cyanosis or clubbing, extremities motor strength 5/5 Skin: no rashes, warm and dry Neurologic: PERRL, EOMI, accommodation nl, no face palsy, no dysarthria Psychiatric: A+Ox3, euthymic affect Results & Data Results & Data ([facility]) Vital Signs (Past 12 Hours) Vital Signs Temp Pulse Pulse Resp BP Pulse Ox 10/18/19 11:30 36.8 C 85 20 156/69 H 90 10/18/19 11:13 74 18 85 L 10/18/19 08:35 68 10/18/19 07:26 36.7 C 64 18 128/66 99 10/18/19 07:09 64 16 99 10/18/19 03:31 36.9 C 57 L 20 113/69 99 10/18/19 01:58 68
--- NOTE | 2019-10-18 14:00 | Discharge Summary ---
Date of Service October 18, 2019 Admission HPI Per Admitting Provider History obtained from patient, family, and records. History obtained from patient, boyfriend, and records. Medical history is significant for chronic diastolic heart failure, EF of 65-70, TTE 2018), VHD (moderate aortic stenosis sp TAVR, moderate MR, moderate TR), HTN, AFib on Coumadin, COPD, past tobacco abuse, chronic anemia (baseline hemoglobin 10-11). Last confinement March 2018 for troponin elevation. 2 days ago, patient noted bloody diarrhea symptoms at home with mild achy abdominal pain going to the back. No fever, no chills. Some shortness of breath. Patient seen at the ER. CT abdomen pelvis as follows : 1. Streak and motion degraded examination. 2. There is marked rectosigmoid fecal impaction and mild constipation. 3. Question mild wall thickening/inflammation of the lower rectum/anal soft tissues. Correlation with clinical findings and direct visualization is recommended. 4. Marked cardiomegaly with small right and trace left pleural effusions. 5. 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 Patient discharged with Senokot prescription for constipation findings on CAT scan which puzzled patient because she consulted ER for the bloody diarrhea symptoms. Bloody diarrhea resolved at home. 1 dose of Senokot. After eating at the salad bar of a local restaurant today, patient had to lamb to the bathroom where she noted 1 episode of hematochezia without abdominal discomfort. No unusual shortness of breath. Patient brought by boyfriend to the emergency room. IV insulin given at the ER for hyperkalemia of 5.7. 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 Principal Diagnosis cute renal failure on chronic kidney disease -improved Discharge Exam Constitutional WD/WN, vitals as above no acute distress Eyes + anicteric sclerae ENMT external ear and nose normal, oropharynx normal Neck trachea midline, no thyromegaly Respiratory normal respiratory effort, lungs clear to auscultation Cardiovascular RRR, no murmur, no edema Gastrointestinal (Abdomen) normal bowel sounds, soft, nontender, no hepatosplenomegaly Musculoskeletal no cyanosis or clubbing, extremities motor strength 5/5 Skin no rashes, warm and dry Neurologic PERRL, EOMI, accommodation nl, no face palsy, no dysarthria Psychiatric A+Ox3, euthymic affect Discharge Data Allergies Allergy/AdvReac Type Severity Reaction Status Date / Time Sulfa (Sulfonamide Allergy Severe Hives and Verified 10/15/19 12:05 Antibiotics) swelling of throat meperidine AdvReac Severe Hallucinations Verified 10/15/19 12:05 and tachycardia oxycodone AdvReac Severe Hallucinati Verified 10/15/19 12:05 ng Consultations 10/11/19 18:59 ED Decision to Admit Stat 10/12/19 00:08 Consult Nephrology Routine 10/12/19 11:05 Consult Gastroenterology Routine Procedures Performed Operation Date: 10/15/19 15:25 Actual Procedures p Colonoscopy - [place] [facility] Course (1) ARF (acute renal failure): Acute renal failure: 10/18/19: cr improved to 1.2 day ; pt is instructed not take Lisinopril , aldactone needs clinic follow up and repeat Lab : BMP in 1 week ACEI inhibitor can be resumed if cr improves to approx baseline needs CKD clinic follow up with Neprhology in 2-3 weeks pt is instructed to avoid NSAID's 10/17/2019 Creatinine worsened 1.39 today,(renal function was improved to baseline yesterday 10/16/2019) received IV Lasix /p.o. Lasix and Aldactone was resumed Hold Lasix, Aldactone Check BMP in a.m. Admitted with acute renal failure multifactorial -dehydration / Contrast-induced, medications: was on multiple diuretics -Lasix /lisinopril /Aldactone Baseline Cr: 1.0-1.1 Received IV fluids/Albumin Appreciate Nephrology Input Creatinine improved Rectal bleeding due to internal Hemorroids Insetting of Coumadin Coagulopathy S/p Colonoscopy:Internal hemorrhoids. The examination was otherwise normal. Stool for C diff: Negative Appreciate GI input Coumadin resumed No further episode of rectal bleed H&H been stable H/O chronic diastolic CHF vol status stable Lasix resumed on DC cont to hold ACEI/aldactone as discussed aboe Hyperkalemia normal K now Likely due to ANGEL Continue to hold Aldactone/ACEI given presentation with hyperkalemia -pt should be on single K sparing diuretics Multivalvular heart disease Aortic stenosis S/P TAVR Moderate Mitral regurgitation Moderate Tricuspid regurgitation Atrial Fibrillation Continue metoprolol, Digoxin Coumadin resumed COPD Past tobacco abuse As per records No signs of Exacerbation DVT Px: Coumadin resumed Code Status Full code Disposition stable to be discharged home today discharge planning discussed with patient in detail , all questions answered Total Time Total Time Spent Total Time Spent (In Minutes): 35 mins Total Time Includes: Examination of the Patient, Discharge Planning and Medication Reconciliation Discharge Plan Discharge Items Patient Disposition: Home - Self-Care Reason For Visit: ARF, HYPERKALEMIA Discharge Diagnosis: acute renal failure on chronic kidney disease -improved Hyperkalemia -resolved rectal bleeding /internal Hemorrhoids -resolved Activity: Resume your previous activity Non-emergency contact: Primary Care Provider Call non-emergency contact if: you have any medication questions Follow-up/Referrals: Gabriela Gilliam MD, PhD [Physician] - (FOLLOW UP IN 2 WEEKS PLEASE CALL OFFICE TO SCHEDULE APPOINTMENT ) Ariana Pendleton MD [Primary Care Provider] - 10/22/19 3:00 pm (Date & Time 10/22/2019 3:00 PM Provider Ariana Pendleton MD Department Internal Medicine [facility] ) Diet: Heart Healthy Ambulatory Orders: Basic Metabolic Panel (Routine) Timeframe: 1 Week Location: Determined by Patient Ordered By: Lorie Tomas Attending Provider Instructions: continue to hold spironolactone, lisinopril at discharge >> recommend resuming at PCP follow up if renal function still at baseline pls arrange hospital discharge follow up appt in [facility] CKD clinic with JANET Joseph or Dr Gilliam 2 weeks after discharge either telehealth or in person -Do not take Motrin , Aleve, ibuprophen , naproxen -avoid NSAID's group of drugs will cause worsening of your kidney function Pending Studies at Discharge: Yes Studies:: LAB : BASIC METABOLIC PANEL IN 1 WEEK Stand-Alone Forms: My [employer], Smoking Cessation Medications and DC Order Prescriptions: Continued ipratropium-albuterol 0.5 mg-3 mg(2.5 mg base)/3 mL Solution For Nebulization 3 ml INHALATION Q4H PRN (Reason: COUGH, SOB OR WHEEZING) RF: 0 albuterol sulfate [Ventolin HFA] 90 mcg/actuation Hfa Aerosol Inhaler 2 puff INHALATION Q4H PRN (Reason: Shortness Of Breath Or Wheezing) RF: 0 furosemide 40 mg Tablet 20 mg PO BID RF: 0 warfarin 4 mg Tablet 4 mg PO 5XWK RF: 0 warfarin 4 mg Tablet 2 mg PO 2XWK RF: 0 aspirin 81 mg Tablet,Delayed Release (Dr/Ec) 81 mg PO QPM RF: 0 alprazolam 0.25 mg tablet 0.25 mg PO DAILY PRN (Reason: Anxiety) RF: 0 acetaminophen [Tylenol Extra Strength] 500 mg Tablet 1,000 mg PO Q6H PRN (Reason: Pain) RF: 0 metoprolol tartrate 50 mg tablet 75 mg PO Q8H RF: 0 digoxin 125 mcg Tablet 0.125 mg PO DAILY@1600 Qty: 30 RF: 0 latanoprost 0.005 % drops 1 drp OPB HS RF: 0 sennosides-docusate sodium [Senokot-S] 8.6-50 mg tablet 2 tabcap PO BID PRN (Reason: Constipation) RF: 0 omeprazole 20 mg Capsule,Delayed Release(Dr/Ec) 20 mg PO DAILYBB RF: 0 Discontinued spironolactone 25 mg Tablet 25 mg PO QAM Qty: 30 RF: 0 lisinopril [Zestril] 10 mg tablet 10 mg PO QPM RF: 0 Discharge Orders: Discharge Order (Routine); Ordered 10/18/19 Ordered By: Lorie Paredes Admission Data Admit Date/Time: 10/11/19 20:27 Attending Provider: Lorie Paredes Admit Provider: Ru Rosenthal Primary Care Provider: Ariana Pendleton Other Providers: Gabriela Gilliam ; [place] Joseph ; Grace Lombardi ; Roxanna Joseph ; Shane Sky ; Sandro Gibson Other Interventions: Discharge Summary Assessment (RN) Last Done: 10/18/19 13:52
[2019-10-19] MEDS ORDERED: WARFARIN SOD 2 MG TAB PO SCH (16:00)
== END 2019-10-18 16:31 | disposition home or self-care (01) | DRG 813 ==
LOC: ED 17:37 → SUATTDRO 20:27 → 2W 20:27

== ENCOUNTER 2019-11-11 13:13 | Inpatient (IN) ==
--- NOTE | 2019-11-11 13:53 | Emergency Department Note ---
Impression & Plan Pulmonary edema, Hypoxia, Elevated troponin I level ED Provider Note NAME: EBONY MADERA AGE: 89 SEX: F : 1930 ARRIVES VIA: Walk-In INFORMANT: Patient, additional history was obtained from the patient's significant other. ED PROVIDER(S): Herminio Schofield DO CHIEF COMPLAINT: Shortness of breath HPI: The patient is an 89-year-old female who presented to the emergency department for an evaluation of shortness of breath. The patient does have a history of valvular heart disease. She was seen in our facility recently and diagnosed with UTI. She was started on an antibiotic. She continues to have worsening shortness of breath over the last few days. She went to an urgent care center today and was referred to the emergency department because of ongoing symptoms. The patient states that she has worsening symptoms with lying flat. She also has shortness of breath on exertion. She does have a cough which is nonproductive. She is noticed weight gain as well as lower extremity swelling. When she went to the urgent care center her vital signs reportedly were normal. She denies having any vomiting. She did have constipation recently but this resolved with [id number] medications. She denies any black or bloody stools at this time. ROS: See above HPI for pertinent positives & negatives. A total of 10 systems reviewed and were otherwise negative. PAST MEDICAL HISTORY: See Below PAST SURGICAL HISTORY: See Below FAMILY HISTORY: See Below SOCIAL HISTORY: See Below HOME MEDICATIONS: See Below ALLERGIES: See Below VITALS: See Below PHYSICAL EXAMINATION: GENERAL: The patient is awake and alert. She is somewhat anxious appearing and frail. EYES: The conjunctivae are clear. The pupils are round and reactive. EARS, NOSE, MOUTH AND THROAT: The nose is without any evidence of any deformity. Mucous membranes are moist. Tongue is midline. NECK: The neck is nontender and supple. RESPIRATORY: Shallow respirations were noted. There were diminished breath sounds with rales throughout. CARDIOVASCULAR: Irregular rhythm was noted to auscultation. No definite murmur was noted. GASTROINTESTINAL: The abdomen is soft. Abdomen is nontender. MUSCULOSKELETAL/EXTREMITIES: There is no evidence of gross deformity full range of motion is noted in the hips and shoulders. SKIN: The skin is warm and dry. There is pedal edema bilaterally. No signs of cellulitis noted. NEUROLOGIC: Patient is awake alert and oriented x3. MEDICAL DECISION MAKING: The patient is an 89-year-old female who presented to the emergency department for shortness of breath. She was recently diagnosed with urinary tract infection. She was having difficulty breathing especially when lying flat. She went to an urgent care center was sent to the emergency department for further evaluation. The patient's history and physical exam appear to be consistent with volume overload. She was treated with Lasix in the emergency department. She was able to diurese somewhat. Her EKG does not show any specific change from previous but her troponin is elevated. The patient was able to ambulate but had a low pulse ox after ambulation. For this reason I will [facility] her [facility] I discussed the patient's laboratory and radiographic studies with her. She was agreeable to inpatient management. Triage Nursing notes reviewed. Prior medical records reviewed Vital Signs: reviewed and remarkable for hypoxia and elevated blood pressure. Differential diagnosis: Reactive airway disease, pneumonia, pneumothorax, COPD, CHF, infections, cardiac ischemia, pulmonary embolism, musculoskeletal, gastrointestinal, as well as other pathologies. ER treatment provided: See below Diagnostics interpreted by me: ECG: EKG was obtained in the emergency department. My interpretation is atrial fibrillation at 63 bpm. Low voltage was noted throughout. PVCs were noted. There were no acute ST segment abnormalities noted. This was compared to a tracing from October 102019. No significant changes were noted. Cardiac Monitoring: An order was placed for continuous cardiac monitoring. The monitor shows a rate of 92 bpm with atrial fibrillation rhythm. Laboratory studies: As stated above and show below. Imaging studies: See below Consultation(s): 1700: I discussed this case with Chuy Gibbs who is [facility]. Past Med/Surg History Medical History Anemia, chronic renal failure Anxiety Aortic stenosis Atrial fibrillation CKD (chronic kidney disease) stage 3, GFR 30-59 ml/min COPD (chronic obstructive pulmonary disease) inhaler/nebulizer prn Depression Diastolic CHF due to valvular disease Dysphagia Glaucoma Hearing deficit History of rheumatic fever as a child HTN (hypertension) Hypertension Hypoxic On anticoagulant therapy warfarin daily On home oxygen therapy 1 L N/C at sleep and prn Osteoarthritis Poor historian SIRS (systemic inflammatory response syndrome) Subcutaneous hematoma Surgical History History of aortic valve [place] [facility] [place] of appendectomy History of bilateral tubal ligation History of cardiac cath 12/2017 no stents @ [facility] [place]2018 [place] [facility] [place] History of cholecystectomy History of colonoscopy with polypectomy History of esophagogastroduodenoscopy (EGD) History of tooth extraction all lower teeth History of total hysterectomy "fibroids" S/P cataract surgery bilt Family History Other Family history non-contributory Heart disease No family history of adverse response to anesthesia Social History Smoking Status: Former smoker Tobacco Type: Cigarettes Cigarettes Per Day: quit 20yrs ago; Second Hand Exposure: No; Hx Alcohol Use: No Hx Substance Use: No Preferred Language: Hungarian Communication Ability: Effective Visual Impairment: No 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 Beliefs That Will Affect Care: None marital status: Life Partner Current Living Situation: Spouse Current Living Situation Comment: 2 bedroom appartment in [place] current occupational status: retired How many Children do You have: 5 Feels Safe at Home: Yes Allergies Allergies Allergy/AdvReac Type Severity Reaction Status Date / Time Sulfa (Sulfonamide Allergy Severe Hives and Verified 11/11/19 16:41 Antibiotics) swelling of throat meperidine AdvReac Severe Hallucinations Verified 11/11/19 16:41 and tachycardia oxycodone AdvReac Severe Hallucinati Verified 11/11/19 16:41 ng Home Meds Home Medications Medication Instructions Recorded Confirmed albuterol sulfate [Ventolin HFA] 2 puff INHALATION Q4H PRN 01/06/18 11/11/19 ipratropium-albuterol 3 ml INHALATION Q4H PRN 01/06/18 11/11/19 acetaminophen [Tylenol Extra 1,000 mg PO Q6H PRN 03/14/18 11/11/19 Strength] aspirin 81 mg PO QPM 03/14/18 11/11/19 metoprolol tartrate 75 mg PO Q8H 03/14/18 11/11/19 furosemide 60 mg PO BID 09/06/19 11/11/19 warfarin 2 mg PO 2XWK 09/06/19 11/11/19 warfarin 4 mg PO 5XWK 09/06/19 11/11/19 latanoprost 1 drp OPB HS 10/09/19 11/11/19 sennosides-docusate sodium 2 tabcap PO BID PRN 10/11/19 11/11/19 [Senokot-S] fluticasone propionate [Flovent 1 puff INHALATION UD 11/09/19 11/11/19 HFA] sertraline 25 mg PO DAILY 11/09/19 11/11/19 simethicone [Gas-X] 80 mg PO BID PRN 11/11/19 11/11/19 Previous Rx's Medication Instructions Recorded digoxin 0.125 mg PO DAILY@1600 #30 tab 04/13/18 ciprofloxacin HCl [Cipro] 500 mg PO BID 7 Days #14 tab 11/09/19 Results & Data (ED) Vital Signs Vital Signs - 24 hr 11/11/19 13:13 11/11/19 13:23 11/11/19 13:41 Temperature 36.8 C Temperature Source Oral Pulse Rate 81 Pulse Rate [Right Finger] Pulse Rhythm Regular Pulse Strength Normal Respiratory Rate 18 Respiratory Effort / Characteristics Non-Labored Spontaneous Non-Labored Spontaneous Respiratory Depth Normal Normal Respiratory Pattern Regular Blood Pressure 146/72 H Blood Pressure [Right Arm] Blood Pressure Mean 96 Blood Pressure Mean [Right Arm] Blood Pressure Position Sitting Blood Pressure Position [Right Arm] Pulse Oximetry 95 98 Pulse Oximetry [Exercises] Oxygen Delivery Method Room Air Room Air Room Air Sepsis Recent Fever Within 48 Hours No Sepsis New/Unexplained Change in Mental Status No Sepsis Action Taken by Nursing No Action Required 11/11/19 14:04 11/11/19 14:55 11/11/19 16:00 Temperature Temperature Source Pulse Rate Pulse Rate [Right Finger] 74 74 Pulse Rhythm Pulse Strength Respiratory Rate 18 18 Respiratory Effort / Characteristics Non-Labored Spontaneous Non-Labored Spontaneous Respiratory Depth Normal Normal Respiratory Pattern Regular Regular Blood Pressure Blood Pressure [Right Arm] 169/89 H 186/66 H Blood Pressure Mean Blood Pressure Mean [Right Arm] 115 106 Blood Pressure Position Blood Pressure Position [Right Arm] Sitting Pulse Oximetry 96 94 95 Pulse Oximetry [Exercises] Oxygen Delivery Method Room Air Room Air Room Air Sepsis Recent Fever Within 48 Hours Sepsis New/Unexplained Change in Mental Status Sepsis Action Taken by Nursing 11/11/19 16:26 Temperature Temperature Source Pulse Rate Pulse Rate [Right Finger] Pulse Rhythm Pulse Strength Respiratory Rate Respiratory Effort / Characteristics Respiratory Depth Respiratory Pattern Blood Pressure Blood Pressure [Right Arm] Blood Pressure Mean Blood Pressure Mean [Right Arm] Blood Pressure Position Blood Pressure Position [Right Arm] Pulse Oximetry Pulse Oximetry [Exercises] 94 Oxygen Delivery Method Room Air Sepsis Recent Fever Within 48 Hours Sepsis New/Unexplained Change in Mental Status Sepsis Action Taken by Skilled Nursing Medications Current Medication List: was personally reviewed by me Laboratory Data Attestation: I reviewed the patient's lab results. Result diagrams: 11/11/19 13:53 11/11/19 13:53 Lab Results 11/11/19 11/11/19 11/11/19 Range/Units 13:53 13:53 13:53 WBC 5.47 (4.8-10.8) K/uL RBC 3.71 L (4.2-5.4) M/uL Hgb 11.2 L (12.0-16.0) g/dL Hct 35.8 L (37-47) % MCV 96.5 (80-100) fL MCH 30.2 (25-34) pg MCHC 31.3 L (32-36) g/dL RDW Std Deviation 50.0 H (36.4-46.3) fL RDW Coeff of Zain 14.2 (11.5-14.5) % Plt Count 253 (130-400) K/uL MPV 9.5 (7.4-10.4) fL Immature Gran % (Auto) 0.0 % Neut % (Auto) 75.5 % Lymph % (Auto) 11.5 % [place] % (Auto) 11.0 % Eos % (Auto) 1.8 % Baso % (Auto) 0.2 % Neut # (Auto) 4.13 (1.4-6.5) K/uL Lymph # (Auto) 0.63 L (1.2-3.4) K/uL [place] # (Auto) 0.60 H (0.11-0.59) K/uL Eos # (Auto) 0.10 (0-0.5) K/uL Baso # (Auto) 0.01 (0-0.2) K/uL Immature Gran # (Auto) 0.00 (0.00-0.02) K/uL PT 18.6 H (9.0-12.0) Seconds INR 1.8 H (0.9-1.1) APTT 33.2 H (21.0-31.0) Seconds PTT Ratio 1.2 Sodium 140 (136-145) mmol/L Potassium 4.1 (3.5-5.1) mmol/L Chloride 100 (98-107) mmol/L Carbon Dioxide 36 H (21-32) mmol/L Anion Gap 4.0 (3-11) BUN 32 H (7-18) mg/dl Creatinine 1.17 (0.6-1.2) mg/dl Est Cr Clr Drug Dosing 26.6 ml/min Est GFR ( Amer) 48.5 Est GFR (Non-Af Amer) 41.9 BUN/Creatinine Ratio 27.4 H (10-20) Glucose 92 (70-99) mg/dl Calcium 9.3 (8.5-10.1) mg/dl Total Bilirubin 0.4 (0.2-1) mg/dl AST 32 (15-37) U/L ALT 22 (12-78) U/L Alkaline Phosphatase 58 (45-117) U/L Troponin I 0.068 H* (0-0.045) ng/ml NT-Pro-B Natriuret Pep 4520 H (0-1800) pg/ml Total Protein 6.7 (6.4-8.2) gm/dl Albumin 3.5 (3.4-5.0) gm/dl Globulin 3.2 (2.5-4.0) gm/dl Albumin/Globulin Ratio 1.1 (0.9-2) Urine Color Urine Appearance (Clear) Urine pH (4.5-7.5) Ur Specific [place] (1.000-1.030) Urine Protein (Negative) Urine Glucose (UA) (Negative) Urine Ketones (Negative) Urine Blood (Negative) Urine Nitrite (Negative) Urine Bilirubin (Negative) Urine Urobilinogen (Negative) Ur Leukocyte Esterase (Negative) Digoxin (0.8-2.0) ng/ml 11/11/19 11/11/19 Range/Units 13:53 14:57 WBC (4.8-10.8) K/uL RBC (4.2-5.4) M/uL Hgb (12.0-16.0) g/dL Hct (37-47) % MCV (80-100) fL MCH (25-34) pg MCHC (32-36) g/dL RDW Std Deviation (36.4-46.3) fL RDW Coeff of Zain (11.5-14.5) % Plt Count (130-400) K/uL MPV (7.4-10.4) fL Immature Gran % (Auto) % Neut % (Auto) % Lymph % (Auto) % Mes[place] % (Auto) % Eos % (Auto) % Baso % (Auto) % Neut # (Auto) (1.4-6.5) K/uL Lymph # (Auto) (1.2-3.4) K/uL [place] # (Auto) (0.11-0.59) K/uL Eos # (Auto) (0-0.5) K/uL Baso # (Auto) (0-0.2) K/uL Immature Gran # (Auto) (0.00-0.02) K/uL PT (9.0-12.0) Seconds INR (0.9-1.1) APTT (21.0-31.0) Seconds PTT Ratio Sodium (136-145) mmol/L Potassium (3.5-5.1) mmol/L Chloride (98-107) mmol/L Carbon Dioxide (21-32) mmol/L Anion Gap (3-11) BUN (7-18) mg/dl Creatinine (0.6-1.2) mg/dl Est Cr Clr Drug Dosing ml/min Est GFR ( Amer) Est GFR (Non-Af Amer) BUN/Creatinine Ratio (10-20) Glucose (70-99) mg/dl Calcium (8.5-10.1) mg/dl Total Bilirubin (0.2-1) mg/dl AST (15-37) U/L ALT (12-78) U/L Alkaline Phosphatase (45-117) U/L Troponin I (0-0.045) ng/ml NT-Pro-B Natriuret Pep (0-1800) pg/ml Total Protein (6.4-8.2) gm/dl Albumin (3.4-5.0) gm/dl Globulin (2.5-4.0) gm/dl Albumin/Globulin Ratio (0.9-2) Urine Color Yellow Urine Appearance Clear (Clear) Urine pH 7.0 (4.5-7.5) Ur Specific [place] 1.009 (1.000-1.030) Urine Protein Negative (Negative) Urine Glucose (UA) Negative (Negative) Urine Ketones Negative (Negative) Urine Blood Negative (Negative) Urine Nitrite Negative (Negative) Urine Bilirubin Negative (Negative) Urine Urobilinogen Negative (Negative) Ur Leukocyte Esterase Negative (Negative) Digoxin 1.1 (0.8-2.0) ng/ml Administered Medications Discontinued Medications Furosemide (Furosemide 40 Mg/4 Ml Vial) 40 mg IV NOW STA Stop: 11/11/19 15:21 Last Admin: 11/11/19 15:31 Dose: 40 mg Documented by: [id number] Imaging Data Radiologist's Impression: XR chest 1V portable CLINICAL HISTORY: Dyspnea COMPARISON STUDY: Chest radiograph November 09, 2019. FINDINGS: There is no pneumothorax. Skinfold project over the chest. Small bilateral pleural effusions are noted. These have slightly decreased since prior exam. Moderate cardiomegaly is noted. There is a prosthetic aortic valve. There is pulmonary vascular congestion. IMPRESSION: Pulmonary vascular congestion with small bilateral pleural effusio ns, slightly decreased since prior exam. ACT 112: Negative or not required by law. Electronically signed by: Vinicio Silva M.D. 11/11/2019 2:51 PM Dictated: 11/11/198 Transcribed: 11/11/191447 Blood Pressure Blood Pressure Findings: Elevated blood pressure Blood Pressure Disposition: further management by hospitalist Discharge Plan Visit Data Chief Complaint: Shortness of Breath/Dyspnea Stated Complaint: SOB ED Provider: Herminio Schofield Discharge Problem: Pulmonary edema, Hypoxia, Elevated troponin I level Patient Disposition: Being Evaluated by Hospitalist Condition: Good Forms Stand Alone Forms: My [facility] Prescriptions Prescriptions: No Action ipratropium-albuterol 0.5 mg-3 mg(2.5 mg base)/3 mL Solution For Nebulization 3 ml INHALATION Q4H PRN (Reason: COUGH, SOB OR WHEEZING) RF: 0 albuterol sulfate [Ventolin HFA] 90 mcg/actuation Hfa Aerosol Inhaler 2 puff INHALATION Q4H PRN (Reason: Shortness Of Breath Or Wheezing) RF: 0 furosemide 40 mg Tablet 60 mg PO BID RF: 0 warfarin 4 mg Tablet 4 mg PO 5XWK RF: 0 warfarin 4 mg Tablet 2 mg PO 2XWK RF: 0 simethicone [Gas-X] 80 mg Tablet,Chewable 80 mg PO BID PRN (Reason: BLOATING/GAS) RF: 0 aspirin 81 mg Tablet,Delayed Release (Dr/Ec) 81 mg PO QPM RF: 0 acetaminophen [Tylenol Extra Strength] 500 mg Tablet 1,000 mg PO Q6H PRN (Reason: Pain) RF: 0 metoprolol tartrate 50 mg tablet 75 mg PO Q8H RF: 0 digoxin 125 mcg Tablet 0.125 mg PO DAILY@1600 Qty: 30 RF: 0 latanoprost 0.005 % drops 1 drp OPB HS RF: 0 sennosides-docusate sodium [Senokot-S] 8.6-50 mg tablet 2 tabcap PO BID PRN (Reason: Constipation) RF: 0 sertraline 25 mg tablet 25 mg PO DAILY RF: 0 Flovent HFA 220 mcg/actuation HFA aerosol inhaler 1 puff INHALATION UD RF: 0 ciprofloxacin HCl [Cipro] 500 mg tablet 500 mg PO BID 7 Days Qty: 14 RF: 0 Referrals Referrals: Ariana Pendleton MD [Primary Care Provider] - Discharge Problem: Pulmonary edema Qualifiers: Chronicity: acute Qualified Code(s): J81.0 - Acute pulmonary edema
[2019-11-11 14:14] LABS: Basophils # (auto) 0.01 K/uL (0-0.2); Basophils % (auto) 0.2 %; Eosinophils % (auto) 1.8 %; Hematocrit (blood only) 35.8 % (37-47); Hemoglobin 11.2 g/dL (12.0-16.0); Lymphocytes # (auto) 0.63 K/uL (1.2-3.4); Lymphocytes % (auto) 11.5 %; Mean Corpuscular Hemoglobin 30.2 pg (25-34); Mean Corpuscular Hgb Conc 31.3 g/dL (32-36); Mean Corpuscular Volume 96.5 fL (80-100); Mean Platelet Volume 9.5 fL (7.4-10.4); Neutrophils # (auto) 4.13 K/uL (1.4-6.5); Neutrophils % (auto) 75.5 %; Platelet Count 253 K/uL (130-400); RDW Coefficient of Variation 14.2 % (11.5-14.5); Red Blood Count 3.71 M/uL (4.2-5.4); White Blood Count 5.47 K/uL (4.8-10.8)
[2019-11-11 14:27] LABS: INR 1.8 (0.9-1.1); Partial Thromboplastin Ratio 1.2; Partial Thromboplastin Time 33.2 Seconds (21.0-31.0); Prothrombin Time 18.6 Seconds (9.0-12.0)
[2019-11-11 14:48] LABS: Albumin Level 3.5 gm/dl (3.4-5.0); BUN Creatinine Ratio 27.4 (10-20); Calcium 9.3 mg/dl (8.5-10.1); Creatinine Clr Calc Pharmacy 26.6 ml/min; Est GFR (African American) 48.5; Est GFR (Non-African American) 41.9; Potassium 4.1 mmol/L (3.5-5.1)
[2019-11-11 14:52] LABS: Albumin Globulin Ratio 1.1 (0.9-2); Bilirubin,Total 0.4 mg/dl (0.2-1); Globulin 3.2 gm/dl (2.5-4.0); Total Protein 6.7 gm/dl (6.4-8.2); Troponin I 0.068 ng/ml (0-0.045)
--- NOTE | 2019-11-11 14:52 | XRay Report ---
XR chest 1V portable CLINICAL HISTORY: Dyspnea COMPARISON STUDY: Chest radiograph November 09, 2019. FINDINGS: There is no pneumothorax. Skinfold project over the chest. Small bilateral pleural effusion s are noted. These have slightly decreased since prior exam. Moderate cardiomegaly is noted. There is a prosthetic aortic valve. There is pulmonary vascular congestion. IMPRESSION: Pulmonary vascular congestion with small bilateral pleural effusions, slightly decreased since prior exam. ACT 112: Negative or not required by law. Electronically signed by: Vinicio Silva M.D. 11/11/2019 2:51 PM
[2019-11-11 15:06] LABS: Appearance Urine Clear (Clear); Bilirubin Urine Negative (Negative); Blood Urine Negative (Negative); Color Urine Yellow; Glucose Urine UA Negative (Negative); Ketones Urine Negative (Negative); Leukocyte Esterase Urine Negative (Negative); Nitrite Urine Negative (Negative); Protein Urine Negative (Negative); Specific Gravity Urine 1.009 (1.000-1.030); Urobilinogen Urine Negative (Negative)
[2019-11-11] MEDS ORDERED: FUROSEMIDE 40 MG/4 ML VIAL IV STA (15:20)
--- NOTE | 2019-11-11 17:27 | History & Physical Report ---
Date of Service November 11, 2019 Assessment & Plan (1) Acute exacerbation of CHF (congestive heart failure): This is an 89-year-old female that was just in the emergency room on acute UTI. She was started on antibiotics and sent home. She reports that this morning she had sudden onset of shortness of breath with a mild cough. There is no sputum production. The patient currently is oxygenating well. She is found to be in atrial fibrillation as a proBNP that is elevated at 4350. She recently had travel to [place] where she saw her grandchildren and other relatives. She did not have her mask on correctly for the entire visit. She has no other symptoms of COVID. She is unaware of any positive Covid contacts. She was recently tested in August for COVID which was negative. Recommendations: Patient's most recent echocardiogram was January [address] Terrazas on a regular basis and recently had her furosemide increased to 60 mg p.o. twice daily We will change her to IV furosemide 40 mg twice daily and ask cardiology to see her secondary to her CHF, atrial fibrillation. Repeat echocardiogram is been ordered for tomorrow EKG will be checked in the morning. Current EKG shows atrial fibrillation Troponin slightly bumped at 0.068 -serial ISOs have been ordered. This is most likely ischemic demand. Patient has no symptoms of ACS Continue on supplemental oxygen to maintain SaO2 between 88 and 92% Patient does use nocturnal O2. This is been ordered for 1.5 L/min by nasal cannula HS Follow on telemetry secondary to atrial fibrillation We will also follow strict I's and O's and daily weights (2) Pulmonary edema: Patient does have shortness of breath. Is unclear if this is secondary pulmonary edema, atrial fibrillation Patient recently visited family in [place]. Check a rapid COVID before transferring to the floor Some pulmonary edema on chest x-ray Increase furosemide to 40 mg IV twice daily Incentive spirometry Strict I's and O's Check repeat echocardiogram Patient also has a history of hypercapnia from previous admissions. Will check a stat ABG Follow on telemetry Repeat chest x-ray in the morning (3) Acute UTI: Uncomplicated UTI discovered 11/09/2019 in the emergency department Patient discharged home on ciprofloxacin We will continue abx inpatient for 3 more doses (4) Elevated troponin I level: Most likely ischemic demand from shortness of breath Check serial troponin Check echocardiogram Cardiology consulted (5) Chronic atrial fibrillation: Currently rate controlled Continue home medications including metoprolol and digoxin Check EKG in the morning Continue warfarin and follow daily INR (6) COPD (chronic obstructive pulmonary disease): Pulmonary function test not available Continue with Flovent and ipratropium/albuterol treatments as needed (7) HTN (hypertension): Continue metoprolol tartrate Continue diuretics Follow on telemetry (8) CKD (chronic kidney disease) stage 3, GFR 30-59 ml/min: Creatinine is currently 1.17 GFR is reduced Follow serial labs No IV fluids at this time as we are diuresing patient for CHF exacerbation for diastolic heart failure (9) Depression: Patient recently changed to Zoloft. We will continue this during her inpatient stay. (10) Anemia, chronic renal failure: No active bleeding Hemoglobin currently is 11.2 g/Lyly Follow serial labs daily (11) DVT prophylaxis: Continue warfarin at home doses INR currently is minimally subtherapeutic at 1.8 Check an INR in the morning and adjust warfarin as needed Currently rate controlled with atrial fibrillation We will order SCDs Ambulate as tolerated with assistance Please refer to Dr. Rodney's addendum for further recommendations. History of Present Illness Primary Care Provider: Ariana Pendleton MD Attending: Dr. Rodney This is an 89-year-old female with a past medical history including asthma, diastolic heart failure due to valvular disease, moderate COPD, esophageal reflux, senile osteoporosis, general anxiety and depression disorder, vitamin D deficiency, tricuspid regurgitation, dyslipidemia, mitral valve regurgitation, chronic atrial fibrillation on chronic anticoagulation, benign esophageal stricture history, gout, essential hypertension, pulmonary hypertension, chronic kidney disease stage III, GI bleed with internal hemorrhoids. The patient presents to the emergency department today with shortness of breath. She states that she was in the emergency room on 08 November and treated for urinary tract infection with ciprofloxacin twice daily. She was doing well at home but this morning began to have acute exacerbation of shortness of breath. She has no cough or sputum production. She denies fever. She has no chest pain or tightness. She has no dyspnea with exertion or chest pain with exertion. She denies any nausea or vomiting or diarrhea. Her most recent bowel movement was yesterday and was formed with no evidence of bleeding. Her hemoglobin is stable. She does have chronic atrial fibrillation but is rate controlled in the 80s with an INR of 1.8. She has no falls. She denies headache or change in vision. She has no stroke symptoms. On evaluation in the emergency department she was found to have an elevated proB [employer] at 4520. Her CO2 was also elevated with serum. An ABG is pending. She had a slight bump in troponin at 0.068 suspected to be ischemic demand. EKG showed atrial fibrillation which was rate controlled with no clear ST changes. Chest x-ray today shows pulmonary edema with small bilateral pleural effusions. Patient has minimal lower extremity edema. She states that she has edema daily and it improves with elevation of the legs. The patient has a remote smoking history and quit smoking cigarettes 20 years ago. She has no history of ethanol abuse. The patient lives with her boyfriend at home. They have lived together for the last 21 years. He is younger than her and manages all of her medications and assist with ADLs. Allergies Allergy/AdvReac Type Severity Reaction Status Date / Time Sulfa (Sulfonamide Allergy Severe Hives and Verified 11/11/19 16:41 Antibiotics) swelling of throat meperidine AdvReac Severe Hallucinations Verified 11/11/19 16:41 and tachycardia oxycodone AdvReac Severe Hallucinati Verified 11/11/19 16:41 ng Home Medications Home Medications Medication Instructions Recorded Confirmed Type albuterol sulfate [Ventolin HFA] 2 puff INHALATION Q4H PRN 01/06/18 11/11/19 History ipratropium-albuterol 3 ml INHALATION Q4H PRN 01/06/18 11/11/19 History acetaminophen [Tylenol Extra 1,000 mg PO Q6H PRN 03/14/18 11/11/19 History Strength] aspirin 81 mg PO QPM 03/14/18 11/11/19 History metoprolol tartrate 75 mg PO Q8H 03/14/18 11/11/19 History digoxin 0.125 mg PO DAILY@1600 #30 tab 04/13/18 11/11/19 Rx furosemide 60 mg PO BID 09/06/19 11/11/19 History warfarin 2 mg PO 2XWK 09/06/19 11/11/19 History warfarin 4 mg PO 5XWK 09/06/19 11/11/19 History latanoprost 1 drp OPB HS 10/09/19 11/11/19 History sennosides-docusate sodium 2 tabcap PO BID PRN 10/11/19 11/11/19 History [Senokot-S] ciprofloxacin HCl [Cipro] 500 mg PO BID 7 Days #14 tab 11/09/19 11/11/19 Rx fluticasone propionate [Flovent 1 puff INHALATION UD 11/09/19 11/11/19 History HFA] sertraline 25 mg PO DAILY 11/09/19 11/11/19 History simethicone [Gas-X] 80 mg PO BID PRN 11/11/19 11/11/19 History Past Med/Surg History Medical History Anemia, chronic renal failure Anxiety Aortic stenosis Atrial fibrillation CKD (chronic kidney disease) stage 3, GFR 30-59 ml/min COPD (chronic obstructive pulmonary disease) inhaler/nebulizer prn Depression Diastolic CHF due to valvular disease Dysphagia Glaucoma Hearing deficit History of rheumatic fever as a child HTN (hypertension) Hypertension Hypoxic On anticoagulant therapy warfarin daily On home oxygen therapy 1 L N/C at sleep and prn Osteoarthritis Poor historian SIRS (systemic inflammatory response syndrome) Subcutaneous hematoma Surgical History History of aortic valve replacement 01/2018 @ [facility] History of appendectomy History of bilateral tubal ligation History of cardiac cath 12/2017 no stents @ [facility] 01/2018 @ [facility] no stents History of cholecystectomy History of colonoscopy with polypectomy History of esophagogastroduodenoscopy (EGD) History of tooth extraction all lower teeth History of total hysterectomy "fibroids" S/P cataract surgery bilt Family History Other Family history non-contributory Heart disease No family history of adverse response to anesthesia Social History Smoking Status: Former smoker Tobacco Type: Cigarettes Cigarettes Per Day: quit 20yrs ago; Second Hand Exposure: No; Do You Dip or Chew Tobacco: No; Tobacco Cessation Education Requested by Patient: No Hx Alcohol Use: No Hx Substance Use: No Preferred Language: Swedish Communication Ability: Effective Visual Impairment: No Limitations Gasoline Tester Required: No Beliefs That Will Affect Care: None marital status: Life Partner Current Living Situation: Significant Other Current Living Situation Comment: 2 bedroom [place] current occupational status: retired How many Children do You have: 5 Other Information That Helps Us Care for You: No Feels Safe at Home: Yes Safety Concerns: Feels Safe At This Time Review of Systems Review of Systems: All systems reviewed & are unremarkable except as noted in HPI & below Physical Exam Physical Exam: GENERAL : No acute distress but extremely anxious. She is concerned that she is going to . EYES: No icterus, gaze conjugate. Pupils equal round and reactive to light NOSE: No evidence of epistaxis. MOUTH: No lesions or candidiasis. NECK: Supple. No appreciation of carotid bruits. No appreciation of stridor LUNGS: Coarse crackles at the bilateral bases. No bronchospasm or rhonchi HEART: Irregular, irregular, rate controlled with a heart rate of 75 bpm ABDOMEN: Soft, NT, ND, BS Present EXTREMITIES: No LE edema, pedal pulses intact and equal bilaterally. Good sensation. There is no acute asymmetry of the calves feet or ankles. Patient does have pretibial tenderness NEURO: A&OX3. She is hard of hearing. She also has somewhat of a hoarse voice. Otherwise, cranial nerves II through XII appear grossly intact without focal deficit. Results & Data Results & Data ([facility]) Vital Signs (Past 12 Hours) Vital Signs Temp Pulse Pulse Resp BP BP Pulse Ox 11/11/19 16:26 11/11/19 16:00 74 18 186/66 H 95 11/11/19 14:55 74 18 169/89 H 94 11/11/19 14:04 96 11/11/19 13:23 36.8 C 81 18 146/72 H 98 11/11/19 13:13 95 Pulse Ox 11/11/19 16:26 94 11/11/19 16:00 11/11/19 14:55 11/11/19 14:04 11/11/19 13:23 11/11/19 13:13 Laboratory Results 11/11/19 13:53 11/11/19 13:53 11/11/19 13:53 Troponin I 0.068 H* INR 1.8 (0.9-1.1) H 11/11/19 13:53 Diagnostic Findings XR chest 1V portable CLINICAL HISTORY: Dyspnea COMPARISON STUDY: Chest radiograph November 09, 2019. FINDINGS: There is no pneumothorax. Skinfold project over the chest. Small bilateral pleural effusions are noted. These have slightly decreased since prior exam. Moderate cardiomegaly is noted. There is a prosthetic aortic valve. There is pulmonary vascular congestion. IMPRESSION: Pulmonary vascular congestion with small bilateral pleural effusion s, slightly decreased since prior exam. ACT 112: Negative or not required by law. Electronically signed by: Vinicio Silva M.D. 11/11/2019 2:51 PM Dictated: 11/11/19 1448 Transcribed: 11/11/19 1 Code Status & VTE Plan Code Status Level I: Full resuscitation VTE Prophylaxis Plan VTE Prophylaxis will be ordered: Yes Supervising Physician Co-Signing Physician Notes Patient is an 89-year-old female with history of diastolic heart failure, valvular heart disease, pulmonary hypertension, COPD on chronic oxygen dependency 1 L at bedtime, CKD stage III and other medical problems presents with history of worsening shortness of breath since 1 day duration. She had an ER visit 2 days ago and was diagnosed to have urinary tract infection and is currently on ciprofloxacin. She admits to taking her medications regularly at home. Denies any chest pain, cough, fever, nausea, vomiting, abdominal pain. Her BNP was elevated at 4520. Chest x-ray suggestive of pulmonary vascular congestion with small bilateral pleural effusions. She is still able to maintain oxygen saturations on room air. INR is subtherapeutic at 1.8. Patient has chronic troponin elevation. Urinalysis is clear today. Please review HPI for complete details of presentation. On exam patient is thin, frail, elderly, no apparent distress, normocephalic atraumatic, lungs--decreased breath sounds, crackles at bases, scattered wheezes, no accessory muscle use, irregularly irregular rhythm,+ systolic murmur, 1+ bilateral lower extremity pedal edema, abdomen soft, mildly distended, nontender, normal bowel sounds, grossly no focal neurologic deficits. Patient is admitted for management of acute on chronic diastolic heart failure. Agree with IV Lasix 40 mg twice daily. Will check I's and O's, daily weight, monitor electrolytes and renal function while on IV diuretics. Supplemental oxygen as needed. Will update echo, consult cardiology. Will monitor INR, give 5 mg Coumadin today. Continue supplemental oxygen at bedtime. Will repeat EKG in the morning. Trend cardiac enzymes. Continue ciprofloxacin to complete course for UTI. Agree with checking for COVID screen. I personally reviewed the record. Patient is interviewed and examined at bedside. Patient's care is coordinated with Chuy Gibbs PA-C. Please refer to the documentation above for details of patient's presentation and for discussion of other issues. (1) Acute exacerbation of CHF (congestive heart failure) Heart failure type: diastolic Qualified Code(s): I50.33 - Acute on chronic diastolic (congestive) heart failure (2) Pulmonary edema Chronicity: acute Qualified Code(s): J81.0 - Acute pulmonary edema
[2019-11-11 18:02] LABS: HCO3 ABG 38 mmol/L (19-24); Oxygen Saturation ABG 90.5 % (90-95); PCO2 ABG 57 mmHg (35-46); PO2 ABG 63 mmHg (80-95); pH ABG 7.44 (7.35-7.45)
[2019-11-11 18:10] LABS: Allen Test POS (Pos)
[2019-11-11] MEDS ORDERED: ALBUTEROL HFA 8 GM INHALER INH PRN (20:04)
[2019-11-11] MEDS ORDERED: DIGOXIN 0.125 MG TAB PO ONE (20:04)
[2019-11-11] MEDS ORDERED: ALUMINUM/MAGNESIUM SUSP 30 ML UDC PO PRN (20:04)
[2019-11-11] MEDS ORDERED: SIMETHICONE 80 MG CHEW PO PRN (20:04)
[2019-11-11] MEDS ORDERED: WARFARIN SOD 1 MG TAB PO STA (20:04)
[2019-11-11] MEDS ORDERED: POLYETHYLENE (MIRALAX) 17 GM PACK PO PRN (20:04)
[2019-11-11] MEDS ORDERED: XOPENEX/ATROVENT 0.63mg/0.5MG NEB COMBO NEB SCH (20:04)
[2019-11-11] MEDS ORDERED: MAGNESIUM HYDROXIDE SUSP 30 ML UDC PO PRN (20:04)
[2019-11-11] MEDS ORDERED: DOCUSATE SODIUM/SENNA 50/8.6MG TAB PO PRN (20:04)
[2019-11-11] MEDS: ALBUT/IPRATROP 3MG/0.5MG NEB 3 ML VIAL INH PRN (20:43)
[2019-11-11] MEDS ORDERED: FUROSEMIDE 40 MG/4 ML VIAL IV SCH (21:00)
[2019-11-11 21:14] LABS: Creatine Kinase MB 4.3 ng/ml (0.5-3.6)
[2019-11-11] MEDS: ASPIRIN 81 MG ECTAB PO SCH (21:32)
[2019-11-11] MEDS: LATANOPROST 0.005% OP SOLN 2.5 ML BTL OPB SCH (21:33)
[2019-11-11] MEDS: CIPROFLOXACIN 250 MG TAB PO SCH (21:33)
[2019-11-11] MEDS: METOPROLOL TARTRATE 25 MG TAB PO SCH (21:34)
[2019-11-11] MEDS: FUROSEMIDE 40 MG in SYRINGE 0 ML IV SCH (21:35)
[2019-11-12] MEDS: IPRATROPIUM BROMIDE NEB SOLN 0.02% 2.5 ML VIAL INH SCH ×4 (00:02→18:58)
[2019-11-12] MEDS: LEVALBUTEROL HCL 0.63 MG/3 ML NEB NEB SCH ×4 (00:02→18:58)
[2019-11-12] MEDS ORDERED: WARFARIN SOD 2 MG TAB PO ONE (01:23)
[2019-11-12 06:30] LABS: Basophils # (auto) 0.02 K/uL (0-0.2); Basophils % (auto) 0.4 %; Eosinophils # (auto) 0.13 K/uL (0-0.5); Eosinophils % (auto) 2.3 %; Hematocrit (blood only) 35.9 % (37-47); Hemoglobin 11.3 g/dL (12.0-16.0); Immature Granulocytes # (auto) 0.01 K/uL (0.00-0.02); Immature Granulocytes % (auto) 0.2 %; Lymphocytes # (auto) 0.64 K/uL (1.2-3.4); Lymphocytes % (auto) 11.4 %; Mean Corpuscular Hemoglobin 30.6 pg (25-34); Mean Corpuscular Hgb Conc 31.5 g/dL (32-36); Mean Corpuscular Volume 97.3 fL (80-100); Mean Platelet Volume 9.7 fL (7.4-10.4); Monocytes # (auto) 0.59 K/uL (0.11-0.59); Monocytes % (auto) 10.5 %; Neutrophils # (auto) 4.21 K/uL (1.4-6.5); Neutrophils % (auto) 75.2 %; Platelet Count 267 K/uL (130-400); RDW Coefficient of Variation 14.1 % (11.5-14.5); RDW Standard Deviation 50.6 fL (36.4-46.3); Red Blood Count 3.69 M/uL (4.2-5.4)
[2019-11-12 06:37] LABS: INR 1.9 (0.9-1.1); Prothrombin Time 19.6 Seconds (9.0-12.0)
[2019-11-12] MEDS: METOPROLOL TARTRATE 25 MG TAB PO SCH ×3 (06:37→21:58)
[2019-11-12 07:02] LABS: BUN Creatinine Ratio 27.7 (10-20); Calcium 8.9 mg/dl (8.5-10.1); Creatinine Clr Calc Pharmacy 33.5 ml/min; Est GFR (Non-African American) 55.3; Magnesium 2.3 mg/dl (1.8-2.4); Potassium 3.8 mmol/L (3.5-5.1)
--- NOTE | 2019-11-12 08:27 | Cardiology Consultation ---
Date of Consultation November 12, 2019 Assessment & Plan (1) Acute on chronic diastolic HF (heart failure): Patient admitting to significant dietary indiscretion and presenting with symptoms suggestive of acute on chronic diastolic/right sided heart failure with increased edema, SOB, and small pleural effusions on chest xray Symptoms improving with IV furosemide 40 mg BID. Continue IV diuretics today. Will plan to hold Diuretics in AM on 11/12 until labs are reviewed and evaluated by provider. Home dose furosemide 60 mg BID likely to be resumed. In September 2019, spironolactone 25 mg daily was discontinued (along with lisinopril) for hyperkalemia. Could consider resuming lower dose 12.5 mg - 3 days per week on discharge as well. Monitor I+O's Daily weight recommended Low sodium diet encouraged (2) Elevated troponin I level: Likely due to hypoxia, CHF, pulm edema. No acute EKG changes and no chest pain to suggest ACS. Echocardiogram is pending Patient had a normal cardiac catheterization, normal coronary arteries in 2018 pre - TAVR (3) A-fib: Chronic afib. Rates controlled Continue digoxin, metoprolol, and coumadin (4) H/O aortic valve replacement: Echocardiogram results pending. Per Echo in Jan 2019, normal/hyperdynamic LVEF>70%, mild paravalvular leak of TAVR, no stenosis or regurgitation, severe TR, elevated pulm pressures (5) Pulmonary edema: Continue diuretics. History of underlying COPD Assess oxygen needs upon discharge. Case to be discussed with Dr. Morrissey. Will follow. Supervising Physician Co-Signing Physician Notes Patient seen and examined at the bedside. Presented to the emergency department with worsening lower extremity edema, and shortness of breath. Diagnosed with acute decompensated heart failure. Treated with intravenous diuretic therapy overnight. Fluid balance negative more than 1.4 L. Clinical status has improved. Patient denies dyspnea. Oxygen saturations are stable on 1 L nasal cannula. Lower extremity edema improved, however, persists. Telemetry reveals atrial fibrillation with controlled ventricular response. PE: VSS. AAOx3. Heart: Irregular rhythm, no murmur appreciated. Lungs: Mildly diminished breath sounds at the bases bilaterally. No rales, rhonchi, or wheeze. Abdomen: Soft, nontender, nondistended, normal bowel sounds. No rebound or guarding. Extremities: 1-2+ bilateral pedal, ankle, and pretibial edema. Neurologic: No focal motor deficit. A/P: Agree with above MC history, physical exam, assessment and plan. Continue intravenous diuretic therapy, Lasix 40 IV every 12. Follow fluid balance, daily weight, GFR, and electrolytes. ROLF inhibitor and Aldactone recently discontinued in the setting of hyperkalemia and renal insufficiency. Consider addition of low-dose Aldactone on a reduced schedule at time of discharge. Thank you for allowing participate in the care of your patient. Cardiology will continue to follow patient during hospitalization. History of Present Illness Reason for Consultation: CHF; AFib Requesting Physician: Chuy Gibbs PA-C Attending Physician: Dr. Morrissey History of Present Illness Patient is an 89 year old female who follows with [facility], Dr. Terrazas as an outpatient for history of chronic atrial fibrillation on chronic Coumadin, hypertension, and history of aortic stenosis s/p TAVR in 2018. Cardiac catheterization at that time demonstrated normal coronary arteries. Patient is hard of hearing. Most of her history was obtained through outpatient [facility] records. Patient presented to [facility] yesterday with complaints of worsening shortness of breath, increased edema, and "full of fluid in her lungs". She admitted to significant dietary indiscretion with high sodium foods over the last few weeks. She is not able to verbalize home medications. She has someone fill pill boxes. Per review of outpatient records, in September, her spironolactone and lisinopril were discontinued due to hyperkalemia. It appears she has been taking furosemide 60 mg BID. In the ER, chest xray was noted to have mild pulm vascular congestion with small b/l pleural effusions. She was started on oxygen and IV lasix 40 mg BID. Her troponin was minimally elevated, likely consistent with CHF exacerbation. Patient denied chest pain. EKG demonstrated rate controlled atrial fibrillation without ischemic changes. Echo was ordered and completed, results pending. At time of consult, patient resting in chair feeling well. Reports her SOB has improved since admission. No edema on exam. No chest pain. She remains on low oxygen 1 L NC. Ambulating in hallways with therapy without significant complaints. No orthopnea, PND. She notes ongoing cough, which is unchanged. She reports this is chronic due to COPD. No fever or chills. No recent sick contacts. Allergies Allergy/AdvReac Type Severity Reaction Status Date / Time Sulfa (Sulfonamide Allergy Severe Hives and Verified 11/11/19 16:41 Antibiotics) swelling of throat meperidine AdvReac Severe Hallucinations Verified 11/11/19 16:41 and tachycardia oxycodone AdvReac Severe Hallucinati Verified 11/11/19 16:41 ng Home Medications Home Medications Medication Instructions Recorded Confirmed Type albuterol sulfate [Ventolin HFA] 2 puff INHALATION Q4H PRN 01/06/18 11/11/19 History ipratropium-albuterol 3 ml INHALATION Q4H PRN 01/06/18 11/11/19 History acetaminophen [Tylenol Extra 1,000 mg PO Q6H PRN 03/14/18 11/11/19 History Strength] aspirin 81 mg PO QPM 03/14/18 11/11/19 History metoprolol tartrate 75 mg PO Q8H 03/14/18 11/11/19 History digoxin 0.125 mg PO DAILY@1600 #30 tab 04/13/18 11/11/19 Rx furosemide 60 mg PO BID 09/06/19 11/11/19 History warfarin 2 mg PO 2XWK 09/06/19 11/11/19 History warfarin 4 mg PO 5XWK 09/06/19 11/11/19 History latanoprost 1 drp OPB HS 10/09/19 11/11/19 History sennosides-docusate sodium 2 tabcap PO BID PRN 10/11/19 11/11/19 History [Senokot-S] ciprofloxacin HCl [Cipro] 500 mg PO BID 7 Days #14 tab 11/09/19 11/11/19 Rx fluticasone propionate [Flovent 1 puff INHALATION UD 11/09/19 11/11/19 History HFA] sertraline 25 mg PO DAILY 11/09/19 11/11/19 History simethicone [Gas-X] 80 mg PO BID PRN 11/11/19 11/11/19 History Patient History Medical History Anemia, chronic renal failure Anxiety Aortic stenosis Atrial fibrillation CKD (chronic kidney disease) stage 3, GFR 30-59 ml/min COPD (chronic obstructive pulmonary disease) inhaler/nebulizer prn Depression Diastolic CHF due to valvular disease Dysphagia Glaucoma Hearing deficit History of rheumatic fever as a child HTN (hypertension) Hypertension Hypoxic On anticoagulant therapy warfarin daily On home oxygen therapy 1 L N/C at sleep and prn Osteoarthritis Poor historian SIRS (systemic inflammatory response syndrome) Subcutaneous hematoma Surgical History History of aortic valve replacement 01/2018 @ [facility] [place] History of appendectomy History of bilateral tubal ligation History of cardiac cath 12/2017 no stents @ [facility] 01/2018 @ [facility] [place] no stents History of cholecystectomy History of colonoscopy with polypectomy History of esophagogastroduodenoscopy (EGD) History of tooth extraction all lower teeth History of total hysterectomy "fibroids" S/P cataract surgery bilt Family History Other Family history non-contributory Heart disease No family history of adverse response to anesthesia Social History Smoking Status: Former smoker Tobacco Type: Cigarettes Cigarettes Per Day: quit 20yrs ago; Second Hand Exposure: No; Do You Dip or Chew Tobacco: No; Tobacco Cessation Education Requested by Patient: No Hx Alcohol Use: No Hx Substance Use: No Preferred Language: Sinhala Communication Ability: Effective Visual Impairment: No Limitations Development Associate Required: No Beliefs That Will Affect Care: None marital status: Life Partner Current Living Situation: Significant Other Current Living Situation Comment: 2 bedroom appartment in [place] current occupational status: retired How many Children do You have: 5 Other Information That Helps Us Care for You: No Feels Safe at Home: Yes Safety Concerns: Feels Safe At This Time Review of Systems Review of Systems: All systems reviewed & are unremarkable except as noted in HPI & below Physical Exam Constitutional: WD/WN, vitals as above + thin; no acute distress Hard of hearing Eyes: PERRL, conjunctivae normal, anicteric sclerae Neck: normal visual inspection Respiratory: no respiratory distress and no labored breathing Auscultation: + diminished lung sounds; no rales and no rhonchi Cardiovascular: Rate/Rhythm: + irregularly irregular Heart Sounds: + murmur (II/ systolic murmur) Vessels: no JVD Extremities: no edema Gastrointestinal (Abdomen): normal bowel sounds, soft, nontender, no hepatosplenomegaly Musculoskeletal: no cyanosis or clubbing, extremities motor strength 5/5 Neurologic: PERRL, EOMI, accommodation nl, no face palsy, no dysarthria Psychiatric: A+Ox3, euthymic affect Results & Data ([facility]) Vital Signs (Past 12 Hours) Vital Signs Temp Pulse Pulse Pulse Resp BP BP 11/12/19 08:18 36.9 C 70 18 133/63 11/12/19 07:25 83 18 11/12/19 03:27 36.7 C 87 19 173/84 H 11/12/19 00:04 62 20 11/11/19 23:36 36.8 C 67 18 148/68 H 11/11/19 23:00 69 11/11/19 21:34 89 11/11/19 20:47 83 16 Pulse Ox 11/12/19 08:18 90 11/12/19 07:25 91 11/12/19 03:27 94 11/12/19 00:04 100 11/11/19 23:36 92 11/11/19 23:00 11/11/19 21:34 11/11/19 20:47 100 Laboratory Results 11/12/19 11/12/19 11/12/19 Range/Units 06:02 06:02 06:02 WBC 5.60 (4.8-10.8) K/uL RBC 3.69 L (4.2-5.4) M/uL Hgb 11.3 L (12.0-16.0) g/dL Hct 35.9 L (37-47) % MCV 97.3 (80-100) fL MCH 30.6 (25-34) pg MCHC 31.5 L (32-36) g/dL RDW Std Deviation 50.6 H (36.4-46.3) fL RDW Coeff of Zain 14.1 (11.5-14.5) % Plt Count 267 (130-400) K/uL MPV 9.7 (7.4-10.4) fL Immature Gran % (Auto) 0.2 % Neut % (Auto) 75.2 % Lymph % (Auto) 11.4 % [place] % (Auto) 10.5 % Eos % (Auto) 2.3 % Baso % (Auto) 0.4 % Neut # (Auto) 4.21 (1.4-6.5) K/uL Lymph # (Auto) 0.64 L (1.2-3.4) K/uL [place] # (Auto) 0.59 (0.11-0.59) K/uL Eos # (Auto) 0.13 (0-0.5) K/uL Baso # (Auto) 0.02 (0-0.2) K/uL Immature Gran # (Auto) 0.01 (0.00-0.02) K/uL PT 19.6 H (9.0-12.0) Seconds INR 1.9 H (0.9-1.1) APTT (21.0-31.0) Seconds PTT Ratio ABG pH (7.35-7.45) ABG pCO2 (35-46) mmHg ABG pO2 (80-95) mmHg ABG HCO3 (19-24) mmol/L ABG O2 Saturation (90-95) % ABG Base Excess (-9-1.8) mEq/L Holland Test (Pos) Barometric Pressure mm/Hg Oxygen Given Sodium 143 (136-145) mmol/L Potassium 3.8 (3.5-5.1) mmol/L Chloride 99 (98-107) mmol/L Carbon Dioxide 40 H (21-32) mmol/L Anion Gap 3.0 (3-11) BUN 26 H (7-18) mg/dl Creatinine 0.93 (0.6-1.2) mg/dl Est Cr Clr Drug Dosing 33.5 ml/min Est GFR ( Amer) 64.0 Est GFR (Non-Af Amer) 55.3 BUN/Creatinine Ratio 27.7 H (10-20) Glucose 97 (70-99) mg/dl Calcium 8.9 (8.5-10.1) mg/dl Magnesium 2.3 (1.8-2.4) mg/dl Total Bilirubin (0.2-1) mg/dl AST (15-37) U/L ALT (12-78) U/L Alkaline Phosphatase (45-117) U/L CK-MB (CK-2) (0.5-3.6) ng/ml Troponin I (0-0.045) ng/ml NT-Pro-B Natriuret Pep (0-1800) pg/ml Total Protein (6.4-8.2) gm/dl Albumin (3.4-5.0) gm/dl Globulin (2.5-4.0) gm/dl Albumin/Globulin Ratio (0.9-2) Urine Color Urine Appearance (Clear) Urine pH (4.5-7.5) Ur Specific Waterproof (1.000-1.030) Urine Protein (Negative) Urine Glucose (UA) (Negative) Urine Ketones (Negative) Urine Blood (Negative) Urine Nitrite (Negative) Urine Bilirubin (Negative) Urine Urobilinogen (Negative) Ur Leukocyte Esterase (Negative) Digoxin (0.8-2.0) ng/ml COVID-19 Eval Order SARS-CoV-2, RNA, NAAT (NEGATIVE) 11/12/19 11/11/19 11/11/19 Range/Units 00:14 17:54 17:54 WBC (4.8-10.8) K/uL RBC (4.2-5.4) M/uL Hgb (12.0-16.0) g/dL Hct (37-47) % MCV (80-100) fL MCH (25-34) pg MCHC (32-36) g/dL RDW Std Deviation (36.4-46.3) fL RDW Coeff of Zain (11.5-14.5) % Plt Count (130-400) K/uL MPV (7.4-10.4) fL Immature Gran % (Auto) % Neut % (Auto) % Lymph % (Auto) % [place] % (Auto) % Eos % (Auto) % Baso % (Auto) % Neut # (Auto) (1.4-6.5) K/uL Lymph # (Auto) (1.2-3.4) K/uL [place] # (Auto) (0.11-0.59) K/uL Eos # (Auto) (0-0.5) K/uL Baso # (Auto) (0-0.2) K/uL Immature Gran # (Auto) (0.00-0.02) K/uL PT (9.0-12.0) Seconds INR (0.9-1.1) APTT (21.0-31.0) Seconds PTT Ratio ABG pH (7.35-7.45) ABG pCO2 (35-46) mmHg ABG pO2 (80-95) mmHg ABG HCO3 (19-24) mmol/L ABG O2 Saturation (90-95) % ABG Base Excess (-9-1.8) mEq/L Holland Test (Pos) Barometric Pressure mm/Hg Oxygen Given Sodium (136-145) mmol/L Potassium (3.5-5.1) mmol/L Chloride (98-107) mmol/L Carbon Dioxide (21-32) mmol/L Anion Gap (3-11) BUN (7-18) mg/dl Creatinine (0.6-1.2) mg/dl Est Cr Clr Drug Dosing ml/min Est GFR ( Amer) Est GFR (Non-Af Amer) BUN/Creatinine Ratio (10-20) Glucose (70-99) mg/dl Calcium (8.5-10.1) mg/dl Magnesium (1.8-2.4) mg/dl Total Bilirubin (0.2-1) mg/dl AST (15-37) U/L ALT (12-78) U/L Alkaline Phosphatase (45-117) U/L CK-MB (CK-2) (0.5-3.6) ng/ml Troponin I 0.138 H* (0-0.045) ng/ml NT-Pro-B Natriuret Pep (0-1800) pg/ml Total Protein (6.4-8.2) gm/dl Albumin (3.4-5.0) gm/dl Globulin (2.5-4.0) gm/dl Albumin/Globulin Ratio (0.9-2) Urine Color Urine Appearance (Clear) Urine pH (4.5-7.5) Ur Specific Waterproof (1.000-1.030) Urine Protein (Negative) Urine Glucose (UA) (Negative) Urine Ketones (Negative) Urine Blood (Negative) Urine Nitrite (Negative) Urine Bilirubin (Negative) Urine Urobilinogen (Negative) Ur Leukocyte Esterase (Negative) Digoxin (0.8-2.0) ng/ml COVID-19 Eval Order Covid19 IDNow [facility] SARS-CoV-2, RNA, NAAT NEGATIVE (NEGATIVE) 11/11/19 11/11/19 11/11/19 Range/Units 17:49 14:57 13:53 WBC (4.8-10.8) K/uL RBC (4.2-5.4) M/uL Hgb (12.0-16.0) g/dL Hct (37-47) % MCV (80-100) fL MCH (25-34) pg MCHC (32-36) g/dL RDW Std Deviation (36.4-46.3) fL RDW Coeff of Zain (11.5-14.5) % Plt Count (130-400) K/uL MPV (7.4-10.4) fL Immature Gran % (Auto) % Neut % (Auto) % Lymph % (Auto) % [place] % (Auto) % Eos % (Auto) % Baso % (Auto) % Neut # (Auto) (1.4-6.5) K/uL Lymph # (Auto) (1.2-3.4) K/uL [place] # (Auto) (0.11-0.59) K/uL Eos # (Auto) (0-0.5) K/uL Baso # (Auto) (0-0.2) K/uL Immature Gran # (Auto) (0.00-0.02) K/uL PT (9.0-12.0) Seconds INR (0.9-1.1) APTT (21.0-31.0) Seconds PTT Ratio ABG pH 7.44 (7.35-7.45) ABG pCO2 57 H (35-46) mmHg ABG pO2 63 L (80-95) mmHg ABG HCO3 38 H (19-24) mmol/L ABG O2 Saturation 90.5 (90-95) % ABG Base Excess 12.0 H (-9-1.8) mEq/L Holland Test POS (Pos) Barometric Pressure 732.6 mm/Hg Oxygen Given ROOM AIR Sodium (136-145) mmol/L Potassium (3.5-5.1) mmol/L Chloride (98-107) mmol/L Carbon Dioxide (21-32) mmol/L Anion Gap (3-11) BUN (7-18) mg/dl Creatinine (0.6-1.2) mg/dl Est Cr Clr Drug Dosing ml/min Est GFR ( Amer) Est GFR (Non-Af Amer) BUN/Creatinine Ratio (10-20) Glucose (70-99) mg/dl Calcium (8.5-10.1) mg/dl Magnesium (1.8-2.4) mg/dl Total Bilirubin (0.2-1) mg/dl AST (15-37) U/L ALT (12-78) U/L Alkaline Phosphatase (45-117) U/L CK-MB (CK-2) 4.3 H (0.5-3.6) ng/ml Troponin I (0-0.045) ng/ml NT-Pro-B Natriuret Pep (0-1800) pg/ml Total Protein (6.4-8.2) gm/dl Albumin (3.4-5.0) gm/dl Globulin (2.5-4.0) gm/dl Albumin/Globulin Ratio (0.9-2) Urine Color Yellow Urine Appearance Clear (Clear) Urine pH 7.0 (4.5-7.5) Ur Specific Waterproof 1.009 (1.000-1.030) Urine Protein Negative (Negative) Urine Glucose (UA) Negative (Negative) Urine Ketones Negative (Negative) Urine Blood Negative (Negative) Urine Nitrite Negative (Negative) Urine Bilirubin Negative (Negative) Urine Urobilinogen Negative (Negative) Ur Leukocyte Esterase Negative (Negative) Digoxin (0.8-2.0) ng/ml COVID-19 Eval Order SARS-CoV-2, RNA, NAAT (NEGATIVE) 11/11/19 11/11/19 11/11/19 Range/Units 13:53 13:53 13:53 WBC (4.8-10.8) K/uL RBC (4.2-5.4) M/uL Hgb (12.0-16.0) g/dL Hct (37-47) % MCV (80-100) fL MCH (25-34) pg MCHC (32-36) g/dL RDW Std Deviation (36.4-46.3) fL RDW Coeff of Zain (11.5-14.5) % Plt Count (130-400) K/uL MPV (7.4-10.4) fL Immature Gran % (Auto) % Neut % (Auto) % Lymph % (Auto) % [place] % (Auto) % Eos % (Auto) % Baso % (Auto) % Neut # (Auto) (1.4-6.5) K/uL Lymph # (Auto) (1.2-3.4) K/uL [place] # (Auto) (0.11-0.59) K/uL Eos # (Auto) (0-0.5) K/uL Baso # (Auto) (0-0.2) K/uL Immature Gran # (Auto) (0.00-0.02) K/uL PT 18.6 H (9.0-12.0) Seconds INR 1.8 H (0.9-1.1) APTT 33.2 H (21.0-31.0) Seconds PTT Ratio 1.2 ABG pH (7.35-7.45) ABG pCO2 (35-46) mmHg ABG pO2 (80-95) mmHg ABG HCO3 (19-24) mmol/L ABG O2 Saturation (90-95) % ABG Base Excess (-9-1.8) mEq/L Holland Test (Pos) Barometric Pressure mm/Hg Oxygen Given Sodium 140 (136-145) mmol/L Potassium 4.1 (3.5-5.1) mmol/L Chloride 100 (98-107) mmol/L Carbon Dioxide 36 H (21-32) mmol/L Anion Gap 4.0 (3-11) BUN 32 H (7-18) mg/dl Creatinine 1.17 (0.6-1.2) mg/dl Est Cr Clr Drug Dosing 26.6 ml/min Est GFR ( Amer) 48.5 Est GFR (Non-Af Amer) 41.9 BUN/Creatinine Ratio 27.4 H (10-20) Glucose 92 (70-99) mg/dl Calcium 9.3 (8.5-10.1) mg/dl Magnesium (1.8-2.4) mg/dl Total Bilirubin 0.4 (0.2-1) mg/dl AST 32 (15-37) U/L ALT 22 (12-78) U/L Alkaline Phosphatase 58 (45-117) U/L CK-MB (CK-2) (0.5-3.6) ng/ml Troponin I 0.068 H* (0-0.045) ng/ml NT-Pro-B Natriuret Pep 4520 H (0-1800) pg/ml Total Protein 6.7 (6.4-8.2) gm/dl Albumin 3.5 (3.4-5.0) gm/dl Globulin 3.2 (2.5-4.0) gm/dl Albumin/Globulin Ratio 1.1 (0.9-2) Urine Color Urine Appearance (Clear) Urine pH (4.5-7.5) Ur Specific Waterproof (1.000-1.030) Urine Protein (Negative) Urine Glucose (UA) (Negative) Urine Ketones (Negative) Urine Blood (Negative) Urine Nitrite (Negative) Urine Bilirubin (Negative) Urine Urobilinogen (Negative) Ur Leukocyte Esterase (Negative) Digoxin 1.1 (0.8-2.0) ng/ml COVID-19 Eval Order SARS-CoV-2, RNA, NAAT (NEGATIVE) 11/11/19 Range/Units 13:53 WBC 5.47 (4.8-10.8) K/uL RBC 3.71 L (4.2-5.4) M/uL Hgb 11.2 L (12.0-16.0) g/dL Hct 35.8 L (37-47) % MCV 96.5 (80-100) fL MCH 30.2 (25-34) pg MCHC 31.3 L (32-36) g/dL RDW Std Deviation 50.0 H (36.4-46.3) fL RDW Coeff of Zain 14.2 (11.5-14.5) % Plt Count 253 (130-400) K/uL MPV 9.5 (7.4-10.4) fL Immature Gran % (Auto) 0.0 % Neut % (Auto) 75.5 % Lymph % (Auto) 11.5 % [place] % (Auto) 11.0 % Eos % (Auto) 1.8 % Baso % (Auto) 0.2 % Neut # (Auto) 4.13 (1.4-6.5) K/uL Lymph # (Auto) 0.63 L (1.2-3.4) K/uL [place] # (Auto) 0.60 H (0.11-0.59) K/uL Eos # (Auto) 0.10 (0-0.5) K/uL Baso # (Auto) 0.01 (0-0.2) K/uL Immature Gran # (Auto) 0.00 (0.00-0.02) K/uL PT (9.0-12.0) Seconds INR (0.9-1.1) APTT (21.0-31.0) Seconds PTT Ratio ABG pH (7.35-7.45) ABG pCO2 (35-46) mmHg ABG pO2 (80-95) mmHg ABG HCO3 (19-24) mmol/L ABG O2 Saturation (90-95) % ABG Base Excess (-9-1.8) mEq/L Holland Test (Pos) Barometric Pressure mm/Hg Oxygen Given Sodium (136-145) mmol/L Potassium (3.5-5.1) mmol/L Chloride (98-107) mmol/L Carbon Dioxide (21-32) mmol/L Anion Gap (3-11) BUN (7-18) mg/dl Creatinine (0.6-1.2) mg/dl Est Cr Clr Drug Dosing ml/min Est GFR ( Amer) Est GFR (Non-Af Amer) BUN/Creatinine Ratio (10-20) Glucose (70-99) mg/dl Calcium (8.5-10.1) mg/dl Magnesium (1.8-2.4) mg/dl Total Bilirubin (0.2-1) mg/dl AST (15-37) U/L ALT (12-78) U/L Alkaline Phosphatase (45-117) U/L CK-MB (CK-2) (0.5-3.6) ng/ml Troponin I (0-0.045) ng/ml NT-Pro-B Natriuret Pep (0-1800) pg/ml Total Protein (6.4-8.2) gm/dl Albumin (3.4-5.0) gm/dl Globulin (2.5-4.0) gm/dl Albumin/Globulin Ratio (0.9-2) Urine Color Urine Appearance (Clear) Urine pH (4.5-7.5) Ur Specific Waterproof (1.000-1.030) Urine Protein (Negative) Urine Glucose (UA) (Negative) Urine Ketones (Negative) Urine Blood (Negative) Urine Nitrite (Negative) Urine Bilirubin (Negative) Urine Urobilinogen (Negative) Ur Leukocyte Esterase (Negative) Digoxin (0.8-2.0) ng/ml COVID-19 Eval Order SARS-CoV-2, RNA, NAAT (NEGATIVE) Diagnostic Findings Chest xray on admission, per report: IMPRESSION: Pulmonary vascular congestion with small bilateral pleural effusions, slightly decreased since prior exam. telemetry reviewed: Atrial fibrillation, controlled rates EKG on admission: Atrial fibrillation with controlled rates, old septal infarct, no change from prior EKG Repeat EKG this morning: Atrial fibrillation with significant artifact, poor tracing, but no acute changes identified. Echo results pending from this admission Outpatient prior echo Jan 2019: Echocardiogram January 2019 Interpretation Summary The examination is adequate to evaluate the referral indication. The LV wall thickness is mildly increased (concentric). The left ventricular wall motion is normal. The qualitative LV ejection fraction is >70% (hyperdynamic). Mild mitral regurgitation is present. The patient is status post TAVR with Andrade type prosthetic valve. Mild paravalvular aortic valve prosthesis regurgitation is present. The aortic valve prosthesis systolic gradients are normal for this type prosthesis. The peak CW velocity across the aortic valve =1.9 m/s, mean gradient 6.5 cm. Severe tricuspid valve regurgitation is present. Mild pulmonary hypertension is present. The estimated pulmonary artery systolic pressure is 44mm Hg. Compared to the prior study dated 05/09/2018, the aortic valve gradients are stable without significant interval change. The calculated pulmonary systolic pressure was 54 millimeters of Hg on the prior study, as compared to 44 millimeters of Hg on the present study Medications Administered Current Inpatient Medications Acetaminophen (Acetaminophen 500 Mg Tab) 1,000 mg PO Q6H PRN PRN Reason: Pain Stop: 12/11/19 20:03 Al Hydrox/Mg Hydrox/Simethicone (Aluminum/Magnesium Susp 30 Ml Udc) 15 ml PO Q4H PRN PRN Reason: Dyspepsia Stop: 12/11/19 20:03 Albuterol (Albuterol Hfa 8 Gm Inhaler) 2 puffs INH Q4H PRN PRN Reason: Shortness Of Breath Or Wheezin Stop: 12/11/19 20:03 Albuterol (Albut/Ipratrop 3mg/0.5mg Neb 3 Ml Vial) 3 ml INH Q4H PRN PRN Reason: COUGH, SOB OR WHEEZING Stop: 12/11/19 20:03 Last Admin: 11/11/19 20:43 Dose: 3 ml Documented by: Aspirin (Aspirin 81 Mg Ectab) 81 mg PO QPM [facility] Stop: 12/11/19 20:59 Last Admin: 11/11/19 21:32 Dose: 81 mg Documented by: Ciprofloxacin (Ciprofloxacin 250 Mg Tab) 250 mg PO BID [facility]; Protocol Stop: 11/13/19 21:01 Last Admin: 11/11/19 21:33 Dose: 250 mg Documented by: Digoxin (Digoxin 0.125 Mg Tab) 0.125 mg PO DAILY@1600 [facility] Stop: 12/12/19 15:59 Fluticasone Furoate (Fluticasone Furoate 200mcg 14 Puffs/Inhaler) 1 puffs INH DAILY [facility] Stop: 12/12/19 08:59 Furosemide 40 mg/ Syringe 4 mls @ 4 mls/min IV Q12@0800,2000 [facility] Stop: 12/11/19 20:29 Last Admin: 11/12/19 08:50 Dose: 4 mls/min Documented by: Ipratropium [place] (Ipratropium [place] Neb Soln 0.02% 2.5 Ml Vial) 0.5 mg INH Q6R [facility] Stop: 12/12/19 00:59 Last Admin: 11/12/19 07:22 Dose: 0.5 mg Documented by: Latanoprost (Latanoprost 0.005% Op Soln 2.5 Ml Btl) 1 drops OPB HS [facility] Stop: 12/11/19 20:59 Last Admin: 11/11/19 21:33 Dose: 1 drops Documented by: Levalbuterol HCl (Levalbuterol Hcl 0.63 Mg/3 Ml Neb) 0.63 mg NEB Q6R [facility] Stop: 12/12/19 00:59 Last Admin: 11/12/19 07:21 Dose: 0.63 mg Documented by: Magnesium Hydroxide (Magnesium Hydroxide Susp 30 Ml Udc) 30 ml PO Q12H PRN PRN Reason: Constipation Stop: 12/11/19 20:03 Metoprolol Tartrate (Metoprolol Tartrate 25 Mg Tab) 75 mg PO Q8H [facility] Stop: 12/11/19 21:59 Last Admin: 11/12/19 06:37 Dose: Not Given Documented by: Polyethylene Glycol (Polyethylene (Miralax) 17 Gm Pack) 17 gm PO DAILY PRN PRN Reason: Constipation Stop: 12/11/19 20:03 Senna/Docusate Sodium (Docusate Sodium/Senna 50/8.6mg Tab) 2 tab PO BID PRN PRN Reason: Constipation Stop: 12/11/19 20:03 Sertraline HCl (Sertraline Hcl 50 Mg Tablet) 25 mg PO DAILY [facility] Stop: 12/12/19 08:59 Simethicone (Simethicone 80 Mg Chew) 80 mg PO BID PRN PRN Reason: BLOATING/GAS Stop: 12/11/19 20:03 Warfarin Sodium (Warfarin Sod 4 Mg Tab) 4 mg PO DAILY@1600 [facility] Stop: 12/12/19 15:59 (1) A-fib Atrial fibrillation type: chronic Qualified Code(s): I48.2 - Chronic atrial fibrillation (2) Pulmonary edema Chronicity: acute Qualified Code(s): J81.0 - Acute pulmonary edema
[2019-11-12] MEDS: FUROSEMIDE 40 MG in SYRINGE 0 ML IV SCH ×2 (08:50→18:39)
--- NOTE | 2019-11-12 09:20 | Electrocardiogram Report ---
Test Reason : Blood Pressure : / mmHG Vent. Rate : 063 BPM Atrial Rate : 049 BPM P-R Int : 000 ms QRS Dur : 080 ms QT Int : 364 ms P-R-T Axes : 000 076 011 degrees QTc Int : 372 ms Atrial fibrillation with premature ventricular or aberrantly conducted complexes Low voltage QRS Septal infarct (cited on or before 07-JAN-2018) Abnormal ECG When compared with ECG of 11-OCT-2019 18:41, Vent. rate has decreased BY 47 BPM QT has shortened Confirmed by Herminio Nayak ([id number]) on 11/12/2019 9:20:09 AM Referred By: REFERRED SELF Confirmed By:Herminio Nayak
--- NOTE | 2019-11-12 09:35 | Electrocardiogram Report ---
Test Reason : Blood Pressure : / mmHG Vent. Rate : 067 BPM Atrial Rate : 000 BPM P-R Int : 000 ms QRS Dur : 084 ms QT Int : 358 ms P-R-T Axes : 000 129 003 degrees QTc Int : 378 ms Atrial fibrillation Right axis deviation Low voltage QRS Cannot rule out Anterior infarct (cited on or before 07-JAN-2018) Abnormal ECG When compared with ECG of 11-NOV-2019 14:18, (unconfirmed) No significant change Confirmed by Herminio Nayak ([id number]) on 11/12/2019 9:35:04 AM Referred By: REFERRED SELF Confirmed By:Herminio Nayak
[2019-11-12] MEDS: SERTRALINE HCL 50 MG TABLET PO SCH (10:58)
[2019-11-12] MEDS: CIPROFLOXACIN 250 MG TAB PO SCH ×2 (10:59→21:58)
--- NOTE | 2019-11-12 13:49 | Hospitalist Progress Note ---
Date of Service November 12, 2019 Assessment & Plan (1) Acute exacerbation of CHF (congestive heart failure): Acute on chronic diastolic CHF Exacerbation Pulmonary Edema Pulmonary Hypertension --CXR:Pulmonary vascular congestion with small bilateral pleural effusions, slightly decreased since prior exam.- --ECHO:Mild concentric LVH. Severe biatrial enlargement. 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 Mild MR. Moderate to severe TR. Estimated systolic pulmonary artery pressure 57 mmHg. EF: 60 to 65% --Continue IV lasix 40mg BID --Monitor I's and O's, daily weight, electrolytes --Appreciate Cardiology Input --Continue metoprolol, digoxin Elevated Troponin Chronic elevation noted Likely Type II in setting of CHF, Pulm edema, Hypoxia ECHO: Left ventricular wall motion is normal Patient denies chest pain Acute UTI: Diagnosed on 11/09/2019 in ER Continue Ciprofloxacin to complete the course Monitor QTC Chronic atrial fibrillation: Rate controlled Continue metoprolol, digoxin Continue Coumadin for anticoagulation Monitor INR:1.9 COPD Chronic respiratory failure with Hypoxia--1.5 L at bedtime Continue home inhalers Continue supplemental oxygen at bedtime Nebs PRN HTN Bp stable Continue metoprolol Monitor CKD III Cr at baseline Monitor renal function Avoid nephrotoxic agents as able Depression: Continue Zoloft Anemia of chronic kidney disease Hemoglobin at baseline Monitor CBC DVT Px: Coumadin Code Status Full Code Disposition PT/OT:Recommends to return home Admission and Anticipated Discharge Date Admission Date: November 11, 2019 Subjective Patient is seen and examined at bedside States feeling much better today Dyspnea improved Denies chest pain, dizziness, nausea, abdominal pain Offers no other complaints Review of Systems Review of Systems: All systems reviewed & are unremarkable except as noted in HPI & below Physical Exam Physical Exam: Physical Exam: Vitals signs as noted above General Appearance:Elderly, thin, frail, no apparent distress Head: normocephalic, Atraumatic Eyes: normal inspection, EOMI Neck: supple, Trachea midline Respiratory/Chest: Decreased breath sounds, CTA, No accessory muscle use Cardiovascular: Irregularly irregular, + systolic murmur Abdomen/GI:Soft, Non tender, Bowel sounds present Extremities/Musculoskelatal:normal inspection, 1+ B/L LE edema Neurologic/Psych:AAOX3, grossly no focal neurological deficits, +Hearing impairment Skin: normal color, warm Results & Data Results & Data ([place]) Vital Signs (Past 12 Hours) Vital Signs Temp Pulse Pulse Resp BP BP Pulse Ox 11/12/19 12:50 89 18 96 11/12/19 11:14 36.9 C 82 24 136/62 97 11/12/19 09:05 98 11/12/19 08:18 36.9 C 70 18 133/63 90 11/12/19 07:25 83 18 91 11/12/19 03:27 36.7 C 87 19 173/84 H 94 Laboratory Results Short CBC 11/11/19 11/12/19 Range/Units 13:53 06:02 WBC 5.47 5.60 (4.8-10.8) K/uL Hgb 11.2 L 11.3 L (12.0-16.0) g/dL Hct 35.8 L 35.9 L (37-47) % Plt Count 253 267 (130-400) K/uL BMP 11/11/19 11/12/19 13:53 06:02 Sodium 140 143 Potassium 4.1 3.8 Chloride 100 99 Carbon Dioxide 36 H 40 H BUN 32 H 26 H Creatinine 1.17 0.93 Glucose 92 97 Calcium 9.3 8.9 Cardiac Enzymes 11/11/19 11/11/19 11/12/19 Range/Units 13:53 13:53 00:14 CK-MB (CK-2) 4.3 H (0.5-3.6) ng/ml Troponin I 0.068 H* 0.138 H* (0-0.045) ng/ml Liver Function 11/11/19 Range/Units 13:53 Total Bilirubin 0.4 (0.2-1) mg/dl AST 32 (15-37) U/L ALT 22 (12-78) U/L Alkaline Phosphatase 58 (45-117) U/L Albumin 3.5 (3.4-5.0) gm/dl Urine 11/11/19 Range/Units 14:57 Urine Color Yellow Urine Appearance Clear (Clear) Urine pH 7.0 (4.5-7.5) Ur Specific [place] 1.009 (1.000-1.030) Urine Protein Negative (Negative) Urine Glucose (UA) Negative (Negative) (1) Acute exacerbation of CHF (congestive heart failure) Heart failure type: diastolic Qualified Code(s): I50.33 - Acute on chronic diastolic (congestive) heart failure
[2019-11-12] MEDS ORDERED: SODIUM CHLORIDE 0.9% 250 ML IV PRN (15:42)
[2019-11-12] MEDS ORDERED: WARFARIN SOD 4 MG TAB PO SCH (16:00)
[2019-11-12] MEDS ORDERED: ANUSOL SUPP 1 EA PR SCH (16:00)
[2019-11-12] MEDS ORDERED: WARFARIN SOD 2 MG TAB PO SCH (16:00)
[2019-11-12 16:09] LABS: Hematocrit (blood only) 35.7 % (37-47); Hemoglobin 11.4 g/dL (12.0-16.0)
[2019-11-12] MEDS: FLUTICASONE FUROATE 200MCG 14 PUFFS/INHALER INH SCH (16:23)
[2019-11-12] MEDS: PSYLLIUM 58.6% POWDER PACKET PO SCH (16:24)
--- NOTE | 2019-11-12 17:14 | Surgery Consultation ---
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 pt agrees with the plan, I answered all questions, Present on Admission?: Yes (2) Hemorrhoids: History of Present Illness Attending Physician: Ralph Rodney MD CC: rectal bleeding, HPI: his is an 89-year-old female with a past medical history including asthma, diastolic heart failure due to valvular disease, moderate COPD, esophageal reflux, senile osteoporosis, general anxiety and depression disorder, vitamin D deficiency, tricuspid regurgitation, dyslipidemia, mitral valve regurgitation, chronic atrial fibrillation on chronic anticoagulation, benign esophageal stricture history, gout, essential hypertension, pulmonary hypertension, chronic kidney disease stage III, GI bleed with internal hemorrhoids. The patient presents to the emergency department today with shortness of breath. She states that she was in the emergency room on 08 November and treated for urinary tract infection with ciprofloxacin twice daily. She was doing well at home but this morning began to have acute exacerbation of shortness of breath. She has no cough or sputum production. She denies fever. She has no chest pain or tightness. She has no dyspnea with exertion or chest pain with exertion. She denies any nausea or vomiting or diarrhea. Her most recent bowel movement was yesterday and was formed with no evidence of bleeding. Her hemoglobin is stable. She does have chronic atrial fibrillation but is rate controlled in the 80s with an INR of 1.8. She has no falls. She denies headache or change in vision. She has no stroke symptoms. On evaluation in the emergency department she was found to have an elevated proBNP at 4520. Her CO2 was also elevated with serum. An ABG is pending. She had a slight bump in troponin at 0.068 suspected to be ischemic demand. EKG showed atrial fibrillation which was rate controlled with no clear ST changes. Chest x-ray today shows pulmonary edema with small bilateral pleural effusions. Patient has minimal lower extremity edema. She states that she has edema daily and it improves with elevation of the legs. The patient has a remote smoking history and quit smoking cigarettes 20 years ago. She has no history of ethanol abuse. The patient lives with her boyfriend at home. They have lived together for the last 21 years. He is younger than her and manages all of her medications and assist with ADLs. I was asked to consult rectal bleeding, hemorrhoid, I reviewed pt's H/P, labs, pt stated had rectal bleeding today, pt denies dizziness, no chest pain, no abdominal pain, H/H stable 11, Allergies Allergy/AdvReac Type Severity Reaction Status Date / Time Sulfa (Sulfonamide Allergy Severe Hives and Verified 11/11/19 16:41 Antibiotics) swelling of throat meperidine AdvReac Severe Hallucinations Verified 11/11/19 16:41 and tachycardia oxycodone AdvReac Severe Hallucinati Verified 11/11/19 16:41 ng Home Medications Home Medications Medication Instructions Recorded Confirmed Type albuterol sulfate [Ventolin HFA] 2 puff INHALATION Q4H PRN 01/06/18 11/11/19 History ipratropium-albuterol 3 ml INHALATION Q4H PRN 01/06/18 11/11/19 History acetaminophen [Tylenol Extra 1,000 mg PO Q6H PRN 03/14/18 11/11/19 History Strength] aspirin 81 mg PO QPM 03/14/18 11/11/19 History metoprolol tartrate 75 mg PO Q8H 03/14/18 11/11/19 History digoxin 0.125 mg PO DAILY@1600 #30 tab 04/13/18 11/11/19 Rx furosemide 60 mg PO BID 09/06/19 11/11/19 History warfarin 2 mg PO 2XWK 09/06/19 11/11/19 History warfarin 4 mg PO 5XWK 09/06/19 11/11/19 History latanoprost 1 drp OPB HS 10/09/19 11/11/19 History sennosides-docusate sodium 2 tabcap PO BID PRN 10/11/19 11/11/19 History [Senokot-S] ciprofloxacin HCl [Cipro] 500 mg PO BID 7 Days #14 tab 11/09/19 11/11/19 Rx fluticasone propionate [Flovent 1 puff INHALATION UD 11/09/19 11/11/19 History HFA] sertraline 25 mg PO DAILY 11/09/19 11/11/19 History simethicone [Gas-X] 80 mg PO BID PRN 11/11/19 11/11/19 History Past Med/Surg History Medical History Anemia, chronic renal failure Anxiety Aortic stenosis Atrial fibrillation CKD (chronic kidney disease) stage 3, GFR 30-59 ml/min COPD (chronic obstructive pulmonary disease) inhaler/nebulizer prn Depression Diastolic CHF due to valvular disease Dysphagia Glaucoma Hearing deficit History of rheumatic fever as a child HTN (hypertension) Hypertension Hypoxic On anticoagulant therapy warfarin daily On home oxygen therapy 1 L N/C at sleep and prn Osteoarthritis Poor historian SIRS (systemic inflammatory response syndrome) Subcutaneous hematoma Surgical History History of aortic valve replacement 01/2018 @ [facility] History of appendectomy History of bilateral tubal ligation History of cardiac cath 12/2017 no stents @ [facility] 01/2018 @ [facility] no stents History of cholecystectomy History of colonoscopy with polypectomy History of esophagogastroduodenoscopy (EGD) History of tooth extraction all lower teeth History of total hysterectomy "fibroids" S/P cataract surgery bilt Family History Other Family history non-contributory Heart disease No family history of adverse response to anesthesia Social History Smoking Status: Former smoker Tobacco Type: Cigarettes Cigarettes Per Day: quit 20yrs ago; Second Hand Exposure: No; Do You Dip or Chew Tobacco: No; Tobacco Cessation Education Requested by Patient: No Hx Alcohol Use: No Hx Substance Use: No Preferred Language: Congolese Communication Ability: Effective Visual Impairment: No Limitations 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 Beliefs That Will Affect Care: None marital status: Life Partner Current Living Situation: Significant Other Current Living Situation Comment: 2 bedroom appartment in [place] current occupational status: retired How many Children do You have: 5 Other Information That Helps Us Care for You: No Feels Safe at Home: Yes Safety Concerns: Feels Safe At This Time Review of Systems Review of Systems: All systems reviewed & are unremarkable except as noted in HPI & below Allergies Allergy/AdvReac Type Severity Reaction Status Date / Time Sulfa (Sulfonamide Allergy Severe Hives and Verified 11/11/19 16:41 Antibiotics) swelling of throat meperidine AdvReac Severe Hallucinations Verified 11/11/19 16:41 and tachycardia oxycodone AdvReac Severe Hallucinati Verified 11/11/19 16:41 ng Home Medications Home Medications Medication Instructions Recorded Confirmed Type albuterol sulfate [Ventolin HFA] 2 puff INHALATION Q4H PRN 01/06/18 11/11/19 History ipratropium-albuterol 3 ml INHALATION Q4H PRN 01/06/18 11/11/19 History acetaminophen [Tylenol Extra 1,000 mg PO Q6H PRN 03/14/18 11/11/19 History Strength] aspirin 81 mg PO QPM 03/14/18 11/11/19 History metoprolol tartrate 75 mg PO Q8H 03/14/18 11/11/19 History digoxin 0.125 mg PO DAILY@1600 #30 tab 04/13/18 11/11/19 Rx furosemide 60 mg PO BID 09/06/19 11/11/19 History warfarin 2 mg PO 2XWK 09/06/19 11/11/19 History warfarin 4 mg PO 5XWK 09/06/19 11/11/19 History latanoprost 1 drp OPB HS 10/09/19 11/11/19 History sennosides-docusate sodium 2 tabcap PO BID PRN 10/11/19 11/11/19 History [Senokot-S] ciprofloxacin HCl [Cipro] 500 mg PO BID 7 Days #14 tab 11/09/19 11/11/19 Rx fluticasone propionate [Flovent 1 puff INHALATION UD 11/09/19 11/11/19 History HFA] sertraline 25 mg PO DAILY 11/09/19 11/11/19 History simethicone [Gas-X] 80 mg PO BID PRN 11/11/19 11/11/19 History Patient History Medical History Anemia, chronic renal failure Anxiety Aortic stenosis Atrial fibrillation CKD (chronic kidney disease) stage 3, GFR 30-59 ml/min COPD (chronic obstructive pulmonary disease) inhaler/nebulizer prn Depression Diastolic CHF due to valvular disease Dysphagia Glaucoma Hearing deficit History of rheumatic fever as a child HTN (hypertension) Hypertension Hypoxic On anticoagulant therapy warfarin daily On home oxygen therapy 1 L N/C at sleep and prn Osteoarthritis Poor historian SIRS (systemic inflammatory response syndrome) Subcutaneous hematoma Surgical History History of aortic valve replacement 01/2018 @ [facility] History of appendectomy History of bilateral tubal ligation History of cardiac cath 12/2017 no stents @ [facility] 01/2018 @ [facility] no stents History of cholecystectomy History of colonoscopy with polypectomy History of esophagogastroduodenoscopy (EGD) History of tooth extraction all lower teeth History of total hysterectomy "fibroids" S/P cataract surgery bilt Family History Other Family history non-contributory Heart disease No family history of adverse response to anesthesia Social History Smoking Status: Former smoker Tobacco Type: Cigarettes Cigarettes Per Day: quit 20yrs ago; Second Hand Exposure: No; Do You Dip or Chew Tobacco: No; Tobacco Cessation Education Requested by Patient: No Hx Alcohol Use: No Hx Substance Use: No Preferred Language: [place]olese Communication Ability: Effective Visual Impairment: No Limitations 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 Beliefs That Will Affect Care: None marital status: Life Partner Current Living Situation: Significant Other Current Living Situation Comment: 2 bedroom appartment in [place] current occupational status: retired How many Children do You have: 5 Other Information That Helps Us Care for You: No Feels Safe at Home: Yes Safety Concerns: Feels Safe At This Time Review of Systems Review of Systems: All systems reviewed & are unremarkable except as noted in HPI & below Constitutional: as per Subjective / HPI Eyes: as per Subjective / HPI Ear, Nose, Mouth, Throat: as per Subjective / HPI Respiratory: as per Subjective / HPI COPD Cardiovascular: as per Subjective / HPI Additional Comments: HTN, aortic stenosis, CHF, A-fib Gastrointestinal: as per Subjective / HPI abdominal pain, hemorrhoidrectal bleeding Genitourinary: as per Subjective / HPI UTI Musculoskeletal: as per Subjective / HPI Integumentary: as per Subjective / HPI Neurologic: as per Subjective / HPI Psychiatric: as per Subjective / HPI Endocrine: as per Subjective / HPI Hematologic / Lymphatic: as per Subjective / HPI Allergy / Immunological: as per Subjective / HPI Physical Exam Constitutional: well developed and well nourished Eyes: PERRL, conjunctivae normal, anicteric sclerae ENMT: external ear and nose normal, oropharynx normal Neck: trachea midline, no thyromegaly Respiratory: normal respiratory effort, lungs clear to auscultation Cardiovascular: A-fib Gastrointestinal (Abdomen): normal bowel sounds, soft, nontender, no hepatosplenomegaly rectal exam with nurse at bedside- internal hemorrhoid, no active bleeding now, no bloody stool, Musculoskeletal: no cyanosis or clubbing, extremities motor strength 5/5 Skin: no rashes, warm and dry Neurologic: patellar DTR's 2+ bilat, sensation intact Psychiatric: Orientation: oriented x 3 Results & Data ([facility]) Vital Signs (Past 12 Hours) Vital Signs Temp Pulse Pulse Pulse Resp BP BP 11/12/19 15:52 37.2 C 86 18 155/65 H 11/12/19 12:50 89 18 11/12/19 11:14 36.9 C 82 24 136/62 11/12/19 09:05 11/12/19 08:18 36.9 C 70 18 133/63 11/12/19 08:00 87 11/12/19 07:25 83 18 Pulse Ox 11/12/19 15:52 96 11/12/19 12:50 96 11/12/19 11:14 97 11/12/19 09:05 98 11/12/19 08:18 90 11/12/19 08:00 11/12/19 07:25 91 Laboratory Results Abnormal lab results 11/11/19 11/11/19 11/12/19 Range/Units 13:53 17:49 00:14 RBC (4.2-5.4) M/uL Hgb (12.0-16.0) g/dL Hct (37-47) % MCHC (32-36) g/dL RDW Std Deviation (36.4-46.3) fL Lymph # (Auto) (1.2-3.4) K/uL PT (9.0-12.0) Seconds INR (0.9-1.1) ABG pCO2 57 H (35-46) mmHg ABG pO2 63 L (80-95) mmHg ABG HCO3 38 H (19-24) mmol/L ABG Base Excess 12.0 H (-9-1.8) mEq/L Carbon Dioxide (21-32) mmol/L BUN (7-18) mg/dl BUN/Creatinine Ratio (10-20) CK-MB (CK-2) 4.3 H (0.5-3.6) ng/ml Troponin I 0.138 H* (0-0.045) ng/ml Crossmatch 11/12/19 11/12/19 11/12/19 Range/Units 06:02 06:02 06:02 RBC 3.69 L (4.2-5.4) M/uL Hgb 11.3 L (12.0-16.0) g/dL Hct 35.9 L (37-47) % MCHC 31.5 L (32-36) g/dL RDW Std Deviation 50.6 H (36.4-46.3) fL Lymph # (Auto) 0.64 L (1.2-3.4) K/uL PT 19.6 H (9.0-12.0) Seconds INR 1.9 H (0.9-1.1) ABG pCO2 (35-46) mmHg ABG pO2 (80-95) mmHg ABG HCO3 (19-24) mmol/L ABG Base Excess (-9-1.8) mEq/L Carbon Dioxide 40 H (21-32) mmol/L BUN 26 H (7-18) mg/dl BUN/Creatinine Ratio 27.7 H (10-20) CK-MB (CK-2) (0.5-3.6) ng/ml Troponin I (0-0.045) ng/ml Crossmatch 11/12/19 11/12/19 Range/Units 15:59 15:59 RBC (4.2-5.4) M/uL Hgb 11.4 L (12.0-16.0) g/dL Hct 35.7 L (37-47) % MCHC (32-36) g/dL RDW Std Deviation (36.4-46.3) fL Lymph # (Auto) (1.2-3.4) K/uL PT (9.0-12.0) Seconds INR (0.9-1.1) ABG pCO2 (35-46) mmHg ABG pO2 (80-95) mmHg ABG HCO3 (19-24) mmol/L ABG Base Excess (-9-1.8) mEq/L Carbon Dioxide (21-32) mmol/L BUN (7-18) mg/dl BUN/Creatinine Ratio (10-20) CK-MB (CK-2) (0.5-3.6) ng/ml Troponin I (0-0.045) ng/ml Crossmatch See Detail
[2019-11-12] MEDS ORDERED: hydrOXYzine HCl 10 MG TAB PO ONE (17:54)
[2019-11-12] MEDS: DIGOXIN 0.125 MG TAB PO SCH (18:38)
[2019-11-12 19:59] LABS: Troponin I 0.072 ng/ml (0-0.045)
[2019-11-12 21:54] LABS: Hematocrit (blood only) 34.7 % (37-47); Hemoglobin 11.2 g/dL (12.0-16.0)
[2019-11-12] MEDS: LATANOPROST 0.005% OP SOLN 2.5 ML BTL OPB SCH (21:57)
[2019-11-12] MEDS: ASPIRIN 81 MG ECTAB PO SCH (21:57)
[2019-11-13] MEDS: LEVALBUTEROL HCL 0.63 MG/3 ML NEB NEB SCH ×4 (00:31→19:16)
[2019-11-13] MEDS: IPRATROPIUM BROMIDE NEB SOLN 0.02% 2.5 ML VIAL INH SCH ×4 (00:31→19:16)
[2019-11-13] MEDS: ACETAMINOPHEN 500 MG TAB PO PRN ×2 (04:24→17:16)
[2019-11-13] MEDS: ALBUT/IPRATROP 3MG/0.5MG NEB 3 ML VIAL INH PRN ×2 (04:37→16:41)
[2019-11-13] MEDS: METOPROLOL TARTRATE 25 MG TAB PO SCH ×3 (06:46→20:57)
[2019-11-13 07:16] LABS: Prothrombin Time 20.1 Seconds (9.0-12.0)
[2019-11-13 07:31] LABS: BUN Creatinine Ratio 30.1 (10-20); Calcium 8.4 mg/dl (8.5-10.1); Creatinine Clr Calc Pharmacy 35.8 ml/min; Est GFR (African American) 69.4; Est GFR (Non-African American) 59.9; Potassium 3.6 mmol/L (3.5-5.1)
[2019-11-13] MEDS: FLUTICASONE FUROATE 200MCG 14 PUFFS/INHALER INH SCH (09:09)
[2019-11-13] MEDS: FUROSEMIDE 40 MG in SYRINGE 0 ML IV SCH ×2 (09:09→17:10)
[2019-11-13] MEDS: SERTRALINE HCL 50 MG TABLET PO SCH (09:10)
[2019-11-13] MEDS: PSYLLIUM 58.6% POWDER PACKET PO SCH (09:13)
[2019-11-13] MEDS: CIPROFLOXACIN 250 MG TAB PO SCH ×2 (09:16→20:53)
[2019-11-13] MEDS: SPIRONOLACTONE 12.5 MG TAB PO SCH (09:51)
--- NOTE | 2019-11-13 11:00 | Surgery Progress Note ---
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 pt agrees with the plan, I answered all questions, 11/13/2019 10:58AM doing fine, normal stool, F/U out-patient, sign off today, please call with questions. [place], (2) Hemorrhoids: Admission and Anticipated Discharge Date Admission Date: November 11, 2019 Supervising Physician Co-Signing Physician Notes Patient seen and examined at the bedside. Presented to the emergency department with worsening lower extremity edema, and shortness of breath. Diagnosed with acute decompensated heart failure. Treated with intravenous diuretic therapy overnight. Fluid balance negative more than 1.4 L. Clinical status has improved. Patient denies dyspnea. Oxygen saturations are stable on 1 L nasal cannula. Lower extremity edema improved, however, persists. Telemetry reveals atrial fibrillation with controlled ventricular response. PE: VSS. AAOx3. Heart: Irregular rhythm, no murmur appreciated. Lungs: Mildly diminished breath sounds at the bases bilaterally. No rales, rhonchi, or w heeze. Abdomen: Soft, nontender, nondistended, normal bowel sounds. No rebound or guarding. Extremities: 1-2+ bilateral pedal, ankle, and pretibial edema. Neurologic: No focal motor deficit. A/P: Agree with above PA-C history, physical exam, assessment and plan. Continue intravenous diuretic therapy, Lasix 40 IV every 12. Follow fluid balance, daily weight, GFR, and electrolytes. ROLF inhibitor and Aldactone recently discontinued in the setting of hyperkalemia and renal insufficiency. Consider addition of low-dose Aldactone on a reduced schedule at time of discharge. Thank you for allowing participate in the care of your patient. Cardiology will continue to follow patient during hospitalization. Subjective Patient is seen and examined at bedside States feeling much better today Dyspnea improved Denies chest pain, dizziness, nausea, abdominal pain Offers no other complaints Review of Systems Constitutional: as per Subjective / HPI Eyes: as per Subjective / HPI Ear, Nose, Mouth, Throat: as per Subjective / HPI Respiratory: as per Subjective / HPI COPD Cardiovascular: as per Subjective / HPI Additional Comments: HTN, aortic stenosis, CHF, A-fib Gastrointestinal: as per Subjective / HPI abdominal pain, hemorrhoidrectal bleeding Genitourinary: as per Subjective / HPI UTI Musculoskeletal: as per Subjective / HPI Integumentary: as per Subjective / HPI Neurologic: as per Subjective / HPI Psychiatric: as per Subjective / HPI Endocrine: as per Subjective / HPI Hematologic / Lymphatic: as per Subjective / HPI Allergy / Immunological: as per Subjective / HPI Physical Exam Constitutional: well developed and well nourished Eyes: PERRL, conjunctivae normal, anicteric sclerae ENMT: external ear and nose normal, oropharynx normal Neck: trachea midline, no thyromegaly Respiratory: normal respiratory effort, lungs clear to auscultation Gastrointestinal (Abdomen): normal bowel sounds, soft, nontender, no hepatosplenomegaly Musculoskeletal: no cyanosis or clubbing, extremities motor strength 5/5 Skin: no rashes, warm and dry Neurologic: patellar DTR's 2+ bilat, sensation intact Psychiatric: Orientation: oriented x 3 Results & Data ([facility]) Vital Signs (Past 12 Hours) Vital Signs Temp Pulse Pulse Pulse Resp BP BP 11/13/19 07:42 37.0 C 62 24 141/59 H 11/13/19 07:07 78 20 11/13/19 04:39 70 16 11/13/19 04:00 36.7 C 94 H 20 175/81 H 11/13/19 00:33 72 20 11/13/19 00:31 67 Pulse Ox 11/13/19 07:42 94 11/13/19 07:07 99 11/13/19 04:39 99 11/13/19 04:00 92 11/13/19 00:33 92 11/13/19 00:31
--- NOTE | 2019-11-13 11:44 | Cardiology Progress Note ---
Date of Service November 13, 2019 Assessment & Plan (1) Acute on chronic diastolic HF (heart failure): Continue IV Lasix 40 mg twice daily with plans to hold a.m. dose pending review of labs. Add Aldactone 12.5 mg on Tuesday, Tuesday, and Fridays. Monitor daily weight, GFR, and electrolytes. (Note, September 2019, 25 mg Aldactone in addition to lisinopril discontinued in setting of hyperkalemia) Assess oxygen needs on discharge. (2) Elevated troponin I level: Likely due to hypoxia, CHF, pulm edema. No acute EKG changes and no chest pain to suggest ACS. Echocardiogram without regional wall motion abnormality Normal coronary arteries in 2018 pre - TAVR (3) Rectal bleeding: Hold Coumadin. Monitor for further signs/symptoms of GI/ blood loss. Per discussion with hospitalist, this is their second episode of rectal bleeding. Hemoglobin stable. Recommend holding Coumadin for at least 2 weeks at this time with reassessment in the outpatient setting. (4) A-fib: Chronic afib. Rates controlled Continue digoxin, and metoprolol. (5) H/O aortic valve replacement: Normal valve function per repeat echocardiogram 11/12/2019. Admission and Anticipated Discharge Date Admission Date: November 11, 2019 Subjective Patient seen and examined the bedside. Respiratory status improved, however, reports an episode of bright red blood per rectum 11/12/2019. Coumadin placed on hold. No recurrent bleeding overnight. INR 2.0 this morning. She denies chest pain, palpitations, lightheadedness, dizziness, orthopnea, or paroxysmal nocturnal dyspnea. Tolerating IV diuretic therapy. Edema improving. Review of Systems Review of Systems: All systems reviewed & are unremarkable except as noted in HPI & below Physical Exam Constitutional: + ill appearing; no acute distress Respiratory: Auscultation: + rales (Bases bilaterally); no rhonchi and no wheezes Cardiovascular: Rate/Rhythm: + irregularly irregular Heart Sounds: normal S1 and normal S2; no murmur Vessels: radial pulses present; no JVD and no carotid bruit Extremities: + edema (1+ bilateral pedal and ankle edema) Gastrointestinal (Abdomen): Inspection/Auscultation: abdomen normal to inspection and normal bowel sounds; abdomen not distended Percussion/Palpation: abdomen soft; abdomen nontender, no guarding and abdomen not rigid Skin: no rashes, warm and dry Neurologic: moves all extremities; no focal motor deficits Motor/Sensory: no tremor Psychiatric: A+Ox3, euthymic affect Results & Data ([facility]) Vital Signs (Past 12 Hours) Vital Signs Temp Pulse Pulse Pulse Resp BP BP 11/13/19 08:00 76 11/13/19 07:42 37.0 C 62 24 141/59 H 11/13/19 07:07 78 20 11/13/19 04:39 70 16 11/13/19 04:00 36.7 C 94 H 20 175/81 H 11/13/19 00:33 72 20 11/13/19 00:31 67 Pulse Ox 11/13/19 08:00 11/13/19 07:42 94 11/13/19 07:07 99 11/13/19 04:39 99 11/13/19 04:00 92 11/13/19 00:33 92 11/13/19 00:31 (1) A-fib Atrial fibrillation type: chronic Qualified Code(s): I48.2 - Chronic atrial fibrillation
--- NOTE | 2019-11-13 15:14 | Electrocardiogram Report ---
Test Reason : Blood Pressure : / mmHG Vent. Rate : 066 BPM Atrial Rate : 000 BPM P-R Int : 000 ms QRS Dur : 092 ms QT Int : 374 ms P-R-T Axes : 000 180 -09 degrees QTc Int : 392 ms Atrial fibrillation Indeterminate axis Low voltage QRS Cannot rule out Anterior infarct (cited on or before 07-JAN-2018) Abnormal ECG When compared with ECG of 12-NOV-2019 06:13, No significant change was found Confirmed by Herminio Nayak ([id number]) on 11/13/2019 3:13:51 PM Referred By: REFERRED SELF Confirmed By:Herminio Nayak
[2019-11-13] MEDS ORDERED: WARFARIN SOD 4 MG TAB PO SCH (16:00)
[2019-11-13] MEDS: DIGOXIN 0.125 MG TAB PO SCH (17:10)
--- NOTE | 2019-11-13 18:24 | Hospitalist Progress Note ---
Date of Service November 13, 2019 Assessment & Plan (1) Acute exacerbation of CHF (congestive heart failure): Acute on chronic diastolic CHF Exacerbation Pulmonary Edema Pulmonary Hypertension --CXR:Pulmonary vascular congestion with small bilateral pleural effusions, slightly decreased since prior exam.- --ECHO:Mild concentric LVH. Severe biatrial enlargement. 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 Mild MR. Moderate to severe TR. Estimated systolic pulmonary artery pressure 57 mmHg. EF: 60 to 65% --Continue IV lasix 40mg BID --Monitor I's and O's, daily weight, electrolytes --Appreciate Cardiology Input --Continue metoprolol, digoxin --Added Spironolactone 12.5 mg on Tuesday, Tuesday, and Fridays. --Clinically improving --Supplemental Oxygen PRN Elevated Troponin Chronic elevation noted Likely Type II in setting of CHF, Pulm edema, Hypoxia ECHO: Left ventricular wall motion is normal Patient denies chest pain Acute UTI: Diagnosed on 11/09/2019 in ER Continue Ciprofloxacin to complete the course today Monitor QTC Rectal Bleeding: Likely due to hemorrhoids Recent Colonoscopy--Sep, showed Internal hemorrhoids. Coumadin held Monitor H&H Transfuse PRBCs PRN Add Psyllium Appreciate Surgery Input Conservative management of for now Needs follow-up with surgery upon discharge for possible hemorrhoidectomy Chronic atrial fibrillation: Rate controlled Continue metoprolol, digoxin Monitor INR:2.0 Coumadin held for now due to rectal bleeding Discussed with cardiology, given risks Vs benefits and recurrent GI bleed, Plan to hold Coumadin for 2 weeks and reassess need as outpatient COPD Chronic respiratory failure with Hypoxia--1.5 L at bedtime Continue home inhalers Continue supplemental oxygen at bedtime Nebs PRN HTN Bp stable Continue metoprolol Monitor CKD III Cr at baseline Monitor renal function Avoid nephrotoxic agents as able Depression: Continue Zoloft Anemia of chronic kidney disease Hemoglobin at baseline Monitor CBC DVT Px: SCDs Code Status Full Code Disposition PT/OT:Recommends to return home Admission and Anticipated Discharge Date Admission Date: November 11, 2019 Subjective Patient is seen and examined at bedside States feeling better today Leg edema improving No recurrence of rectal bleeding Eager to get discharged Denies chest pain, dizziness, nausea, abdominal pain Offers no other complaints Review of Systems Review of Systems: All systems reviewed & are unremarkable except as noted in HPI & below Physical Exam Physical Exam: Physical Exam: Vitals signs as noted above General Appearance:Elderly, thin, frail, no apparent distress Head: normocephalic, Atraumatic Eyes: normal inspection, EOMI Neck: supple, Trachea midline Respiratory/Chest: Decreased breath sounds, CTA, No accessory muscle use Cardiovascular: Irregularly irregular, + systolic murmur Abdomen/GI:Soft, Non tender, Bowel sounds present Extremities/Musculoskelatal:normal inspection, 1+ B/L LE edema--improving Neurologic/Psych:AAOX3, grossly no focal neurological deficits, +Hearing impairment Skin: normal color, warm Results & Data Results & Data ([facility] [place]) Vital Signs (Past 12 Hours) Vital Signs Temp Pulse Pulse Pulse Resp BP BP 11/13/19 17:52 87 11/13/19 17:10 74 11/13/19 16:42 62 18 11/13/19 14:35 82 135/61 11/13/19 13:10 74 16 11/13/19 12:03 36.4 C L 67 18 137/67 11/13/19 08:00 76 11/13/19 07:42 37.0 C 62 24 141/59 H 11/13/19 07:07 78 20 Pulse Ox 11/13/19 17:52 11/13/19 17:10 11/13/19 16:42 96 11/13/19 14:35 11/13/19 13:10 99 11/13/19 12:03 98 11/13/19 08:00 11/13/19 07:42 94 11/13/19 07:07 99 Laboratory Results Short CBC 11/12/19 Range/Units 21:47 Hgb 11.2 L (12.0-16.0) g/dL Hct 34.7 L (37-47) % BMP 11/13/19 06:31 Sodium 141 Potassium 3.6 Chloride 100 Carbon Dioxide 39 H BUN 26 H Creatinine 0.87 Glucose 87 Calcium 8.4 L Cardiac Enzymes 11/12/19 Range/Units 19:06 Total Creatine Kinase 109 (26-192) U/L Troponin I 0.072 H* (0-0.045) ng/ml (1) Acute exacerbation of CHF (congestive heart failure) Heart failure type: diastolic Qualified Code(s): I50.33 - Acute on chronic diastolic (congestive) heart failure
[2019-11-13] MEDS: LATANOPROST 0.005% OP SOLN 2.5 ML BTL OPB SCH (20:53)
[2019-11-13] MEDS: ASPIRIN 81 MG ECTAB PO SCH (20:53)
[2019-11-14] MEDS: IPRATROPIUM BROMIDE NEB SOLN 0.02% 2.5 ML VIAL INH SCH ×4 (00:28→19:03)
[2019-11-14] MEDS: LEVALBUTEROL HCL 0.63 MG/3 ML NEB NEB SCH ×4 (00:28→19:03)
[2019-11-14] MEDS: METOPROLOL TARTRATE 25 MG TAB PO SCH ×3 (05:52→21:03)
[2019-11-14 07:06] LABS: Hematocrit (blood only) 34.2 % (37-47); Hemoglobin 10.7 g/dL (12.0-16.0); Mean Corpuscular Hemoglobin 29.9 pg (25-34); Mean Corpuscular Hgb Conc 31.3 g/dL (32-36); Mean Corpuscular Volume 95.5 fL (80-100); Mean Platelet Volume 9.6 fL (7.4-10.4); Platelet Count 245 K/uL (130-400); RDW Standard Deviation 49.1 fL (36.4-46.3); Red Blood Count 3.58 M/uL (4.2-5.4); White Blood Count 5.98 K/uL (4.8-10.8)
[2019-11-14 07:18] LABS: INR 1.6 (0.9-1.1); Prothrombin Time 16.5 Seconds (9.0-12.0)
[2019-11-14 07:39] LABS: BUN Creatinine Ratio 28.9 (10-20); Calcium 8.4 mg/dl (8.5-10.1); Creatinine Clr Calc Pharmacy 34.2 ml/min; Est GFR (African American) 65.7; Est GFR (Non-African American) 56.7; Potassium 3.3 mmol/L (3.5-5.1)
[2019-11-14] MEDS ORDERED: POTASSIUM CHLORIDE CRTAB 20 MEQ TABCR PO ONE (07:49)
[2019-11-14] MEDS: FUROSEMIDE 40 MG in SYRINGE 0 ML IV SCH ×2 (10:02→16:31)
[2019-11-14] MEDS: SERTRALINE HCL 50 MG TABLET PO SCH (10:03)
[2019-11-14] MEDS: SPIRONOLACTONE 12.5 MG TAB PO SCH (10:03)
[2019-11-14] MEDS: PSYLLIUM 58.6% POWDER PACKET PO SCH (10:03)
[2019-11-14] MEDS: FLUTICASONE FUROATE 200MCG 14 PUFFS/INHALER INH SCH (10:07)
--- NOTE | 2019-11-14 11:20 | Cardiology Progress Note ---
Date of Service November 14, 2019 Assessment & Plan (1) Acute on chronic diastolic HF (heart failure): Discontinue IV Lasix. Transition to p.o. Lasix in a.m. 11/16/19. Dose of Aldactone clarified: 12.5 mg on Tuesday, Tuesday, and Fridays. Repeat BMP 1 week post discharge. (Note, September 2019, 25 mg Aldactone in addition to lisinopril discontinued in setting of hyperkalemia) (2) Elevated troponin I level: Likely due to hypoxia, CHF, pulm edema. No acute EKG changes and no chest pain to suggest ACS. Echocardiogram without regional wall motion abnormality Normal coronary arteries in 2018 pre - TAVR (3) Rectal bleeding: Coumadin discontinued. Monitor for further signs/symptoms of GI/ blood loss. Hemoglobin stable. Recommend holding Coumadin for at least 2 weeks with reassessment in the outpatient setting. (4) A-fib: Chronic afib. Rates controlled Continue digoxin, and metoprolol. (5) H/O aortic valve replacement: Normal valve function per repeat echocardiogram 11/12/2019. Admission and Anticipated Discharge Date Admission Date: November 11, 2019 Subjective Patient seen and examined the bedside. Respiratory status mildly improved. Edema improving as well. Urine output currently not quantitated. Has not been weighed since 11/11/2019. Renal function remained stable. Tolerating IV Lasix. No orthopnea or PND. Poor historian. Offers no other concerns/complaints this time. Review of Systems Review of Systems: All systems reviewed & are unremarkable except as noted in HPI & below Physical Exam Constitutional: + ill appearing; no acute distress Respiratory: Auscultation: no rales, no rhonchi and no wheezes Cardiovascular: Rate/Rhythm: + irregularly irregular Heart Sounds: normal S1 and normal S2; no murmur Vessels: radial pulses present; no JVD and no carotid bruit Extremities: + edema (1+ bilateral pedal and ankle edema) Gastrointestinal (Abdomen): Inspection/Auscultation: abdomen normal to inspection and normal bowel sounds; abdomen not distended Percussion/Palpation: abdomen soft; abdomen nontender, no guarding and abdomen not rigid Skin: no rashes, warm and dry Neurologic: moves all extremities; no focal motor deficits Motor/Sensory: no tremor Psychiatric: A+Ox3, euthymic affect Results & Data ([place]) Vital Signs (Past 12 Hours) Vital Signs Temp Pulse Pulse Pulse Resp BP BP 11/14/19 08:00 63 11/14/19 06:45 60 18 11/14/19 04:10 37.1 C 59 L 16 148/59 H 11/14/19 00:30 60 16 11/13/19 23:49 36.6 C 90 19 L 93 H 159/65 H Pulse Ox 11/14/19 08:00 11/14/19 06:45 99 11/14/19 04:10 95 11/14/19 00:30 94 11/13/19 23:49 93 (1) A-fib Atrial fibrillation type: chronic Qualified Code(s): I48.2 - Chronic atrial fibrillation
[2019-11-14] MEDS: DIGOXIN 0.125 MG TAB PO SCH (16:31)
[2019-11-14] MEDS ORDERED: SODIUM CHLORIDE 0.65% NA SOLN 45 ML (OCEAN) STA (18:08)
--- NOTE | 2019-11-14 20:21 | Hospitalist Progress Note ---
Date of Service November 14, 2019 Assessment & Plan (1) Acute on chronic diastolic HF (heart failure): Presented with acute on chronic left ventricular diastolic heart failure. Echo showed mild concentric LVH, LVEF 60-65%. Improving with diuretic therapy. (2) Elevated troponin I level: Serum troponin as high as 0.138. No chest pain. No segmental wall motion abnormalities on echo. Elevated troponin probably due to CHF, not acute coronary syndrome. (3) Chronic atrial fibrillation: Rate controlled on metoprolol and digoxin. Warfarin on hold due to rectal bleeding. (4) HTN (hypertension): Continue metoprolol. (5) Rectal bleeding: Episode of rectal bleeding. On aspirin and warfarin with INR of 2.4. Warfarin held. Seen by General Surgery. Found to have hemorrhoids. No further bleeding. Outpatient follow-up recommended. (6) Hypokalemia: K this morning = 3.3. Receiving diuretic therapy. Replace. Follow. (7) Urinary tract infection: Klebsiella UTI, present on admission. Had already started course of treatment with ciprofloxacin which was completed. (8) DVT prophylaxis: Was on warfarin for AF, but on hold because of rectal bleeding. SCD's. Ambulate. (9) Discharge planning issues: Anticipated discharge to home. Family Medicine follow-up with Dr. Pendleton. Admission and Anticipated Discharge Date Admission Date: November 11, 2019 Subjective Recheck for CHF and other problems. Patient seen in their room around 1400. Feels better. Dyspnea and lower extremity edema improved. No chest pain. Loose stool, taking Metamucil and took dose of Senokot-S yesterday. Not sleeping well. Review of Systems: Constitutional- no fever. Cardiac- as noted above. Pulmonary- no cough or SOB. GI- no nausea, vomiting - no urinary symptoms. Otherwise, as noted above. Physical Exam Constitutional: no acute distress Respiratory: no respiratory distress Auscultation: lungs clear to auscultation bilaterally Cardiovascular: Rate/Rhythm: + irregularly irregular Heart Sounds: no gallop, no murmur and no cardiac rub Vessels: no JVD Extremities: + edema (1+ pretibial & ankle); no calf tenderness Gastrointestinal (Abdomen): normal bowel sounds, soft, nontender, no hepatosplenomegaly Musculoskeletal: Extremities: no cyanosis Skin: no rashes, warm and dry Psychiatric: Orientation: alert and oriented x 3 Results & Data Results & Data ([facility]) Vital Signs (Past 12 Hours) Vital Signs Temp Pulse Pulse Resp BP Pulse Ox 11/14/19 19:28 36.6 C 60 18 133/55 L 98 11/14/19 19:04 66 18 95 11/14/19 16:31 71 11/14/19 16:10 63 11/14/19 14:59 36.8 C 63 18 109/61 95 11/14/19 13:16 87 20 93 11/14/19 11:20 36.9 C 59 L 20 128/60 99 Laboratory Results 11/14/19 06:42 11/14/19 06:42
[2019-11-14] MEDS: traZODone HCL 50 MG TAB PO SCH (21:01)
[2019-11-14] MEDS: ASPIRIN 81 MG ECTAB PO SCH (21:01)
[2019-11-14] MEDS: LATANOPROST 0.005% OP SOLN 2.5 ML BTL OPB SCH (21:02)
[2019-11-15] MEDS: IPRATROPIUM BROMIDE NEB SOLN 0.02% 2.5 ML VIAL INH SCH ×4 (00:28→19:02)
[2019-11-15] MEDS: LEVALBUTEROL HCL 0.63 MG/3 ML NEB NEB SCH ×4 (00:28→19:02)
[2019-11-15] MEDS: METOPROLOL TARTRATE 25 MG TAB PO SCH ×3 (06:06→21:11)
[2019-11-15 06:56] LABS: INR 1.3 (0.9-1.1); Prothrombin Time 13.7 Seconds (9.0-12.0)
[2019-11-15 07:22] LABS: BUN Creatinine Ratio 24.5 (10-20); Calcium 8.4 mg/dl (8.5-10.1); Creatinine Clr Calc Pharmacy 33.1 ml/min; Est GFR (African American) 63.2; Est GFR (Non-African American) 54.5; Potassium 3.8 mmol/L (3.5-5.1)
[2019-11-15] MEDS: SPIRONOLACTONE 12.5 MG TAB PO SCH (08:58)
[2019-11-15] MEDS: FLUTICASONE FUROATE 200MCG 14 PUFFS/INHALER INH SCH (08:59)
[2019-11-15] MEDS: SERTRALINE HCL 50 MG TABLET PO SCH (08:59)
[2019-11-15] MEDS: PSYLLIUM 58.6% POWDER PACKET PO SCH (09:03)
[2019-11-15] MEDS ORDERED: LORazepam 0.25 MG/0.5 ML VIAL IV PRN (11:11)
[2019-11-15] MEDS: DIGOXIN 0.125 MG TAB PO SCH (16:28)
[2019-11-15] MEDS: LATANOPROST 0.005% OP SOLN 2.5 ML BTL OPB SCH (21:10)
[2019-11-15] MEDS: traZODone HCL 50 MG TAB PO SCH (21:10)
[2019-11-15] MEDS: ASPIRIN 81 MG ECTAB PO SCH (21:10)
--- NOTE | 2019-11-15 21:22 | Hospitalist Progress Note ---
Date of Service November 15, 2019 Assessment & Plan (1) Acute on chronic diastolic HF (heart failure): Presented with acute on chronic left ventricular diastolic heart failure. Echo showed mild concentric LVH, LVEF 60-65%. Improving with diuretic therapy, but now lightheaded. Furosemide held this morning. (2) Elevated troponin I level: Serum troponin as high as 0.138. No chest pain. No segmental wall motion abnormalities on echo. Elevated troponin probably due to CHF, not acute coronary syndrome. (3) Chronic atrial fibrillation: Rate controlled on metoprolol and digoxin. Warfarin on hold due to rectal bleeding. (4) HTN (hypertension): Continue metoprolol. (5) Rectal bleeding: Episode of rectal bleeding. On aspirin and warfarin with INR of 2.4 at that time. Warfarin held. Seen by General Surgery. Found to have hemorrhoids. No further bleeding. Outpatient follow-up recommended. (6) Hypokalemia: K as low as 3.3. Receiving diuretic therapy. Replaced. K today = 3.8. Follow. (7) Urinary tract infection: Klebsiella UTI, present on admission. Had already started course of treatment with ciprofloxacin which was completed. (8) Nausea: Check dig level with morning labs. (9) DVT prophylaxis: Was on warfarin for AF, but on hold because of rectal bleeding. SCD's. Ambulate. (10) Discharge planning issues: Anticipated discharge to home. Family Medicine follow-up with Dr. Pendleton. Admission and Anticipated Discharge Date Admission Date: November 11, 2019 Subjective Recheck for CHF and other problems. Patient seen in their room around 1100. Got some rest last night. Does not feel well this morning. Feels weak, dizzy, nauseated. No CP or SOB. Telemetry data reviewed. AF with PAC's, rates in 40's to 50's. Review of Systems: Constitutional- no fever. Cardiac- as noted above. Pulmonary- no cough or SOB. GI- no nausea, vomiting - no urinary symptoms. Otherwise, as noted above. Physical Exam Constitutional: no acute distress Respiratory: no respiratory distress Auscultation: lungs clear to auscultation bilaterally Cardiovascular: Rate/Rhythm: + irregularly irregular Heart Sounds: no g allop, no murmur and no cardiac rub Vessels: no JVD Extremities: + edema (1+ pretibial & ankle); no calf tenderness Gastrointestinal (Abdomen): normal bowel sounds, soft, nontender, no hepatosplenomegaly Musculoskeletal: Extremities: no cyanosis Skin: no rashes, warm and dry Psychiatric: Orientation: alert and oriented x 3 Results & Data Results & Data ([facility]) Vital Signs (Past 12 Hours) Vital Signs Temp Pulse Pulse Resp BP BP Pulse Ox 11/15/19 20:04 37.1 C 68 18 127/58 L 98 11/15/19 19:05 68 16 96 11/15/19 16:28 70 11/15/19 15:46 36.8 C 69 20 154/68 H 94 11/15/19 13:45 126/50 L 11/15/19 13:07 60 16 94 11/15/19 11:59 36.7 C 53 L 18 108/60 98 11/15/19 10:12 67 125/80 Laboratory Results 11/15/19 06:20
[2019-11-16] MEDS: LEVALBUTEROL HCL 0.63 MG/3 ML NEB NEB SCH ×3 (00:58→13:08)
[2019-11-16] MEDS: IPRATROPIUM BROMIDE NEB SOLN 0.02% 2.5 ML VIAL INH SCH ×3 (00:58→13:08)
[2019-11-16] MEDS: METOPROLOL TARTRATE 25 MG TAB PO SCH (05:52)
[2019-11-16 06:43] LABS: Hematocrit (blood only) 32.2 % (37-47); Hemoglobin 10.3 g/dL (12.0-16.0); Mean Corpuscular Hemoglobin 30.4 pg (25-34); Mean Platelet Volume 9.5 fL (7.4-10.4); Platelet Count 217 K/uL (130-400); RDW Standard Deviation 48.1 fL (36.4-46.3); Red Blood Count 3.39 M/uL (4.2-5.4); White Blood Count 5.38 K/uL (4.8-10.8)
[2019-11-16 06:52] LABS: INR 1.2 (0.9-1.1); Prothrombin Time 12.6 Seconds (9.0-12.0)
[2019-11-16 07:21] LABS: BUN Creatinine Ratio 28.1 (10-20); Calcium 8.6 mg/dl (8.5-10.1); Est GFR (African American) 67.5; Est GFR (Non-African American) 58.3; Potassium 3.6 mmol/L (3.5-5.1)
[2019-11-16] MEDS: PSYLLIUM 58.6% POWDER PACKET PO SCH (08:34)
[2019-11-16] MEDS: FLUTICASONE FUROATE 200MCG 14 PUFFS/INHALER INH SCH (08:34)
[2019-11-16] MEDS: SERTRALINE HCL 50 MG TABLET PO SCH (08:34)
--- NOTE | 2019-11-16 10:42 | Cardiology Progress Note ---
Date of Service November 16, 2019 Assessment & Plan (1) A-fib: Chronic afib. Periods of slow ventricular response recorded on high-dose beta-melquiades plus digoxin. Recommend reducing metoprolol to 75 mg twice daily. Continue low-dose digoxin as previously ordered. Warfarin discontinued due to episode of bright red blood per rectum. Consider gastroenterology referral as outpatient. Reevaluate candidacy for long-term anticoagulation pending clinical course/gastroenterology evaluation. (2) Acute on chronic diastolic HF (heart failure): Restart oral Lasix. Continue Aldactone 12.5 mg on Tuesday, Tuesday, and Fridays. Repeat BMP 1 week post discharge. (Note, September 2019, 25 mg Aldactone in addition to lisinopril discontinued in setting of hyperkalemia) (3) Elevated troponin I level: Likely due to hypoxia, CHF, pulm edema. No acute EKG changes and no chest pain to suggest ACS. Echocardiogram without regional wall motion abnormality Normal coronary arteries in 2018 pre - TAVR (4) Rectal bleeding: Coumadin discontinued. Monitor for further signs/symptoms of GI/ blood loss. Hemoglobin stable. Recommend holding Coumadin for at least 2 weeks with reassessment in the outpatient setting. Outpatient gastroenterology consultation. (5) H/O aortic valve replacement: Normal valve function per repeat echocardiogram 11/12/2019. Admission and Anticipated Discharge Date Admission Date: November 11, 2019 Subjective Patient seen and examined at the bedside. Feeling better from a cardiovascular perspective. Previously reported dizziness has resolved. No chest pain or unusual shortness of breath. Lower extremity edema at baseline. Telemetry demonstrates atrial fibrillation with controlled ventricular response as well as periods of slow ventricular response. Patient offers no concerns/complaints today. No further episodes of lower GI bleeding. Review of Systems Review of Systems: All systems reviewed & are unremarkable except as noted in HPI & below Physical Exam Constitutional: + ill appearing; no acute distress Respiratory: Auscultation: no rales, no rhonchi and no wheezes Cardiovascular: Rate/Rhythm: + bradycardic and + irregularly irregular Heart Sounds: normal S1 and normal S2; no murmur Vessels: radial pulses present; no JVD and no carotid bruit Extremities: + edema (1+ bilateral pedal and ankle edema) Gastrointestinal (Abdomen): Inspection/Auscultation: abdomen normal to inspection and normal bowel sounds; abdomen not distended Percussion/Palpation: abdomen soft; abdomen nontender, no guarding and abdomen not rigid Skin: no rashes, warm and dry Neurologic: moves all extremities; no focal motor deficits Motor/Sensory: no tremor Psychiatric: A+Ox3, euthymic affect Results & Data ([facility]) Vital Signs (Past 12 Hours) Vital Signs Temp Pulse Pulse Pulse Resp BP Pulse Ox 11/16/19 07:15 36.8 C 52 L 18 125/63 100 11/16/19 07:00 63 18 93 11/16/19 04:00 36.6 C 64 18 140/68 94 11/16/19 00:59 61 18 93 11/16/19 00:00 57 L 11/15/19 23:34 36.6 C 57 L 19 125/60 94 (1) A-fib Atrial fibrillation type: chronic Qualified Code(s): I48.2 - Chronic atrial fibrillation
[2019-11-16] MEDS ORDERED: WARFARIN SOD 2 MG TAB PO SCH (16:00)
[2019-11-16] MEDS: DIGOXIN 0.125 MG TAB PO SCH (16:17)
--- NOTE | 2019-11-16 16:38 | Hospitalist Progress Note ---
Date of Service November 16, 2019 Assessment & Plan (1) Acute on chronic diastolic HF (heart failure): Presented with acute on chronic left ventricular diastolic heart failure. Echo showed mild concentric LVH, LVEF 60-65%. Improved with IV furosemide. Discharged on furosemide 60 mg BID and addition of spironolactone 12.5 mg MWF. (2) Elevated troponin I level: Serum troponin as high as 0.138. No chest pain. No segmental wall motion abnormalities on echo. Elevated troponin probably due to CHF, not acute coronary syndrome. (3) Chronic atrial fibrillation: Rate controlled on metoprolol and digoxin. Metoprolol tartrate dose changed to 75 mg BID because of bradycardia. Warfarin on hold due to rectal bleeding. (4) HTN (hypertension): Continue metoprolol. (5) Rectal bleeding: Episode of rectal bleeding. On aspirin and warfarin with INR of 2.4 at that time. Warfarin held. Seen by General Surgery. Found to have hemorrhoids. No further bleeding. Advised to continue holding warfarin pending Cardiology follow-up. Outpatient follow-up with General Surgery or GI recommended. (6) Hypokalemia: K as low as 3.3. Receiving diuretic therapy. Replaced. K today = 3.6. Spironolactone being added to regimen. Follow. (7) Urinary tract infection: Klebsiella UTI, present on admission. Had already started course of treatment with ciprofloxacin which was completed. (8) DVT prophylaxis: Was on warfarin for AF, but on hold because of rectal bleeding. SCD's. Ambulate. (9) Discharge planning issues: Discharge to home. Family Medicine follow-up with Dr. Pendleton. Admission and Anticipated Discharge Date Admission Date: November 11, 2019 Subjective Recheck for CHF and other problems. Patient seen in their room around 1620. Feels better. No CP or SOB. Lower extremity edema improved. Would like to go home. Physical Exam Constitutional: no acute distress Respiratory: no respiratory distress Auscultation: lungs clear to auscultation bilaterally Cardiovascular: Rate/Rhythm: + irregularly irregular Heart Sounds: no gallop, no murmur and no cardiac rub Vessels: no JVD Extremities: + edema (1+ pretibial & ankle); no calf tenderness Gastrointestinal (Abdomen): normal bowel sounds, soft, nontender, no hepatosplenomegaly Musculoskeletal: Extremities: no cyanosis Skin: no rashes, warm and dry Psychiatric: Orientation: alert and oriented x 3 Results & Data Results & Data ([facility]) Vital Signs (Past 12 Hours) Vital Signs Temp Pulse Pulse Pulse Resp BP Pulse Ox 11/16/19 16:17 65 11/16/19 15:03 36.8 C 73 18 131/59 L 93 11/16/19 13:08 18 98 11/16/19 07:15 36.8 C 52 L 18 125/63 100 11/16/19 07:00 63 18 93 Laboratory Results 11/16/19 06:28 11/16/19 06:28
[2019-11-16] MEDS ORDERED: METOPROLOL TARTRATE 25 MG TAB PO SCH (21:00)
--- NOTE | 2019-11-19 03:30 | Discharge Summary ---
Date of Service Date of Admission: 11/11/19 Date of Discharge: 11/15/19 Admission HPI Per Admitting Provider Attending: Dr. Rodney This is an 89-year-old female with a past medical history including asthma, diastolic heart failure due to valvular disease, moderate COPD, eso phageal reflux, senile osteoporosis, general anxiety and depression disorder, vitamin D deficiency, tricuspid regurgitation, dyslipidemia, mitral valve regurgitation, chronic atrial fibrillation on chronic anticoagulation, benign esophageal stricture history, gout, essential hypertension, pulmonary hypertension, chronic kidney disease stage III, GI bleed with internal hemorrhoids. The patient presents to the emergency department today with shortness of breath. She states that she was in the emergency room on 08 November and treated for urinary tract infection with ciprofloxacin twice daily. She was doing well at home but this morning began to have acute exacerbation of shortness of breath. She has no cough or sputum production. She denies fever. She has no chest pain or tightness. She has no dyspnea with exertion or chest pain with exertion. She denies any nausea or vomiting or diarrhea. Her most recent bowel movement was yesterday and was formed with no evidence of bleeding. Her hemoglobin is stable. She does have chronic atrial fibrillation but is rate controlled in the 80s with an INR of 1.8. She has no falls. She denies headache or change in vision. She has no stroke symptoms. On evaluation in the emergency department she was found to have an elevated proBNP at 4520. Her CO2 was also elevated with serum. An ABG is pending. She had a slight bump in troponin at 0.068 suspected to be ischemic demand. EKG showed atrial fibrillation which was rate controlled with no clear ST changes. Chest x-ray today shows pulmonary edema with small bilateral pleural effusions. Patient has minimal lower extremity edema. She states that she has edema daily and it improves with elevation of the legs. The patient has a remote smoking history and quit smoking cigarettes 20 years ago. She has no history of ethanol abuse. The patient lives with her boyfriend at home. They have lived together for the last 21 years. He is younger than her and manages all of her medications and assist with ADLs. Principal Diagnosis acute on chronic left ventricular diastolic heart failure Discharge Data Allergies Allergy/AdvReac Type Severity Reaction Status Date / Time Sulfa (Sulfonamide Allergy Severe Hives and Verified 09/13/20 16:41 Antibiotics) swelling of throat meperidine AdvReac Severe Hallucinations Verified 11/11/19 16:41 and tachycardia oxycodone AdvReac Severe Hallucinati Verified 11/11/19 16:41 ng Consultations 11/11/19 17:07 ED Decision to Admit Stat 11/11/19 20:04 Consult Cardiology Routine Consult Case Management - Discharge Planning Routine 11/12/19 15:44 Consult General Surgery Routine Hospital Course (1) Acute on chronic diastolic HF (heart failure): Presented with acute on chronic left ventricular diastolic heart failure. Echo showed mild concentric LVH, LVEF 60-65%. Improved with IV furosemide. Discharged on furosemide 60 mg BID and addition of spironolactone 12.5 mg MWF. (2) Elevated troponin I level: Serum troponin as high as 0.138. No chest pain. No segmental wall motion abnormalities on echo. Elevated troponin probably due to CHF, not acute coronary syndrome. (3) Chronic atrial fibrillation: Rate controlled on metoprolol and digoxin. Metoprolol tartrate dose changed to 75 mg BID because of bradycardia. Warfarin on hold due to rectal bleeding. (4) HTN (hypertension): Continue metoprolol. (5) Rectal bleeding: Episode of rectal bleeding. On aspirin and warfarin with INR of 2.4 at that time. Warfarin held. Seen by General Surgery. Found to have hemorrhoids. No further bleeding. Advised to continue holding warfarin pending Cardiology follow-up. Outpatient follow-up with General Surgery or GI recommended. (6) Hypokalemia: K as low as 3.3. Receiving diuretic therapy. Replaced. K day of discharge = 3.6. Spironolactone being added to regimen. Follow. (7) Urinary tract infection: Klebsiella UTI, present on admission. Had already started course of treatment with ciprofloxacin which was completed. (8) DVT prophylaxis: Was on warfarin for AF, but on hold because of rectal bleeding. SCD's. Ambulate. (9) Discharge planning issues: Discharged to home. Family Medicine follow-up with Dr. Pendleton. Cardiology follow-up with Dr. Terrazas. Total Time Total Time Spent Total Time Spent (In Minutes): 40 Discharge Plan Discharge Items Patient Disposition: Home - Self-Care Reason For Visit: shortness of breath Discharge Diagnosis: congestive heart failure (fluid in lungs) Condition on Discharge: Good Activity: As commented below Activity Comment: gradually increase as tolerated Non-emergency contact: Primary Care Provider, Hospitalist and [employer] Call non-emergency contact if: you have any medication questions and your symptoms worsen Follow-up/Referrals: Gabriela Gilliam MD, PhD [Physician] - (12/24/2019 12:10 PM Gabriela Gilliam MD Nephrology [facility]) Ariana Pendleton MD [Primary Care Provider] - 11/19/19 3:00 pm (Date & Time 11/19/2019 3:00 PM Provider Ariana Pendleton MD Department Internal Medicine [facility] ) Heath Terrazas DO [[employer]erc[employer]] - (04/09/2020 3:00 PM Heath Terrazas DO Cardiology, [facility]) Diet: Heart Healthy Addjolene Attending Provider Instructions: MEDICATION CHANGES: Hold warfarin (Coumadin for now) because of rectal bleeding. Continue to hold until instructed otherwise by Cardiology. Change metoprolol tartrate (Lopressor) 50 mg pills to 1 + 1/2 pill (75 mg) twice a day. Start spironolactone (Aldactone) 12.5 mg on 3 times a week on Mondays, Wednesdays, Fridays. Try trazodone (Desyrel) 50 mg at bedtime for sleep. SUMMARY OF TEST RESULTS: Chest x-rays showed fluid in lungs (congestive heart failure). RECOMMENDATIONS FOR FOLLOW-UP: Please discuss referral for hemorrhoid surgery with Dr. Pendleton. OTHER INSTRUCTIONS: Seek medical attention if you have: * temperature above 101 * chest pain or trouble breathing * abdominal pain, nausea, vomiting * diarrhea, dark stools or bloody stools * any unanswered questions or concerns Call 911 if symptoms are severe. Please take good care of yourself. Call if you have any questions or problems. You can reach a [facility] hospitalist on duty at [facility] 24 hours a day by calling [phone]. My cell # is [phone]. [employer] Provider Instructions: ADDITIONAL INSTRUCTIONS FOR CHF Call 911 and go to the Emergency Room if: * You have tightness or pain in your chest that does not go away with rest or Nitroglycerin * You are very short of breath even with rest Call your doctor if any of the following symptoms or problems start or get worse: * Shortness of breath or difficulty breathing * Wake up at night short of breath * Chest pain * Cough * Swelling of your hands, fee, or legs * More fatigued or tired with your normal activity * Palpitations - sudden fast heart beats WEIGHT * Weigh yourself every morning after using the bathroom. * Use the same scale. * Wear the same amount of clothing. * Write your weight down on your chart. * Call your doctor if you gain more than 2-3 pounds in 1-2 days. MEDICATIONS * Use this discharge instruction sheet for instructions. * Take your medications at the time your doctor ordered. * Do not skip a dose of your medicines. * If you miss a dose of medicine, take as soon as possible, but DO NOT DOUBLE A DOSE. * Read your medicine information when you get home. * Know all of the side effects of your medicine. * Call your doctor's office if you have any side effects. * Be sure all of your doctors know what medicine and herbs you take (including cold, flu, and herbal medicine). * Pain Medicine: If you do not get relief from your pain, please call your doctor for help. Take the following with you to your follow-up doctor appointments: * Weight Chart * Medication List * List of questions Do not drink excessive alcohol, beer or wine. Pending Studies at Discharge: No Stand-Alone Forms: My [facility] [employer], Smoking Cessation Medications and DC Order Prescriptions: New trazodone 50 mg tablet 50 mg PO HS Qty: 7 RF: 0 metoprolol tartrate 50 mg tablet 75 mg PO BID Qty: 90 RF: 5 spironolactone 25 mg tablet 12.5 mg PO .MWF Qty: 6 RF: 5 Continued ipratropium-albuterol 0.5 mg-3 mg(2.5 mg base)/3 mL Solution For Nebulization 3 ml INHALATION Q4H PRN (Reason: COUGH, SOB OR WHEEZING) RF: 0 albuterol sulfate [Ventolin HFA] 90 mcg/actuation Hfa Aerosol Inhaler 2 puff INHALATION Q4H PRN (Reason: Shortness Of Breath Or Wheezing) RF: 0 furosemide 40 mg Tablet 60 mg PO BID RF: 0 simethicone 80 mg Tablet,Chewable 80 mg PO BID PRN (Reason: BLOATING/GAS) RF: 0 aspirin 81 mg Tablet,Delayed Release (Dr/Ec) 81 mg PO QPM RF: 0 acetaminophen [Tylenol Extra Strength] 500 mg Tablet 1,000 mg PO Q6H PRN (Reason: Pain) RF: 0 digoxin 125 mcg Tablet 0.125 mg PO DAILY@1600 Qty: 30 RF: 0 latanoprost 0.005 % drops 1 drp OPB HS RF: 0 sennosides-docusate sodium [Senokot-S] 8.6-50 mg tablet 2 tabcap PO BID PRN (Reason: Constipation) RF: 0 sertraline 25 mg tablet 25 mg PO DAILY RF: 0 Flovent HFA 220 mcg/actuation HFA aerosol inhaler 1 puff INHALATION UD RF: 0 Discontinued warfarin 4 mg Tablet 4 mg PO 5XWK RF: 0 warfarin 4 mg Tablet 2 mg PO 2XWK RF: 0 metoprolol tartrate 50 mg tablet 75 mg PO Q8H RF: 0 ciprofloxacin HCl [Cipro] 500 mg tablet 500 mg PO BID 7 Days Qty: 14 RF: 0 Discharge Orders: Discharge Order (Routine); Ordered 11/16/19 Ordered By: Gus Saxena Admission Data Admit Date/Time: 11/11/19 18:58 Attending Provider: Gus Saxena Admit Provider: Ralph Rodney Primary Care Provider: Ariana Pendleton Other Providers: Felisha Melgoza ; Heath Terrazas ; [place] ; Jesus Banks ; Louisa Giron ; Any Tubbs ; Salomon Murcia ; Heath Parada ; Rebecca Jauregui ; Haile Donis ; Adry Ricketts ; Darius Wong Jr ; Kristian Monteiro ; Tamra Robert ; Ralph Rodney Other Interventions: Discharge Summary Assessment (RN) Last Done: 11/16/19 17:30
[2019-11-19] MEDS ORDERED: SPIRONOLACTONE 12.5 MG TAB PO SCH (09:00)
== END 2019-11-16 18:34 | disposition home or self-care (01) | DRG 291 ==
LOC: ED 13:13 → 2S 18:58 → SUATTDRO 18:58 → 2S 20:06

== ENCOUNTER 2020-02-18 07:28 | Observation (INO) ==
[2020-02-18] MEDS ORDERED: LORazepam 0.5 MG/1 ML VIAL IV STA (08:30)
[2020-02-18] MEDS ORDERED: SODIUM CHLORIDE 0.9% 1000ML 1,000 ML IV SCH (08:30)
--- NOTE | 2020-02-18 08:43 | Emergency Department Note ---
History of Present Illness General Chief complaint: Illness Time Seen by Provider: 02/18/20 08:14 Source: patient Mode of arrival: EMS Limitations: no limitations History of Present Illness Provider complaint: Inability to swallow, weight loss and epigastric abdominal pain Maximum Pain Intensity: 8 This is an 89-year-old female who presents to the ED with a chief complaint of having difficulty swallowing. She also reports weight loss. She states that over the past 3 to 4 months she has gone from 140 pounds down to 80 pounds. She states that she has to liquefy everything for the past month in order to keep it down. She has difficulty swallowing liquids unless she sits upright. She states that she feels shaky and feels like she is going to pass out at times. She also reports epigastric abdominal pain for the past several months. She also feels anxious and weak. She does have a history of A. fib. She is on digoxin as well as Lasix. Medication list does not include a anticoagulant. The patient did have an upper GI endoscopy in August 2019 related to dysphagia and weight loss. At that time they found a mild Schatzki's ring in the GE junction. Dilatation was performed at that time. There was also noted to be diffuse mild inflammation/edema and erythema and granularity in the entire stomach. Biopsies were taken at that time. The biopsies showed some mild focal gastritis. Home Medications Medication Instructions Recorded Confirmed Type albuterol sulfate [Ventolin HFA] 2 puff INHALATION Q4H PRN 01/06/18 02/18/20 History ipratropium-albuterol 3 ml INHALATION Q4H PRN 01/06/18 02/18/20 History acetaminophen [Tylenol Extra 1,000 mg PO Q6H PRN 03/14/18 02/18/20 History Strength] aspirin 81 mg PO QPM 03/14/18 02/18/20 History digoxin 0.125 mg PO DAILY@1600 #30 tab 04/13/18 02/18/20 Rx furosemide 60 mg PO BID 09/06/19 02/18/20 History latanoprost 1 drp OPB HS 10/09/19 02/18/20 History sennosides-docusate sodium 2 tabcap PO BID PRN 10/11/19 02/18/20 History [Senokot-S] Flovent HFA 2 puff INHALATION BID 11/09/19 02/18/20 History simethicone 80 mg PO BID PRN 11/11/19 02/18/20 History metoprolol tartrate 75 mg PO BID #90 tab 11/16/19 02/18/20 Rx spironolactone 12.5 mg PO .MWF #6 tab 11/16/19 02/18/20 Rx trazodone 50 mg PO HS #7 tab 11/16/19 02/18/20 Rx alprazolam 0.25 mg PO HS PRN 02/18/20 02/18/20 History escitalopram oxalate 5 mg PO DAILY 02/18/20 02/18/20 History potassium chloride 20 meq PO DAILY 02/18/20 02/18/20 History Allergies Allergy/AdvReac Type Severity Reaction Status Date / Time Sulfa (Sulfonamide Allergy Severe Hives and Verified 02/18/20 07:57 Antibiotics) swelling of throat meperidine AdvReac Severe Hallucinations Verified 02/18/20 07:57 and tachycardia oxycodone AdvReac Severe Hallucinati Verified 02/18/20 07:57 ng Past Med/Surg History Medical History (Updated 02/18/20 @ 12:47 by Chano Vega DO) Anemia, chronic renal failure Anxiety Aortic stenosis Atrial fibrillation CKD (chronic kidney disease) stage 3, GFR 30-59 ml/min COPD (chronic obstructive pulmonary disease) inhaler/nebulizer prn Depression Diastolic CHF due to valvular disease Dysphagia Glaucoma Hearing deficit History of rheumatic fever as a child HTN (hypertension) Hypertension On anticoagulant therapy warfarin daily On home oxygen therapy 1 L N/C at sleep and prn Osteoarthritis Surgical History [place] [facility] [place] History of bilateral tubal ligation History of cardiac cath 12/2017 no stents @ [facility] [place] [facility] [place] History of cholecystectomy History of colonoscopy with polypectomy History of esophagogastroduodenoscopy (EGD) History of tooth extraction all lower teeth History of total hysterectomy "fibroids" S/P cataract surgery bilt Family History Other Family history non-contributory Heart disease No family history of adverse response to anesthesia Social History Smoking Status: Never smoker Tobacco Type: Cigarettes Cigarettes Per Day: quit 20yrs ago; Second Hand Exposure: No; Hx Alcohol Use: No Hx Substance Use: No Preferred Language: Romanian Communication Ability: Effective Visual Impairment: No Limitations 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 Beliefs That Will Affect Care: None marital status: Life Partner Current Living Situation: Significant Other Current Living Situation Comment: 2 bedroom appartment in [place] current occupational status: retired How many Children do You have: 5 Feels Safe at Home: Yes Assistive Devices: Denture - Upper, Hearing Aid - Left and Hearing Aid - Right Review of Systems A total of 10 systems reviewed and were otherwise negative Physical Exam Vital Signs Vital Signs - 24 hr 02/18/20 07:40 02/18/20 07:46 02/18/20 07:50 Temperature 36.6 C Temperature Source Oral Pulse Rate 64 62 67 Pulse Rate from SpO2 Sensor 69 68 67 Respiratory Rate 26 H 24 24 Blood Pressure 159/68 H Blood Pressure Mean 92 Pulse Oximetry 96 96 96 Oxygen Delivery Method Room Air Sepsis Recent Fever Within 48 Hours No Sepsis New/Unexplained Change in Mental Status N/A Sepsis Action Taken by Nursing No Action Required 02/18/20 07:52 02/18/20 08:00 02/18/20 08:10 Temperature Temperature Source Pulse Rate 67 70 71 Pulse Rate from SpO2 Sensor 69 68 74 Respiratory Rate 26 H 26 H 22 Blood Pressure 147/71 H 175/66 H Blood Pressure Mean 118 116 Pulse Oximetry 96 96 96 Oxygen Delivery Method Sepsis Recent Fever Within 48 Hours Sepsis New/Unexplained Change in Mental Status Sepsis Action Taken by Nursing 02/18/20 08:20 02/18/20 08:30 02/18/20 08:40 Temperature Temperature Source Pulse Rate 73 79 70 Pulse Rate from SpO2 Sensor 74 84 71 Respiratory Rate 19 17 27 H Blood Pressure 156/74 H Blood Pressure Mean 105 Pulse Oximetry 96 96 94 Oxygen Delivery Method Sepsis Recent Fever Within 48 Hours Sepsis New/Unexplained Change in Mental Status Sepsis Action Taken by Nursing 02/18/20 08:50 02/18/20 09:00 02/18/20 09:10 Temperature Temperature Source Pulse Rate 72 Pulse Rate from SpO2 Sensor 69 67 76 Respiratory Rate 22 22 21 Blood Pressure 175/74 H Blood Pressure Mean 100 Pulse Oximetry 90 98 99 Oxygen Delivery Method Sepsis Recent Fever Within 48 Hours Sepsis New/Unexplained Change in Mental Status Sepsis Action Taken by Nursing 02/18/20 09:20 02/18/20 09:30 02/18/20 09:40 Temperature Temperature Source Pulse Rate 82 76 65 Pulse Rate from SpO2 Sensor 71 64 66 Respiratory Rate 21 37 H 22 Blood Pressure 129/68 Blood Pressure Mean 107 Pulse Oximetry 95 94 95 Oxygen Delivery Method Sepsis Recent Fever Within 48 Hours Sepsis New/Unexplained Change in Mental Status Sepsis Action Taken by Nursing 02/18/20 09:50 02/18/20 09:51 02/18/20 10:00 Temperature Temperature Source Pulse Rate 59 L 60 Pulse Rate from SpO2 Sensor 57 L Respiratory Rate 20 22 Blood Pressure 116/61 Blood Pressure Mean 90 Pulse Oximetry 95 97 Oxygen Delivery Method Room Air Sepsis Recent Fever Within 48 Hours Sepsis New/Unexplained Change in Mental Status Sepsis Action Taken by Nursing 02/18/20 10:10 02/18/20 10:20 02/18/20 10:30 Temperature Temperature Source Pulse Rate 77 65 71 Pulse Rate from SpO2 Sensor 27 L Respiratory Rate 18 25 H 23 Blood Pressure 139/52 L Blood Pressure Mean 90 Pulse Oximetry 82 L Oxygen Delivery Method Sepsis Recent Fever Within 48 Hours Sepsis New/Unexplained Change in Mental Status Sepsis Action Taken by Nursing 02/18/20 10:40 02/18/20 10:50 02/18/20 11:00 Temperature Temperature Source Pulse Rate 70 58 L 73 Pulse Rate from SpO2 Sensor Respiratory Rate 31 H 27 H 28 H Blood Pressure 149/52 H Blood Pressure Mean 89 Pulse Oximetry Oxygen Delivery Method Sepsis Recent Fever Within 48 Hours Sepsis New/Unexplained Change in Mental Status Sepsis Action Taken by Nursing 02/18/20 11:30 02/18/20 11:50 02/18/20 12:00 Temperature Temperature Source Pulse Rate 63 71 55 L Pulse Rate from SpO2 Sensor 69 60 Respiratory Rate 24 18 22 Blood Pressure 135/53 L 148/56 H 136/60 Blood Pressure Mean 82 110 80 Pulse Oximetry 96 95 Oxygen Delivery Method Sepsis Recent Fever Within 48 Hours Sepsis New/Unexplained Change in Mental Status Sepsis Action Taken by Nursing 02/18/20 12:30 Temperature Temperature Source Pulse Rate 67 Pulse Rate from SpO2 Sensor 64 Respiratory Rate 32 H Blood Pressure 144/59 H Blood Pressure Mean 98 Pulse Oximetry 96 Oxygen Delivery Method Sepsis Recent Fever Within 48 Hours Sepsis New/Unexplained Change in Mental Status Sepsis Action Taken by Nursing CONSTITUTIONAL/VITAL SIGNS: Reviewed / noted above. GENERAL: Non-toxic but cachectic in appearance. INTEGUMENTARY: Warm, dry, and [place]. HEAD: Normocephalic. EYES: without scleral icterus or trauma. ENT/OROPHARYNX: clear and dry. I did give the patient a small amount of liquid via a oral sponge and she seemed to have difficulty swallowing this. LYMPHADENOPATHY/NECK: Is supple without lymphadenopathy or meningismus. RESPIRATORY: Lungs clear and equal. CARDIOVASCULAR: Regular rate and irregular rhythm. GI/ABDOMEN: Soft and tender over the epigastric area. No organomegaly or pulsatile mass. No rebound or guarding. Normal bowel sounds. EXTREMITIES: Warm and well perfused. BACK: No CVA tenderness. NEUROLOGICAL: Intact without focal deficits. PSYCHIATRIC: normal affect. MUSCULOSKELETAL: Patient has some generalized weakness. TRIAGE NURSING DOCUMENTATION REVIEWED. Course Administered Medications Discontinued Medications Sodium Chloride (Nss 1000ml) 1,000 mls @ 999 mls/hr IV .Q1H1M ANNA Stop: 02/18/20 09:30 Last Infusion: 02/18/20 10:51 Dose: 0 mls/hr Documented by: [id number] Admin: 02/18/20 09:32 Dose: 999 mls/hr Documented by: [id number] Lorazepam (Ativan) 0.5 mg in 1 mls @ 1 mls/min IV NOW STA Stop: 02/18/20 08:31 Last Admin: 02/18/20 09:25 Dose: 1 mls/min Documented by: [id number] Medical Decision Making Differential Diagnosis Differential includes acute coronary syndrome, myocardial infarction, CVA, TIA, anemia, infection, pneumonia, UTI, pyelonephritis, poor nutrition, dehydration, electrolyte disturbance,hypoglycemia, swallowing disorder. Medical Records Attestation: I reviewed the patient's medical records. Home Medications Current Medication List: was personally reviewed by me Laboratory Data Attestation: I reviewed the patient's lab results. Result diagrams: 02/18/20 07:45 02/18/20 07:45 Lab Results 02/18/20 02/18/20 02/18/20 Range/Units 07:45 07:45 07:45 WBC 5.65 (4.8-10.8) K/uL RBC 3.90 L (4.2-5.4) M/uL Hgb 12.2 (12.0-16.0) g/dL Hct 37.0 (37-47) % MCV 94.9 (80-100) fL MCH 31.3 (25-34) pg MCHC 33.0 (32-36) g/dL RDW Std Deviation 49.2 H (36.4-46.3) fL RDW Coeff of Zain 14.3 (11.5-14.5) % Plt Count 232 (130-400) K/uL MPV 10.7 H (7.4-10.4) fL Immature Gran % (Auto) 0.0 % Neut % (Auto) 68.3 % Lymph % (Auto) 18.8 % Barren % (Auto) 12.2 % Eos % (Auto) 0.5 % Baso % (Auto) 0.2 % Neut # (Auto) 3.86 (1.4-6.5) K/uL Lymph # (Auto) 1.06 L (1.2-3.4) K/uL Barren # (Auto) 0.69 H (0.11-0.59) K/uL Eos # (Auto) 0.03 (0-0.5) K/uL Baso # (Auto) 0.01 (0-0.2) K/uL Immature Gran # (Auto) 0.00 (0.00-0.02) K/uL PT Cancelled INR Cancelled APTT (21.0-31.0) Seconds PTT Ratio Sodium 142 (136-145) mmol/L Potassium 3.6 (3.5-5.1) mmol/L Chloride 98 (98-107) mmol/L Carbon Dioxide 39 H (21-32) mmol/L Anion Gap 5.0 (3-11) BUN 21 H (7-18) mg/dl Creatinine 1.03 (0.6-1.2) mg/dl Est Cr Clr Drug Dosing 24.9 ml/min Est GFR ( Amer) 56.6 Est GFR (Non-Af Amer) 48.8 BUN/Creatinine Ratio 20.6 H (10-20) Glucose 76 (70-99) mg/dl Lactate (0.4-2.0) mmol/L Calcium 8.9 (8.5-10.1) mg/dl Magnesium 2.1 (1.8-2.4) mg/dl Total Bilirubin 0.8 (0.2-1) mg/dl AST 26 (15-37) U/L ALT 24 (12-78) U/L Alkaline Phosphatase 53 (45-117) U/L Total Creatine Kinase 51 (26-192) U/L Troponin I 0.044 (0-0.045) ng/ml Total Protein 6.2 L (6.4-8.2) gm/dl Albumin 3.2 L (3.4-5.0) gm/dl Globulin 3.0 (2.5-4.0) gm/dl Albumin/Globulin Ratio 1.1 (0.9-2) Lipase 77 (73-393) U/L TSH 2.530 (0.300-4.500) uIu/ml Urine Color Urine Appearance (Clear) Urine pH (4.5-7.5) Ur Specific [place] (1.000-1.030) Urine Protein (Negative) Urine Glucose (UA) (Negative) Urine Ketones (Negative) Urine Blood (Negative) Urine Nitrite (Negative) Urine Bilirubin (Negative) Urine Urobilinogen (Negative) Ur Leukocyte Esterase (Negative) Urine WBC (Auto) (0-5) /hpf Urine RBC (Auto) (0-4) /hpf U Hyaline Cast (Auto) (0-5) /lpf U Epithel Cells (Auto) (0-5) /lpf Urine Bacteria (Auto) (Negative) Digoxin (0.8-2.0) ng/ml 02/18/20 02/18/20 02/18/20 Range/Units 07:45 08:45 09:00 WBC (4.8-10.8) K/uL RBC (4.2-5.4) M/uL Hgb (12.0-16.0) g/dL Hct (37-47) % MCV (80-100) fL MCH (25-34) pg MCHC (32-36) g/dL RDW Std Deviation (36.4-46.3) fL RDW Coeff of Zain (11.5-14.5) % Plt Count (130-400) K/uL MPV (7.4-10.4) fL Immature Gran % (Auto) % Neut % (Auto) % Lymph % (Auto) % Barren % (Auto) % Eos % (Auto) % Baso % (Auto) % Neut # (Auto) (1.4-6.5) K/uL Lymph # (Auto) (1.2-3.4) K/uL Barren # (Auto) (0.11-0.59) K/uL Eos # (Auto) (0-0.5) K/uL Baso # (Auto) (0-0.2) K/uL Immature Gran # (Auto) (0.00-0.02) K/uL PT INR APTT (21.0-31.0) Seconds PTT Ratio Sodium (136-145) mmol/L Potassium (3.5-5.1) mmol/L Chloride (98-107) mmol/L Carbon Dioxide (21-32) mmol/L Anion Gap (3-11) BUN (7-18) mg/dl Creatinine (0.6-1.2) mg/dl Est Cr Clr Drug Dosing ml/min Est GFR ( Amer) Est GFR (Non-Af Amer) BUN/Creatinine Ratio (10-20) Glucose (70-99) mg/dl Lactate 1.1 (0.4-2.0) mmol/L Calcium (8.5-10.1) mg/dl Magnesium (1.8-2.4) mg/dl Total Bilirubin (0.2-1) mg/dl AST (15-37) U/L ALT (12-78) U/L Alkaline Phosphatase (45-117) U/L Total Creatine Kinase (26-192) U/L Troponin I (0-0.045) ng/ml Total Protein (6.4-8.2) gm/dl Albumin (3.4-5.0) gm/dl Globulin (2.5-4.0) gm/dl Albumin/Globulin Ratio (0.9-2) Lipase (73-393) U/L TSH (0.300-4.500) uIu/ml Urine Color Yellow Urine Appearance Clear (Clear) Urine pH 8.0 H (4.5-7.5) Ur Specific [place] 1.012 (1.000-1.030) Urine Protein Negative (Negative) Urine Glucose (UA) Negative (Negative) Urine Ketones Trace H (Negative) Urine Blood Negative (Negative) Urine Nitrite Negative (Negative) Urine Bilirubin Negative (Negative) Urine Urobilinogen Negative (Negative) Ur Leukocyte Esterase Trace H (Negative) Urine WBC (Auto) 1-5 (0-5) /hpf Urine RBC (Auto) 0-4 (0-4) /hpf U Hyaline Cast (Auto) 1-5 (0-5) /lpf U Epithel Cells (Auto) 5-10 H (0-5) /lpf Urine Bacteria (Auto) 1+ H (Negative) Digoxin 1.4 (0.8-2.0) ng/ml 02/18/20 Range/Units Unknown WBC (4.8-10.8) K/uL RBC (4.2-5.4) M/uL Hgb (12.0-16.0) g/dL Hct (37-47) % MCV (80-100) fL MCH (25-34) pg MCHC (32-36) g/dL RDW Std Deviation (36.4-46.3) fL RDW Coeff of Zain (11.5-14.5) % Plt Count (130-400) K/uL MPV (7.4-10.4) fL Immature Gran % (Auto) % Neut % (Auto) % Lymph % (Auto) % Barren % (Auto) % Eos % (Auto) % Baso % (Auto) % Neut # (Auto) (1.4-6.5) K/uL Lymph # (Auto) (1.2-3.4) K/uL Barren # (Auto) (0.11-0.59) K/uL Eos # (Auto) (0-0.5) K/uL Baso # (Auto) (0-0.2) K/uL Immature Gran # (Auto) (0.00-0.02) K/uL PT INR APTT 26.8 (21.0-31.0) Seconds PTT Ratio 1.0 Sodium (136-145) mmol/L Potassium (3.5-5.1) mmol/L Chloride (98-107) mmol/L Carbon Dioxide (21-32) mmol/L Anion Gap (3-11) BUN (7-18) mg/dl Creatinine (0.6-1.2) mg/dl Est Cr Clr Drug Dosing ml/min Est GFR ( Amer) Est GFR (Non-Af Amer) BUN/Creatinine Ratio (10-20) Glucose (70-99) mg/dl Lactate (0.4-2.0) mmol/L Calcium (8.5-10.1) mg/dl Magnesium (1.8-2.4) mg/dl Total Bilirubin (0.2-1) mg/dl AST (15-37) U/L ALT (12-78) U/L Alkaline Phosphatase (45-117) U/L Total Creatine Kinase (26-192) U/L Troponin I (0-0.045) ng/ml Total Protein (6.4-8.2) gm/dl Albumin (3.4-5.0) gm/dl Globulin (2.5-4.0) gm/dl Albumin/Globulin Ratio (0.9-2) Lipase (73-393) U/L TSH (0.300-4.500) uIu/ml Urine Color Urine Appearance (Clear) Urine pH (4.5-7.5) Ur Specific [place] (1.000-1.030) Urine Protein (Negative) Urine Glucose (UA) (Negative) Urine Ketones (Negative) Urine Blood (Negative) Urine Nitrite (Negative) Urine Bilirubin (Negative) Urine Urobilinogen (Negative) Ur Leukocyte Esterase (Negative) Urine WBC (Auto) (0-5) /hpf Urine RBC (Auto) (0-4) /hpf U Hyaline Cast (Auto) (0-5) /lpf U Epithel Cells (Auto) (0-5) /lpf Urine Bacteria (Auto) (Negative) Digoxin (0.8-2.0) ng/ml Imaging Data Radiologist's Impression: CT scan of the chest, abdomen and pelvis without contrast IMPRESSION: 1. Significantly suboptimal examination without oral and IV contrast. The examination is also degraded by patient cachexia and significant motion artifact. 2. Marked cardiomegaly. 3. Right larger than left pleural effusions with bibasilar atelectasis. 4. No acute infectious or inflammatory findings are seen in the abdomen or pelvis. 5. There is no bowel obstruction. 6. Bladder distention. 7. Additional findings as above. ECG Data Attestation: I personally reviewed and interpreted this ECG as follows: Indication: + weakness Rate (beats per minute): 72 Rhythm: + atrial fibrillation ECG ST segments: no ST elevation ECG Findings: no PVCs MDM Narrative Patient presents with 60 pound weight loss over the past 3 to 4 months likely secondary to her difficulty with swallowing. She states that she has to liquefy everything for the past month. She recently has been feeling like she is going to pass out and feeling very shaky and weak. She does have a history of en doscopy in August that showed some mild Schatzki's rings. She also reports epigastric abdominal discomfort since the onset of her symptoms. Her exam reveals that she is rather cachectic and weak with dry mucous membranes and epigastric abdominal pain. She tripped on a small amount of water that I gave her to moisten her mouth. Her vital signs here reveal some mild hypertension and her EKG shows chronic A. fib. The patient's CBC was unremarkable. BUN is 21. Troponin is negative. Lipase is negative. Digoxin level is normal. Chest x-ray did not show acute process. Urine showed trace ketones. CT scan of the chest, abdomen pelvis did not show any acute abnormalities. Because of the pat ient's severe dysphagia to the point where she was choking on a very small amount of water, she will require inpatient evaluation and GI consultation as she may have worsening of her previous Schatzki's ring. Impression & Plan Dysphagia, Excessive weight loss, Acute dehydration Discharge Plan Visit Data Chief Complaint: Illness ED Provider: Chano Vega Discharge Problem: Dysphagia, Excessive weight loss, Acute dehydration Patient Disposition: Being Evaluated by Hospitalist Forms Stand Alone Forms: On License Of [facility] Emergency Department, Important Visit Information Prescriptions Prescriptions: No Action ipratropium-albuterol 0.5 mg-3 mg(2.5 mg base)/3 mL Solution For Nebulization 3 ml INHALATION Q4H PRN (Reason: COUGH, SOB OR WHEEZING) RF: 0 albuterol sulfate [Ventolin HFA] 90 mcg/actuation Hfa Aerosol Inhaler 2 puff INHALATION Q4H PRN (Reason: Shortness Of Breath Or Wheezing) RF: 0 furosemide 40 mg Tablet 60 mg PO BID RF: 0 simethicone 80 mg Tablet,Chewable 80 mg PO BID PRN (Reason: BLOATING/GAS) RF: 0 trazodone 50 mg tablet 50 mg PO HS Qty: 7 RF: 0 metoprolol tartrate 50 mg tablet 75 mg PO BID Qty: 90 RF: 5 spironolactone 25 mg tablet 12.5 mg PO .MWF Qty: 6 RF: 5 potassium chloride 20 mEq tablet,ER particles/crystals 20 meq PO DAILY RF: 0 escitalopram oxalate 5 mg tablet 5 mg PO DAILY RF: 0 alprazolam 0.25 mg tablet 0.25 mg PO HS PRN (Reason: Anxiety) RF: 0 aspirin 81 mg Tablet,Delayed Release (Dr/Ec) 81 mg PO QPM RF: 0 acetaminophen [Tylenol Extra Strength] 500 mg Tablet 1,000 mg PO Q6H PRN (Reason: Pain) RF: 0 digoxin 125 mcg Tablet 0.125 mg PO DAILY@1600 Qty: 30 RF: 0 latanoprost 0.005 % drops 1 drp OPB HS RF: 0 sennosides-docusate sodium [Senokot-S] 8.6-50 mg tablet 2 tabcap PO BID PRN (Reason: Constipation) RF: 0 Flovent HFA 220 mcg/actuation HFA aerosol inhaler 2 puff INHALATION BID RF: 0 Referrals Referrals: Ariana Pendleton MD [Primary Care Provider] - Discharge Problem: Dysphagia Qualifiers: Dysphagia type: unspecified Qualified Code(s): R13.10 - Dysphagia, unspecified
[2020-02-18 08:49] LABS: Basophils # (auto) 0.01 K/uL (0-0.2); Basophils % (auto) 0.2 %; Eosinophils # (auto) 0.03 K/uL (0-0.5); Eosinophils % (auto) 0.5 %; Hemoglobin 12.2 g/dL (12.0-16.0); Lymphocytes # (auto) 1.06 K/uL (1.2-3.4); Lymphocytes % (auto) 18.8 %; Mean Corpuscular Hemoglobin 31.3 pg (25-34); Mean Corpuscular Volume 94.9 fL (80-100); Mean Platelet Volume 10.7 fL (7.4-10.4); Monocytes # (auto) 0.69 K/uL (0.11-0.59); Monocytes % (auto) 12.2 %; Neutrophils # (auto) 3.86 K/uL (1.4-6.5); Neutrophils % (auto) 68.3 %; Platelet Count 232 K/uL (130-400); RDW Coefficient of Variation 14.3 % (11.5-14.5); RDW Standard Deviation 49.2 fL (36.4-46.3); White Blood Count 5.65 K/uL (4.8-10.8)
[2020-02-18 08:51] LABS: Albumin Level 3.2 gm/dl (3.4-5.0); BUN Creatinine Ratio 20.6 (10-20); Calcium 8.9 mg/dl (8.5-10.1); Creatinine Clr Calc Pharmacy 24.9 ml/min; Est GFR (African American) 56.6; Est GFR (Non-African American) 48.8; Magnesium 2.1 mg/dl (1.8-2.4); Potassium 3.6 mmol/L (3.5-5.1)
[2020-02-18 09:00] LABS: Albumin Globulin Ratio 1.1 (0.9-2); Bilirubin,Total 0.8 mg/dl (0.2-1); Thyroid Stimulating Hormone 2.53 uIu/ml (0.300-4.500); Total Protein 6.2 gm/dl (6.4-8.2); Troponin I 0.044 ng/ml (0-0.045)
[2020-02-18 09:27] LABS: Partial Thromboplastin Time 26.8 Seconds (21.0-31.0)
[2020-02-18 10:15] LABS: Appearance Urine Clear (Clear); Bacteria Urine Automated 1+ (Negative); Bilirubin Urine Negative (Negative); Blood Urine Negative (Negative); Color Urine Yellow; Glucose Urine UA Negative (Negative); Ketones Urine Trace (Negative); Leukocyte Esterase Urine Trace (Negative); Nitrite Urine Negative (Negative); Protein Urine Negative (Negative); RBC Urine Automated 0-4 /hpf (0-4); Specific Gravity Urine 1.012 (1.000-1.030); Urobilinogen Urine Negative (Negative)
--- NOTE | 2020-02-18 10:19 | XRay Report ---
XR chest 1V portable HISTORY: 89 years-old Female weakness acute weakness COMPARISON: Chest radiograph 11/25/2019 TECHNIQUE: Portable AP view of the chest FINDINGS: Cardiac silhouette is moderately enlarged. Aortic valvular endograft. Calcified plaque the thoracic a amanda. Mild pulmonary vascular congestion. Small pleural effusions with mild bibasilar opacities. Pleu ral thickening of the lung apices. No pneumothorax. Degenerative changes of the shoulders and spine. IMPRESSION: 1. Cardiomegaly with pulmonary vascular congestion. 2. Small pleural effusions with mild bibasilar opacities. ACT 112: Negative or not required by law. The above report was generated using voice recognition software. It may contain grammatical, syntax o r spelling errors. Electronically signed by: Allan Alvarez M.D. 02/18/2020 10:17 AM
--- NOTE | 2020-02-18 12:07 | CT Scan Report ---
CT SCAN OF THE CHEST, ABDOMEN, AND PELVIS WITHOUT IV CONTRAST CLINICAL HISTORY: Dysphagia. Generalized abdominal pain. Nausea. COMPARISON STUDY: Chest CT dated 04/08/2018. Abdominal CT dated 11/09/2019. TECHNIQUE: Unenhanced CT scan of the chest, abdomen, and pelvis was performed from the thoracic inlet to the proximal femora. Images are reviewed in the axial, sagittal, and coronal planes. IV contrast was not administered as per the referring clinician. Note that the examination is significantly subop timal without oral and IV contrast. The Examination is also degraded by cachexia and a paucity of int raperitoneal fat and significant motion artifact. A dose lowering technique was utilized adhering to the principles of ALARA. CT DOSE: 424.67 mGy.cm FINDINGS: CHEST: Thyroid: Imaged portions of the thyroid gland are normal in size and attenuation. Thoracic aorta: There is atherosclerotic calcification of the thoracic aorta. Postoperative change is seen involving the aortic valve and the ascending thoracic aorta. The ascending thoracic aorta measu res up to 3.5 cm diameter. The arch demonstrate standard 3-vessel anatomy. Heart: The heart is markedly enlarged and without pericardial effusion. The main pulmonary arteries a re dilated suggesting pulmonary artery hypertension. The coronary arteries and mitral annulus are den sely calcified. Lungs and pleural spaces: Evaluation of the lung parenchyma is compromised by motion artifact. There are small to moderate pleural effusions, right larger than left with associated atelectasis. Mediastinum: There is no mediastinal lymphadenopathy. Janet: Not well evaluated without IV contrast. Axillae: There is no axillary lymphadenopathy. Bony thorax: The skeletal structures are osteopenic. There is a mild chronic superior endplate compre ssion deformity of T11. Degenerative change and hyperkyphosis are noted in the thoracic spine. There are healed right-sided rib fractures. No lytic or blastic lesions are identified. Soft tissues: The patient is cachectic. ABDOMEN AND PELVIS: Liver: Evaluation of the liver is significantly degraded by streak and motion artifact. The unenhance d liver is grossly normal in size and contour. The liver appears heterogeneous. There is no intrahepa tic biliary ductal dilatation. Gallbladder: Contracted versus surgically absent. Spleen: Normal in size and attenuation. Pancreas: The unenhanced pancreas is grossly unremarkable. Adrenal glands: Unremarkable. Kidneys: The contrast enhanced kidneys are atrophic and without hydronephrosis. No renal calculi are identified. There is no evidence of contour deforming mass lesion. Abdominal vasculature: The abdominal aorta is normal in course and caliber noting advanced atheroscle rotic calcification. Bowel: There is rectosigmoid fecal retention. There is no bowel obstruction. The appendix is not vis ualized. Peritoneum: There is no intraperitoneal free air or abdominal ascites. Lymphadenopathy: None. Pelvic viscera: The bladder is distended but otherwise normal in appearance. The uterus is surgically absent. A 3.4 cm simple cystic lesion in the right adnexa is unchanged. Skeletal structures: The skeletal structures are osteopenic. There is a moderate chronic compression deformity of L2 with retropulsed fragments. This is unchanged from previous. There is moderate lumbos acral spondylosis. No lytic or blastic lesions are seen. Soft tissues: The patient is cachectic. There is body wall edema. IMPRESSION: 1. Significantly suboptimal examination without oral and IV contrast. The examination is also degrade d by patient cachexia and significant motion artifact. 2. Marked cardiomegaly. 3. Right larger than left pleural effusions with bibasilar atelectasis. 4. No acute infectious or inflammatory findings are seen in the abdomen or pelvis. 5. There is no bowel obstruction. 6. Bladder distention. 7. Additional findings as above. ACT 112: Negative or not required by law. Electronically signed by: Chuy Pantoja M.D. 02/18/2020 12:05 PM
--- NOTE | 2020-02-18 14:03 | History & Physical Report ---
Date of Service February 18, 2020 Assessment & Plan (1) Dysphagia: (2) Excessive weight loss: This is an 89-year-old female who is significant past medical history of chronic atrial fibrillation, chronic diastolic CHF, HTN, COPD, CKD stage III, osteoporosis, gout, GERD, hx of esophageal stricture & history of Schatzki's ring who presents to ED after feeling weak and nauseated x1 week. In ED she remains hemodynamically stable. Lab work notable for H/H 12.2/37.0, 232, K 3.6, bun 21, cr 1.03 CXR:1. Cardiomegaly with pulmonary vascular congestion. 2. Small pleural effusions with mild bibasilar opacities. CT abd/pelvis:1. Significantly suboptimal examination without oral and IV contrast. The examination is also degraded by patient cachexia and significant motion artifact.2. Marked cardiomegaly.3. Right larger than left pleural effusions with bibasilar atelectasis.4. No acute infectious or inflammatory findings are seen in the abdomen or pelvis.5. There is no bowel obstruction.6. Bladder distention.7. Additional findings as above. In ED She received 1L Of IVF. 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 (3) Abnormal urinalysis: abnormal UA with c/o dysuria empirically tx with IV rocephin await culture, no signs of SIRS/SEPSIS (4) Chronic atrial fibrillation: continue metoprolol and digoxin on ASA therapy only at this point CHADSVASC 5, with recent hx of GIB last cardio visit 12/25/19 recommends ASA only given risk vs benefit (5) Diastolic heart failure: Chronic HFpEF, hx of DA last echo 11/2018, EF > 70%, diastolic, mild pulm HTN, PASP 44mmhg,left and right atrial enlargement continue metoprolol, lasix, aldactone, digoxin CXR and CT mild-mod effusions, pt on room air and not in distress monitor daily weights, strict I and O continue oral lasix regimen for now but monitor volume status closely (6) H/O aortic valve replacement: as above (7) HTN (hypertension): BP stable continue metoprolol, aldactone, lasix monitor (8) CKD (chronic kidney disease) stage 3, GFR 30-59 ml/min: baseline cr 1.0 bun/cr stable 21/1.03 - no signs of pina clinically pt looks dry, received 1L of IVF in ED will not order further IVF given findings of pulmonary vascular congestion on CXR (9) COPD (chronic obstructive pulmonary disease): no acute exac continue flovent and albuterol (10) DVT prophylaxis: SQ Heparin Disposition: admit to med surg, case management consulted Follow up: PCP Dr. Pendleton upon discharge Pt was seen and examined in collaboration with Dr. Silver, please see addendum History of Present Illness Chief Complaint: Difficulty swallowing for several months and 60lb weight loss. Primary Care Provider: Ariana Pendleton MD This is an 89-year-old female who is significant past medical history of chronic atrial fibrillation, chronic diastolic CHF, HTN, COPD, CKD stage III, osteoporosis, gout, GERD, hx of esophageal stricture & history of Schatzki's ring who presents to ED after feeling weak and nauseated x1 week. Of significance patient has had a 60 pound weight loss over the past 6 months. She previously was in the 140s and now is 87 pounds. She underwent EGD August 2019 which revealed a mild Schatzki's ring that was dilated, gastritis and vomiting with changes from stomach and small intestine biopsy. She noted symptoms of dysphagia improved for approximately 1 week and then returned. She is having difficulty swallowing solids and liquids. In ED they did attempt to have her swallow water and she had evidence of coughing. She has been compliant with her medications as she has been crushing them with applesauce. She states she lives with her friend does have family close by. She denies any recent fever, chills, sweats, dizziness, lightheadedness, syncope, chest pain, shortness of breath, palpitations, emesis, abdominal pain, hematuria, melena, hematochezia or diarrhea. She does admit to dysuria. Denies any known Covid exposure. In ED she remains hemodynamically stable. Lab work notable for H/H 12.2/37.0, 232, K 3.6, bun 21, cr 1.03 CXR:1. Cardiomegaly with pulmonary vascular congestion. 2. Small pleural effusions with mild bibasilar opacities. CT abd/pelvis:1. Significantly suboptimal examination without oral and IV contrast. The examination is also degraded by patient cachexia and significant motion artifact.2. Marked cardiomegaly.3. Right larger than left pleural effusions with bibasilar atelectasis.4. No acute infectious or inflammatory findings are seen in the abdomen or pelvis.5. There is no bowel obstruction.6. Bladder distention.7. Additional findings as above. In ED She received 1L Of IVF. Allergies Allergy/AdvReac Type Severity Reaction Status Date / Time Sulfa (Sulfonamide Allergy Severe Hives and Verified 02/18/20 07:57 Antibiotics) swelling of throat meperidine AdvReac Severe Hallucinations Verified 02/18/20 07:57 and tachycardia oxycodone AdvReac Severe Hallucinati Verified 02/18/20 07:57 ng Home Medications Medication Instructions Recorded Confirmed Type albuterol sulfate [Ventolin HFA] 2 puff INHALATION Q4H PRN 01/06/18 02/18/20 History ipratropium-albuterol 3 ml INHALATION Q4H PRN 01/06/18 02/18/20 History acetaminophen [Tylenol Extra 1,000 mg PO Q6H PRN 03/14/18 02/18/20 History Strength] aspirin 81 mg PO QPM 03/14/18 02/18/20 History digoxin 0.125 mg PO DAILY@1600 #30 tab 04/13/18 02/18/20 Rx furosemide 60 mg PO BID 09/06/19 02/18/20 History latanoprost 1 drp OPB HS 10/09/19 02/18/20 History sennosides-docusate sodium 2 tabcap PO BID PRN 10/11/19 02/18/20 History [Senokot-S] Flovent HFA 2 puff INHALATION BID 11/09/19 02/18/20 History simethicone 80 mg PO BID PRN 11/11/19 02/18/20 History metoprolol tartrate 75 mg PO BID #90 tab 11/16/19 02/18/20 Rx spironolactone 12.5 mg PO .MWF #6 tab 11/16/19 02/18/20 Rx trazodone 50 mg PO HS #7 tab 11/16/19 02/18/20 Rx alprazolam 0.25 mg PO HS PRN 02/18/20 02/18/20 History escitalopram oxalate 5 mg PO DAILY 02/18/20 02/18/20 History potassium chloride 20 meq PO DAILY 02/18/20 02/18/20 History Past Med/Surg History Medical History Anemia, chronic renal failure Anxiety Aortic stenosis Atrial fibrillation CKD (chronic kidney disease) stage 3, GFR 30-59 ml/min COPD (chronic obstructive pulmonary disease) inhaler/nebulizer prn Depression Diastolic CHF due to valvular disease Dysphagia Glaucoma Hearing deficit History of rheumatic fever as a child HTN (hypertension) Hypertension On anticoagulant therapy warfarin daily On home oxygen therapy 1 L N/C at sleep and prn Osteoarthritis Surgical History History of aortic valve replacement 01/2018 @ [facility] [place] History of appendectomy History of bilateral tubal ligation History of cardiac cath 12/2017 no stents @ [facility] 01/2018 @ [facility] [place] no stents History of cholecystectomy History of colonoscopy with polypectomy History of esophagogastroduodenoscopy (EGD) History of tooth extraction all lower teeth History of total hysterectomy "fibroids" S/P cataract surgery bilt Family History Mother Heart disease Father Stroke Social History (Updated 02/18/20 @ 14:14 by Nyasia Dillon PA-C) Smoking Status: Former smoker Tobacco Type: Cigarettes Cigarettes Per Day: quit 20yrs ago; Second Hand Exposure: No; Hx Alcohol Use: No Hx Substance Use: No Preferred Language: Serbian Communication Ability: Effective Visual Impairment: No Limitations 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 Required: No Beliefs That Will Affect Care: None marital status: Life Partner Current Living Situation: Family and Significant Other Current Living Situation Comment: 2 bedroom appartment in [place] current occupational status: retired How many Children do You have: 5 Other Information That Helps Us Care for You: No Feels Safe at Home: Yes Safety Concerns: Feels Safe At This Time Assistive Devices: Denture - Upper, Denture - Lower and Walker Review of Systems Review of Systems: All systems reviewed & are unremarkable except as noted in HPI & below Physical Exam Physical Exam: Constitutional: Thin, fraile, cachectic, F, very hard of hearing, vitals as above, NAD, sitting up in bed, answers questions appropriately but very hard to hear Head: Normocephalic, Atraumatic, temporal wasting Eyes: PERRL, conjunctivae normal, anicteric sclerae ENMT: external ear and nose normal, oropharynx dry membranes Neck: trachea midline, no thyromegaly normal visual inspection Respiratory: normal respiratory effort, lungs clear to auscultation, no wheeze, rales, rhonchi. Normal insp/exp effort, no accessory muscle use Cardiovascular: IRR/IRR, 2/6 PAULIE noted RUSB, no edema Vessels: no JVD or carotid bruit Chest: normal inspection of chest, cachectic Abdomen: normal bowel sounds, soft, nontender, no hepatosplenomegaly Musculoskeletal: no cyanosis or clubbing, active ROM x 4 to ext Skin: no rashes, warm and dry normal turgor Neurologic: PERRL, EOMI, accommodation nl, no face palsy, no dysarthria CN's I I-XI intact bilaterally and moves all extremities Psychiatric: A+Ox3, euthymic affect Lymphatic: no cervical or axillary lymphadenopathy : deferred Results & Data Results & Data ([facility]) Vital Signs (Past 12 Hours) Vital Signs Temp Pulse Resp BP Pulse Ox 02/18/20 12:30 67 32 H 144/59 H 96 02/18/20 12:00 55 L 22 136/60 95 02/18/20 11:50 71 18 148/56 H 96 02/18/20 11:30 63 24 135/53 L 02/18/20 11:00 73 28 H 149/52 H 02/18/20 10:50 58 L 27 H 02/18/20 10:40 70 31 H 02/18/20 10:30 71 23 139/52 L 82 L 02/18/20 10:20 65 25 H 02/18/20 10:10 77 18 02/18/20 10:00 60 22 116/61 02/18/20 09:51 97 02/18/20 09:50 59 L 20 95 02/18/20 09:40 65 22 95 02/18/20 09:30 76 37 H 129/68 94 02/18/20 09:20 82 21 95 02/18/20 09:10 21 99 02/18/20 09:00 22 175/74 H 98 02/18/20 08:50 72 22 90 02/18/20 08:40 70 27 H 94 02/18/20 08:30 79 17 156/74 H 96 02/18/20 08:20 73 19 96 02/18/20 08:10 71 22 96 02/18/20 08:00 70 26 H 175/66 H 96 02/18/20 07:52 67 26 H 147/71 H 96 02/18/20 07:50 67 24 96 02/18/20 07:46 62 24 96 02/18/20 07:40 36.6 C 64 26 H 159/68 H 96 Laboratory Results Short CBC 02/18/20 Range/Units 07:45 WBC 5.65 (4.8-10.8) K/uL Hgb 12.2 (12.0-16.0) g/dL Hct 37.0 (37-47) % Plt Count 232 (130-400) K/uL BMP 02/18/20 07:45 Sodium 142 Potassium 3.6 Chloride 98 Carbon Dioxide 39 H BUN 21 H Creatinine 1.03 Glucose 76 Calcium 8.9 Cardiac Enzymes 02/18/20 Range/Units 07:45 Total Creatine Kinase 51 (26-192) U/L Troponin I 0.044 (0-0.045) ng/ml Liver Function 02/18/20 Range/Units 07:45 Total Bilirubin 0.8 (0.2-1) mg/dl AST 26 (15-37) U/L ALT 24 (12-78) U/L Alkaline Phosphatase 53 (45-117) U/L Albumin 3.2 L (3.4-5.0) gm/dl Urine 02/18/20 Range/Units 08:45 Urine Color Yellow Urine Appearance Clear (Clear) Urine pH 8.0 H (4.5-7.5) Ur Specific Wykoff 1.012 (1.000-1.030) Urine Protein Negative (Negative) Urine Glucose (UA) Negative (Negative) Diagnostic Findings Chest CT/CT abd/pelvis: IMPRESSION: 1. Significantly suboptimal examination without oral and IV contrast. The examination is also degraded by patient cachexia and significant motion artifact. 2. Marked cardiomegaly. 3. Right larger than left pleural effusions with bibasilar atelectasis. 4. No acute infectious or inflammatory findings are seen in the abdomen or pelvis. 5. There is no bowel obstruction. 6. Bladder distention. 7. Additional findings as above. CXR: IMPRESSION: 1. Cardiomegaly with pulmonary vascular congestion. 2. Small pleural effusions with mild bibasilar opacities. Medications Administered Discontinued Medications Sodium Chloride (Nss 1000ml) 1,000 mls @ 999 mls/hr IV .Q1H1M ANNA Stop: 02/18/20 09:30 Last Infusion: 02/18/20 10:51 Dose: 0 mls/hr Documented by: [id number] Admin: 02/18/20 09:32 Dose: 999 mls/hr Documented by: [id number] Lorazepam (Ativan) 0.5 mg in 1 mls @ 1 mls/min IV NOW STA Stop: 02/18/20 08:31 Last Admin: 02/18/20 09:25 Dose: 1 mls/min Documented by: [id number] ECG Rate (beats per minute): 79 Rhythm: atrial fibrillation Code Status & VTE Plan Code Status Full code VTE Prophylaxis Plan VTE Prophylaxis will be ordered: Yes Supervising Physician Co-Signing Physician Notes Pt was seen and examined. Agreed with Nyasia BENTLEY exam, assessment and plan. 89-year-old female who is significant past medical history of chronic atrial fibrillation, chronic diastolic CHF, HTN, COPD, CKD stage III, osteoporosis, gout, GERD, hx of esophageal stricture & history of Schatzki's ring who presents to ED for weakness and nausea. Pt said that she has been having difficulty to swallow food for about 1 week. She had EGD done back in August that showed Schatzki's ring and gastritis that was dilated. The ring was dilated. She said that dysphagia was improved until about 1 week ago started to have dysphagia with food and liquid. She said that she has been crushing her medications and mix them with applesauce. She said that she lost alot of weight in the last few months. Denies any recent fever, chills, sweats, dizziness, lightheadedness, syncope, chest pain, shortness of breath, palpitations, emesis, abdominal pain, hematuria, melena, hematochezia, diarrhea or any contact to anyone tested positive with COVID 19. CXR on admission showed cardiomegaly with pulmonary vascular congestion and small pleural effusions with mild bibasilar opacities. CT chest showed small to moderate pleural effusions, right larger than left with associated atelectasis. CT abd/pelvis showed no acute infectious or inflammatory findings are seen in the abdomen or pelvis. Received IVF in the ER, will hold on more IVF since CXR showed pulmonary vascular congestion and history of diastolic heart failure. Will keep NPO for now. Gastro consult for possible EGD in am. Will consult speech as well. Continue monitor electrolytes. MD Nadeem (1) Dysphagia Dysphagia type: unspecified Qualified Code(s): R13.10 - Dysphagia, unspecified
--- NOTE | 2020-02-18 14:55 | Gastrointestinal Consultation ---
Date of Consultation February 18, 2020 Assessment & Plan (1) Dysphagia: This is an 89 y/o female with chronic intermittent dysphagia, weight loss, now admitted after presenting with these ongoing symptoms in addition to weakness. ER w/u unremarkable including labs, CT imaging. Recent w/u has revealed some esophageal dysmotility, prior h/o Schatzki ring that was dilated. It seems she's able to tolerate a dysphagia-type diet with moist/mushy/soft foods, but has occasional episodes where foods are getting hung up in the esophagus. Exact etiology of her symptoms are unclear, though question whether related to h/o Schatzki ring, possible underlying stricture/stenosis, vs dysmotility, spasm, presbyesophagus, vs achalasia, with possible contribution of underlying anxiety/depression. - Will make NPO after midnight - Will arrange EGD tomorrow to eval for any anatomical etiology - She should have speech therapy eval and nutritional eval to optimize her PO intake - Would recommend psychological care be optimized as well given her stated anxiety/depression - If EGD unrevealing, would then suggest she undergo motility testing (manometry) Thank you for allowing us to participate in the care of this patient. Please call with any acute changes, questions or concerns. Please see addendum below with additional recommendation from my supervising physician. (2) Excessive weight loss: Supervising Physician Co-Signing Physician Notes I saw and evaluated the patient. We were consulted due to persistent weight loss and difficulty with swallowing. The patient is somewhat of a difficult and tangential historian notes that she has intermittent solid food dysphagia. She is able to tolerate left foods without any difficulty. She did have an upper endoscopy with esophageal dilation performed in the summer and is not certain if this helped her symptoms. Of note she did have a recent swallowing study which showed esophageal dysmotility and slow passage of contrast into the stomach. Her recent history is notable for diverticular or hemorrhoidal bleeding for which she underwent a colonoscopy with Dr. Ley PE: Elderly female in no obvious distress Systolic ejection murmur heard Abdomen soft nontender Impression: Patient with recurrent intermittent solid food dysphagia unclear if this is later to an esophageal stricture. We would therefore proceed with upper endoscopy commonly this can be done as an outpatient. As the patient is being admitted we are certainly happy to try and accommodate this pending availability in the endoscopy center. If the patient has persistent problems she would then need further evaluation with a motility study and perhaps repeat swallowing study. History of Present Illness Reason for Consultation: dysphagia, weight loss Requesting Physician: Nyasia Dillon PA-C History of Present Illness This is an 89 y/o female CHF, s/p TAVR, a-fib (previously on Coumadin however this was DC'd due to risk outweighing benefit), COPD, HTN, CKD, chronic anemia, chronic dysphagia and who states she came to the ER today because of "severe depression and she couldn't stop crying." On review of outpt records it appears she's having ongoing issues with anxiety/depression. She has chronic issues with intermittent dysphagia and ongoing weight loss since around 2017, but moreseo in the last year. Her weight was 102 in October and today is 82 lbs. She states she is mostly tolerating a soft/mushy diet, and occasionally can eat solid foods if they "aren't too heavy." She has intermittent bouts of dysphagia maybe once a week, and some occasional issues with regurgitation; no significant heartburn. She tells me she has no dysphagia to liquids, though ER notes mention she has trouble swallowing liquids and was choking after being given a small amt of water. She does note more weakness/shakiness lately. ER w/u fairly unremarkble including labs (CBC, renal fxn, lipase, LFTs, troponin), CXR, CTAP, CT chest with no acute findings. She denies nausea, vomiting, hematemesis, melena, hematochezia, CP, SOB. She's a former smoker, no ETOH use. She's had several EGDs for her dysphagia, most recently in August noting mild Schatzki ring and pt did undergo dilation. There was also noted to be diffuse mild inflammation/edema and erythema and granularity in the entire stomach. Biopsy = mild focal gastritis. She states that any improvement she had with that was temporary. VFSS in Nov noted esophageal dysmotility and distention of the lower esophagus; no aspiration. Upper GI was ordered but hasn't been obtained. She saw nutrition in November for her weight loss. She has previously been evaluated by [facility] and it was deemed that she had appropriate swallowing mechanisms. - VFSS 12/14/2019 showed esophageal dysmotility with significant distension of the lower esophagus - Last EGD on 09/11/2019: mild Schatzki ring (dilation performed), gastritis, small hiatal hernia - Colonoscopy 10/15/19: Internal hemorrhoids, otherwise WNL Allergies Allergy/AdvReac Type Severity Reaction Status Date / Time Sulfa (Sulfonamide Allergy Severe Hives and Verified 02/18/20 07:57 Antibiotics) swelling of throat meperidine AdvReac Severe Hallucinations Verified 02/18/20 07:57 and tachycardia oxycodone AdvReac Severe Hallucinati Verified 02/18/20 07:57 ng Home Medications Medication Instructions Recorded Confirmed Type albuterol sulfate [Ventolin HFA] 2 puff INHALATION Q4H PRN 01/06/18 02/18/20 History ipratropium-albuterol 3 ml INHALATION Q4H PRN 01/06/18 02/18/20 History acetaminophen [Tylenol Extra 1,000 mg PO Q6H PRN 03/14/18 02/18/20 History Strength] aspirin 81 mg PO QPM 03/14/18 02/18/20 History digoxin 0.125 mg PO DAILY@1600 #30 tab 04/13/18 02/18/20 Rx furosemide 60 mg PO BID 09/06/19 02/18/20 History latanoprost 1 drp OPB HS 10/09/19 02/18/20 History sennosides-docusate sodium 2 tabcap PO BID PRN 10/11/19 02/18/20 History [Senokot-S] Flovent HFA 2 puff INHALATION BID 11/09/19 02/18/20 History simethicone 80 mg PO BID PRN 11/11/19 02/18/20 History metoprolol tartrate 75 mg PO BID #90 tab 11/16/19 02/18/20 Rx spironolactone 12.5 mg PO .MWF #6 tab 11/16/19 02/18/20 Rx trazodone 50 mg PO HS #7 tab 11/16/19 02/18/20 Rx alprazolam 0.25 mg PO HS PRN 02/18/20 02/18/20 History escitalopram oxalate 5 mg PO DAILY 02/18/20 02/18/20 History potassium chloride 20 meq PO DAILY 02/18/20 02/18/20 History Patient History Medical History Anemia, chronic renal failure Anxiety Aortic stenosis Atrial fibrillation CKD (chronic kidney disease) stage 3, GFR 30-59 ml/min COPD (chronic obstructive pulmonary disease) inhaler/nebulizer prn Depression Diastolic CHF due to valvular disease Dysphagia Glaucoma Hearing deficit History of rheumatic fever as a child HTN (hypertension) Hypertension On anticoagulant therapy warfarin daily On home oxygen therapy 1 L N/C at sleep and prn Osteoarthritis Surgical History History of aortic valve replacement 01/2018 @ [facility] [place] History of appendectomy History of bilateral tubal ligation History of cardiac cath 12/2017 no stents @ [facility] 01/2018 @ [facility] [place] no stents History of cholecystectomy History of colonoscopy with polypectomy History of esophagogastroduodenoscopy (EGD) History of tooth extraction all lower teeth History of total hysterectomy "fibroids" S/P cataract surgery bilt Family History (Updated 02/18/20 @ 14:13 by Nyasia Dillon PA-C) Mother Heart disease Father Stroke Social History (Updated 02/18/20 @ 14:14 by Nyasia Dillon PA-C) Smoking Status: Former smoker Tobacco Type: Cigarettes Cigarettes Per Day: quit 20yrs ago; Second Hand Exposure: No; Hx Alcohol Use: No Hx Substance Use: No Preferred Language: Romanian Communication Ability: Effective Visual Impairment: No Limitations Grey Roll Worker Required: No Beliefs That Will Affect Care: None marital status: Life Partner Current Living Situation: Family and Significant Other Current Living Situation Comment: 2 bedroom appartment in [place] current occupational status: retired How many Children do You have: 5 Other Information That Helps Us Care for You: No Feels Safe at Home: Yes Safety Concerns: Feels Safe At This Time Assistive Devices: Denture - Upper, Denture - Lower, Glasses, Hearing Aid - Left, Hearing Aid - Right and Oxygen - at Night Review of Systems Constitutional: + weight loss; no fever and no chills Eyes: denies icterus Respiratory: no cough and no dyspnea Cardiovascular: no chest pain and no edema Gastrointestinal: as per Subjective / HPI Integumentary: no rash and no yellowing of the skin Neurologic: + generalized weakness Psychiatric: as per Subjective / HPI, + depression and + anxiety Physical Exam Constitutional: + cachectic; no acute distress frail Eyes: PERRL, conjunctivae normal, anicteric sclerae Respiratory: normal respiratory effort, lungs clear to auscultation Cardiovascular: Rate/Rhythm: + irregularly irregular Gastrointestinal (Abdomen): normal bowel sounds, soft, nontender, no hepatosplenomegaly Skin: no rashes, warm and dry Psychiatric: Orientation: alert and oriented x 3 Results & Data ([facility]) Vital Signs (Past 12 Hours) Vital Signs Temp Pulse Resp BP Pulse Ox 02/18/20 14:30 62 28 H 154/61 H 94 02/18/20 14:15 66 33 H 96 02/18/20 14:00 60 29 H 134/57 L 94 02/18/20 13:45 64 27 H 97 02/18/20 13:30 64 24 142/64 H 97 02/18/20 13:15 63 34 H 97 02/18/20 13:00 68 22 140/57 L 96 02/18/20 12:30 67 32 H 144/59 H 96 02/18/20 12:00 55 L 22 136/60 95 02/18/20 11:50 71 18 148/56 H 96 02/18/20 11:30 63 24 135/53 L 02/18/20 11:00 73 28 H 149/52 H 02/18/20 10:50 58 L 27 H 02/18/20 10:40 70 31 H 02/18/20 10:30 71 23 139/52 L 82 L 02/18/20 10:20 65 25 H 02/18/20 10:10 77 18 02/18/20 10:00 60 22 116/61 02/18/20 09:51 97 02/18/20 09:50 59 L 20 95 02/18/20 09:40 65 22 95 02/18/20 09:30 76 37 H 129/68 94 02/18/20 09:20 82 21 95 02/18/20 09:10 21 99 02/18/20 09:00 22 175/74 H 98 02/18/20 08:50 72 22 90 02/18/20 08:40 70 27 H 94 02/18/20 08:30 79 17 156/74 H 96 02/18/20 08:20 73 19 96 02/18/20 08:10 71 22 96 02/18/20 08:00 70 26 H 175/66 H 96 02/18/20 07:52 67 26 H 147/71 H 96 02/18/20 07:50 67 24 96 02/18/20 07:46 62 24 96 02/18/20 07:40 36.6 C 64 26 H 159/68 H 96 Laboratory Results 02/18/20 02/18/20 02/18/20 Range/Units Unknown 09:50 09:00 WBC (4.8-10.8) K/uL RBC (4.2-5.4) M/uL Hgb (12.0-16.0) g/dL Hct (37-47) % MCV (80-100) fL MCH (25-34) pg MCHC (32-36) g/dL RDW Std Deviation (36.4-46.3) fL RDW Coeff of Zain (11.5-14.5) % Plt Count (130-400) K/uL MPV (7.4-10.4) fL Immature Gran % (Auto) % Neut % (Auto) % Lymph % (Auto) % Gilliam % (Auto) % Eos % (Auto) % Baso % (Auto) % Neut # (Auto) (1.4-6.5) K/uL Lymph # (Auto) (1.2-3.4) K/uL Gilliam # (Auto) (0.11-0.59) K/uL Eos # (Auto) (0-0.5) K/uL Baso # (Auto) (0-0.2) K/uL Immature Gran # (Auto) (0.00-0.02) K/uL PT INR APTT 26.8 (21.0-31.0) Seconds PTT Ratio 1.0 Sodium (136-145) mmol/L Potassium (3.5-5.1) mmol/L Chloride (98-107) mmol/L Carbon Dioxide (21-32) mmol/L Anion Gap (3-11) BUN (7-18) mg/dl Creatinine (0.6-1.2) mg/dl Est Cr Clr Drug Dosing ml/min Est GFR ( Amer) Est GFR (Non-Af Amer) BUN/Creatinine Ratio (10-20) Glucose (70-99) mg/dl Lactate 1.1 (0.4-2.0) mmol/L Calcium (8.5-10.1) mg/dl Magnesium (1.8-2.4) mg/dl Total Bilirubin (0.2-1) mg/dl AST (15-37) U/L ALT (12-78) U/L Alkaline Phosphatase (45-117) U/L Total Creatine Kinase (26-192) U/L Troponin I (0-0.045) ng/ml Total Protein (6.4-8.2) gm/dl Albumin (3.4-5.0) gm/dl Globulin (2.5-4.0) gm/dl Albumin/Globulin Ratio (0.9-2) Lipase (73-393) U/L TSH (0.300-4.500) uIu/ml Urine Color Urine Appearance (Clear) Urine pH (4.5-7.5) Ur Specific Beatrice (1.000-1.030) Urine Protein (Negative) Urine Glucose (UA) (Negative) Urine Ketones (Negative) Urine Blood (Negative) Urine Nitrite (Negative) Urine Bilirubin (Negative) Urine Urobilinogen (Negative) Ur Leukocyte Esterase (Negative) Urine WBC (Auto) (0-5) /hpf Urine RBC (Auto) (0-4) /hpf U Hyaline Cast (Auto) (0-5) /lpf U Epithel Cells (Auto) (0-5) /lpf Urine Bacteria (Auto) (Negative) Digoxin (0.8-2.0) ng/ml SARS-CoV-2 Ag (Rapid) Negative (Negative) 02/18/20 02/18/20 02/18/20 Range/Units 08:45 07:45 07:45 WBC (4.8-10.8) K/uL RBC (4.2-5.4) M/uL Hgb (12.0-16.0) g/dL Hct (37-47) % MCV (80-100) fL MCH (25-34) pg MCHC (32-36) g/dL RDW Std Deviation (36.4-46.3) fL RDW Coeff of Zain (11.5-14.5) % Plt Count (130-400) K/uL MPV (7.4-10.4) fL Immature Gran % (Auto) % Neut % (Auto) % Lymph % (Auto) % Gilliam % (Auto) % Eos % (Auto) % Baso % (Auto) % Neut # (Auto) (1.4-6.5) K/uL Lymph # (Auto) (1.2-3.4) K/uL Gilliam # (Auto) (0.11-0.59) K/uL Eos # (Auto) (0-0.5) K/uL Baso # (Auto) (0-0.2) K/uL Immature Gran # (Auto) (0.00-0.02) K/uL PT INR APTT (21.0-31.0) Seconds PTT Ratio Sodium 142 (136-145) mmol/L Potassium 3.6 (3.5-5.1) mmol/L Chloride 98 (98-107) mmol/L Carbon Dioxide 39 H (21-32) mmol/L Anion Gap 5.0 (3-11) BUN 21 H (7-18) mg/dl Creatinine 1.03 (0.6-1.2) mg/dl Est Cr Clr Drug Dosing 24.9 ml/min Est GFR ( Amer) 56.6 Est GFR (Non-Af Amer) 48.8 BUN/Creatinine Ratio 20.6 H (10-20) Glucose 76 (70-99) mg/dl Lactate (0.4-2.0) mmol/L Calcium 8.9 (8.5-10.1) mg/dl Magnesium 2.1 (1.8-2.4) mg/dl Total Bilirubin 0.8 (0.2-1) mg/dl AST 26 (15-37) U/L ALT 24 (12-78) U/L Alkaline Phosphatase 53 (45-117) U/L Total Creatine Kinase 51 (26-192) U/L Troponin I 0.044 (0-0.045) ng/ml Total Protein 6.2 L (6.4-8.2) gm/dl Albumin 3.2 L (3.4-5.0) gm/dl Globulin 3.0 (2.5-4.0) gm/dl Albumin/Globulin Ratio 1.1 (0.9-2) Lipase 77 (73-393) U/L TSH 2.530 (0.300-4.500) uIu/ml Urine Color Yellow Urine Appearance Clear (Clear) Urine pH 8.0 H (4.5-7.5) Ur Specific Beatrice 1.012 (1.000-1.030) Urine Protein Negative (Negative) Urine Glucose (UA) Negative (Negative) Urine Ketones Trace H (Negative) Urine Blood Negative (Negative) Urine Nitrite Negative (Negative) Urine Bilirubin Negative (Negative) Urine Urobilinogen Negative (Negative) Ur Leukocyte Esterase Trace H (Negative) Urine WBC (Auto) 1-5 (0-5) /hpf Urine RBC (Auto) 0-4 (0-4) /hpf U Hyaline Cast (Auto) 1-5 (0-5) /lpf U Epithel Cells (Auto) 5-10 H (0-5) /lpf Urine Bacteria (Auto) 1+ H (Negative) Digoxin 1.4 (0.8-2.0) ng/ml SARS-CoV-2 Ag (Rapid) (Negative) 02/18/20 02/18/20 Range/Units 07:45 07:45 WBC 5.65 (4.8-10.8) K/uL RBC 3.90 L (4.2-5.4) M/uL Hgb 12.2 (12.0-16.0) g/dL Hct 37.0 (37-47) % MCV 94.9 (80-100) fL MCH 31.3 (25-34) pg MCHC 33.0 (32-36) g/dL RDW Std Deviation 49.2 H (36.4-46.3) fL RDW Coeff of Zain 14.3 (11.5-14.5) % Plt Count 232 (130-400) K/uL MPV 10.7 H (7.4-10.4) fL Immature Gran % (Auto) 0.0 % Neut % (Auto) 68.3 % Lymph % (Auto) 18.8 % Gilliam % (Auto) 12.2 % Eos % (Auto) 0.5 % Baso % (Auto) 0.2 % Neut # (Auto) 3.86 (1.4-6.5) K/uL Lymph # (Auto) 1.06 L (1.2-3.4) K/uL Gilliam # (Auto) 0.69 H (0.11-0.59) K/uL Eos # (Auto) 0.03 (0-0.5) K/uL Baso # (Auto) 0.01 (0-0.2) K/uL Immature Gran # (Auto) 0.00 (0.00-0.02) K/uL PT Cancelled INR Cancelled APTT (21.0-31.0) Seconds PTT Ratio Sodium (136-145) mmol/L Potassium (3.5-5.1) mmol/L Chloride (98-107) mmol/L Carbon Dioxide (21-32) mmol/L Anion Gap (3-11) BUN (7-18) mg/dl Creatinine (0.6-1.2) mg/dl Est Cr Clr Drug Dosing ml/min Est GFR ( Amer) Est GFR (Non-Af Amer) BUN/Creatinine Ratio (10-20) Glucose (70-99) mg/dl Lactate (0.4-2.0) mmol/L Calcium (8.5-10.1) mg/dl Magnesium (1.8-2.4) mg/dl Total Bilirubin (0.2-1) mg/dl AST (15-37) U/L ALT (12-78) U/L Alkaline Phosphatase (45-117) U/L Total Creatine Kinase (26-192) U/L Troponin I (0-0.045) ng/ml Total Protein (6.4-8.2) gm/dl Albumin (3.4-5.0) gm/dl Globulin (2.5-4.0) gm/dl Albumin/Globulin Ratio (0.9-2) Lipase (73-393) U/L TSH (0.300-4.500) uIu/ml Urine Color Urine Appearance (Clear) Urine pH (4.5-7.5) Ur Specific Beatrice (1.000-1.030) Urine Protein (Negative) Urine Glucose (UA) (Negative) Urine Ketones (Negative) Urine Blood (Negative) Urine Nitrite (Negative) Urine Bilirubin (Negative) Urine Urobilinogen (Negative) Ur Leukocyte Esterase (Negative) Urine WBC (Auto) (0-5) /hpf Urine RBC (Auto) (0-4) /hpf U Hyaline Cast (Auto) (0-5) /lpf U Epithel Cells (Auto) (0-5) /lpf Urine Bacteria (Auto) (Negative) Digoxin (0.8-2.0) ng/ml SARS-CoV-2 Ag (Rapid) (Negative) Diagnostic Findings CXR 1. Cardiomegaly with pulmonary vascular congestion. 2. Small pleural effusions with mild bibasilar opacities. Noncon CT chest/AP CHEST: Thyroid: Imaged portions of the thyroid gland are normal in size and attenuation. Thoracic aorta: There is atherosclerotic calcification of the thoracic aorta. Postoperative change is seen involving the aortic valve and the ascending thoracic aorta. The ascending thoracic aorta measures up to 3.5 cm diameter. The arch demonstrate standard 3-vessel anatomy. Heart: The heart is markedly enlarged and without pericardial effusion. The main pulmonary arteries are dilated suggesting pulmonary artery hypertension. The coronary arteries and mitral annulus are densely calcified. Lungs and pleural spaces: Evaluation of the lung parenchyma is compromised by motion artifact. There are small to moderate pleural effusions, right larger than left with associated atelectasis. Mediastinum: There is no mediastinal lymphadenopathy. Janet: Not well evaluated without IV contrast. Axillae: There is no axillary lymphadenopathy. Bony thorax: The skeletal structures are osteopenic. There is a mild chronic superior endplate compression deformity of T11. Degenerative change and hyperkyphosis are noted in the thoracic spine. There are healed right-sided rib fractures. No lytic or blastic lesions are identified. Soft tissues: The patient is cachectic. ABDOMEN AND PELVIS: Liver: Evaluation of the liver is significantly degraded by streak and motion artifact. The unenhanced liver is grossly normal in size and contour. The liver appears heterogeneous. There is no intrahepatic biliary ductal dilatation. Gallbladder: Contracted versus surgically absent. Spleen: Normal in size and attenuation. Pancreas: The unenhanced pancreas is grossly unremarkable. Adrenal glands: Unremarkable. Kidneys: The contrast enhanced kidneys are atrophic and without hydronephrosis. No renal calculi are identified. There is no evidence of contour deforming mass lesion. Abdominal vasculature: The abdominal aorta is normal in course and caliber noting advanced atherosclerotic calcification. Bowel: There is rectosigmoid fecal retention. There is no bowel obstruction. The appendix is not visualized. Peritoneum: There is no intraperitoneal free air or abdominal ascites. Lymphadenopathy: None. Pelvic viscera: The bladder is distended but otherwise normal in appearance. The uterus is surgically absent. A 3.4 cm simple cystic lesion in the right adnexa is unchanged. Skeletal structures: The skeletal structures are osteopenic. There is a moderate chronic compression deformity of L2 with retropulsed fragments. This is unchanged from previous. There is moderate lumbosacral spondylosis. No lytic or blastic lesions are seen. Soft tissues: The patient is cachectic. There is body wall edema. IMPRESSION: 1. Significantly suboptimal examination without oral and IV contrast. The examination is also degraded by patient cachexia and significant motion artifac t. 2. Marked cardiomegaly. 3. Right larger than left pleural effusions with bibasilar atelectasis. 4. No acute infectious or inflammatory findings are seen in the abdomen or pelvis. 5. There is no bowel obstruction. 6. Bladder distention. 7. Additional findings as above. (1) Dysphagia Dysphagia type: unspecified Qualified Code(s): R13.10 - Dysphagia, unspecified
[2020-02-18] MEDS ORDERED: MAGNESIUM HYDROXIDE SUSP 30 ML UDC PO PRN (16:57)
[2020-02-18] MEDS ORDERED: ONDANSETRON INJ 2 MG/ML 2 ML VIAL IV PRN (16:57)
[2020-02-18] MEDS ORDERED: ALPRAZolam 0.25 MG TABLET PO PRN (16:57)
[2020-02-18] MEDS ORDERED: ACETAMINOPHEN 325 MG TAB PO PRN (16:57)
[2020-02-18] MEDS ORDERED: ALBUTEROL HFA 8 GM INHALER INH PRN (16:57)
[2020-02-18] MEDS ORDERED: ALUMINUM/MAGNESIUM SUSP 30 ML UDC PO PRN (16:57)
[2020-02-18] MEDS ORDERED: POLYETHYLENE (MIRALAX) 17 GM PACK PO PRN (16:57)
[2020-02-18] MEDS ORDERED: DIGOXIN 0.125 MG TAB PO SCH (17:30)
[2020-02-18] MEDS ORDERED: SPIRONOLACTONE 12.5 MG TAB PO SCH (17:30)
[2020-02-18] MEDS: cefTRIAXone SODIUM 1,000 MG in DEXTROSE 5% 50 ML IV SCH (18:17)
[2020-02-18] MEDS: traZODone HCL 50 MG TAB PO SCH (20:58)
[2020-02-18] MEDS: HEPARIN SOD 5,000 UNIT/0.5 ML VIAL SQ SCH (20:58)
[2020-02-18] MEDS: ASPIRIN 81 MG ECTAB PO SCH (20:58)
[2020-02-18] MEDS: FUROSEMIDE 20 MG TAB PO SCH (20:59)
[2020-02-18] MEDS ORDERED: METOPROLOL TARTRATE 25 MG TAB PO SCH (21:00)
[2020-02-18] MEDS: LATANOPROST 0.005% OP SOLN 2.5 ML BTL OPB SCH (21:00)
[2020-02-18] MEDS: ALBUT/IPRATROP 3MG/0.5MG NEB 3 ML VIAL INH PRN (23:06)
--- NOTE | 2020-02-19 00:30 | Communication Note ---
Date of Service: February 19, 2020 Made aware by RN of cardiac rate 40s during sleep. Patient asymptomatic as per RN. AP Bradycardia Likely secondary to excessive beta-melquidaes dose for heart rate range of 55 to 70s Decrease maintenance beta-melquiades dose from 75mg to 25 mg BID for now.
[2020-02-19 08:15] LABS: Hematocrit (blood only) 39.3 % (37-47); Hemoglobin 12.4 g/dL (12.0-16.0); Mean Corpuscular Hemoglobin 30.2 pg (25-34); Mean Corpuscular Hgb Conc 31.6 g/dL (32-36); Mean Corpuscular Volume 95.9 fL (80-100); Mean Platelet Volume 10.1 fL (7.4-10.4); Platelet Count 224 K/uL (130-400); RDW Coefficient of Variation 14.3 % (11.5-14.5); White Blood Count 4.95 K/uL (4.8-10.8)
[2020-02-19 08:44] LABS: Albumin Level 2.7 gm/dl (3.4-5.0); BUN Creatinine Ratio 21.5 (10-20); Calcium 8.5 mg/dl (8.5-10.1); Creatinine Clr Calc Pharmacy 30.2 ml/min; Est GFR (African American) 75.7; Est GFR (Non-African American) 65.3; Potassium 3.6 mmol/L (3.5-5.1)
[2020-02-19 08:48] LABS: Bilirubin,Total 0.7 mg/dl (0.2-1); Globulin 2.8 gm/dl (2.5-4.0); Prealbumin 13.2 mg/dl (20-40); Total Protein 5.5 gm/dl (6.4-8.2)
[2020-02-19] MEDS ORDERED: LORazepam 0.5 MG TAB PO PRN (09:19)
[2020-02-19] MEDS: ALBUT/IPRATROP 3MG/0.5MG NEB 3 ML VIAL INH PRN ×2 (09:23→22:34)
[2020-02-19] MEDS ORDERED: D5NSS + 20MEQ KCL 20 MEQ/1,000 ML BAG IV SCH (09:30)
[2020-02-19] MEDS: METOPROLOL TARTRATE 25 MG TAB PO SCH ×2 (09:49→21:03)
[2020-02-19] MEDS: FUROSEMIDE 20 MG TAB PO SCH (09:49)
[2020-02-19] MEDS: FLUTICASONE/VILANTEROL 100/25MCG 14 PUFFS/INHALER INH SCH (09:50)
[2020-02-19] MEDS: HEPARIN SOD 5,000 UNIT/0.5 ML VIAL SQ SCH ×2 (09:50→21:05)
[2020-02-19] MEDS: ESCITALOPRAM OXALATE 10 MG TAB PO SCH (09:50)
[2020-02-19] MEDS: POTASSIUM CHLORIDE CRTAB 20 MEQ TABCR PO SCH ×2 (09:50→10:48)
--- NOTE | 2020-02-19 10:55 | Gastroenterology Progress Note ---
Date of Service February 19, 2020 Assessment & Plan (1) Dysphagia: 89 y/o female with chronic intermittent dysphagia, weight loss, esophageal dysmotility, h/o Schatzki ring dilated in August, now admitted after presenting with these ongoing symptoms in addition to weakness. Pt tells me she's able to tolerate a dysphagia-type diet with moist/mushy/soft foods, but has occasional solid food dysphagia. Question whether related to h/o Schatzki ring, possible underlying stricture/stenosis, vs dysmotility, spasm, presbyesophagus, vs achalasia, with possible contribution of underlying anxiety/depression. - EGD today to eval for any anatomical etiology - She should have speech therapy eval, and nutritional eval to optimize her PO intake - Would recommend psychological care be optimized as well given her stated anxiety/depression - If EGD unrevealing, would then suggest she undergo fluoroesophagram without video (barium swallow) as well as motility testing (manometry) Thank you for allowing us to participate in the care of this patient. Please call with any acute changes, questions or concerns. Please see addendum below with additional recommendation from my supervising physician. Admission and Anticipated Discharge Date Admission Date: February 18, 2020 Supervising Physician Co-Signing Physician Notes I saw and evaluated the patient. We are planning to do upper endoscopy given her possible solid food dysphagia. She has had numerous dilations in the past with about what appears to be much benefit. If there is no improvement the patient will likely need follow-up with an upper GI series and perhaps an esophageal motility study. Subjective Pt seen in follow-up of poor oral intake, weight loss, h/o intermittent dysphagia. Pt notes she feels anxious and would like something to calm her down. Slept ok overnight; is NPO currently. Denies abd pain, n/v, melena, hematochezia, hematemesis, fever. Review of Systems Review of Systems: All systems reviewed & are unremarkable except as noted in HPI & below Physical Exam Constitutional: + cachectic; no acute distress Eyes: PERRL, conjunctivae normal, anicteric sclerae Respiratory: normal respiratory effort Cardiovascular: Rate/Rhythm: + irregularly irregular systolic murmur Gastrointestinal (Abdomen): normal bowel sounds, soft, nontender, no hepatosplenomegaly Skin: no rashes, warm and dry Psychiatric: Orientation: alert and oriented x 3 anxious, intermittently te arful Results & Data ([facility]) Vital Signs (Past 12 Hours) Vital Signs Temp Pulse Resp BP Pulse Ox 02/19/20 09:24 65 18 95 02/19/20 07:42 36.4 C L 52 L 17 157/68 H 99 02/19/20 03:30 54 L 02/18/20 23:28 36.4 C L 46 L 15 102/50 L 99 02/18/20 23:07 49 L 16 94 Laboratory Results 02/19/20 02/19/20 02/19/20 Range/Units 09:22 08:50 08:50 WBC (4.8-10.8) K/uL RBC (4.2-5.4) M/uL Hgb (12.0-16.0) g/dL Hct (37-47) % MCV (80-100) fL MCH (25-34) pg MCHC (32-36) g/dL RDW Std Deviation (36.4-46.3) fL RDW Coeff of Zain (11.5-14.5) % Plt Count (130-400) K/uL MPV (7.4-10.4) fL Sodium (136-145) mmol/L Potassium (3.5-5.1) mmol/L Chloride (98-107) mmol/L Carbon Dioxide (21-32) mmol/L Anion Gap (3-11) BUN (7-18) mg/dl Creatinine (0.6-1.2) mg/dl Est Cr Clr Drug Dosing ml/min Est GFR ( Amer) Est GFR (Non-Af Amer) BUN/Creatinine Ratio (10-20) Glucose (70-99) mg/dl POC Glucose 73 (70-99) mg/dl Calcium (8.5-10.1) mg/dl Magnesium (1.8-2.4) mg/dl Total Bilirubin (0.2-1) mg/dl AST (15-37) U/L ALT (12-78) U/L Alkaline Phosphatase (45-117) U/L Total Protein (6.4-8.2) gm/dl Albumin (3.4-5.0) gm/dl Globulin (2.5-4.0) gm/dl Albumin/Globulin Ratio (0.9-2) Prealbumin (20-40) mg/dl COVID-19 Eval [facility] SARS-CoV-2, RNA, NAAT NEGATIVE (NEGATIVE) SARS-CoV-2 Ag (Rapid) (Negative) 02/19/20 02/19/20 02/18/20 Range/Units 07:58 07:58 09:50 WBC 4.95 (4.8-10.8) K/uL RBC 4.10 L (4.2-5.4) M/uL Hgb 12.4 (12.0-16.0) g/dL Hct 39.3 (37-47) % MCV 95.9 (80-100) fL MCH 30.2 (25-34) pg MCHC 31.6 L (32-36) g/dL RDW Std Deviation 50.0 H (36.4-46.3) fL RDW Coeff of Zain 14.3 (11.5-14.5) % Plt Count 224 (130-400) K/uL MPV 10.1 (7.4-10.4) fL Sodium 144 (136-145) mmol/L Potassium 3.6 (3.5-5.1) mmol/L Chloride 102 (98-107) mmol/L Carbon Dioxide 37 H (21-32) mmol/L Anion Gap 5.0 (3-11) BUN 17 (7-18) mg/dl Creatinine 0.81 (0.6-1.2) mg/dl Est Cr Clr Drug Dosing 30.2 ml/min Est GFR ( Amer) 75.7 Est GFR (Non-Af Amer) 65.3 BUN/Creatinine Ratio 21.5 H (10-20) Glucose 75 (70-99) mg/dl POC Glucose (70-99) mg/dl Calcium 8.5 (8.5-10.1) mg/dl Magnesium 2.0 (1.8-2.4) mg/dl Total Bilirubin 0.7 (0.2-1) mg/dl AST 20 (15-37) U/L ALT 18 (12-78) U/L Alkaline Phosphatase 49 (45-117) U/L Total Protein 5.5 L (6.4-8.2) gm/dl Albumin 2.7 L (3.4-5.0) gm/dl Globulin 2.8 (2.5-4.0) gm/dl Albumin/Globulin Ratio 1.0 (0.9-2) Prealbumin 13.2 L (20-40) mg/dl COVID-19 Eval Order SARS-CoV-2, RNA, NAAT (NEGATIVE) SARS-CoV-2 Ag (Rapid) Negative (Negative) (1) Dysphagia Dysphagia type: unspecified Qualified Code(s): R13.10 - Dysphagia, unspecified
[2020-02-19] MEDS ORDERED: ePHEDrine sulfate 50 MG/ML AMP IV PRN (11:25)
[2020-02-19] MEDS ORDERED: ATROPINE SULFATE 0.1 MG/ML 10ML SYR IV PRN (11:25)
--- NOTE | 2020-02-19 11:25 | Anesthesiology Consultation ---
Date of Service February 19, 2020 Assessment & Plan ASA ASA3 Proposed Anesthesia Anesthesia Type: MAC Risk / Benefits Reviewed With: PT / POA / Parent / Guardian, Accepts Plan and Informed Consent Obtained History Surgery Operation Date: 02/19/20 16:00 Proposed Procedures p Esophagogastroduodenoscopy Dr Arley Tubbs, DO Height/Weight Height: 5 ft 2 in Weight: 39.1 kg Allergies Allergy/AdvReac Type Severity Reaction Status Date / Time Sulfa (Sulfonamide Allergy Severe Hives and Verified 02/18/20 07:57 Antibiotics) swelling of throat meperidine AdvReac Severe Hallucinations Verified 02/18/20 07:57 and tachycardia oxycodone AdvReac Severe Hallucinati Verified 02/18/20 07:57 ng Medications Home Medications Medication Instructions Recorded Confirmed Last Taken albuterol sulfate [Ventolin HFA] 2 puff INHALATION Q4H PRN 01/06/18 02/18/20 11/25/19 ipratropium-albuterol 3 ml INHALATION Q4H PRN 01/06/18 02/18/20 09/10/19 12:00 acetaminophen [Tylenol Extra 1,000 mg PO Q6H PRN 03/14/18 02/18/20 09/09/19 21:00 Strength] aspirin 81 mg PO QPM 03/14/18 02/18/20 11/24/19 digoxin 0.125 mg PO DAILY@1600 #30 tab 04/13/18 02/18/20 11/24/19 furosemide 60 mg PO BID 09/06/19 02/18/20 11/25/19 latanoprost 1 drp OPB HS 10/09/19 02/18/20 11/24/19 sennosides-docusate sodium 2 tabcap PO BID PRN 10/11/19 02/18/20 11/25/19 [Senokot-S] Flovent HFA 2 puff INHALATION BID 11/09/19 02/18/20 11/25/19 simethicone 80 mg PO BID PRN 11/11/19 02/18/20 11/25/19 metoprolol tartrate 75 mg PO BID #90 tab 11/16/19 02/18/20 11/25/19 spironolactone 12.5 mg PO .MWF #6 tab 11/16/19 02/18/20 11/23/19 trazodone 50 mg PO HS #7 tab 11/16/19 02/18/20 11/24/19 alprazolam 0.25 mg PO HS PRN 02/18/20 02/18/20 Unknown escitalopram oxalate 5 mg PO DAILY 02/18/20 02/18/20 Unknown potassium chloride 20 meq PO DAILY 02/18/20 02/18/20 Unknown Active Medications Generic Name Dose Route Start Last Admin Trade Name Freq PRN Reason Stop Dose Admin Albuterol 3 ml 02/18/20 16:57 02/19/20 09:23 Albut/Ipratrop 3mg/0.5mg Neb 3 Ml Vial INH 03/19/20 16:56 3 ml Q4R PRN Administration COUGH, SOB OR WHEEZING Alprazolam 0.25 mg 02/18/20 16:57 02/19/20 09:41 Alprazolam 0.25 Mg Tablet PO 03/19/20 16:56 0.25 mg HS PRN Administration Anxiety Aspirin 81 mg 02/18/20 21:00 02/18/20 20:58 Aspirin 81 Mg Ectab PO 03/19/20 20:59 81 mg QPM ANNA Administration Escitalopram Oxalate 5 mg 02/19/20 09:00 02/19/20 09:50 Escitalopram Oxalate 10 Mg Tab PO 03/20/20 08:59 5 mg DAILY ANNA Administration Fluticasone/Vilanterol 1 puffs 02/19/20 09:00 02/19/20 09:50 Fluticasone/Vilanterol 100/25mcg 14 Puffs/Inhaler INH 03/20/20 08:59 1 puffs DAILY ANNA Administration Protocol Furosemide 60 mg 02/18/20 21:00 02/19/20 09:49 Furosemide 20 Mg Tab PO 03/19/20 20:59 60 mg BID ANNA Administration Heparin Sodium (Porcine) 5,000 units 02/18/20 21:00 02/19/20 09:50 Heparin Sod 5,000 Unit/0.5 Ml Vial SQ 03/19/20 20:59 5,000 units Q12 ANNA Administration Ceftriaxone Sodium 1,000 mg/ 50 mls @ 100 mls/hr 02/18/20 18:00 02/18/20 18:57 Dextrose IV 02/20/20 17:59 Infused Q24H ANNA Infusion Protocol Potassium Chloride/Dextrose/Sod Cl 20 meq in 1,000 mls @ 60 mls/hr 02/19/20 09:30 02/19/20 11:03 D5nss + 20meq Kcl IV 03/20/20 09:29 0 mls/hr .[id number] ANNA Infusion Latanoprost 1 drops 02/18/20 21:00 02/18/20 21:00 Latanoprost 0.005% Op Soln 2.5 Ml Btl OPB 03/19/20 20:59 1 drops HS ANNA Administration Metoprolol Tartrate 25 mg 02/19/20 09:00 02/19/20 09:49 Metoprolol Tartrate 25 Mg Tab PO 03/20/20 08:59 25 mg BID ANNA Administration Potassium Chloride 20 meq 02/19/20 09:00 02/19/20 10:48 Potassium Chloride Crtab 20 Meq Tabcr PO 03/20/20 08:59 Not Given DAILY ANNA Spironolactone 12.5 mg 02/18/20 17:30 02/18/20 17:40 Spironolactone 12.5 Mg Tab PO 03/19/20 17:29 12.5 mg [id number] ANNA Administration Trazodone HCl 50 mg 02/18/20 21:00 02/18/20 20:58 Trazodone Hcl 50 Mg Tab PO 03/19/20 20:59 50 mg HS ANNA Administration NPO Date Last Intake of Fluids: 02/19/20 Time Last Intake of Fluids: 00:01 Last Intake of Fluids Comment: sip with meds at 0941 Date Last Intake of Solids: 02/19/20 Time Last Intake of Solids: 00:01 Past Medical History Medical History Anemia, chronic renal failure Anxiety Aortic stenosis Atrial fibrillation CKD (chronic kidney disease) stage 3, GFR 30-59 ml/min COPD (chronic obstructive pulmonary disease) inhaler/nebulizer prn Depression Diastolic CHF due to valvular disease Dysphagia Glaucoma Hearing deficit History of rheumatic fever as a child HTN (hypertension) Hypertension On anticoagulant therapy warfarin daily On home oxygen therapy 1 L N/C at sleep and prn Osteoarthritis Exercise / Class Metabolic Activity II 4-5 Yardwork/Stairs/Walk up hill Past Family History Family History Mother Heart disease Father Stroke Past Surgical History Surgical History History of aortic valve replacement 01/2018 @ [facility] History of appendectomy History of bilateral tubal ligation History of cardiac cath 12/2017 no stents @ [facility] 01/2018 @ [facility] no stents History of cholecystectomy History of colonoscopy with polypectomy History of esophagogastroduodenoscopy (EGD) History of tooth extraction all lower teeth History of total hysterectomy "fibroids" S/P cataract surgery bilt Past Anesthesia History No Hx of Anesthesia Complications and No Family Hx of Anesthesia Complications History of PONV No Hx of PONV and No Hx of Motion Sickness Social History Smoking Status: Former smoker tobacco type: cigarettes Smoking cigarettes per day: quit 20yrs ago Hx Alcohol Use: No Hx Substance Use: No substance use type: does not use Review of Systems denies fever/cough/ colds/ chest pain/ SOB/ TONA denies TONA Physical Exam Vital Signs Last Vital Signs Temp 36.5 C 02/19/20 11:08 Pulse 60 02/19/20 11:08 Resp 18 02/19/20 11:08 BP 134/65 02/19/20 11:08 Pulse Ox 93 02/19/20 11:08 ENMT Mouth: + edentulous; no TMJ abnormality and no dentition abnormality Thyromental Distance: > or= 3.5 Finger Breadths Mallampati Class: II Neck neck extension not limited Respiratory normal respiratory effort; no respiratory distress Auscultation: lungs clear to auscultation bilaterally Cardiovascular Rate/Rhythm: regular rate and regular rhythm Neurologic moves all extremities Psychiatric Orientation: alert and oriented x 3 Testing Laboratory Results 02/19/20 07:58 02/19/20 07:58 PT Cancelled 02/18/20 07:45 INR Cancelled 02/18/20 07:45 APTT 26.8 Seconds (21.0-31.0) 02/18/20 Unknown Urine Color Yellow 02/18/20 08:45 Urine Appearance Clear (Clear) 02/18/20 08:45 Urine pH 8.0 (4.5-7.5) H 02/18/20 08:45 Ur Specific [place] 1.012 (1.000-1.030) 02/18/20 08:45 Urine Protein Negative (Negative) 02/18/20 08:45 Urine Glucose (UA) Negative (Negative) 02/18/20 08:45 Urine Ketones Trace (Negative) H 02/18/20 08:45 Urine Nitrite Negative (Negative) 02/18/20 08:45 Ur Leukocyte Esterase Trace (Negative) H 02/18/20 08:45 Urine WBC (Auto) 1-5 /hpf (0-5) 02/18/20 08:45 Urine RBC (Auto) 0-4 /hpf (0-4) 02/18/20 08:45 U Hyaline Cast (Auto) 1-5 /lpf (0-5) 02/18/20 08:45 U Epithel Cells (Auto) 5-10 /lpf (0-5) H 02/18/20 08:45 Urine Bacteria (Auto) 1+ (Negative) H 02/18/20 08:45 02/19/20 09:22 POC Glucose 73
[2020-02-19] MEDS ORDERED: PROPOFOL IV EMULSION 10 MG/ML 20 ML VIAL IV ONE (12:01)
[2020-02-19] MEDS ORDERED: LIDOCAINE HCL 2% 2 ML VIAL/AMP(20MG/ML) INFIL ONE (12:02)
--- NOTE | 2020-02-19 12:11 | GI REPORT ---
Patient Name: Naty Solomon Procedure Date: 02/19/2020 11:48 AM Date of : 1930 Admit Type: Inpatient Age: 89 Gender: Female Attending MD: Phan Tubbs DO Procedure: Upper GI endoscopy Providers: Phan Tubbs DO Referring MD: Luis Eduardo Hodge Indications: Dysphagia Medicines: Monitored Anesthesia Care Complications: No immediate complications. Estimated blood loss: Minimal. Estimated Blood Loss: Estimated blood loss was minimal. Procedure: Pre-Anesthesia Assessment: - Prior to the procedure, a History and Physical was performed, and patient medications, allergies and sensitivities were reviewed. The patient's tolerance of previous anesthesia was reviewed. - The risks and benefits of the procedure and the sedation options and risks were discussed with the patient. All questions were answered and informed consent was obtained. - Patient identification and proposed procedure were verified prior to the procedure by the physician, the nurse and the gin inspector. The procedure was verified in the procedure room. - Pre-procedure physical examination revealed no contraindications to sedation. - ASA Grade Assessment: III - A patient with severe systemic disease. - The anesthesia plan was to use monitored anesthesia care (MAC). - Immediately prior to administration of medications, the patient was re-assessed for adequacy to receive sedatives. - The heart rate, respiratory rate, oxygen saturations, blood pressure, adequacy of pulmonary ventilation, and response to care were monitored throughout the procedure. - The physical status of the patient was re-assessed after the procedure. After obtaining informed consent, the endoscope was passed under direct vision. Throughout the procedure, the patient's blood pressure, pulse, and oxygen saturations were monitored continuously. The Endoscope was introduced through the mouth, and advanced to the third part of duodenum. The upper GI endoscopy was accomplished without difficulty. The patient tolerated the procedure well. Findings: Diffuse, white plaques were found in the entire esophagus. Cells for cytology were obtained by brushing. Estimated blood loss was minimal. A mild Schatzki ring was found at the gastroesophageal junction. A guidewire was placed and the scope was withdrawn. Dilation was performed with a Savary dilator with no resistance at 48 Fr and 51 Fr. The dilation site was examined following endoscope reinsertion and showed no change. Estimated blood loss was minimal. Diffuse moderate inflammation characterized by congestion (edema), erythema and granularity was found in the entire examined stomach. Biopsies were taken with a cold forceps for histology. The pathology specimen was placed into Bottle A. Estimated blood loss was minimal. The examined duodenum was normal. Impression: - Esophageal plaques were found, suspicious for candidiasis. Cells for cytology obtained. - Mild Schatzki ring. Dilated to 51 Fr. - Gastritis. Biopsied. - Normal examined duodenum. Recommendation: - Return patient to hospital tubbs for ongoing care. - Mechanical soft diet. - Diflucan (fluconazole) 100 mg PO daily for 10 days. -Gastritis is likely medication related and can certainly be causing her present symptoms, would favor Celexa (consider stopping). Phan Tubbs D.O. Phan Tubbs, DO 02/19/2020 12:11:31 PM This report has been signed electronically. Note Initiated On: 02/19/2020 11:48 AM Number of Addenda: 0 I attest to the content of the Intraoperative Record and orders documented therein, exceptions below {[id number]}
--- NOTE | 2020-02-19 12:35 | Communication Note ---
Date of Service: February 19, 2020 The patient underwent upper endoscopy today. We did do an empiric dilation to 51 [place]. She has a an esophageal ring but this is not likely the cause of her present symptoms. The patient does have diffuse candidiasis likely related to her inhalers. I would suggest a 10-day course of Diflucan. Finally she does have diffuse gastritis which could certainly be causing her symptoms of nausea. I would favor Celexa as being the likely culprit for this particular symptom. I would suggest discontinuation of the medication. Please call with any questions or concerns, GI to sign off
--- NOTE | 2020-02-19 12:46 | Anesthesiology Progress Note ---
Date of Service February 19, 2020 Anesthesia Post Procedure Vital Signs Vital Signs: Temp Pulse Pulse Pulse Resp BP BP 02/19/20 12:34 53 L 16 121/54 L 02/19/20 12:19 55 L 16 130/65 02/19/20 12:04 60 16 95/49 L 02/19/20 11:08 36.5 C 60 18 134/65 02/19/20 09:24 65 18 02/19/20 07:42 36.4 C L 52 L 17 157/68 H 02/19/20 03:30 54 L 02/18/20 23:28 36.4 C L 46 L 15 102/50 L 02/18/20 23:07 49 L 16 02/18/20 21:23 71 126/60 02/18/20 17:24 50 L 02/18/20 17:22 36.6 C 50 L 16 136/56 L 02/18/20 16:00 70 25 H 137/77 02/18/20 15:30 55 L 29 H 156/75 H 02/18/20 15:00 61 25 H 129/57 L 02/18/20 14:30 62 28 H 154/61 H 02/18/20 14:15 66 33 H 02/18/20 14:00 60 29 H 134/57 L 02/18/20 13:45 64 27 H 02/18/20 13:30 64 24 142/64 H 02/18/20 13:15 63 34 H 02/18/20 13:00 68 22 140/57 L Pulse Ox 02/19/20 12:34 95 02/19/20 12:19 95 02/19/20 12:04 96 02/19/20 11:08 93 02/19/20 09:24 95 02/19/20 07:42 99 02/19/20 03:30 02/18/20 23:28 99 02/18/20 23:07 94 02/18/20 21:23 02/18/20 17:24 02/18/20 17:22 95 02/18/20 16:00 95 02/18/20 15:30 98 02/18/20 15:00 96 02/18/20 14:30 94 02/18/20 14:15 96 02/18/20 14:00 94 02/18/20 13:45 97 02/18/20 13:30 97 02/18/20 13:15 97 02/18/20 13:00 96 Transfer of Care Handoff Completed per policy Notes Mental Status: alert / awake / arousable and participated in evaluation Patient Amnestic to Procedure: Yes Nausea / Vomiting: adequately controlled Pain: adequately controlled Airway Patency, RR, SpO2: stable & adequate BP & HR: stable & adequate Hydration State: stable & adequate Anesthetic Complications: no major complications apparent and Pt Satisfied with anesthetic care
--- NOTE | 2020-02-19 13:44 | Hospitalist Progress Note ---
Date of Service February 19, 2020 Assessment & Plan (1) Dysphagia: (2) Excessive weight loss: Per admitting service notes This is an 89-year-old female who is significant past medical history of chronic atrial fibrillation, chronic diastolic CHF, HTN, COPD, CKD stage III, osteoporosis, gout, GERD, hx of esophageal stricture & history of Schatzki's ring who presents to ED after feeling weak and nauseated x1 week. In ED she remains hemodynamically stable. Lab work notable for H/H 12.2/37.0, 232, K 3.6, bun 21, cr 1.03 CXR:1. Cardiomegaly with pulmonary vascular congestion. 2. Small pleural effusions with mild bibasilar opacities. CT abd/pelvis:1. Significantly suboptimal examination without oral and IV contrast. The examination is also degraded by patient cachexia and significant motion artifact.2. Marked cardiomegaly.3. Right larger than left pleural effusions with bibasilar atelectasis.4. No acute infectious or inflammatory findings are seen in the abdomen or pelvis.5. There is no bowel obstruction.6. Bladder distention.7. Additional findings as above. In ED She received 1L Of IVF. 02/19/2020 Status post EGD which showed esophageal candidiasis, mild scattered cisterns dilated, gastritis biopsied Recommend Diflucan 100 mg p.o. daily x10 days Recommend to DC Celexa which may be causing the gastritis Speech therapist consulted, minced and moist diet ordered Continue to monitor (3) Abnormal urinalysis: Abnormal UA with c/o dysuria Urine Culture: pending Continue IV ceftriaxone (4) Chronic atrial fibrillation: Per admitting service notes: continue metoprolol and digoxin on ASA therapy only at this point CHADSVASC 5, with recent hx of GIB last cardio visit 12/25/19 recommends ASA only given risk vs benefit (5) Diastolic heart failure: Per admitting service notes Chronic HFpEF, hx of DA last echo 11/2018, EF > 70%, diastolic, mild pulm HTN, PASP 44mmhg,left and right atrial enlargement continue metoprolol, lasix, aldactone, digoxin CXR and CT mild-mod effusions, pt on room air and not in distress continue oral lasix regimen, monitor volume status closely (6) H/O aortic valve replacement: as above (7) HTN (hypertension): BP stable continue metoprolol, aldactone, lasix monitor (8) CKD (chronic kidney disease) stage 3, GFR 30-59 ml/min: baseline cr 1.0 (9) COPD (chronic obstructive pulmonary disease): no acute exac continue flovent and albuterol (10) DVT prophylaxis: SQ Heparin Disposition: Pending PT and OT evaluation Follow up: PCP Dr. Pendleton upon discharge Admission and Anticipated Discharge Date Admission Date: February 18, 2020 Subjective Follow-up for dysphagia, weight loss Seen resting in bed, watching TV, comfortable, no distress Appears somewhat weak Status post EGD Denies chest pain, cough, shortness of breath, abdominal pain, nausea vomiting Requesting for diet No other symptoms Review of Systems Review of Systems: All systems reviewed & are unremarkable except as noted in Subjective Physical Exam Physical Exam: General- oriented x 3, not in distress, speaks in sentences with no effort or accessory muscle use Under nourished Head- atraumatic Eyes- PERRL, EOMI, anicteric ENT- oropharynx clear Neck- supple, no JVD, no adenopathy, no thyromegaly; carotids +2/2, no bruits appreciated Lungs- clear to auscultation bilaterally, no rales/wheezes Heart- normal rate, regular rhythm; no murmur, no gallop, no rub appreciated Abdomen- normal bowel sounds, nondistended, soft, nontender, no masses or hepatosplenomegaly Extremities- no pretibial edema, no calf tenderness; peripheral pulses intact Neuro- alert, oriented x 3; CN 2-12 grossly intact; motor 5/5 bilaterally;sensation 100% on all extremities; no other gross focal neurologic deficits Skin- warm & dry Results & Data Results & Data ([facility]) Vital Signs (Past 12 Hours) Vital Signs Temp Pulse Resp BP Pulse Ox 02/19/20 12:34 53 L 16 121/54 L 95 02/19/20 12:19 55 L 16 130/65 95 02/19/20 12:04 60 16 95/49 L 96 02/19/20 11:08 36.5 C 60 18 134/65 93 02/19/20 09:24 65 18 95 02/19/20 07:42 36.4 C L 52 L 17 157/68 H 99 02/19/20 03:30 54 L Laboratory Results Laboratory Results - last 24 hr 02/19/20 02/19/20 02/19/20 07:58 07:58 08:50 WBC 4.95 RBC 4.10 L Hgb 12.4 Hct 39.3 MCV 95.9 MCH 30.2 MCHC 31.6 L RDW Std Deviation 50.0 H RDW Coeff of Zain 14.3 Plt Count 224 MPV 10.1 Sodium 144 Potassium 3.6 Chloride 102 Carbon Dioxide 37 H Anion Gap 5.0 BUN 17 Creatinine 0.81 Est Cr Clr Drug Dosing 30.2 Est GFR ( Amer) 75.7 Est GFR (Non-Af Amer) 65.3 BUN/Creatinine Ratio 21.5 H Glucose 75 POC Glucose Calcium 8.5 Magnesium 2.0 Total Bilirubin 0.7 AST 20 ALT 18 Alkaline Phosphatase 49 Total Protein 5.5 L Albumin 2.7 L Globulin 2.8 Albumin/Globulin Ratio 1.0 Prealbumin 13.2 L COVID-19 Eval [facility] SARS-CoV-2, RNA, NAAT 02/19/20 02/19/20 08:50 09:22 WBC RBC Hgb Hct MCV MCH MCHC RDW Std Deviation RDW Coeff of Zain Plt Count MPV Sodium Potassium Chloride Carbon Dioxide Anion Gap BUN Creatinine Est Cr Clr Drug Dosing Est GFR ( Amer) Est GFR (Non-Af Amer) BUN/Creatinine Ratio Glucose POC Glucose 73 Calcium Magnesium Total Bilirubin AST ALT Alkaline Phosphatase Total Protein Albumin Globulin Albumin/Globulin Ratio Prealbumin COVID-19 Eval Order SARS-CoV-2, RNA, NAAT NEGATIVE (1) Dysphagia Dysphagia type: unspecified Qualified Code(s): R13.10 - Dysphagia, unspecified
[2020-02-19] MEDS: FLUCONAZOLE 100 MG TAB PO SCH (14:10)
--- NOTE | 2020-02-19 15:51 | Electrocardiogram Report ---
Test Reason : Blood Pressure : / mmHG Vent. Rate : 072 BPM Atrial Rate : 072 BPM P-R Int : 000 ms QRS Dur : 084 ms QT Int : 420 ms P-R-T Axes : 000 265 -49 degrees QTc Int : 459 ms Poor data quality, interpretation may be adversely affected Atrial fibrillation Right superior axis deviation Low voltage QRS Septal infarct (cited on or before 07-JAN-2018) Abnormal ECG When compared with ECG of 25-NOV-2019 08:53, No significant change Confirmed by Brad Blackburn ([id number]) on 02/19/2020 3:50:33 PM Referred By: REFERRED SELF Confirmed By:Brad Blackburn
[2020-02-19] MEDS ORDERED: DIGOXIN 0.125 MG TAB PO SCH (16:00)
[2020-02-19] MEDS: cefTRIAXone SODIUM 1,000 MG in DEXTROSE 5% 50 ML IV SCH (17:32)
[2020-02-19] MEDS: traZODone HCL 50 MG TAB PO SCH (21:02)
[2020-02-19] MEDS: ASPIRIN 81 MG ECTAB PO SCH (21:02)
[2020-02-19] MEDS: LATANOPROST 0.005% OP SOLN 2.5 ML BTL OPB SCH (21:05)
[2020-02-19 22:49] LABS: Influenza A virus by PCR Negative (Neg); Influenza B virus by PCR Negative (Neg); RSV by PCR Negative (Neg); SARS CoV2 RNA(COVID-19) InHosp NEGATIVE (Negative)
[2020-02-20] MEDS: ALBUT/IPRATROP 3MG/0.5MG NEB 3 ML VIAL INH PRN (07:48)
[2020-02-20] MEDS: POTASSIUM CHLORIDE CRTAB 20 MEQ TABCR PO SCH ×2 (09:28→09:44)
[2020-02-20] MEDS: FLUCONAZOLE 100 MG TAB PO SCH (09:28)
[2020-02-20] MEDS: ESCITALOPRAM OXALATE 10 MG TAB PO SCH ×2 (09:28→09:44)
[2020-02-20] MEDS: FLUTICASONE/VILANTEROL 100/25MCG 14 PUFFS/INHALER INH SCH (09:30)
[2020-02-20] MEDS: HEPARIN SOD 5,000 UNIT/0.5 ML VIAL SQ SCH (09:30)
[2020-02-20] MEDS: METOPROLOL TARTRATE 25 MG TAB PO SCH (09:50)
--- NOTE | 2020-02-20 13:52 | Psychiatric Consultation ---
Date of Consultation February 20, 2020 Impression / Recommendations Impression Dr. Sveta Ocasio was directly involved in review and discussion of the patient's case and participated in medical decision making regarding treatment recommendations. RECOMMENDATIONS: 02/19 - Psychiatric consultation was requested by our hospitalist service to evaluate the patient for anxiety/depression. Patient is being discharged today and is admittedly a bit distracted from our conversation due to significant hearing deficit and anticipatory excitement about discharge. - Patient reports her anxiety is related to a decision of whether or not to move out of her current apartment (has been approved for a new apartment), where she is living with a close male friend who is able to help with household needs. She also feels that sometimes their disagreements lead to a desire to move out, but she is reportedly afraid of living independently. Some of her anxiety may be related to this (and possibly other) psychosocial stressors that may be able to be addressed in outpatient therapy if the patient is agreeable. Pt was encouraged to discuss the situation and her concerns with a trusted family member in the interim. Would encourage re-evaluation at her next PCP ap pointment to determine if outpatient therapy referral is indicated at that time. - In regard to medication recommendations, unfortunately most antidepressant medications show at least some risk of gastritis as a potential side effect, though it is unlikely that 5mg of escitalopram will be effective for her reported anxiety. It is possible to consider cautiously titrating escitalopram, while observing for worsening GI symptoms. Another consideration would be to trial buspirone to target her anxiety. If anxiety persists, or anxiolytic/antidepressant options continue to be limited, an outpatient psychiatry referral could be considered by the patient's PCP. - Pt reports excitement for discharge and does not report any acute safety concerns or thoughts to harm self or others. Please reach out to our service with any additional questions or updates. Psych History Identifying Data 89-year-old female admitted medically on 02/18/2020 after presenting to the ED with concerns related to difficulty swallowing and weight loss over the past 6 months. Psychiatric consultation was requested to evaluate the patient for depression and anxiety. Chief Complaint "I need to leave, I'm supposed to be going home today." History of Present Illness Naty Solomon is an 89-year-old female admitted medically on 02/18/2020 after presenting to the ED with reported concerns related to difficulty swallowing and weight loss over the past 6 months. Pt stated that she felt more weak and was experiencing nausea for the past week. Psychiatric consultation was ordered by our hospitalist service to evaluate patient for anxiety and depression. Patient is scheduled for discharge today. Patient is very hard of hearing, and conversation is also somewhat limited by patient's excitement for discharge. Upon entering patient's room, her belongings are packed and her winter coat is on. She states "I need to leave, I'm supposed to be going home today." Pt does not bring up concern for anxiety, until mentioned by this provider. She then states "oh my, yes. It's been going on my whole life." The patient tells this provider that presently she has been struggling with whether or not to move out of her current living situation. Stating she finds valuable support in living with a close friend, but feels that sometimes she gets frustrated with their disagreements and feels like it would be better for them to live separately. Pt was encouraged to speak with a trusted friend about her options - as she states she has already applied for an apartment and was notified she is able to move in, but isn't sure she wants to. Pt was encouraged to speak with her PCP about possible outpatient therapy referral if desired. Pt is a bit distracted during our conversation, and isn't able to offer a very clear history of her past psychiatric treatment. She does state that "I don't like that Lexapro, it does nothing for me." We did discuss the possibility that it was contributing to GI symptoms, but also informed patient that it is unlikely her 5mg dose is sufficient enough to target her anxiety. Given that she is being discharged shortly, she was informed we could offer some recommendations to her PCP for follow-up after she leaves the hospital. Pt states she is ok with this, and denied other acute concerns. She continues to be focused on how quickly she can leave the hospital. Pt does thank this provider for her time, and she was encouraged to reach out to our service with any additional questions. She denied other needs or acute safety concerns. Past Psychiatric History Past Medication Trials: Per external medication history: 1. Remeron 2. Zoloft 3. Lexapro 4. Celexa 5. Xanax 6. Trazodone Allergies Allergy/AdvReac Type Severity Reaction Status Date / Time Sulfa (Sulfonamide Allergy Severe Hives and Verified 02/18/20 07:57 Antibiotics) swelling of throat meperidine AdvReac Severe Hallucinations Verified 02/18/20 07:57 and tachycardia oxycodone AdvReac Severe Hallucinati Verified 02/18/20 07:57 ng Home Medications Medication Instructions Recorded Confirmed Type albuterol sulfate [Ventolin HFA] 2 puff INHALATION Q4H PRN 01/06/18 02/18/20 History ipratropium-albuterol 3 ml INHALATION Q4H PRN 01/06/18 02/18/20 History acetaminophen [Tylenol Extra 1,000 mg PO Q6H PRN 03/14/18 02/18/20 History Strength] aspirin 81 mg PO QPM 03/14/18 02/18/20 History digoxin 0.125 mg PO DAILY@1600 #30 tab 04/13/18 02/18/20 Rx furosemide 60 mg PO BID 09/06/19 02/18/20 History latanoprost 1 drp OPB HS 10/09/19 02/18/20 History sennosides-docusate sodium 2 tabcap PO BID PRN 10/11/19 02/18/20 History [Senokot-S] Flovent HFA 2 puff INHALATION BID 11/09/19 02/18/20 History simethicone 80 mg PO BID PRN 11/11/19 02/18/20 History metoprolol tartrate 75 mg PO BID #90 tab 11/16/19 02/18/20 Rx spironolactone 12.5 mg PO .MWF #6 tab 11/16/19 02/18/20 Rx trazodone 50 mg PO HS #7 tab 11/16/19 02/18/20 Rx alprazolam 0.25 mg PO HS PRN 02/18/20 02/18/20 History escitalopram oxalate 5 mg PO DAILY 02/18/20 02/18/20 History potassium chloride 20 meq PO DAILY 02/18/20 02/18/20 History fluconazole 50 mg PO QAM 10 Days #5 tab 02/20/20 Rx omeprazole 40 mg PO BID 42 Days #84 cap 02/20/20 Rx Substance Abuse History Former smoker. No reported concern for significant substance use/abuse. Personal History Living Arrangements: Apartment (with a male friend she has known for 21+ years) Employment Status: Retired Marital Status: Living w/ Signif. Other (lives with a life partner, but states he is not her ) Beliefs That Will Affect Care: Baptism Patient History Medical History Anemia, chronic renal failure Anxiety Aortic stenosis Atrial fibrillation CKD (chronic kidney disease) stage 3, GFR 30-59 ml/min COPD (chronic obstructive pulmonary disease) inhaler/nebulizer prn Depression Diastolic CHF due to valvular disease Dysphagia Glaucoma Hearing deficit History of rheumatic fever as a child HTN (hypertension) Hypertension On anticoagulant therapy warfarin daily On home oxygen therapy 1 L N/C at sleep and prn Osteoarthritis Surgical History History of aortic valve replacement 01/2018 @ [facility] [place] History of appendectomy History of bilateral tubal ligation History of cardiac cath 12/2017 no stents @ [facility] 01/2018 @ [facility] [place] no stents History of cholecystectomy History of colonoscopy with polypectomy History of esophagogastroduodenoscopy (EGD) History of tooth extraction all lower teeth History of total hysterectomy "fibroids" S/P cataract surgery bilt Family History Mother Heart disease Father Stroke Social History Smoking Status: Former smoker Tobacco Type: Cigarettes Cigarettes Per Day: quit 20yrs ago; Second Hand Exposure: No; Hx Alcohol Use: No Hx Substance Use: No Preferred Language: French Communication Ability: Effective Visual Impairment: No Limitations Telephoto Engineer Required: No Beliefs That Will Affect Care: Baptism marital status: Life Partner Current Living Situation: Family and Significant Other Current Living Situation Comment: 2 bedroom appartment in [place] current occupational status: retired How many Children do You have: 5 Other Information That Helps Us Care for You: No Feels Safe at Home: Yes Safety Concerns: Feels Safe At This Time Assistive Devices: Denture - Upper, Denture - Lower, Glasses and Oxygen - at Night Physical Exam Psychiatric: Orientation: alert, oriented x 3 and cooperative (though seemingly distracted) Interview was somewhat limited by patient's significant hearing deficit Apperance: appropriately dressed, appropriately groomed and appeared stated age Thin, frail appearing female, pacing around room arranging her personal belongings. Pt is wearing her pajamas and a winter coat, reporting she is ready to leave the hospital. Short red hair appears clean and decently groomed. Level of hygiene appears adequate. Eye Contact: + fair eye contact Motor Behavior: steady gait and station and + psychomotor agitation (appearing restless, anxious) Speech: normal rate/rhythm/volume of speech Affect: + anxious affect and mood congruent with affect Mood: + anxious mood Thought Process: goal directed thought process and thought association intact Thought Content: reality based without delusions and + guilt (related to thoughts of moving out of her apartment); no hopelessness Suicidal Thoughts: denies suicidal thoughts Homicidal Thoughts: denies homicidal thoughts Hallucinations: no auditory hallucinations and no visual hallucinations Cognition: attention grossly intact and language grossly intact Estimated Intelligence: consistent with education level Insight: + fair insight Judgement: + fair judgement Vital Signs (Past 24 Hours): Last Vital Signs Temp 36.7 C 02/20/20 07:21 Pulse 68 02/20/20 07:48 Resp 18 02/20/20 07:48 BP 162/61 H 02/20/20 07:21 Pulse Ox 98 02/20/20 07:48 Review of Systems Constitutional: denied Cardiovascular: denied Respiratory: denied Gastrointestinal: reports "butterflies in my stomach" sensation Neurological: denied Psychiatric: denies symptoms other than stated above Total of at least 10 systems reviewed, pertinent positives as above and in HPI. Results & Data (PSY) Medications Administered Albuterol (Albut/Ipratrop 3mg/0.5mg Neb 3 Ml Vial) 3 ml INH Q4R PRN PRN Reason: COUGH, SOB OR WHEEZING Stop: 03/19/20 16:56 Last Admin: 02/20/20 07:48 Dose: 3 ml Documented by: [id number] Admin: 02/19/20 22:34 Dose: 3 ml Documented by: [id number] Admin: 02/19/20 09:23 Dose: 3 ml Documented by: [id number] Admin: 02/18/20 23:06 Dose: 3 ml Documented by: [id number] Alprazolam (Alprazolam 0.25 Mg Tablet) 0.25 mg PO HS PRN PRN Reason: Anxiety Stop: 03/19/20 16:56 Last Admin: 02/19/20 09:41 Dose: 0.25 mg Documented by: [id number] Aspirin (Aspirin 81 Mg Ectab) 81 mg PO QPM [facility] Stop: 03/19/20 20:59 Last Admin: 02/19/20 21:02 Dose: 81 mg Documented by: [id number] Admin: 02/18/20 20:58 Dose: 81 mg Documented by: [id number] Digoxin (Digoxin 0.125 Mg Tab) 0.125 mg PO Q2D@1600 [facility]; Protocol Stop: 03/19/20 17:29 Last Admin: 02/19/20 16:12 Dose: Not Given Documented by: [id number] Escitalopram Oxalate (Escitalopram Oxalate 10 Mg Tab) 5 mg PO DAILY [facility] Stop: 03/20/20 08:59 Last Admin: 02/20/20 09:44 Dose: Not Given Documented by: [id number] Admin: 02/19/20 09:50 Dose: 5 mg Documented by: [id number] Fluticasone/Vilanterol (Fluticasone/Vilanterol 100/25mcg 14 Puffs/Inhaler) 1 puffs INH DAILY [facility]; Protocol Stop: 03/20/20 08:59 Last Admin: 02/20/20 09:30 Dose: 1 puffs Documented by: [id number] Admin: 02/19/20 09:50 Dose: 1 puffs Documented by: [id number] Furosemide (Furosemide 20 Mg Tab) 60 mg PO BID [facility] Stop: 03/19/20 20:59 Last Admin: 02/19/20 09:49 Dose: 60 mg Documented by: [id number] Admin: 02/18/20 20:59 Dose: 60 mg Documented by: [id number] Heparin Sodium (Porcine) (Heparin Sod 5,000 Unit/0.5 Ml Vial) 5,000 units SQ Q12 [facility] Stop: 03/19/20 20:59 Last Admin: 02/20/20 09:30 Dose: 5,000 units Documented by: [id number] Admin: 02/19/20 21:05 Dose: 5,000 units Documented by: [id number] Admin: 02/19/20 09:50 Dose: 5,000 units Documented by: [id number] Admin: 02/18/20 20:58 Dose: 5,000 units Documented by: [id number] Latanoprost (Latanoprost 0.005% Op Soln 2.5 Ml Btl) 1 drops OPB HS [facility] Stop: 03/19/20 20:59 Last Admin: 02/19/20 21:05 Dose: 1 drops Documented by: [id number] Admin: 02/18/20 21:00 Dose: 1 drops Documented by: [id number] Metoprolol Tartrate (Metoprolol Tartrate 25 Mg Tab) 25 mg PO BID [facility] Stop: 03/20/20 08:59 Last Admin: 02/20/20 09:50 Dose: 25 mg Documented by: [id number] Admin: 02/19/20 21:03 Dose: 25 mg Documented by: [id number] Admin: 02/19/20 09:49 Dose: 25 mg Documented by: [id number] Potassium Chloride (Potassium Chloride Crtab 20 Meq Tabcr) 20 meq PO DAILY [facility] Stop: 03/20/20 08:59 Last Admin: 02/20/20 09:44 Dose: Not Given Documented by: [id number] Admin: 02/19/20 10:48 Dose: Not Given Documented by: [id number] Trazodone HCl (Trazodone Hcl 50 Mg Tab) 50 mg PO [facility] Stop: 03/19/20 20:59 Last Admin: 02/19/20 21:02 Dose: 50 mg Documented by: [id number] Admin: 02/18/20 20:58 Dose: 50 mg Documented by: [id number] Coding Level of Care Code 51820 U Intl Hosp Care Lvl 2
--- NOTE | 2020-02-20 15:15 | Discharge Summary ---
Date of Service February 20, 2020 Admission HPI Per Admitting Provider This is an 89-year-old female who is significant past medical history of chronic atrial fibrillation, chronic diastolic CHF, HTN, COPD, CKD stage III, osteoporosis, gout, GERD, hx of esophageal stricture & history of Schatzki's ring who presents to ED after feeling weak and nauseated x1 week. Of significance patient has had a 60 pound weight loss over the past 6 months. She previously was in the 140s and now is 87 pounds. She underwent EGD August 2019 which revealed a mild Schatzki's ring that was dilated, gastritis and vomiting with changes from stomach and small intestine biopsy. She noted symptoms of dys phagia improved for approximately 1 week and then returned. She is having difficulty swallowing solids and liquids. In ED they did attempt to have her swallow water and she had evidence of coughing. She has been compliant with her medications as she has been crushing them with applesauce. She states she lives with her friend does have family close by. She denies any recent fever, chills, sweats, dizziness, lightheadedness, syncope, chest pain, shortness of breath, palpitations, emesis, abdominal pain, hematuria, melena, hematochezia or diarrhea. She does admit to dysuria. Denies any known Covid exposure. In ED she remains hemodynamically stable. Lab work notable for H/H 12.2/37.0, 232, K 3.6, bun 21, cr 1.03 CXR:1. Cardiomegaly with pulmonary vascular congestion. 2. Small pleural e ffusions with mild bibasilar opacities. CT abd/pelvis:1. Significantly suboptimal examination without oral and IV contrast. The examination is also degraded by patient cachexia and significant motion artifact.2. Marked cardiomegaly.3. Right larger than left pleural effusions with bibasilar atelectasis.4. No acute infectious or inflammatory findings are seen in the abdomen or pelvis.5. There is no bowel obstruction.6. Bladder distention.7. Additional findings as above. In ED She received 1L Of IVF. Principal Diagnosis Difficult to swallowing/dysphagia Weight loss Ruth infection on esophagus Gastritis Depression/anxiety disorder Discharge Exam Constitutional WD/WN, vitals as above + thin and + cachectic; no acute distress Eyes sclerae not anicteric ENMT external ear and nose normal, oropharynx normal Neck trachea midline, no thyromegaly Respiratory normal respiratory effort, lungs clear to auscultation Cardiovascular RRR, no murmur, no edema Gastrointestinal (Abdomen) Percussion/Palpation: abdomen soft; abdomen nontender Musculoskeletal no cyanosis or clubbing, extremities motor strength 5/5 Skin no rashes, warm and dry Neurologic PERRL, EOMI, accommodation nl, no face palsy, no dysarthria Hard of hearing Psychiatric A+Ox3, euthymic affect Discharge Data Allergies Allergy/AdvReac Type Severity Reaction Status Date / Time Sulfa (Sulfonamide Allergy Severe Hives and Verified 02/18/20 07:57 Antibiotics) swelling of throat meperidine AdvReac Severe Hallucinations Verified 02/18/20 07:57 and tachycardia oxycodone AdvReac Severe Hallucinati Verified 02/18/20 07:57 ng Consultations 02/18/20 13:20 ED Decision to Admit Stat 02/18/20 13:23 Consult Gastroenterology Routine 02/20/20 10:49 Consult Psychiatry Routine Procedures Performed Operation Date: 02/19/20 16:00 Actual Procedures p EGD Biopsy Iain - Phan Tubbs DO Ordered Studies 02/18/20 08:34 CT abd pelvis wo con Stat CT chest wo con Stat Hospital Course (1) Dysphagia: (2) Excessive weight loss: Per admitting service notes This is an 89-year-old female who is significant past medical history of chronic atrial fibrillation, chronic diastolic CHF, HTN, COPD, CKD stage III, osteoporosis, gout, GERD, hx of esophageal stricture & history of Schatzki's ring who presents to ED after feeling weak and nauseated x1 week. In ED she remains hemodynamically stable. Lab work notable for H/H 12.2/37.0, 232, K 3.6, bun 21, cr 1.03 CXR:1. Cardiomegaly with pulmonary vascular congestion. 2. Small pleural effusions with mild bibasilar opacities. CT abd/pelvis:1. Significantly suboptimal examination without oral and IV contrast. The examination is also degraded by patient cachexia and significant motion artifact.2. Marked cardiomegaly.3. Right larger than left pleural effusions with bibasilar atelectasis.4. No acute infectious or inflammatory findings are seen in the abdomen or pelvis.5. There is no bowel obstruction.6. Bladder distention.7. Additional findings as above. 02/19/2020 Status post EGD which showed esophageal candidiasis, mild scattered cisterns dilated, gastritis biopsied Recommend Diflucan 100 mg p.o. daily x10 days Recommend to DC Celexa which may be causing the gastritis Speech therapist consulted, minced and moist diet ordered 02/20/20 pt is eager to be discharged home today scripts for Diflucan sent to pt's pharmacy added PPI instructions given for minced and moist diet rinse mount with water after using inhaler (3) Abnormal urinalysis: Abnormal UA with c/o dysuria Urine Culture: No growth Antibiotic discontinued (4) Chronic atrial fibrillation: Per admitting service notes: continue metoprolol and digoxin on ASA therapy only at this point CHADSVASC 5, with recent hx of GIB last cardio visit 12/25/19 recommends ASA only given risk vs benefit (5) Diastolic heart failure: Per admitting service notes Chronic HFpEF, hx of DA last echo 11/2018, EF > 70%, diastolic, mild pulm HTN, PASP 44mmhg,left and right atrial enlargement continue metoprolol, lasix, aldactone, digoxin CXR and CT mild-mod effusions, pt on room air and not in distress Home diuretics resumed on discharge (6) H/O aortic valve replacement: as above (7) HTN (hypertension): BP stable continue metoprolol, aldactone, lasix monitor (8) CKD (chronic kidney disease) stage 3, GFR 30-59 ml/min: baseline cr 1.0 (9) COPD (chronic obstructive pulmonary disease): no acute exac continue flovent and albuterol (10) DVT prophylaxis: SQ Heparin Disposition: Stable to be discharged home today Follow up: PCP Dr. Pendleton upon discharge Total Time Total Time Spent Total Time Spent (In Minutes): 35 minutes Total Time Includes: Examination of the Patient, Discharge Planning and Medication Reconciliation Discharge Plan Discharge Items Patient Disposition: Home - Home Health Services Reason For Visit: DYSPHAGIA, WEIGHT LOSS Discharge Diagnosis: Difficult to swallowing/dysphagia Weight loss Ruth infection on esophagus Gastritis Depression/anxiety disorder Activity: Resume your previous activity Non-emergency contact: Primary Care Provider Call non-emergency contact if: you have any medication questions Follow-up/Referrals: Phan Tubbs DO [Physician] - ( follow-up in 4-6 weeks. Please call office for appointment) Ariana Pendleton MD [Primary Care Provider] - 02/26/20 11:00 am (Date & Time 02/26/2020 11:00 AM Provider Ariana Pendleton MD Department Internal Medicine [facility] ) Diet: Heart Healthy Diet Texture: Dental soft (bite-sized) Addtl Attending Provider Instructions: Hospital follow-up with family physician Ariana Pendleton on February 25 at 11 AM Please follow-up with your psychiatric for further adjustment of antidepressant meds Please rinse your mouth with water after each time using inhalers. Complete antifungal medication Diflucan for total 10 days Diet: Minced and moist diet, add plenty of gravy Avoid foods which are dry, thick, pasty or doughy. Alternate between liquid/drinks and solid. Please have medications crushed and put in on applesauce or pudding. Single bites/small sips of liquid/slow rate All the meals needs to be taken while sitting upright, and stay upright for 4-6 hours after each meal. EGD shows that you have gastritis/inflammation on your stomach, Take omeprazole 40 mg 1 tablet twice daily for 6 weeks, after that 1 tablet daily. Avoid hot, spicy food, limit caffeine, alcohol intake Follow-up with gastroenterology in 4-6 weeks Pending Studies at Discharge: No Stand-Alone Forms: [facility], Opioid Pain Management, Work/School Release (Inpt), Smoking Cessation Medications and DC Order Prescriptions: New fluconazole 100 mg Tablet 50 mg PO QAM 10 Days Qty: 5 RF: 0 omeprazole 40 mg capsule,delayed release(DR/EC) 40 mg PO BID 42 Days Qty: 84 RF: 0 Continued ipratropium-albuterol 0.5 mg-3 mg(2.5 mg base)/3 mL Solution For Nebulization 3 ml INHALATION Q4H PRN (Reason: COUGH, SOB OR WHEEZING) RF: 0 albuterol sulfate [Ventolin HFA] 90 mcg/actuation Hfa Aerosol Inhaler 2 puff INHALATION Q4H PRN (Reason: Shortness Of Breath Or Wheezing) RF: 0 furosemide 40 mg Tablet 60 mg PO BID RF: 0 simethicone 80 mg Tablet,Chewable 80 mg PO BID PRN (Reason: BLOATING/GAS) RF: 0 trazodone 50 mg tablet 50 mg PO HS Qty: 7 RF: 0 metoprolol tartrate 50 mg tablet 75 mg PO BID Qty: 90 RF: 5 spironolactone 25 mg tablet 12.5 mg PO .MWF Qty: 6 RF: 5 potassium chloride 20 mEq tablet,ER particles/crystals 20 meq PO DAILY RF: 0 escitalopram oxalate 5 mg tablet 5 mg PO DAILY RF: 0 alprazolam 0.25 mg tablet 0.25 mg PO HS PRN (Reason: Anxiety) RF: 0 aspirin 81 mg Tablet,Delayed Release (Dr/Ec) 81 mg PO QPM RF: 0 acetaminophen [Tylenol Extra Strength] 500 mg Tablet 1,000 mg PO Q6H PRN (Reason: Pain) RF: 0 digoxin 125 mcg Tablet 0.125 mg PO DAILY@1600 Qty: 30 RF: 0 latanoprost 0.005 % drops 1 drp OPB HS RF: 0 sennosides-docusate sodium [Senokot-S] 8.6-50 mg tablet 2 tabcap PO BID PRN (Reason: Constipation) RF: 0 Flovent HFA 220 mcg/actuation HFA aerosol inhaler 2 puff INHALATION BID RF: 0 Discharge Orders: Discharge Order (Routine); Ordered 02/20/20 Ordered By: Lorie Culver/Other Patient Handouts: Dysphagia: Exercises, Understanding Dysphagia Admission Data Admit Date/Time: 02/18/20 13:23 Attending Provider: Lorie Paredes Admit Provider: Rom Silver Primary Care Provider: Ariana Pendleton Other Providers: Rom Silver ; Phan Tubbs ; Luis Eduardo Sharp ; Terrie White Other Interventions: Discharge Summary Assessment (RN) Last Done: 02/20/20 14:57
[2020-02-21] MEDS ORDERED: FLUCONAZOLE 100 MG TAB PO SCH (09:00)
== END 2020-02-20 15:33 | disposition home health service (06) ==
LOC: 3W 07:28 → ED 07:28 → SUATTDRO 13:23 → 3W 14:48

== ENCOUNTER 2020-04-19 09:06 | Inpatient (IN) ==
[2020-04-19] MEDS ORDERED: SODIUM CHLORIDE 0.9% 1000ML 500 ML IV ONE ×3 (09:20→12:46)
--- NOTE | 2020-04-19 09:47 | Emergency Department Note ---
Impression & Plan Acute alteration in mental status, Acute dehydration, Bradycardia, Acute respiratory acidosis, Elevated troponin I level ED Provider Note EpisodeNAME: EBONY MADERA AGE: 89 SEX: F : 1930 ARRIVES VIA: Ambulance INFORMANT: Patient, EMS personnel ED PROVIDER(S): Herminio Schofield DO CHIEF COMPLAINT: Fall HPI: The patient is an 89-year-old female who presented to the emergency department by ambulance for an evaluation of a fall. The patient has a history of atrial fibrillation. According to the prehospital personnel they do not think that she takes oral anticoagulation because of her fall risk. She was found on the floor last evening by [facility]dc staff and then was placed back in the bed. According to the [facility] staff she was found to have an altered mental status this morning and was sent to the emergency department. The patient is very slow to answer questions and appears to be somewhat confused. She does follow some commands and at this time is denying any specific pain. For me she denied having any chest pain or difficulty breathing. The patient denied having any neck pain or back pain. The details of the fall were not communicated to the prehospital staff. It sounds as though this was unwitnessed and the patient may have had a loss of consciousness although we are still not sure. ROS: See above HPI for pertinent positives & negatives. A total of 10 systems reviewed and were otherwise negative. PAST MEDICAL HISTORY: See Below PAST SURGICAL HISTORY: See Below FAMILY HISTORY: See Below SOCIAL HISTORY: See Below HOME MEDICATIONS: See Below ALLERGIES: See Below VITALS: See Below PHYSICAL EXAMINATION: GENERAL: The patient is listless and slow to answer questions. She does follow commands slowly but appears to be confused at times. EYES: The conjunctivae are clear. The pupils are round and reactive. EARS, NOSE, MOUTH AND THROAT: The nose is without any evidence of any deformity. Mucous membranes are dry NECK: The neck is nontender and supple. RESPIRATORY: Diminished breath sounds are noted bilaterally however right greater than left. CARDIOVASCULAR: Ectopy was noted to auscultation. No definite murmur was noted. GASTROINTESTINAL: The abdomen is soft. Abdomen is nontender. MUSCULOSKELETAL/EXTREMITIES: There is no evidence of gross deformity full range of motion is noted in the hips and shoulders. SKIN: Skin turgor was very poor. Skin was cool and dry. NEUROLOGIC: Patient is slow to answer questions. She does follow commands. She appears to be able to hold her arms over her head and has no drift in the upper extremities. MEDICAL DECISION MAKING: The patient is an 89-year-old female who presented to the emergency department from the [facility] for an evaluation after being found on the floor. The patient is overall in very poor health. Bradycardia while in the emergency department. Her digoxin levels not toxic. There is no signs of trauma noted on CT the head or neck. The patient was found to have significant respiratory acidosis with retention of CO2. She was also found have an elevation in her troponin. Overall she was treated with IV fluids and IV antibiotics for presumed urinary tract infection. Her blood pressure waxed and waned while she was in the emergency department. Her mental status continued to wax and wane as well. A family friend presented to the emergency department to be with her. He does state that her mental status at this time is certainly diminished compared to baseline. I reiterated the patient's wishes with the family member. The p mary's DNR paperwork was reviewed and according to her forms she does not wish to have intubation or CPR. It appears that she may still require admission at this time for continued IV hydration. I discussed the patient's condition with the on-call [facility] hospitalist group. They have agreed to evaluate the patient in the emergency department for further management and disposition. The patient did not have aggressive airway management at this time. She was holding a good oxygen saturation. Triage Nursing notes reviewed. Prior medical records reviewed Vital Signs: reviewed and remarkable for hypotension and bradycardia. Differential diagnosis: Infection, dehydration, metabolic abnormality, hypo/hyperglycemia, electrolyte disturbance, anemia, hypoxia, cardiac sources, intracerebral event, toxicologic, neurologic, as well as other pathologies. ER treatment provided: See below Diagnostics interpreted by me: ECG: EKG was obtained in the emergency department. My interpretation is atrial fibrillation at 69 bpm. PVCs were noted. Diffuse T wave inversions were noted. This was compared to a tracing from February 172019. The T wave abnormalities are new compared to the earlier tracing. A second EKG was obtained in the emergency department. My interpretation is slow atrial fibrillation at 63 bpm. PVCs were noted. Persistence of the T wave inversions were also noted. Cardiac Monitoring: An order was placed for continuous cardiac monitoring. The monitor shows a rate of 58 bpm with atrial fibrillation rhythm. Laboratory studies: As stated above and show below. Imaging studies: See below Consultation(s): 1305: I discussed this case with Chuy Gibbs who is on-call for the [facility] hospitalist group. Past Med/Surg History Medical History (Updated 04/19/20 @ 13:09 by Herminio Schofield DO) Anemia, chronic renal failure Anxiety Aortic stenosis Atrial fibrillation CKD (chronic kidney disease) stage 3, GFR 30-59 ml/min COPD (chronic obstructive pulmonary disease) inhaler/nebulizer prn Depression Diastolic CHF due to valvular disease Dysphagia Glaucoma Hearing deficit History of rheumatic fever as a child HTN (hypertension) Hypertension On anticoagulant therapy warfarin daily On home oxygen therapy 1 L N/C at sleep and prn Osteoarthritis Surgical History History of aortic valve replacement 01/2018 @ [facility] [place] History of appendectomy History of bilateral tubal ligation History of cardiac cath 12/2017 no stents @ [facility] 01/2018 @ [facility] [place] no stents History of cholecystectomy History of colonoscopy with polypectomy History of esophagogastroduodenoscopy (EGD) History of tooth extraction all lower teeth History of total hysterectomy "fibroids" S/P cataract surgery bilt Family History Mother Heart disease Father Stroke Social History Smoking Status: Unknown if ever smoked Tobacco Type: Cigarettes Cigarettes Per Day: quit 20yrs ago; Second Hand Exposure: No; Hx Alcohol Use: No Hx Substance Use: No Preferred Language: Cymraes Communication Ability: Effective Visual Impairment: No Limitations Quality Tester Required: No Beliefs That Will Affect Care: Jewish marital status: Life Partner Current Living Situation: Family and Significant Other Current Living Situation Comment: 2 bedroom appartment in [place] current occupational status: retired How many Children do You have: 5 Feels Safe at Home: Yes Assistive Devices: Denture - Upper, Denture - Lower, Glasses and Oxygen - at Night Allergies Allergies Allergy/AdvReac Type Severity Reaction Status Date / Time Sulfa (Sulfonamide Allergy Severe Hives and Verified 04/19/20 09:54 Antibiotics) swelling of throat meperidine AdvReac Severe Hallucinations Verified 04/19/20 09:54 and tachycardia oxycodone AdvReac Severe Hallucinati Verified 04/19/20 09:54 ng lidocaine AdvReac Unknown Unknown Unverified 04/19/20 09:54 Home Meds Home Medications Medication Instructions Recorded Confirmed albuterol sulfate [Ventolin HFA] 2 puff INHALATION Q4H PRN 01/06/18 04/19/20 ipratropium-albuterol 3 ml INHALATION Q4H PRN 01/06/18 04/19/20 aspirin 81 mg PO QAM 03/14/18 04/19/20 furosemide 40 mg PO BIDM 09/06/19 04/19/20 latanoprost 1 drp OPB HS 10/09/19 04/19/20 sennosides-docusate sodium 2 tabcap PO BID 10/11/19 04/19/20 [Senokot-S] Flovent HFA 2 puff INHALATION BID 11/09/19 04/19/20 alprazolam 0.25 mg PO HS 02/18/20 04/19/20 escitalopram oxalate 5 mg PO QAM 02/18/20 04/19/20 acetaminophen [Tylenol] 650 mg PO Q4H PRN 04/19/20 04/19/20 allopurinol 100 mg PO BID 04/19/20 04/19/20 rwnzhfgz-rnmqjwdpy-oaroyam HMB 1 ea PO BID 04/19/20 04/19/20 [Seng] cholecalciferol (vitamin D3) 25 mcg PO QAM 04/19/20 04/19/20 [Vitamin D3] digoxin 0.125 mg PO QAM 04/19/20 04/19/20 fluticasone propionate [Flonase] 2 spray INTRANASAL QAM 04/19/20 04/19/20 furosemide 20 mg PO BIDM 04/19/20 04/19/20 lansoprazole 30 mg PO DAILY@00 04/19/20 04/19/20 metoprolol tartrate 50 mg PO BID 04/19/20 04/19/20 omeprazole 20 mg PO DAILY@0600 04/19/20 04/19/20 prednisone 300 mg PO ONCE 04/19/20 04/19/20 spironolactone 12.5 mg PO MOWEFR@0900 04/19/20 04/19/20 zinc oxide 1 applic TOPICAL QS 04/19/20 04/19/20 Previous Rx's Medication Instructions Recorded trazodone 50 mg PO HS #7 tab 11/16/19 Results & Data (ED) Vital Signs Vital Signs - 24 hr 04/19/20 09:21 04/19/20 11:01 04/19/20 11:30 Temperature 37.1 C Temperature Source Oral Pulse Rate 89 68 53 L Pulse Rate from SpO2 Sensor 69 44 L Pulse Rhythm Irregular Respiratory Rate 15 24 23 Respiratory Effort / Characteristics Spontaneous Respiratory Pattern Regular Blood Pressure 136/60 126/51 L 111/45 L Blood Pressure Mean 85 76 67 Pulse Oximetry 96 100 99 Oxygen Delivery Method Nasal Cannula Oxygen Flow Rate 3 3 3 Sepsis Recent Fever Within 48 Hours No Sepsis New/Unexplained Change in Mental Status Yes Sepsis Action Taken by Nursing No Action Required Home Medications Current Medication List: was personally reviewed by me Laboratory Data Attestation: I reviewed the patient's lab results. Result diagrams: 04/19/20 09:41 04/19/20 09:41 Lab Results 04/19/20 04/19/20 04/19/20 Range/Units 09:41 09:41 09:41 WBC 6.87 (4.8-10.8) K/uL RBC 3.40 L (4.2-5.4) M/uL Hgb 11.0 L (12.0-16.0) g/dL Hct 34.9 L (37-47) % MCV 102.6 H (80-100) fL MCH 32.4 (25-34) pg MCHC 31.5 L (32-36) g/dL RDW Std Deviation 55.0 H (36.4-46.3) fL RDW Coeff of Zain 14.8 H (11.5-14.5) % Plt Count 285 (130-400) K/uL MPV 10.5 H (7.4-10.4) fL Immature Gran % (Auto) 0.1 % Neut % (Auto) 81.1 % Lymph % (Auto) 8.3 % Williams % (Auto) 10.3 % Eos % (Auto) 0.1 % Baso % (Auto) 0.1 % Neut # (Auto) 5.56 (1.4-6.5) K/uL Lymph # (Auto) 0.57 L (1.2-3.4) K/uL Williams # (Auto) 0.71 H (0.11-0.59) K/uL Eos # (Auto) 0.01 (0-0.5) K/uL Baso # (Auto) 0.01 (0-0.2) K/uL Immature Gran # (Auto) 0.01 (0.00-0.02) K/uL PT 11.7 (9.0-12.0) Seconds INR 1.2 H (0.9-1.1) APTT 25.2 (21.0-31.0) Seconds PTT Ratio 1.0 VBG pH (7.36-7.41) VBG pCO2 (38-50) mmHg VBG pO2 mmHg VBG HCO3 mmol/L VBG O2 Saturation % VBG Base Excess mEq/L Barometric Pressure mm/Hg Sodium 145 (136-145) mmol/L Potassium 4.1 (3.5-5.1) mmol/L Chloride 100 (98-107) mmol/L Carbon Dioxide 41 H* (21-32) mmol/L Anion Gap 4.0 (3-11) BUN 36 H (7-18) mg/dl Creatinine 1.08 (0.6-1.2) mg/dl Est Cr Clr Drug Dosing Not Reportable Est GFR ( Amer) 53.5 Est GFR (Non-Af Amer) 46.1 BUN/Creatinine Ratio 33.6 H (10-20) Glucose 64 L (70-99) mg/dl Calcium 9.1 (8.5-10.1) mg/dl Magnesium 1.9 (1.8-2.4) mg/dl Total Bilirubin 0.5 (0.2-1) mg/dl AST 29 (15-37) U/L ALT 26 (12-78) U/L Alkaline Phosphatase 69 (45-117) U/L Total Creatine Kinase 72 (26-192) U/L CK-MB (CK-2) 7.3 H (0.5-3.6) ng/ml CK/CKMB % Calc 10.1 H (0-3.0) Troponin I 0.111 H* (0-0.045) ng/ml Total Protein 5.6 L (6.4-8.2) gm/dl Albumin 2.5 L (3.4-5.0) gm/dl Globulin 3.1 (2.5-4.0) gm/dl Albumin/Globulin Ratio 0.8 L (0.9-2) TSH 4.960 H (0.300-4.500) uIu/ml Free T4 1.14 (0.8-1.6) ng/dl Urine Color Urine Appearance (Clear) Urine pH (4.5-7.5) Ur Specific Jefferson (1.000-1.030) Urine Protein (Negative) Urine Glucose (UA) (Negative) Urine Ketones (Negative) Urine Blood (Negative) Urine Nitrite (Negative) Urine Bilirubin (Negative) Urine Urobilinogen (Negative) Ur Leukocyte Esterase (Negative) Urine WBC (Auto) (0-5) /hpf Urine RBC (Auto) (0-4) /hpf U Hyaline Cast (Auto) (0-5) /lpf U Epithel Cells (Auto) (0-5) /lpf Urine Bacteria (Auto) (Negative) Digoxin (0.8-2.0) ng/ml COVID-19 Eval Order SARS-CoV-2, RNA, NAAT (NEGATIVE) 04/19/20 04/19/20 04/19/20 Range/Units 09:41 10:54 10:54 WBC (4.8-10.8) K/uL RBC (4.2-5.4) M/uL Hgb (12.0-16.0) g/dL Hct (37-47) % MCV (80-100) fL MCH (25-34) pg MCHC (32-36) g/dL RDW Std Deviation (36.4-46.3) fL RDW Coeff of Zain (11.5-14.5) % Plt Count (130-400) K/uL MPV (7.4-10.4) fL Immature Gran % (Auto) % Neut % (Auto) % Lymph % (Auto) % Williams % (Auto) % Eos % (Auto) % Baso % (Auto) % Neut # (Auto) (1.4-6.5) K/uL Lymph # (Auto) (1.2-3.4) K/uL Williams # (Auto) (0.11-0.59) K/uL Eos # (Auto) (0-0.5) K/uL Baso # (Auto) (0-0.2) K/uL Immature Gran # (Auto) (0.00-0.02) K/uL PT (9.0-12.0) Seconds INR (0.9-1.1) APTT (21.0-31.0) Seconds PTT Ratio VBG pH (7.36-7.41) VBG pCO2 (38-50) mmHg VBG pO2 mmHg VBG HCO3 mmol/L VBG O2 Saturation % VBG Base Excess mEq/L Barometric Pressure mm/Hg Sodium (136-145) mmol/L Potassium (3.5-5.1) mmol/L Chloride (98-107) mmol/L Carbon Dioxide (21-32) mmol/L Anion Gap (3-11) BUN (7-18) mg/dl Creatinine (0.6-1.2) mg/dl Est Cr Clr Drug Dosing Est GFR ( Amer) Est GFR (Non-Af Amer) BUN/Creatinine Ratio (10-20) Glucose (70-99) mg/dl Calcium (8.5-10.1) mg/dl Magnesium (1.8-2.4) mg/dl Total Bilirubin (0.2-1) mg/dl AST (15-37) U/L ALT (12-78) U/L Alkaline Phosphatase (45-117) U/L Total Creatine Kinase (26-192) U/L CK-MB (CK-2) (0.5-3.6) ng/ml CK/CKMB % Calc (0-3.0) Troponin I (0-0.045) ng/ml Total Protein (6.4-8.2) gm/dl Albumin (3.4-5.0) gm/dl Globulin (2.5-4.0) gm/dl Albumin/Globulin Ratio (0.9-2) TSH (0.300-4.500) uIu/ml Free T4 (0.8-1.6) ng/dl Urine Color Urine Appearance (Clear) Urine pH (4.5-7.5) Ur Specific Jefferson (1.000-1.030) Urine Protein (Negative) Urine Glucose (UA) (Negative) Urine Ketones (Negative) Urine Blood (Negative) Urine Nitrite (Negative) Urine Bilirubin (Negative) Urine Urobilinogen (Negative) Ur Leukocyte Esterase (Negative) Urine WBC (Auto) (0-5) /hpf Urine RBC (Auto) (0-4) /hpf U Hyaline Cast (Auto) (0-5) /lpf U Epithel Cells (Auto) (0-5) /lpf Urine Bacteria (Auto) (Negative) Digoxin 1.8 (0.8-2.0) ng/ml COVID-19 Eval [facility] SARS-CoV-2, RNA, NAAT NEGATIVE (NEGATIVE) 04/19/20 04/19/20 Range/Units 12:00 12:50 WBC (4.8-10.8) K/uL RBC (4.2-5.4) M/uL Hgb (12.0-16.0) g/dL Hct (37-47) % MCV (80-100) fL MCH (25-34) pg MCHC (32-36) g/dL RDW Std Deviation (36.4-46.3) fL RDW Coeff of Zain (11.5-14.5) % Plt Count (130-400) K/uL MPV (7.4-10.4) fL Immature Gran % (Auto) % Neut % (Auto) % Lymph % (Auto) % Williams % (Auto) % Eos % (Auto) % Baso % (Auto) % Neut # (Auto) (1.4-6.5) K/uL Lymph # (Auto) (1.2-3.4) K/uL Williams # (Auto) (0.11-0.59) K/uL Eos # (Auto) (0-0.5) K/uL Baso # (Auto) (0-0.2) K/uL Immature Gran # (Auto) (0.00-0.02) K/uL PT (9.0-12.0) Seconds INR (0.9-1.1) APTT (21.0-31.0) Seconds PTT Ratio VBG pH 7.25 L (7.36-7.41) VBG pCO2 103 H (38-50) mmHg VBG pO2 30 mmHg VBG HCO3 44 mmol/L VBG O2 Saturation < 60.0 % VBG Base Excess 13.7 mEq/L Barometric Pressure 737.2 mm/Hg Sodium (136-145) mmol/L Potassium (3.5-5.1) mmol/L Chloride (98-107) mmol/L Carbon Dioxide (21-32) mmol/L Anion Gap (3-11) BUN (7-18) mg/dl Creatinine (0.6-1.2) mg/dl Est Cr Clr Drug Dosing Est GFR ( Amer) Est GFR (Non-Af Amer) BUN/Creatinine Ratio (10-20) Glucose (70-99) mg/dl Calcium (8.5-10.1) mg/dl Magnesium (1.8-2.4) mg/dl Total Bilirubin (0.2-1) mg/dl AST (15-37) U/L ALT (12-78) U/L Alkaline Phosphatase (45-117) U/L Total Creatine Kinase (26-192) U/L CK-MB (CK-2) (0.5-3.6) ng/ml CK/CKMB % Calc (0-3.0) Troponin I (0-0.045) ng/ml Total Protein (6.4-8.2) gm/dl Albumin (3.4-5.0) gm/dl Globulin (2.5-4.0) gm/dl Albumin/Globulin Ratio (0.9-2) TSH (0.300-4.500) uIu/ml Free T4 (0.8-1.6) ng/dl Urine Color Dark Yellow Urine Appearance Cloudy A (Clear) Urine pH 5.0 (4.5-7.5) Ur Specific Jefferson 1.017 (1.000-1.030) Urine Protein 1+ H (Negative) Urine Glucose (UA) Negative (Negative) Urine Ketones Negative (Negative) Urine Blood Negative (Negative) Urine Nitrite Negative (Negative) Urine Bilirubin Negative (Negative) Urine Urobilinogen Negative (Negative) Ur Leukocyte Esterase 2+ H (Negative) Urine WBC (Auto) >30 H (0-5) /hpf Urine RBC (Auto) 0-4 (0-4) /hpf U Hyaline Cast (Auto) 5-10 H (0-5) /lpf U Epithel Cells (Auto) >30 H (0-5) /lpf Urine Bacteria (Auto) 1+ H (Negative) Digoxin (0.8-2.0) ng/ml COVID-19 Eval Order SARS-CoV-2, RNA, NAAT (NEGATIVE) Administered Medications Sodium Chloride (Nss 1000ml) 500 mls @ 999 mls/hr IV .Q31M ONE Stop: 04/19/20 13:16 Last Admin: 04/19/20 12:51 Dose: 999 mls/hr Documented by: [id number] Discontinued Medications Sodium Chloride (Nss 1000ml) 500 mls @ 999 mls/hr IV .Q31M ONE Stop: 04/19/20 09:50 Last Infusion: 04/19/20 10:03 Dose: 0 mls/hr Documented by: [id number] Admin: 04/19/20 09:31 Dose: 999 mls/hr Documented by: [id number] Sodium Chloride (Nss 1000ml) 500 mls @ 999 mls/hr IV .Q31M ONE Stop: 04/19/20 11:59 Last Infusion: 04/19/20 12:17 Dose: 0 mls/hr Documented by: [id number] Admin: 04/19/20 11:43 Dose: 999 mls/hr Documented by: [id number] Imaging Data Radiologist's Impression: Patient: EBONY MADERA Admit Date: 04/19/20 MR#: [id number] Address1: [address] [place] [address] [address] Acct ID:[id number] Address2: [place] [address] Date: 1930 [facility] Zip: [place] [address] Age: 89 Location: ED Sex: F Room/Bed: Att Phy: Diagnosis: FALL Charmaine Phy: Ariana Pendleton MD Service Date: 04/19/20 Fam Phy: Interpreting Phy: Vinicio Silva MD Admit Phy: Ordering Phy: Herminio Schofield DO cc: ~ XR pelvis 1-2V routine CLINICAL HISTORY: fall COMPARISON: CT of the abdomen and pelvis February 18, 2020. FINDINGS: Sacroiliac joints and symphysis pubis are intact. Evaluation of the proximal right femur is suboptimal given positioning. However, no acute fracture is identified within the pelvis or hips. There is moderate osteophytosis of both hips. IMPRESSION: No acute fracture within the pelvis or hips. ACT 112: Negative or not required by law. Electronically signed by: Vinicio Silva M.D. 04/19/2020 11:01 AM Dictated: 04/19/20 1100 Transcribed: 04/19/20 1100 Patient: EBONY MADERA Admit Date: 04/19/20 MR#: [id number] Address[address]: [address] Acct ID:[id number] Address2: [place] [address] Date: 1930 [facility] Zip: [place] [address] Age: 89 Location: ED Sex: F Room/Bed: Att Phy: Diagnosis: FALL Charmaine Phy: Ariana Pendleton MD Service Date: 04/19/20 Fam Phy: Interpreting Phy: Vinicio Silva MD Admit Phy: Ordering Phy: Herminio Schofield DO cc: ~ CT OF THE HEAD WITHOUT CONTRAST CLINICAL HISTORY: fall COMPARISON STUDY: Head CT June 15, 2017. TECHNIQUE: Helical axial images of the head were obtained without IV contrast. Automated exposure control was utilized for the study. A dose lowering technique was utilized adhering to the principles of ALARA. FINDINGS: No acute intracranial hemorrhage, midline shift or mass effect is present. The ventricular system is unremarkable. The basal cisterns are patent. No extra-axial collections are present. There are no findings to suggest acute dural sinus thrombosis or acute territorial infarct. No significant calvarial abnormalities are present. Visualized portions of the sinuses and mastoid air cells are clear. IMPRESSION: 1. No acute intracranial findings. 2. No calvarial fracture. ACT 112: Negative or not required by law. Electronically signed by: Vinicio Silva M.D. 04/19/2020 11:00 AM Dictated: 04/19/20 1057 Transcribed: 04/19/20 1057 Patient: EBONY MADERA Admit Date: 04/19/20 MR#: [id number] Address[address] Acct ID:[id number] Address2: [place] [address] Date: 1930 [facility] Zip: [place] [address] Age: 89 Location: ED Sex: F Room/Bed: Att Phy: Diagnosis: FALL Charmaine Phy: Ariana Pendleton MD Service Date: 04/19/20 Fam Phy: Interpreting Phy: Vinicio Silva MD Admit Phy: Ordering Phy: Herminio Schofield DO cc: ~ XR chest 1V portable CLINICAL HISTORY: weakness COMPARISON STUDY: Chest CT February 18, 2020. FINDINGS: Prosthetic aortic valve is noted. Moderate cardiomegaly is unchanged. Small to moderate right and small left pleural effusions are noted. These were shown on prior exam. There are persistent bibasilar opacities. There is no pneumothorax. Patient is mildly rotated. IMPRESSION: No significant change in appearance of the chest. Small to moderate right and small left pleural effusions with associated bibasilar opacities. No pneumothorax. ACT 112: Negative or not required by law. Electronically signed by: Vinicio Silva M.D. 04/19/2020 11:03 AM Dictated: 04/19/20 1102 Transcribed: 04/19/201101 Patient: EBONY MADERA Admit Date: 04/19/20 MR#: [id number] Address1: [address] [place] [address] [address] Acct ID:[id number] Address2: [place] [address] Date: 1930 [facility] Zip: [place] [address] Age: 89 Location: ED Sex: F Room/Bed: Att Phy: Diagnosis: FALL Charmaine Phy: Ariana Pendleton MD Service Date: 04/19/20 Fam Phy: Interpreting Phy: Vinicio Silva MD Admit Phy: Ordering Phy: Herminio Schofield DO cc: ~ CT OF THE CERVICAL SPINE WITHOUT CONTRAST CLINICAL HISTORY: fall COMPARISON STUDY: No previous studies for comparison. TECHNIQUE: Helical axial images of the cervical spine were obtained without IV contrast. Sagittal and coronal reconstructions were viewed. Automated exposure control was utilized for the study. A dose lowering technique was utilized adhering to the principles of ALARA. FINDINGS: There is straightening of the normal cervical lordosis. There is slight anterolisthesis of C4 on C5 due to facet arthrosis. Severe multilevel facet arthrosis is noted. There is also severe disc space narrowing with osteophytosis at C5-C6 and C6-C7. There is no acute fracture. Craniocervical junction is intact. IMPRESSION: No acute cervical spine fracture or subluxation. ACT 112: Negative or not required by law. Electronically signed by: Vinicio Silva M.D. 04/19/2020 11:07 AM Dictated: 04/19/20 1105 Transcribed: 04/19/201104 Blood Pressure Blood Pressure Findings: Low blood pressure Discharge Plan Visit Data Chief Complaint: Fall ED Provider: Herminio Schofield Discharge Problem: Acute alteration in mental status, Acute dehydration, Bradycardia, Acute respiratory acidosis, Elevated troponin I level Patient Disposition: Being Evaluated by Hospitalist Condition: Good Forms Stand Alone Forms: My [facility] Prescriptions Prescriptions: No Action ipratropium-albuterol 0.5 mg-3 mg(2.5 mg base)/3 mL Solution For Nebulization 3 ml INHALATION Q4H PRN (Reason: COUGH, SOB OR WHEEZING) RF: 0 albuterol sulfate [Ventolin HFA] 90 mcg/actuation Hfa Aerosol Inhaler 2 puff INHALATION Q4H PRN (Reason: Shortness Of Breath Or Wheezing) RF: 0 furosemide 40 mg Tablet 40 mg PO BIDM RF: 0 trazodone 50 mg tablet 50 mg PO HS Qty: 7 RF: 0 escitalopram oxalate 5 mg tablet 5 mg PO QAM RF: 0 alprazolam 0.25 mg tablet 0.25 mg PO HS RF: 0 aspirin 81 mg Tablet,Delayed Release (Dr/Ec) 81 mg PO QAM RF: 0 latanoprost 0.005 % drops 1 drp OPB HS RF: 0 sennosides-docusate sodium [Senokot-S] 8.6-50 mg tablet 2 tabcap PO BID RF: 0 Flovent HFA 220 mcg/actuation HFA aerosol inhaler 2 puff INHALATION BID RF: 0 acetaminophen [Tylenol] 325 mg Tablet 650 mg PO Q4H PRN (Reason: Moderate Pain (Scale Score 5-6)) RF: 0 prednisone 10 mg Tablet 300 mg PO ONCE RF: 0 allopurinol 100 mg Tablet 100 mg PO BID RF: 0 omeprazole 20 mg Capsule,Delayed Release(Dr/Ec) 20 mg PO DAILY@0600 RF: 0 furosemide 20 mg Tablet 20 mg PO BIDM RF: 0 fluticasone propionate [Flonase] 50 mcg/actuation [place],Suspension 2 spray INTRANASAL QAM RF: 0 cholecalciferol (vitamin D3) [Vitamin D3] 25 mcg (1,000 unit) Capsule 25 mcg PO QAM RF: 0 zinc oxide Ointment 1 applic TOPICAL QS RF: 0 lansoprazole 30 mg tablet,disintegrat, delay rel 30 mg PO DAILY@0600 RF: 0 Seng 7-7-1.5 gram Powder In Packet 1 ea PO BID RF: 0 spironolactone 25 mg tablet 12.5 mg PO MOWEFR@0900 RF: 0 metoprolol tartrate 50 mg tablet 50 mg PO BID RF: 0 digoxin 125 mcg tablet 0.125 mg PO QAM RF: 0 Referrals Referrals: Ariana Pendletno MD [Primary Care Provider] -
[2020-04-19 10:04] LABS: Basophils # (auto) 0.01 K/uL (0-0.2); Basophils % (auto) 0.1 %; Eosinophils # (auto) 0.01 K/uL (0-0.5); Eosinophils % (auto) 0.1 %; Hematocrit (blood only) 34.9 % (37-47); Immature Granulocytes # (auto) 0.01 K/uL (0.00-0.02); Immature Granulocytes % (auto) 0.1 %; Lymphocytes # (auto) 0.57 K/uL (1.2-3.4); Lymphocytes % (auto) 8.3 %; Mean Corpuscular Hemoglobin 32.4 pg (25-34); Mean Corpuscular Hgb Conc 31.5 g/dL (32-36); Mean Corpuscular Volume 102.6 fL (80-100); Mean Platelet Volume 10.5 fL (7.4-10.4); Monocytes # (auto) 0.71 K/uL (0.11-0.59); Monocytes % (auto) 10.3 %; Neutrophils # (auto) 5.56 K/uL (1.4-6.5); Neutrophils % (auto) 81.1 %; Platelet Count 285 K/uL (130-400); RDW Coefficient of Variation 14.8 % (11.5-14.5); White Blood Count 6.87 K/uL (4.8-10.8)
[2020-04-19 10:36] LABS: INR 1.2 (0.9-1.1); Partial Thromboplastin Time 25.2 Seconds (21.0-31.0); Prothrombin Time 11.7 Seconds (9.0-12.0)
[2020-04-19 10:47] LABS: Alanine Aminotransferase 26 U/L (12-78); Albumin Globulin Ratio 0.8 (0.9-2); Albumin Level 2.5 gm/dl (3.4-5.0); Alkaline Phosphatase 69 U/L (45-117); Aspartate Aminotransferase 29 U/L (15-37); BUN Creatinine Ratio 33.6 (10-20); Bilirubin,Total 0.5 mg/dl (0.2-1); Blood Urea Nitrogen 36 mg/dl (7-18); Calcium 9.1 mg/dl (8.5-10.1); Carbon Dioxide 41 mmol/L (21-32); Chloride 100 mmol/L (98-107); Creatine Kinase 72 U/L (26-192); Creatine Kinase MB 7.3 ng/ml (0.5-3.6); Est GFR (African American) 53.5; Est GFR (Non-African American) 46.1; Globulin 3.1 gm/dl (2.5-4.0); Glucose 64 mg/dl (70-99); Magnesium 1.9 mg/dl (1.8-2.4); Potassium 4.1 mmol/L (3.5-5.1); Sodium 145 mmol/L (136-145); Total Protein 5.6 gm/dl (6.4-8.2); Troponin I 0.111 ng/ml (0-0.045)
--- NOTE | 2020-04-19 11:01 | CT Scan Report ---
CT OF THE HEAD WITHOUT CONTRAST CLINICAL HISTORY: fall COMPARISON STUDY: Head CT June 15, 2017. TECHNIQUE: Helical axial images of the head were obtained without IV contrast. Automated exposure con trol was utilized for the study. A dose lowering technique was utilized adhering to the principles o f ALARA. FINDINGS: No acute intracranial hemorrhage, midline shift or mass effect is present. The ventricular system is unremarkable. The basal cisterns are patent. No extra-axial collections are present. There are no findings to suggest acute dural sinus thrombosis or acute territorial infarct. No significant calvarial abnormalities are present. Visualized portions of the sinuses and mastoid air cells are kirk ar. IMPRESSION: 1. No acute intracranial findings. 2. No calvarial fracture. ACT 112: Negative or not required by law. Electronically signed by: Vinicio Silva M.D. 04/19/2020 11:00 AM
--- NOTE | 2020-04-19 11:03 | XRay Report ---
XR pelvis 1-2V routine CLINICAL HISTORY: fall COMPARISON: CT of the abdomen and pelvis February 18, 2020. FINDINGS: Sacroiliac joints and symphysis pubis are intact. Evaluation of the proximal right femur i s suboptimal given positioning. However, no acute fracture is identified within the pelvis or hips. T here is moderate osteophytosis of both hips. IMPRESSION: No acute fracture within the pelvis or hips. ACT 112: Negative or not required by law. Electronically signed by: Vinicio Silva M.D. 04/19/2020 11:01 AM
--- NOTE | 2020-04-19 11:04 | XRay Report ---
XR chest 1V portable CLINICAL HISTORY: weakness COMPARISON STUDY: Chest CT February 18, 2020. FINDINGS: Prosthetic aortic valve is noted. Moderate cardiomegaly is unchanged. Small to moderate rig ht and small left pleural effusions are noted. These were shown on prior exam. There are persistent b ibasilar opacities. There is no pneumothorax. Patient is mildly rotated. IMPRESSION: No significant change in appearance of the chest. Small to moderate right and small left pleural effusions with associated bibasilar opacities. No pneumothorax. ACT 112: Negative or not required by law. Electronically signed by: Vinicio Silva M.D. 04/19/2020 11:03 AM
[2020-04-19 11:05] LABS: T4 Free Thyroxine 1.14 ng/dl (0.8-1.6)
--- NOTE | 2020-04-19 11:08 | CT Scan Report ---
CT OF THE CERVICAL SPINE WITHOUT CONTRAST CLINICAL HISTORY: fall COMPARISON STUDY: No previous studies for comparison. TECHNIQUE: Helical axial images of the cervical spine were obtained without IV contrast. Sagittal a nd coronal reconstructions were viewed. Automated exposure control was utilized for the study. A do se lowering technique was utilized adhering to the principles of ALARA. FINDINGS: There is straightening of the normal cervical lordosis. There is slight anterolisthesis of C4 on C5 due to facet arthrosis. Severe multilevel facet arthrosis is noted. There is also severe dis c space narrowing with osteophytosis at C5-C6 and C6-C7. There is no acute fracture. Craniocervical j unction is intact. IMPRESSION: No acute cervical spine fracture or subluxation. ACT 112: Negative or not required by law. Electronically signed by: Vinicio Silva M.D. 04/19/2020 11:07 AM
[2020-04-19 12:27] LABS: Base Excess VBG 13.7 mEq/L; HCO3 VBG 44 mmol/L; Oxygen Saturation VBG < 60.0 %; PCO2 VBG 103 mmHg (38-50); PO2 VBG 30 mmHg; pH VBG 7.25 (7.36-7.41)
[2020-04-19 12:58] LABS: Appearance Urine Cloudy (Clear); Bilirubin Urine Negative (Negative); Blood Urine Negative (Negative); Color Urine Dark Yellow; Epithelial Cell Urine Auto >30 /lpf (0-5); Glucose Urine UA Negative (Negative); Ketones Urine Negative (Negative); Leukocyte Esterase Urine 2+ (Negative); Nitrite Urine Negative (Negative); Protein Urine 1+ (Negative); RBC Urine Automated 0-4 /hpf (0-4); Specific Gravity Urine 1.017 (1.000-1.030); Urobilinogen Urine Negative (Negative); WBC Urine Automated >30 /hpf (0-5)
[2020-04-19] MEDS ORDERED: cefTRIAXone SODIUM 1,000 MG/50 ML BAG IV STA (13:06)
[2020-04-19 13:11] LABS: Bacteria Urine Automated 1+ (Negative)
--- NOTE | 2020-04-19 13:13 | Electrocardiogram Report ---
Test Reason : Blood Pressure : / mmHG Vent. Rate : 069 BPM Atrial Rate : 394 BPM P-R Int : 000 ms QRS Dur : 082 ms QT Int : 360 ms P-R-T Axes : 000 242 262 degrees QTc Int : 385 ms Atrial fibrillation Poor R wave progression, consider anterior WA vs. lead placement vs. LVH Low voltage QRS Abnormal ECG When compared with ECG of 18-FEB-2020 07:46, ST now depressed in Lateral leads T wave inversion now evident in Lateral leads QT has shortened Confirmed by Shane Daniels ([id number]) on 04/19/2020 1:13:30 PM Referred By: Latha Sandoval Confirmed By:Adan Daniels
--- NOTE | 2020-04-19 13:16 | Electrocardiogram Report ---
Test Reason : Blood Pressure : / mmHG Vent. Rate : 063 BPM Atrial Rate : 056 BPM P-R Int : 000 ms QRS Dur : 084 ms QT Int : 360 ms P-R-T Axes : 000 218 260 degrees QTc Int : 368 ms Probably atrial fibrillation Roseann's phenomenon (aberrancy) Low voltage QRS Indeterminate axis Abnormal ECG When compared with ECG of 19-APR-2020 09:12, (unconfirmed) Confirmed by Shane Daniels ([id number]) on 04/19/2020 1:16:10 PM Referred By: Latha [facility] Confirmed By:Adan Daniels
--- NOTE | 2020-04-19 13:56 | History & Physical Report ---
Date of Service April 19, 2020 Assessment & Plan (1) Acute alteration in mental status: Impression: This is an 89-year-old cachectic female that currently resides at [facility]. I spoke with her daughter and she will be a DNR/DNI. She is found to be dehydrated by physical exam as well as with urinary tract infection. She did suffer a fall last night with no apparent injury. Will admit to telemetry unit as she has reports of bradycardia into the 40s with concurrent atrial fibrillation. Regarding the patient's acute alteration mental status, she fell last night and was found did not have significant injury so was placed back to bed. This morning she was found unresponsive. Laboratory findings are not conducive with metabolic encephalopathy. Patient did have a very slight elevation in her serum CO2 of 41. This would not explain her mental status alteration. At this time, we will admit to a telemetry unit for further monitoring of her atrial fibrillation. We will hydrate her for dehydration using D5 as she had a random glucose of 64 mg/Lyly. We will also treat her for acute urinary tract infection with ceftriaxone 1 g daily IV. Patient does have a history of dysphagia. In light of her acute change in mental status, we will make her n.p.o. except for ice chips and sips and begin D5 normal saline for hydration. Due to the patient's acute change in status as well as her chronic decline, it is recommended that we allow visitation of the daughter Deborah and the son Bryan to assist in decision making regarding her plan of care. A palliative care consult has been placed. It would be expected that she will be seen by palliative care on Tuesday when they resume their services. (2) Acute dehydration: This appears to be prerenal as the patient's BUN is 36 and the creatinine is 1.08 We will hydrate with D5 normal saline at 80 mL/h Get repeat labs tomorrow morning Follow clinically Hold patient's furosemide and Aldactone (3) Bradycardia: Currently patient is in atrial fibrillation with a rate of 60 She has been noted to be down in the 40s during this ER stay We will not treat at this time but will monitor on telemetry Admit to PCU unit (4) Acute respiratory acidosis: Patient has no acute respiratory distress and is currently with SaO2 of 99% Routine labs revealed a serum CO2 of 41 No indication for further intervention Will check repeat PRP tomorrow morning (5) Abnormal urinalysis: Patient does appear to have acute urinary tract infection Urine has been sent for culture We will start ceftriaxone 1g IV every 24 hours Check a procalcitonin with a.m. labs (6) Dysphagia: Due to altered mental status, will make patient n.p.o. for now Bedside swallow evaluation per nursing protocol prior to resuming feeding (7) Asthma: No acute exacerbation at this time Due to patient status she is unable to coordinate HFA inhaler We will order DuoNeb treatments every 4 hours as needed for shortness of breath or wheezes (8) Chronic atrial fibrillation: Patient is not on chronic anticoagulation due to weakness and chronic fall risk Currently she is rate controlled in the 60s Continue digoxin and metoprolol We will monitor on telemetry (9) COPD (chronic obstructive pulmonary disease): Patient quit smoking 20 years ago Currently outpatient meds include albuterol HFA, Flovent Continue duo nebs as needed for shortness of breath or wheezes (10) HTN (hypertension): Continue metoprolol 50 mg p.o. twice daily Vital signs per protocol (11) Diastolic CHF due to valvular disease: No evidence of clinical CHF at this time Most recent echocardiogram 11/12/2019 with mild concentric left ventricular hypertrophy, severe biatrial enlargement, status post TAVR. There is no bioprosthetic aortic valve stenosis. Etiology for valvular disease is mild mitral regurgitation, mitral regurgitant jet eccentrically directed. Moderate to severe tricuspid regurgitation. Estimated pulmonary arterial pressure is 57 mmHg Preserved left ventricular ejection fraction of 60 to 65% at that time. Ventricular wall motion was noted to be normal (12) CKD (chronic kidney disease) stage 3, GFR 30-59 ml/min: BUN is 36 and creatinine is 1.08 GFR is 46.1 Will hydrate with D5 normal saline at 80 mL an hour Follow serial labs (13) DVT prophylaxis: Patient not on chronic anticoagulation secondary to fall risk Fall precautions ordered We will start the patient on RAVI hose bilateral knee-high We will start heparin 5000 units SQ every 12 hours Please refer to Dr. Horowitz's addendum for further recommendations and corrections. History of Present Illness Chief Complaint: Altered mental status Primary Care Provider: Ariana Pendleton MD Attending: Dr. Horowitz This is an 89-year-old female. She has had multiple admissions with us in the past and was recently discharged 02/20/2020. She has a past medical history including chronic atrial fibrillation, no anticoagulation secondary to f alls, chronic diastolic CHF, hypertension, COPD, CKD stage III, osteoporosis, gout, GERD, history of esophageal stricture, history of Schatzki's ring, failure to thrive, generalized weakness. The patient has been at [facility]. She has been there for the past 3 weeks according to her boyfriend who is with her in the emergency department. She has continued to decline since her last admission. Last evening she had an unwitnessed fall and was found in her room. She did not appear to be injured so they put her back to bed. This morning she was found to be unresponsive. She was transported to [facility] emergency department for evaluation treatment. A CT scan of the head was negative. Hip and pelvic imaging was negative for acute fracture. Chest x-ray showed chronic findings with no acute findings. The patient is awake in her room but unresponsive. She does follow simple commands such as grasping fingers and can acknowledge right from left. She is nonverbal. She does not move her legs to command although she does have sensation to pain in her great toe on each foot. She is able to move all 4 extremities. Her boyfriend is with her and states that she has not had any reported nausea or vomiting. She has not had any aspiration that he is aware of. She has not had any fever or chills. Laboratory findings do show a positive UTI and she is started with treatment on ceftriaxone. She does appear dry with a glucose of 64 milligrams per decaliter. TSH is 4.96. She is in atrial fibrillation with a current rate of 60 bpm. It was reported that she dropped down into the 40s earlier in her ER stay. Patient is unable to provide review of systems. History obtained from chart review and from boyfriend who is present. Allergies Allergy/AdvReac Type Severity Reaction Status Date / Time Sulfa (Sulfonamide Allergy Severe Hives and Verified 04/19/20 09:54 Antibiotics) swelling of throat meperidine AdvReac Severe Hallucinations Verified 04/19/20 09:54 and tachycardia oxycodone AdvReac Severe Hallucinati Verified 04/19/20 09:54 ng lidocaine AdvReac Unknown Unknown Unverified 04/19/20 09:54 Home Medications Medication Instructions Recorded Confirmed Type albuterol sulfate [Ventolin HFA] 2 puff INHALATION Q4H PRN 01/06/18 04/19/20 History ipratropium-albuterol 3 ml INHALATION Q4H PRN 01/06/18 04/19/20 History aspirin 81 mg PO QAM 03/14/18 04/19/20 History furosemide 40 mg PO BIDM 09/06/19 04/19/20 History latanoprost 1 drp OPB HS 10/09/19 04/19/20 History sennosides-docusate sodium 2 tabcap PO BID 10/11/19 04/19/20 History [Senokot-S] Flovent HFA 2 puff INHALATION BID 11/09/19 04/19/20 History trazodone 50 mg PO HS #7 tab 11/16/19 04/19/20 Rx alprazolam 0.25 mg PO HS 02/18/20 04/19/20 History escitalopram oxalate 5 mg PO QAM 02/18/20 04/19/20 History acetaminophen [Tylenol] 650 mg PO Q4H PRN 04/19/20 04/19/20 History allopurinol 100 mg PO BID 04/19/20 04/19/20 History mnlnziaw-ykvylbyup-tmjqabk HMB 1 ea PO BID 04/19/20 04/19/20 History [Seng] cholecalciferol (vitamin D3) 25 mcg PO QAM 04/19/20 04/19/20 History [Vitamin D3] digoxin 0.125 mg PO QAM 04/19/20 04/19/20 History fluticasone propionate [Flonase] 2 spray INTRANASAL QAM 04/19/20 04/19/20 History furosemide 20 mg PO BIDM 04/19/20 04/19/20 History lansoprazole 30 mg PO DAILY@0600 04/19/20 04/19/20 History metoprolol tartrate 50 mg PO BID 04/19/20 04/19/20 History omeprazole 20 mg PO DAILY@0600 04/19/20 04/19/20 History prednisone 300 mg PO ONCE 04/19/20 04/19/20 History spironolactone 12.5 mg PO MOWEFR@0900 04/19/20 04/19/20 History zinc oxide 1 applic TOPICAL QS 04/19/20 04/19/20 History Past Med/Surg History Medical History (Updated 04/19/20 @ 14:20 by Chuy Gibbs PA-C) Anemia, chronic renal failure Anxiety Aortic stenosis Atrial fibrillation CKD (chronic kidney disease) stage 3, GFR 30-59 ml/min COPD (chronic obstructive pulmonary disease) inhaler/nebulizer prn Depression Diastolic CHF due to valvular disease Dysphagia Glaucoma Hearing deficit History of rheumatic fever as a child HTN (hypertension) Hypertension On anticoagulant therapy warfarin daily On home oxygen therapy 1 L N/C at sleep and prn Osteoarthritis Surgical History History of aortic valve [place]2018 [place] [facility] [place] [facility] [place] History of appendectomy History of bilateral tubal ligation History of cardiac cath 12/2017 no stents @ [facility] 01/2018 @ [facility] [place] no stents History of cholecystectomy History of colonoscopy with polypectomy History of esophagogastroduodenoscopy (EGD) History of tooth extraction all lower teeth History of total hysterectomy "fibroids" S/P cataract surgery bilt Family History Mother Heart disease Father Stroke Social History Smoking Status: Unknown if ever smoked Tobacco Type: Cigarettes Cigarettes Per Day: quit 20yrs ago; Second Hand Exposure: No; Hx Alcohol Use: No Hx Substance Use: No Preferred Language: Romanian Communication Ability: Effective Visual Impairment: No Limitations Drapery Supervisor Required: No Beliefs That Will Affect Care: Hoahaoism marital status: Life Partner Current Living Situation: Family and Significant Other Current Living Situation Comment: 2 bedroom appartment in [place] current occupational status: retired How many Children do You have: 5 Feels Safe at Home: Yes Assistive Devices: Denture - Upper, Denture - Lower, Glasses and Oxygen - at Night Review of Systems Review of Systems: Unobtainable due to reduced consciousness Physical Exam Physical Exam: GENERAL : No acute distress. Patient appears extremely cachectic and frail. EYES: No icterus, gaze conjugate. Difficulty opening patient's eyelids. Pupils are round and equal and reactive to light. NOSE: No evidence of epistaxis MOUTH: No lesions or candidiasis. Mouth is open with severely dry mucosa. Patient does not close mouth to command. Tongue is midline. No appreciation of facial droop. NECK: Supple LUNGS: Patient does not follow commands for deep inspiration. She does appear to have some very fine bronchospasm at the bilateral bases on the posterior. HEART: Irregular, irregular, rate controlled in the 60s ABDOMEN: Soft, NT, ND, BS Present EXTREMITIES: No LE edema, pedal pulses intact. NEURO: Awake and lethargic. Follows some simple commands such as hand grasp and raising right versus left hand. Pupils equal round and reactive to light. No other simple commands followed. Patient is nonverbal. Results & Data Results & Data ([facility]) Vital Signs (Past 12 Hours) Vital Signs Temp Pulse Resp BP Pulse Ox 04/19/20 13:30 20 118/95 04/19/20 13:20 60 24 98 04/19/20 13:10 69 24 94 04/19/20 13:01 78 24 04/19/20 13:00 72 21 130/80 04/19/20 12:50 57 L 21 95 04/19/20 12:40 74 30 H 93 04/19/20 12:31 60 28 H 95 04/19/20 12:30 55 L 20 118/49 L 04/19/20 12:20 63 27 H 99 04/19/20 12:11 74 33 H 04/19/20 12:10 71 33 H 118/74 04/19/20 11:30 53 L 23 111/45 L 99 04/19/20 11:01 68 24 126/51 L 100 04/19/20 09:21 37.1 C 89 15 136/60 96 Laboratory Results 04/19/20 09:41 04/19/20 09:41 INR 1.2 (0.9-1.1) H 04/19/20 09:41 Diagnostic Findings Pelvic x-ray with no evidence of fracture to pelvis or bilateral hips CT scan of the head with no acute findings Chest x-ray with chronic findings and no acute cardiopulmonary disease Cervical spine CT with no acute fracture or subluxation. Code Status & VTE Plan Code Status I did have discussion with the daughter Deborah mostly at [phone]. At this point patient should be a DNR/DNI. She has discussed this with her brother Bryan Solomon who is the primary POA. He can be reached at [phone] VTE Prophylaxis Plan VTE Prophylaxis will be ordered: Yes Supervising Physician Co-Signing Physician Notes Attending addendum The patient was seen and examined in telemetry unit 89-year-old female with significant past medical history of chronic atrial fibrillation without any anticoagulation, chronic diastolic CHF, hypertension, COPD, CKD stage III, osteoporosis, history of esophageal stricture, and history of aortic valve replacement in 2018 apparently was brought in with unresponsive episode following a fall last night. She has been very weak and lethargic recently and she has been losing weight for the last few months She is extremely weak and communicative and denies any acute symptoms On examination Emaciated Noted to have hypothermia with temperature of 35.4 Otherwise hemodynamically stable though has minimal mottling involving the tip of extremities Chest-decreased breath sounds bilaterally Heart-S1-S2 bradycardia with a 2/6 systolic murmur over precordium and prosthetic heart sound Abdomen-benign Extremities-no edema RETINAL SURGEON-she is alert and awake. Communicating minimally generally very weak and lethargic Her admission labs, EKG and imaging studies reviewed The case was discussed with the POA her son at the bedside She has severe dehydration, UTI, severe malnutrition with significant comorbid conditions as mentioned above. Her prognosis remains very poor She will likely be with comfort care in a day or 2. Dr Ilya Horowitz (1) CKD (chronic kidney disease) stage 3, GFR 30-59 ml/min Chronic kidney disease stage 3 subtype: stage 3a (GFR 45-59) Qualified Code(s): N18.31 - Chronic kidney disease, stage 3a (2) Dysphagia Dysphagia type: unspecified Qualified Code(s): R13.10 - Dysphagia, unspecified (3) COPD (chronic obstructive pulmonary disease) COPD type: unspecified COPD Qualified Code(s): J44.9 - Chronic obstructive pulmonary disease, unspecified (4) Asthma Asthma complication type: uncomplicated Asthma persistence: intermittent Asthma severity: mild Qualified Code(s): J45.20 - Mild intermittent asthma, uncomplicated
[2020-04-19] MEDS ORDERED: ALBUT/IPRATROP 3MG/0.5MG NEB 3 ML VIAL INH PRN (16:06)
[2020-04-19] MEDS ORDERED: GLUCAGON FOR INJ 1 MG VIAL SQ PRN (16:06)
[2020-04-19] MEDS ORDERED: ONDANSETRON INJ 2 MG/ML 2 ML VIAL IV PRN (16:06)
[2020-04-19] MEDS ORDERED: GLUCOSE 40% GEL 15 GM TUBE PO PRN (16:06)
[2020-04-19] MEDS ORDERED: DEXTROSE 50% 50 ML SYRINGE IV PRN (16:06)
[2020-04-19] MEDS ORDERED: CARBOHYDRATES FOR HYPOGLYCEMIA PO PRN (16:06)
[2020-04-19] MEDS ORDERED: GLUCOSE 10 TABS/TUBE PO PRN (16:06)
[2020-04-19] MEDS ORDERED: PHARMACY GLYCEMIC MGMT CONSULT PRN (16:11)
[2020-04-19] MEDS: D5NSS + 20MEQ KCL 20 MEQ/1,000 ML BAG IV SCH (16:54)
[2020-04-19] MEDS: HEPARIN SOD 5,000 UNIT/0.5 ML VIAL SQ SCH ×2 (16:54→21:32)
[2020-04-19] MEDS: INSULIN ASPART 100 UNITS/ML 3 ML PEN SC SCH ×2 (16:55→20:57)
[2020-04-19] MEDS: GENTAMICIN SULFATE 0.3% OP OINT 3.5 GM TUBE OP SCH (19:51)
[2020-04-19] MEDS: LATANOPROST 0.005% OP SOLN 2.5 ML BTL OPB SCH (19:51)
[2020-04-19] MEDS: DOCUSATE SODIUM/SENNA 50/8.6MG TAB PO SCH (19:52)
[2020-04-19] MEDS: METOPROLOL TARTRATE 50 MG TAB PO SCH (19:52)
[2020-04-20] MEDS: D5NSS + 20MEQ KCL 20 MEQ/1,000 ML BAG IV SCH ×2 (04:43→17:16)
[2020-04-20] MEDS: HEPARIN SOD 5,000 UNIT/0.5 ML VIAL SQ SCH ×3 (05:30→20:15)
[2020-04-20 06:59] LABS: Hematocrit (blood only) 36.8 % (37-47); Hemoglobin 11.3 g/dL (12.0-16.0); Mean Corpuscular Hemoglobin 32.2 pg (25-34); Mean Corpuscular Hgb Conc 30.7 g/dL (32-36); Mean Corpuscular Volume 104.8 fL (80-100); Mean Platelet Volume 10.5 fL (7.4-10.4); Platelet Count 305 K/uL (130-400); RDW Coefficient of Variation 15.3 % (11.5-14.5); Red Blood Count 3.51 M/uL (4.2-5.4); White Blood Count 5.89 K/uL (4.8-10.8)
[2020-04-20 07:35] LABS: BUN Creatinine Ratio 31.4 (10-20); Calcium 8.6 mg/dl (8.5-10.1); Est GFR (Non-African American) 41.4; Phosphorus 3.8 mg/dl (2.5-4.9); Potassium 4.8 mmol/L (3.5-5.1)
[2020-04-20] MEDS: INSULIN ASPART 100 UNITS/ML 3 ML PEN SC SCH ×4 (09:35→21:03)
[2020-04-20] MEDS: DOCUSATE SODIUM/SENNA 50/8.6MG TAB PO SCH ×2 (09:44→20:15)
[2020-04-20] MEDS: METOPROLOL TARTRATE 50 MG TAB PO SCH ×2 (09:44→19:57)
[2020-04-20] MEDS: DIGOXIN 0.125 MG TAB PO SCH (09:45)
[2020-04-20] MEDS: ASPIRIN 81 MG ECTAB PO SCH (09:46)
[2020-04-20] MEDS: GENTAMICIN SULFATE 0.3% OP OINT 3.5 GM TUBE OP SCH ×2 (09:46→20:15)
--- NOTE | 2020-04-20 11:05 | Hospitalist Progress Note ---
Date of Service April 20, 2020 Assessment & Plan (1) Acute alteration in mental status: This is an 89-year-old cachectic female that currently resides at [facility]. Admitting provider spoke with her daughter and she will be a DNR/DNI. She is found to be dehydrated by physical exam as well as with urinary tract infection. She did suffer a fall last night with no apparent injury. Remains critical but hemodynamically stable Has not been eating or drinking Discussed with the POA yesterday and informed that prognosis is going to very poor We will get palliative care involvement and likely convert the care to comfort from tomorrow (2) Acute dehydration: This appears to be prerenal as the patient's BUN is 36 and the creatinine is 1.08 We will hydrate with D5 normal saline at 80 mL/h Get repeat labs tomorrow morning We will continue with cautious amount of intravenous fluid (3) Bradycardia: History of atrial fibrillation Now has bloody arrhythmia occasionally No acute cardiac symptoms (4) Acute respiratory acidosis: Likely secondary to poor respiratory effort Patient has no acute respiratory distress and is currently with SaO2 of 99% Routine labs revealed a serum CO2 of 41 No indication for further intervention Will check repeat PRP tomorrow morning CO2 has been high at 44 as of this morning Has been requiring 3 L of oxygen to maintain saturation (5) Abnormal urinalysis: Likely has UTI Urine culture has been sent and she has been on intravenous ceftriaxone (6) Dysphagia: Not been eating and not drinking (7) Asthma: No acute exacerbation (8) Chronic atrial fibrillation: Has been on digoxin and metoprolol If the heart rate goes below 60 all the time we will decrease metoprolol (9) COPD (chronic obstructive pulmonary disease): No acute exacerbation (10) HTN (hypertension): (11) Diastolic CHF due to valvular disease: (12) CKD (chronic kidney disease) stage 3, GFR 30-59 ml/min: (13) DVT prophylaxis: Has been arranged subcu heparin Admission and Anticipated Discharge Date Admission Date: April 19, 2020 Subjective 04/20/2020 The patient was seen and examined in telemetry unit She remains extremely weak and lethargic and communicates minimally Has not been eating or drinking Review of Systems Review of Systems: Unobtainable due to mental health condition Physical Exam Physical Exam: Lying in bed comfortably Constitutional: + ill appearing, + thin and + cachectic; not in distress Eyes: PERRL, conjunctivae normal, anicteric sclerae ENMT: external ear and nose normal, oropharynx normal (Mouth breather) Neck: trachea midline, no thyromegaly Respiratory: no respiratory distress Auscultation: + diminished lung sounds; no wheezes Cardiovascular: Rate/Rhythm: + irregularly irregular Heart Sounds: + murmur (Prosthetic valve sound with 2/6 ejection systolic murmur over the precordiu) Extremities: no edema Gastrointestinal (Abdomen): Inspection/Auscultation: normal bowel sounds; abdomen not distended Percussion/Palpation: abdomen soft; abdomen nontender Musculoskeletal: No acute arthritis in any joint Neurologic: Alert and awakes with vocal commands. Minimally communicative. Extremely weak and lethargic. Psychiatric: Insight: + poor insight Lymphatic: no cervical or axillary lymphadenopathy Results & Data Results & Data ([facility]) Vital Signs (Past 12 Hours) Vital Signs Temp Pulse Pulse Resp BP Pulse Ox 04/20/20 09:45 65 04/20/20 07:55 36.3 C L 61 17 129/53 L 90 04/20/20 07:00 63 Laboratory Results Short CBC 04/20/20 Range/Units 06:41 WBC 5.89 (4.8-10.8) K/uL Hgb 11.3 L (12.0-16.0) g/dL Hct 36.8 L (37-47) % Plt Count 305 (130-400) K/uL BMP 04/20/20 06:41 Sodium 147 H Potassium 4.8 D Chloride 106 Carbon Dioxide 44 H* BUN 37 H Creatinine 1.18 Glucose 146 H Calcium 8.6 Urine 04/19/20 Range/Units 12:50 Urine Color Dark Yellow Urine Appearance Cloudy A (Clear) Urine pH 5.0 (4.5-7.5) Ur Specific [place] 1.017 (1.000-1.030) Urine Protein 1+ H (Negative) Urine Glucose (UA) Negative (Negative) Medications Administered Current Inpatient Medications Albuterol (Albut/Ipratrop 3mg/0.5mg Neb 3 Ml Vial) 3 ml INH Q4R PRN PRN Reason: COUGH, SOB OR WHEEZING Stop: 05/19/20 16:05 Aspirin (Aspirin 81 Mg Ectab) [facility] [place] Stop: 05/20/20 08:59 Last Admin: 04/20/20 09:46 Dose: 81 mg Documented by: Dextrose (Dextrose 50% 50 Ml Syringe) 25 - 50 ml IV UD PRN; Protocol PRN Reason: Hypoglycemia Protocol Stop: 05/19/20 16:05 Last Admin: 04/19/20 16:36 Dose: 50 ml Documented by: Digoxin (Digoxin 0.125 Mg Tab) 0.125 mg PO QAM [facility] Stop: 05/20/20 08:59 Last Admin: 04/20/20 09:45 Dose: 0.125 mg Documented by: Gentamicin Sulfate (Gentamicin Sulfate 0.3% Op Oint 3.5 Gm Tube) 1 appln OP BID [facility] Stop: 04/29/20 20:59 Last Admin: 04/20/20 09:46 Dose: 1 appln Documented by: Glucagon (Glucagon For Inj 1 Mg Vial) 1 mg SQ UD PRN; Protocol PRN Reason: Hypoglycemia Protocol Stop: 05/19/20 16:05 Glucose (Glucose 10 Tabs/Tube) 4 - 8 tabs PO UD PRN; Protocol PRN Reason: Hypoglycemia Protocol Stop: 05/19/20 16:05 Glucose (Glucose 40% Gel 15 Gm Tube) 15 - 30 gm PO UD PRN; Protocol PRN Reason: Hypoglycemia Protocol Stop: 05/19/20 16:05 Heparin Sodium (Porcine) (Heparin Sod 5,000 Unit/0.5 Ml Vial) 5,000 units SQ Q8 ANNA Stop: 05/19/20 16:05 Last Admin: 04/20/20 05:30 Dose: 5,000 units Documented by: Potassium Chloride/Dextrose/Sod Cl (D5nss + 20meq Kcl) 20 meq in 1,000 mls @ 80 mls/hr IV .[id number] [facility] Stop: 05/19/20 16:05 Last Admin: 04/20/20 04:43 Dose: 80 mls/hr Documented by: Ceftriaxone Sodium 1,000 mg/ (Dextrose) 50 mls @ 100 mls/hr IV Q24H [facility]; Protocol Stop: 04/25/20 12:59 Insulin Aspart (Insulin Aspart 100 Units/Ml 3 Ml Pen) 0 units SC ACHS [facility] Stop: 05/19/20 16:29 Last Admin: 04/20/20 09:35 Dose: Not Given Documented by: Latanoprost (Latanoprost 0.005% Op Soln 2.5 Ml Btl) 1 drops OPB HS ANNA Stop: 05/19/20 20:59 Last Admin: 04/19/20 19:51 Dose: 1 drops Documented by: Metoprolol Tartrate (Metoprolol Tartrate 50 Mg Tab) 50 mg PO BID ANNA Stop: 05/19/20 20:59 Last Admin: 04/20/20 09:44 Dose: 50 mg Documented by: Miscellaneous (Carbohydrates For Hypoglycemia ) 15 - 30 gm PO UD PRN PRN Reason: Hypoglycemia Protocol Stop: 05/19/20 16:05 Ondansetron HCl (Ondansetron Inj 2 Mg/Ml 2 Ml Vial) 4 mg IV Q6H PRN PRN Reason: Nausea Stop: 05/19/20 16:05 Senna/Docusate Sodium (Docusate Sodium/Senna 50/8.6mg Tab) 2 tab PO BID [facility] Stop: 05/19/20 20:59 Last Admin: 04/20/20 09:44 Dose: 2 tab Documented by: (1) Dysphagia Dysphagia type: unspecified Qualified Code(s): R13.10 - Dysphagia, unspecified (2) Asthma Asthma severity: mild Asthma persistence: intermittent Asthma complication type: uncomplicated Qualified Code(s): J45.20 - Mild intermittent asthma, uncomplicated (3) COPD (chronic obstructive pulmonary disease) COPD type: unspecified COPD Qualified Code(s): J44.9 - Chronic obstructive pulmonary disease, unspecified (4) CKD (chronic kidney disease) stage 3, GFR 30-59 ml/min Chronic kidney disease stage 3 subtype: stage 3a (GFR 45-59) Qualified Code(s): N18.31 - Chronic kidney disease, stage 3a
--- NOTE | 2020-04-20 13:20 | Electrocardiogram Report ---
Test Reason : Blood Pressure : / mmHG Vent. Rate : 075 BPM Atrial Rate : 220 BPM P-R Int : 000 ms QRS Dur : 074 ms QT Int : 318 ms P-R-T Axes : 000 191 257 degrees QTc Int : 355 ms Probably sinus with sinus arrhythmia although atrial fibrillation cannot be excluded Low voltage QRS Anterolateral infarct (cited on or before 20-APR-2020) Abnormal ECG When compared with ECG of 19-APR-2020 11:36, Questionable change in initial forces of Lateral leads Confirmed by Shane Daniels ([id number]) on 04/20/2020 1:20:13 PM Referred By: Latha Sandoval Confirmed By:Adan Daniels
[2020-04-20] MEDS: cefTRIAXone SODIUM 1,000 MG in DEXTROSE 5% 50 ML IV SCH (13:38)
[2020-04-20] MEDS: LATANOPROST 0.005% OP SOLN 2.5 ML BTL OPB SCH (20:15)
[2020-04-21] MEDS ORDERED: KETOROLAC TROMETHAMINE 15 MG/ML VIAL IV ONE (03:14)
[2020-04-21 05:57] LABS: Estimated Average Glucose 108 mg/dl; Hemoglobin A1C 5.4 % (4.5-5.6)
[2020-04-21] MEDS: HEPARIN SOD 5,000 UNIT/0.5 ML VIAL SQ SCH ×3 (06:18→23:04)
[2020-04-21] MEDS: D5NSS + 20MEQ KCL 20 MEQ/1,000 ML BAG IV SCH (06:18)
[2020-04-21 06:52] LABS: Hematocrit (blood only) 38.7 % (37-47); Hemoglobin 11.6 g/dL (12.0-16.0); Mean Corpuscular Hemoglobin 32.1 pg (25-34); Mean Corpuscular Volume 107.2 fL (80-100); Mean Platelet Volume 10.5 fL (7.4-10.4); Platelet Count 278 K/uL (130-400); RDW Coefficient of Variation 15.5 % (11.5-14.5); RDW Standard Deviation 61.2 fL (36.4-46.3); Red Blood Count 3.61 M/uL (4.2-5.4); White Blood Count 5.62 K/uL (4.8-10.8)
[2020-04-21 07:20] LABS: BUN Creatinine Ratio 28.9 (10-20); Calcium 8.2 mg/dl (8.5-10.1); Est GFR (African American) 54.1; Est GFR (Non-African American) 46.6; Potassium 4.6 mmol/L (3.5-5.1)
[2020-04-21] MEDS ORDERED: D5W AND 1/2NSS 1,000 ML IV SCH (07:45)
[2020-04-21] MEDS: INSULIN ASPART 100 UNITS/ML 3 ML PEN SC SCH ×2 (08:00→13:46)
--- NOTE | 2020-04-21 09:09 | Hospitalist Progress Note ---
Date of Service April 21, 2020 Assessment & Plan (1) Acute alteration in mental status: This is an 89-year-old cachectic female that currently resides at [place]. Admitting provider spoke with her daughter and she will be a DNR/DNI. She is found to be dehydrated by physical exam as well as with urinary tract infection. She did suffer a fall last night with no apparent injury. Remains critical but hemodynamically stable Has not been eating or drinking Discussed with the POA yesterday and informed that prognosis is going to very poor We will get palliative care involvement and likely convert the care to comfort from tomorrow Condition remains critical and deteriorated Appreciate palliative care input and recommendation Patient has been put on comfort care only We will transfer to medical floor and continue with the comfort care The son was aware about the care and I discussed that with him yesterday (2) Acute dehydration: This appears to be prerenal as the patient's BUN is 36 and the creatinine is 1.08 We will hydrate with D5 normal saline at 80 mL/h Get repeat labs tomorrow morning We will continue with cautious amount of intravenous fluid We will discontinue any intravenous fluid (3) Bradycardia: History of atrial fibrillation Now has bloody arrhythmia occasionally No acute cardiac symptoms (4) Acute respiratory acidosis: Likely secondary to poor respiratory effort Patient has no acute respiratory distress and is currently with SaO2 of 99% Routine labs revealed a serum CO2 of 41 No indication for further intervention Will check repeat PRP tomorrow morning CO2 has been high at 44 as of this morning Has been requiring 3 L of oxygen to maintain saturation Continue oxygen as needed (5) Abnormal urinalysis: Likely has UTI Urine culture has been sent and she has been on intravenous ceftriaxone Discontinue antibiotic (6) Dysphagia: Not been eating and not drinking (7) Asthma: No acute exacerbation (8) Chronic atrial fibrillation: Has been on digoxin and metoprolol If the heart rate goes below 60 all the time we will decrease metoprolol (9) COPD (chronic obstructive pulmonary disease): No acute exacerbation (10) HTN (hypertension): (11) Diastolic CHF due to valvular disease: (12) CKD (chronic kidney disease) stage 3, GFR 30-59 ml/min: (13) DVT prophylaxis: Has been arranged subcu heparin (14) Severe protein-calorie malnutrition: (15) Metabolic encephalopathy: Admission and Anticipated Discharge Date Admission Date: April 19, 2020 Subjective 04/20/2020 The patient was seen and examined in telemetry unit She remains extremely weak and lethargic and communicates minimally Has not been eating or drinking 04/21/2020 The patient was seen and examined in telemetry unit She remains critical but hemodynamically stable Minimally communicative and minimally responsive and has not been eating or drinking anything Review of Systems Review of Systems: Unobtainable due to mental health condition Physical Exam Physical Exam: Lying in bed semiresponsive without any acute distress Constitutional: + ill appearing, + thin and + cachectic; not in distress Eyes: PERRL, conjunctivae normal, anicteric sclerae ENMT: external ear and nose normal, oropharynx normal (Mouth breather) Neck: trachea midline, no thyromegaly Respiratory: no respiratory distress Auscultation: + diminished lung sounds; no wheezes Cardiovascular: Rate/Rhythm: + irregularly irregular Heart Sounds: + murmur (Prosthetic valve sound with 2/6 ejection systolic murmur over the precordiu) Extremities: no edema Gastrointestinal (Abdomen): Inspection/Auscultation: normal bowel sounds; abdomen not distended Percussion/Palpation: abdomen soft; abdomen nontender Neurologic: Alert and awake. Minimally responsive Psychiatric: Insight: + poor insight Lymphatic: no cervical or axillary lymphadenopathy Results & Data Results & Data ([facility]) Vital Signs (Past 12 Hours) Vital Signs Temp Pulse Pulse Resp BP Pulse Ox 04/21/20 07:27 16 128/53 L 04/21/20 03:00 36.4 C L 95 H 20 129/75 96 04/21/20 00:11 73 04/20/20 22:58 36.4 C L 60 20 140/58 L 98 Laboratory Results Short CBC 04/21/20 Range/Units 06:12 WBC 5.62 (4.8-10.8) K/uL Hgb 11.6 L (12.0-16.0) g/dL Hct 38.7 (37-47) % Plt Count 278 (130-400) K/uL BMP 04/21/20 06:12 Sodium 150 H Potassium 4.6 Chloride 111 H Carbon Dioxide 39 H BUN 31 H Creatinine 1.07 Glucose 108 H Calcium 8.2 L Medications Administered Current Inpatient Medications Albuterol (Albut/Ipratrop 3mg/0.5mg Neb 3 Ml Vial) 3 ml INH Q4R PRN PRN Reason: COUGH, SOB OR WHEEZING Stop: 05/19/20 16:05 Atropine Sulfate (Atropine Sulfate 1% Op Soln 5 Ml Btl) 4 drops OP Q3H PRN PRN Reason: secretions Stop: 05/21/20 11:14 Heparin Sodium (Porcine) (Heparin Sod 5,000 Unit/0.5 Ml Vial) 5,000 units SQ Q8 ANNA Stop: 05/19/20 16:05 Last Admin: 04/21/20 14:14 Dose: Not Given Documented by: Morphine Sulfate (Morphine Sulfate 5 Mg/0.25 Ml Udp) 5 mg PO Q2H PRN PRN Reason: Pain/air hunger Stop: 05/05/20 11:01 Last Admin: 04/21/20 12:47 Dose: 5 mg Documented by: Ondansetron HCl (Ondansetron Inj 2 Mg/Ml 2 Ml Vial) 4 mg IV Q6H PRN PRN Reason: Nausea Stop: 05/19/20 16:05 (1) CKD (chronic kidney disease) stage 3, GFR 30-59 ml/min Chronic kidney disease stage 3 subtype: stage 3a (GFR 45-59) Qualified Code(s): N18.31 - Chronic kidney disease, stage 3a (2) Dysphagia Dysphagia type: unspecified Qualified Code(s): R13.10 - Dysphagia, unspecified (3) COPD (chronic obstructive pulmonary disease) COPD type: unspecified COPD Qualified Code(s): J44.9 - Chronic obstructive pulmonary disease, unspecified (4) Asthma Asthma complication type: uncomplicated Asthma persistence: intermittent Asthma severity: mild Qualified Code(s): J45.20 - Mild intermittent asthma, uncomplicated
[2020-04-21] MEDS: ASPIRIN 81 MG ECTAB PO SCH (09:51)
[2020-04-21] MEDS: METOPROLOL TARTRATE 50 MG TAB PO SCH (09:52)
[2020-04-21] MEDS: DIGOXIN 0.125 MG TAB PO SCH (09:52)
[2020-04-21] MEDS: DOCUSATE SODIUM/SENNA 50/8.6MG TAB PO SCH (09:52)
[2020-04-21] MEDS: GENTAMICIN SULFATE 0.3% OP OINT 3.5 GM TUBE OP SCH (09:52)
--- NOTE | 2020-04-21 10:41 | Palliative Care Consultation ---
Date of Consultation April 21, 2020 Assessment & Plan (1) Palliative care encounter: Naty is an 89 year old female who presented to the [facility] from [facility] s/p an unwitnessed fall that she sustained and altered mental status. Additional PMH includes: chronic atrial fibrillation, CHF, hypertension, COPD, CKD stage III, osteoporosis, gout, GERD, history of esophageal stricture, history of Schatzki's ring, failure to thrive, and overall generalized weakness. Upon admission, she was found to have a UTiI that she did start to receive IV abx for treatment. Unfortunately, her prognosis is poor due to the extent of her fragility and deconditioned state. Palliative care was consulted to discuss goals of care. I met with Vickie in room 231. She was unresponsive and did not respond to verbal or tactile stimulation. Nursing was in the room attempting to establish IV access, without success. The patient is increasingly frail and appears to be entering the active dying phase of life. I reached out and spoke with Bryan, the patients son, and was able to answer questions regarding transition to comfort measures. Bryan indicated that she has declined rather rapidly over the past few months and he would want her to remain comfortable if her returning to baseline status was not looking promising. There are 5 siblings that may come to visit, Bryan, elvira, Angel, Jeane, Kwan and a significant other of 22 years, Brad who I did noemi a one time visit for end of life. The patient was grimacing when I was in the room and did not follow any commands. After discussion with Bryan, will make full transition to comfort measures only. We will discontinue all non essential medications that are not comfort focused, as patient is not safe for swallowing at this time. All blood draws were discontinued as well. Hold for IV placement at this time as we can administer oral/SL medications for comfort. Do not anticipate, at this time, that she will require IV access. Anticipated life expectacny hours to a few days. Should she plateau, revisit possibility of her returning home with hospice services. This was discussed with her son, Bryan. Will see how the next 24-48 hours goes. Palliative care will follow. Above discussed with the hospitalist, Dr. Horowitz and case management. (2) Severe protein-calorie malnutrition: (3) Acute alteration in mental status: (4) Acute dehydration: (5) Bradycardia: History of Present Illness Reason for Consultation: Goals of Care Requesting Physician: Dr. Horowitz Attending Physician: Alysia Horowitz MD History of Present Illness Naty is an 89 year old female who presented to the [facility] from [facility] s/p an unwitnessed fall that she sustained and altered mental status. Additional PMH includes: chronic atrial fibrillation, CHF, hypertension, COPD, CKD stage III, osteoporosis, gout, GERD, history of esophageal stricture, history of Schatzki's ring, failure to thrive, and overall generalized weakness.Upon admission, she was found to have a UTi that she did start to receive IV abx for treatment. Unfortunately, her prognosis is poor due to the extent of her fragility and deconditioned state. Palliative care was consulted to discuss goals of care. Please see A/P for further etails. Thank you kindly for involving palliative care with this unfortunate patient. Allergies Allergy/AdvReac Type Severity Reaction Status Date / Time Sulfa (Sulfonamide Allergy Severe Hives and Verified 04/19/20 09:54 Antibiotics) swelling of throat meperidine AdvReac Severe Hallucinations Verified 04/19/20 09:54 and tachycardia oxycodone AdvReac Severe Hallucinati Verified 04/19/20 09:54 ng lidocaine AdvReac Unknown Unknown Unverified 04/19/20 09:54 Home Medications Medication Instructions Recorded Confirmed Type albuterol sulfate [Ventolin HFA] 2 puff INHALATION Q4H PRN 01/06/18 04/19/20 History ipratropium-albuterol 3 ml INHALATION Q4H PRN 01/06/18 04/19/20 History aspirin 81 mg PO QAM 03/14/18 04/19/20 History furosemide 40 mg PO BIDM 09/06/19 04/19/20 History latanoprost 1 drp OPB HS 10/09/19 04/19/20 History sennosides-docusate sodium 2 tabcap PO BID 10/11/19 04/19/20 History [Senokot-S] Flovent HFA 2 puff INHALATION BID 11/09/19 04/19/20 History trazodone 50 mg PO HS #7 tab 11/16/19 04/19/20 Rx alprazolam 0.25 mg PO HS 02/18/20 04/19/20 History escitalopram oxalate 5 mg PO QAM 02/18/20 04/19/20 History acetaminophen [Tylenol] 650 mg PO Q4H PRN 04/19/20 04/19/20 History allopurinol 100 mg PO BID 04/19/20 04/19/20 History ydbptfnq-[id number]-uuddahq HMB 1 ea PO BID 04/19/20 04/19/20 History [Seng] cholecalciferol (vitamin D3) 25 mcg PO QAM 04/19/20 04/19/20 History [Vitamin D3] digoxin 0.125 mg PO QAM 04/19/20 04/19/20 History fluticasone propionate [Flonase] 2 spray INTRANASAL QAM 04/19/20 04/19/20 History furosemide 20 mg PO BIDM 04/19/20 04/19/20 History lansoprazole 30 mg PO DAILY@0600 04/19/20 04/19/20 History metoprolol tartrate 50 mg PO BID 04/19/20 04/19/20 History omeprazole 20 mg PO DAILY@0600 04/19/20 04/19/20 History prednisone 300 mg PO ONCE 04/19/20 04/19/20 History spironolactone 12.5 mg PO MOWEFR@0900 04/19/20 04/19/20 History zinc oxide 1 applic TOPICAL QS 04/19/20 04/19/20 History Patient History Medical History (Updated 04/21/20 @ 13:34 by BRIDGER Adams) Anemia, chronic renal failure Anxiety Aortic stenosis Atrial fibrillation CKD (chronic kidney disease) stage 3, GFR 30-59 ml/min COPD (chronic obstructive pulmonary disease) inhaler/nebulizer prn Depression Diastolic CHF due to valvular disease Dysphagia Glaucoma Hearing deficit History of rheumatic fever as a child HTN (hypertension) Hypertension On anticoagulant therapy warfarin daily On home oxygen therapy 1 L N/C at sleep and prn Osteoarthritis Palliative care encounter Surgical History History of aortic valve replacement 01/2018 @ [facility] [place] History of appendectomy History of bilateral tubal ligation History of cardiac cath 12/2017 no stents @ [facility] 01/2018 @ [facility] [place] no stents History of cholecystectomy History of colonoscopy with polypectomy History of esophagogastroduodenoscopy (EGD) History of tooth extraction all lower teeth History of total hysterectomy "fibroids" S/P cataract surgery bilt Family History Mother Heart disease Father Stroke Social History Smoking Status: Former smoker Tobacco Type: Cigarettes Cigarettes Per Day: quit 20yrs ago; Second Hand Exposure: No; Do You Dip or Chew Tobacco: No; Tobacco Cessation Education Requested by Patient: No Hx Alcohol Use: No Hx Substance Use: No Preferred Language: Maltese Communication Ability: Effective Visual Impairment: No Limitations Bander Hand Required: No Beliefs That Will Affect Care: None marital status: Life Partner Current Living Situation: Senior Care Current Living Situation Comment: [facility] for the past 3 weeks current occupational status: retired How many Children do You have: 5 Other Information That Helps Us Care for You: No Feels Safe at Home: Yes Safety Concerns: Feels Safe At This Time Assistive Devices: Denture - Upper, Denture - Lower, Hearing Aid - Bilateral and Oxygen - Continuous Review of Systems Review of Systems: Unobtainable due to reduced consciousness [place] System Assessment Scale: Pain: 1/3 By observation Shortness of Breath: 1/3 by Observation Palliative Performance Scale: 10% Physical Exam Constitutional: + thin, + cachectic, + frail appearing and + lethargic Neck: trachea midline, no thyromegaly Respiratory: normal respiratory effort Auscultation: + diminished lung sounds and + rhonchi Cardiovascular: Rate/Rhythm: regular rate Heart Sounds: normal S1 and normal S2 Extremities: normal capillary refill Gastrointestinal (Abdomen): normal bowel sounds, soft, nontender, no hepatosplenomegaly Skin: no rashes, warm and dry Psychiatric: Orientation: + not alert Apperance: + disheveled Eye Contact: + poor eye contact Results & Data ([facility]) Vital Signs (Past 12 Hours) Vital Signs Temp Pulse Pulse Resp BP Pulse Ox 04/21/20 09:52 86 04/21/20 07:27 16 128/53 L 04/21/20 03:00 36.4 C L 95 H 20 129/75 96 04/21/20 00:11 73 04/20/20 22:58 36.4 C L 60 20 140/58 L 98 PG Care Time/CCT Total # of Minutes Spent Total Time Spent with Patient: Total time spent is greater than 50% in coordination of care (as documented) at patient's floor/unit and/or counseling patient: 100 Coding Level of Care Code 99926 Inpt Consult Level 4 Diagnoses Palliative care encounter Z51.5 Severe protein-calorie malnutrition E43 Acute alteration in mental status R41.82 Acute dehydration E86.0 Bradycardia R00.1 Time Spent (min) 100
[2020-04-21] MEDS ORDERED: ATROPINE SULFATE 1% OP SOLN 5 ML BTL OP PRN (11:03)
[2020-04-21] MEDS: MoRPHine SULFATE 5 MG/0.25 ML UDP PO PRN ×2 (12:47→21:16)
[2020-04-21] MEDS: cefTRIAXone SODIUM 1,000 MG in DEXTROSE 5% 50 ML IV SCH (13:32)
[2020-04-22 05:50] LABS: Hematocrit (blood only) 38.8 % (37-47); Hemoglobin 11.5 g/dL (12.0-16.0); Mean Corpuscular Hgb Conc 29.6 g/dL (32-36); Mean Corpuscular Volume 108.1 fL (80-100); Mean Platelet Volume 10.6 fL (7.4-10.4); Platelet Count 261 K/uL (130-400); RDW Coefficient of Variation 15.7 % (11.5-14.5); RDW Standard Deviation 61.7 fL (36.4-46.3); Red Blood Count 3.59 M/uL (4.2-5.4); White Blood Count 5.93 K/uL (4.8-10.8)
[2020-04-22 06:14] LABS: BUN Creatinine Ratio 24.1 (10-20); Calcium 8.5 mg/dl (8.5-10.1); Creatinine Clr Calc Pharmacy 18.8 ml/min; Est GFR (African American) 40.1; Est GFR (Non-African American) 34.6; Potassium 5.2 mmol/L (3.5-5.1)
--- NOTE | 2020-04-22 12:30 | Palliative Care Progress Note ---
Date of Service April 22, 2020 Assessment & Plan (1) Palliative care encounter: Per family wishes, her care is focused on comfort only. I met with her daughter, Deborah, in the room. She asked me about miracles. I suggested that the miracle we should hope for is for Naty to have a peaceful . We discussed prognosis, she does not appear to be actively dying, but will likely not live beyond a week or two. (2) Metabolic encephalopathy: (3) Severe protein-calorie malnutrition: Admission and Anticipated Discharge Date Admission Date: April 19, 2020 Subjective Opens eyes briefly with contact but settles very quickly. Per RN, she has been restless at times but settles with repositioning. She had prn morphine x 2 yesterday. She did have a few bites of food today. Review of Systems Review of Systems: [place] Symptom Assessment Scale Pain 0/3 Dyspnea 0/3 Nausea 0/3 Anxiety 1/3 Anorexia 2/3 Drowsiness 2/3 Palliative Performance Score 20% Physical Exam Constitutional: + thin and + frail appearing ENMT: Mouth: + dry oral mucous membranes Respiratory: normal respiratory effort; no labored breathing Gastrointestinal (Abdomen): Percussion/Palpation: abdomen nontender Musculoskeletal: Extremities: + muscle atrophy Neurologic: lethargic PG Care Time/CCT Total # of Minutes Spent Total Time Spent with Patient: Total time spent is greater than 50% in coordination of care (as documented) at patient's floor/unit and/or counseling patient: Coding Level of Care Code 23382 Subseq Hosp Care Lvl 2 Diagnoses Palliative care encounter Z51.5 Metabolic encephalopathy G93.41 Severe protein-calorie malnutrition E43
--- NOTE | 2020-04-22 16:51 | Hospitalist Progress Note ---
Date of Service April 22, 2020 Assessment & Plan (1) Acute alteration in mental status: (2) Acute dehydration: (3) Bradycardia: (4) Acute respiratory acidosis: (5) Abnormal urinalysis: (6) Dysphagia: (7) Asthma: (8) Chronic atrial fibrillation: (9) COPD (chronic obstructive pulmonary disease): (10) HTN (hypertension): (11) Diastolic CHF due to valvular disease: (12) CKD (chronic kidney disease) stage 3, GFR 30-59 ml/min: (13) Severe protein-calorie malnutrition: (14) Metabolic encephalopathy: 89-year-old female with multiple admissions with us in the past and was recently discharged 02/20/2020. She has a past medical history including chronic atrial fibrillation, no anticoagulation secondary to falls, chronic diastolic CHF, hypertension, COPD, CKD stage III, osteoporosis, gout, GERD, history of esophageal stricture, history of Schatzki's ring, failure to thrive, generalized weakness. Presented to the ER for dehydration and UTI Pt has a very poor prognosis and her condition remains critical and deteriorated palliative care on board Pt was transition to comfort care only She does not appear to be actively dying Continue oxygen supplement Will continue comfort care med only Admission and Anticipated Discharge Date Admission Date: April 19, 2020 Subjective Pt was seen and examined for follow up on comfort care Lying in bed with no distress Look comfortable in bed Denies any chest pain, palpitation, dizziness and pain Physical Exam Physical Exam: General- No acute distress, frail, thin Head- atraumatic Eyes- PERRL, EOMI, ENT- oropharynx clear Neck- supple, no JVD Lungs- clear to auscultation Heart- +Irregularly irregular, + systolic murmur Abdomen- normal bowel sounds, soft, nontender Extremities- no calf tenderness, +edema Neuro- alert, awake; PERRL, EOMI; no facial palsy; no dysarthria Skin- warm & dry (1) CKD (chronic kidney disease) stage 3, GFR 30-59 ml/min Chronic kidney disease stage 3 subtype: stage 3a (GFR 45-59) Qualified Code(s): N18.31 - Chronic kidney disease, stage 3a (2) Dysphagia Dysphagia type: unspecified Qualified Code(s): R13.10 - Dysphagia, unspecified (3) COPD (chronic obstructive pulmonary disease) COPD type: unspecified COPD Qualified Code(s): J44.9 - Chronic obstructive pulmonary disease, unspecified (4) Asthma Asthma complication type: uncomplicated Asthma persistence: intermittent Asthma severity: mild Qualified Code(s): J45.20 - Mild intermittent asthma, uncomplicated
[2020-04-22] MEDS: MoRPHine SULFATE 5 MG/0.25 ML UDP PO PRN ×2 (21:18→23:49)
[2020-04-23] MEDS: MoRPHine SULFATE 5 MG/0.25 ML UDP PO PRN ×2 (08:22→13:43)
--- NOTE | 2020-04-23 10:32 | Palliative Care Progress Note ---
Date of Service April 23, 2020 Assessment & Plan (1) Palliative care encounter: She does appear to be having pain and has had increased frequency of morphine dosing in last 12 hours. Will change to routine roxanol with prn dosing. I spoke with her son on the phone and updated him on changes. She is likely within a day or two of her . He would prefer not to visit today. Pallilative Care will follow. Admission and Anticipated Discharge Date Admission Date: April 19, 2020 Subjective Restless at times. Facial grimace when aroused. Nods when asked if having li n. "I have to go". Review of Systems Review of Systems: [place] Symptom Assessment Scale PainAD 2/3 Dyspnea 0/3 Drowsiness 2/3 Anorexia 3/3 Palliative Performance Score 20% Physical Exam Constitutional: + cachectic; no acute distress responds to touch, facial grimace when aroused ENMT: Mouth: + dry oral mucous membranes Respiratory: no audible rhonchi Cardiovascular: Rate/Rhythm: + irregularly irregular Gastrointestinal (Abdomen): Percussion/Palpation: abdomen nontender Musculoskeletal: Extremities: + muscle atrophy Skin: mottling noted on knees PG Care Time/CCT Total # of Minutes Spent Total Time Spent with Patient: Total time spent is greater than 50% in coordination of care (as documented) at patient's floor/unit and/or counseling patient: Coding Level of Care Code 24984 Subseq Hosp Care Lvl 2 Diagnoses Palliative care encounter Z51.5
[2020-04-23] MEDS: MoRPHine SULFATE 10 MG/0.5 ML UDP PO SCH ×2 (11:02→17:53)
--- NOTE | 2020-04-23 17:08 | Hospitalist Progress Note ---
Date of Service April 23, 2020 Assessment & Plan (1) Acute alteration in mental status: (2) Acute dehydration: (3) Bradycardia: (4) Acute respiratory acidosis: (5) Abnormal urinalysis: (6) Dysphagia: (7) Asthma: (8) Chronic atrial fibrillation: (9) COPD (chronic obstructive pulmonary disease): (10) HTN (hypertension): (11) Diastolic CHF due to valvular disease: (12) CKD (chronic kidney disease) stage 3, GFR 30-59 ml/min: (13) Severe protein-calorie malnutrition: (14) Metabolic encephalopathy: 89-year-old female with multiple admissions with us in the past and was recently discharged 02/20/2020. She has a past medical history including chronic atrial fibrillation, no anticoagulation secondary to falls, chronic diastolic CHF, hypertension, COPD, CKD stage III, osteoporosis, gout, GERD, history of esophageal stricture, history of Schatzki's ring, failure to thrive, generalized weakness. Presented to the ER for dehydration and UTI Pt has a very poor prognosis and her condition remains critical and deteriorated palliative care on board Pt was transition to comfort care only Seems to appear to be dying since she is weak and sleepy today compare to yesterday Continue oxygen supplement Continue comfort care med only Admission and Anticipated Discharge Date Admission Date: April 19, 2020 Subjective Pt was seen and examined for follow up on comfort care Lying in bed sleeping comfortable Physical Exam Physical Exam: General- No acute distress, frail, thin Head- atraumatic Eyes- PERRL, EOMI, ENT- oropharynx clear Neck- supple, no JVD Lungs- diminished BS Heart- +Irregularly irregular, + systolic murmur Abdomen- normal bowel sounds, soft, nontender Neuro- sleeping (1) CKD (chronic kidney disease) stage 3, GFR 30-59 ml/min Chronic kidney disease stage 3 subtype: stage 3a (GFR 45-59) Qualified Code(s): N18.31 - Chronic kidney disease, stage 3a (2) Dysphagia Dysphagia type: unspecified Qualified Code(s): R13.10 - Dysphagia, unspecified (3) COPD (chronic obstructive pulmonary disease) COPD type: unspecified COPD Qualified Code(s): J44.9 - Chronic obstructive pulmonary disease, unspecified (4) Asthma Asthma complication type: uncomplicated Asthma persistence: intermittent Asthma severity: mild Qualified Code(s): J45.20 - Mild intermittent asthma, uncomplicated
--- NOTE | 2020-04-23 19:15 | Death Pronouncement Note ---
Date of Service April 23, 2020 Pronouncement Note Admission Date Admission Date: April 19, 2020 noted to have ceased breathing, no pulse seen and examined at bedside confirmed: no heart sounds no respiration no pulse patient pronounced at 6pm Luis Eduardo Sharp MD Contributing Factors (1) Acute alteration in mental status: (2) Acute dehydration: (3) Bradycardia: (4) Acute respiratory acidosis: (5) Abnormal urinalysis: (6) Dysphagia: (7) Asthma: (8) Chronic atrial fibrillation: (9) COPD (chronic obstructive pulmonary disease): (10) HTN (hypertension): (11) Diastolic CHF due to valvular disease: (12) CKD (chronic kidney disease) stage 3, GFR 30-59 ml/min: (13) Severe protein-calorie malnutrition: (14) Metabolic encephalopathy: Additional Data Attending physician: Rom Silver MD
--- NOTE | 2020-04-24 08:26 | Discharge Summary ---
Date of Service April 23, 2020 Admission HPI Per Admitting Provider Attending: Dr. Horowitz This is an 89-year-old female. She has had multiple admissions with us in the past and was recently discharged 02/20/2020. She has a past medical history including chronic atrial fibrillation, no anticoagulation secondary to falls, chronic diastolic CHF, hypertension, COPD, CKD stage III, osteoporosis, gout, GERD, history of esophageal stricture, history of Schatzki's ring, failure to thrive, generalized weakness. The patient has been at [facility]. She has been there for the past 3 weeks according to her boyfriend who is with her in the emergency department. She has continued to decline since her last admission. Last evening she had an unwitnessed fall and was found in her room. She did not appear to be injured so they put her back to bed. This morning she was found to be unresponsive. She was transported to [facility] emergency department for evaluation treatment. A CT scan of the head was negative. Hip and pelvic imaging was negative for acute fracture. Chest x-ray showed chronic findings with no acute findings. The patient is awake in her room but unresponsive. She does follow simple commands such as grasping fingers and can acknowledge right from left. She is nonverbal. She does not move her legs to command although she does have sensation to pain in her great toe on each foot. She is able to move all 4 extremities. Her boyfriend is with her and states that she has not had any reported nausea or vomiting. She has not had any aspiration that he is aware of. She has not had any fever or chills. Laborator y findings do show a positive UTI and she is started with treatment on ceftriaxone. She does appear dry with a glucose of 64 milligrams per decaliter. TSH is 4.96. She is in atrial fibrillation with a current rate of 60 bpm. It was reported that she dropped down into the 40s earlier in her ER stay. Patient is unable to provide review of systems. History obtained from chart review and from boyfriend who is present. Admission Exam Per Admitting Provider GENERAL : No acute distress. Patient appears extremely cachectic and frail. EYES: No icterus, gaze conjugate. Difficulty opening patient's eyelids. Pupils are round and equal and reactive to light. NOSE: No evidence of epistaxis MOUTH: No lesions or candidiasis. Mouth is open with severely dry mucosa. Patient does not close mouth to command. Tongue is midline. No appreciation of facial droop. NECK: Supple LUNGS: Patient does not follow commands for deep inspiration. She does appear to have some very fine bronchospasm at the bilateral bases on the posterior. HEART: Irregular, irregular, rate controlled in the 60s ABDOMEN: Soft, NT, ND, BS Present EXTREMITIES: No LE edema, pedal pulses intact. NEURO: Awake and lethargic. Follows some simple commands such as hand grasp and raising right versus left hand. Pupils equal round and reactive to light. No other simple commands followed. Patient is nonverbal. Principal Diagnosis (1) Acute alteration in mental status: (2) Acute dehydration: (3) Bradycardia: (4) Acute respiratory acidosis: (5) Abnormal urinalysis: (6) Dysphagia: (7) Asthma: (8) Chronic atrial fibrillation: (9) COPD (chronic obstructive pulmonary disease): (10) HTN (hypertension): (11) Diastolic CHF due to valvular disease: (12) CKD (chronic kidney disease) stage 3, GFR 30-59 ml/min: (13) Severe protein-calorie malnutrition: (14) Metabolic encephalopathy: Discharge Exam noted to have ceased breathing, no pulse seen and examined at bedside confirmed: no heart sounds no respiration no pulse Discharge Data Allergies Allergy/AdvReac Type Severity Reaction Status Date / Time Sulfa (Sulfonamide Allergy Severe Hives and Verified 04/19/20 09:54 Antibiotics) swelling of throat meperidine AdvReac Severe Hallucinations Verified 04/19/20 09:54 and tachycardia oxycodone AdvReac Severe Hallucinati Verified 04/19/20 09:54 ng lidocaine AdvReac Unknown Unknown Unverified 04/19/20 09:54 Consultations 04/19/20 13:06 ED Decision to Admit Stat 04/19/20 16:06 Consult Case Management - Discharge Planning Routine Consult Palliative Care Stat Ordered Studies 04/19/20 09:20 CT cervical spine wo con Stat CT head/brain wo con Stat XR pelvis 1-2V routine CLINICAL HISTORY: fall COMPARISON: CT of the abdomen and pelvis February 18, 2020. FINDINGS: Sacroiliac joints and symphysis pubis are intact. Evaluation of the proximal right femur is suboptimal given positioning. However, no acute fracture is identified within the pelvis or hips. There is moderate osteophytosis of both hips. IMPRESSION: No acute fracture within the pelvis or hips. ACT 112: Negative or not required by law. Electronically signed by: Vinicio Silva M.D. 04/19/2020 11:01 AM Dictated: 04/19/20 1100Transcribed: 04/19/[address] OF THE HEAD WITHOUT CONTRAST CLINICAL HISTORY: fall COMPARISON STUDY: Head CT June 15, 2017. TECHNIQUE: Helical axial images of the head were obtained without IV contrast. Automated exposure control was utilized for the study. A dose lowering technique was utilized adhering to the principles of ALARA. FINDINGS: No acute intracranial hemorrhage, midline shift or mass effect is present. The ventricular system is unremarkable. The basal cisterns are patent. No extra-axial collections are present. There are no findings to suggest acute dural sinus thrombosis or acute territorial infarct. No significant calvarial abnormalities are present. Visualized portions of the sinuses and mastoid air cells are clear. IMPRESSION: 1. No acute intracranial findings. 2. No calvarial fracture. ACT 112: Negative or not required by law. Electronically signed by: Vinicio Silva M.D. 04/19/2020 11:00 AM Dictated: 04/19/20 1057Transcribed: 04/19/20 1057 XR chest 1V portable CLINICAL HISTORY: weakness COMPARISON STUDY: Chest CT February 18, 2020. FINDINGS: Prosthetic aortic valve is noted. Moderate cardiomegaly is unchanged. Small to moderate right and small left pleural effusions are noted. These were shown on prior exam. There are persistent bibasilar opacities. There is no pneumothorax. Patient is mildly rotated. IMPRESSION: No significant change in appearance of the chest. Small to moderate right and small left pleural effusions with associated bibasilar opacities. No pneumothorax. ACT 112: Negative or not required by law. Electronically signed by: Vinicio Silva M.D. 04/19/2020 11:03 AM Dictated: 04/19/20 1102Transcribed: 04/19/[address] OF THE CERVICAL SPINE WITHOUT CONTRAST CLINICAL HISTORY: fall COMPARISON STUDY: No previous studies for comparison. TECHNIQUE: Helical axial images of the cervical spine were obtained without IV contrast. Sagittal and coronal reconstructions were viewed. Automated exposure control was utilized for the study. A dose lowering technique was utilized adhering to the principles of ALARA. FINDINGS: There is straightening of the normal cervical lordosis. There is slight anterolisthesis of C4 on C5 due to facet arthrosis. Severe multilevel facet arthrosis is noted. There is also severe disc space narrowing with osteophytosis at C5-C6 and C6-C7. There is no acute fracture. Craniocervical junction is intact. IMPRESSION: No acute cervical spine fracture or subluxation. ACT 112: Negative or not required by law. Electronically signed by: Vinicio Silva M.D. 04/19/2020 11:07 AM Dictated: 04/19/201104Transcribed: 04/19/20 110 Hospital Course (1) Acute alteration in mental status: (2) Acute dehydration: (3) Bradycardia: (4) Acute respiratory acidosis: (5) Abnormal urinalysis: (6) Dysphagia: (7) Asthma: (8) Chronic atrial fibrillation: (9) COPD (chronic obstructive pulmonary disease): (10) HTN (hypertension): (11) Diastolic CHF due to valvular disease: (12) CKD (chronic kidney disease) stage 3, GFR 30-59 ml/min: (13) Severe protein-calorie malnutrition: (14) Metabolic encephalopathy: 89-year-old female with multiple admissions with us in the past and was recently discharged 02/20/2020. She has a past medical history including chronic atrial fibrillation, no anticoagulation secondary to falls, chronic diastolic CHF, hypertension, COPD, CKD stage III, osteoporosis, gout, GERD, history of esophageal stricture, history of Schatzki's ring, failure to thrive, generalized weakness. Presented to the ER for dehydration and UTI Pt has a very poor prognosis and her condition remains critical and deteriorated palliative care on board Pt was transition to comfort care only Seems to appear to be dying since she is weak and sleepy today compare to yesterday Continue oxygen supplement Continue comfort care med only Addedum noted to have ceased breathing, no pulse seen and examined at bedside confirmed: no heart sounds no respiration no pulse patient pronounced at 6pm Total Time Total Time Spent Total Time Spent (In Minutes): 15 minutes Total Time Includes: Examination of the Patient, Discharge Planning, Medication Reconciliation, Communication With Other Providers and Other Discharge Plan Discharge Items Patient Disposition:
--- NOTE | 2020-04-26 09:22 | Electrocardiogram Report ---
Test Reason : Blood Pressure : / mmHG Vent. Rate : 086 BPM Atrial Rate : 091 BPM P-R Int : 000 ms QRS Dur : 080 ms QT Int : 348 ms P-R-T Axes : 000 -23 187 degrees QTc Int : 416 ms Probable Atrial fibrillation with premature ventricular or aberrantly conducted complexes Pulmonary disease pattern Diffuse Nonspecific T wave abnormality Abnormal ECG When compared with ECG of 20-APR-2020 07:13, Criteria for Anterolateral infarct no longer present Aberrant conduction vs. PVC now present Confirmed by Pierce Donovan ([id number]) on 04/26/2020 9:22:25 AM Referred By: Latha Sandoval Confirmed By:Pierce Donovan
== END 2020-04-23 20:19 | disposition expired | DRG 640 ==
LOC: ED 09:06 → SUATTDRO 13:52 → 2S 13:52 → 3E 04-21 11:29